=== PATIENT | female | born 1945 | race Two or more races ===

== ENCOUNTER 2020-06-26 11:32 | Inpatient (IN) | payer MEDICAID ==
[~2020-06-26] VITALS: Ht 152.4 cm; Wt 65.1 kg
[2020-06-26] VITALS (11 sets, daily range): BP systolic 92–104; BP diastolic 43–67
[2020-06-26] MEDS ORDERED: AMLODIPINE BESYL5 MG ORAL (11:47)
[2020-06-26] MEDS ORDERED: LANTUS SOL100 UNIT/1 SUBQ (11:48)
[2020-06-26] MEDS ORDERED: HUMALOG100 UNIT/4 SUBQ (11:48)
[2020-06-26] MEDS ORDERED: Vancomycin 1 GM in NS 275 ML IVPB ONE (12:15)
[2020-06-26] MEDS ORDERED: Sodium Chloride 1,900 ML IVLG ONE (12:15)
[2020-06-26] MEDS ORDERED: cefTRIAXone 1 GM in NS 55 ML IV ONE (12:15)
--- NOTE | 2020-06-26 12:20 | NUR ---
Patient came into ER from [facility]. Per report from laboratory equipment cleaner, patient was noted to be lethargic this morning with a BS of >500. Has an extensive medical history of CVA, HTN and DM. Per laboratory equipment cleaner, patient was given 2 units of insulin with stable B/P on route to ED. Femoral line placed by . Intubated due to periods of apnea upon admit Guillen placed.
[2020-06-26 12:31] LABS: APPEARANCE,URINE CLEAR; BILIRUBIN, URINE NEGATIVE (NEGATIVE); COLOR,URINE PALE YELLOW; GLUCOSE, URINE (UA) 3+ (NEGATIVE); KETONES,URINE NEGATIVE (NEGATIVE); LEUKOCYTE ESTERASE ,URINE NEGATIVE (NEGATIVE); NITRITE,URINE NEGATIVE (NEGATIVE); PH,URINE 6 (4.5-8.0); PROTEIN,URINE NEGATIVE (NEGATIVE); UROBILINOGEN,URINE NORMAL MG/DL (0.0-1.0)
[2020-06-26 12:39] LABS: ANION GAP 15 mmol/L (5-15); BLOOD UREA NITROGEN 143 mg/dL (7-18); CALCIUM 9.7 MG/DL (8.5-10.1); CARBON DIOXIDE 23 MMOL/L (21-32); CHLORIDE 109 MMOL/L (98-107); POTASSIUM 3.9 MMOL/L (3.5-5.1); SODIUM 147 MMOL/L (136-145)
[2020-06-26 12:46] LABS: HEMATOCRIT 19.9 % (37.0-47.0); MEAN CORPUSCULAR VOLUME 97 FL (80-99); PLATELET COUNT 160 K/UL (150-450); RED BLOOD COUNT 2.04 M/UL (4.20-5.40); RED CELL DISTRIBUTION WIDTH 12.8 % (11.6-14.8); WHITE BLOOD COUNT 20.5 K/UL (4.8-10.8)
[2020-06-26 12:48] LABS: HEMOGLOBIN 6.2 G/DL (12.0-16.0)
[2020-06-26 12:50] LABS: ALANINE AMINOTRANSFERASE 47 U/L (12-78); ALBUMIN 2.5 G/DL (3.4-5.0); ALBUMIN/GLOBULIN RATIO 0.7 (1.0-2.7); ALKALINE PHOSPHATASE 77 U/L (46-116); ASPARTATE AMINO TRANSFERASE 21 U/L (15-37); BILIRUBIN,TOTAL 0.6 MG/DL (0.2-1.0); CREATINE KINASE 27 U/L (26-308); FERRITIN 316 NG/ML (8-388); LACTATE DEHYDROGENASE 229 U/L (81-234)
[2020-06-26 12:54] LABS: INR 1.3 (0.9-1.1)
--- NOTE | 2020-06-26 12:57 | Emergency Room Report ---
History of Present Illness General Chief Complaint: Altered Mental Status Source: Family Member - daughter, EMS Present Illness HPI Paramedics were summoned to intermediate facility for altered mental status. Initial blood pressure was low. They were unable to establish an IV. Repeat blood pressure was better. In addition sugar high at SNF. Insulin was administered after they found that the blood sugar was high. Apparently the patient has suffered a stroke recently. In discussion with the patient's daughter this is additional history: Walked into [facility] 06/12 (walker). D/C 06/15, R weakness. Unable to ambulate. Last Saturday (7d) went to [place]. Had pacemaker placed. Daughter not certain as to why pacer placed. D/C to [facility] 2 days ago. At discharge from [place] she was unable to return to home. Further history is unobtainable. Allergies: Coded Allergies: No Known Allergies (Unverified , 06/26/20) COVID-19 Screening Contact w/high risk pt: No Experienced COVID-19 symptoms?: No COVID-19 Testing performed HEAD BOOKKEEPER: Yes COVID-19 Screening: Negative COVID-19 COVID-19 Testing Source: nasal Patient History Limited by: medical condition Past Medical History: see triage record, CVA/TIA Past Surgical History: pacemaker Social History: Denies: smoking, alcohol use, drug use Social History Narrative family were caretakers Now: No Reviewed Nursing Documentation: PMH: Agreed; PSxH: Agreed Nursing Documentation-PMH Past Medical History Deferred: Patient Unconscious Hx Cardiac Problems: Yes Hx Hypertension: Yes Hx Diabetes: Yes Hx Neurological Problems: Yes Hx Cerebrovascular Accident: Yes Review of Systems All Other Systems: limited Physical Exam Vital Signs Date Time Temp Pulse Resp B/P (MAP) Pulse Ox O2 Delivery O2 Flow Rate FiO2 06/26/20 11:33 125 35 54/41 (45) 100 Ambu-Bag 06/26/20 11:42 99.0 06/26/20 11:52 35 Sp02 EP Interpretation: reviewed, abnormal - as interpreted by me General Appearance: severe distress, other - unresponsive, Chronically Ill, Stupor Eyes: right eye other - blink reflex, L no reflex ENT: dry mucus membranes - no gag Neck: supple Respiratory: other - abd breathing, bradypneic Cardiovascular #1: regular rate, rhythm, no edema Cardiovascular #2: 1+ carotid (L) Gastrointestinal: non-distended, other - as patient unresponsive, exam not contributory, decreased bowel sounds Genitourinary: normal inspection Musculoskeletal: other - flaccid Neurologic: motor weakness - L, but unresponsive, other - blink reflex R eye Psychiatric: other - unresponsive Skin: pallor Procedures Critical Care Time Critical Care Time Total Critical Care Time: 120 Min bedside evaluation and treatment excludes procedures (EKG, intubation, CVP). Reason for critical care: Respiratory failure, severe sepsis, elevated troponin, acute renal failure, determination of level of care and discussion with family, discussion with consultants Possible complications: hypotension, hypertension, NC, shock, arrhythmias, metabolic acidosis, end organ damage, respiratory failure. Interventions: Intubation, central line, sepsis resuscitation, repeat evaluations, discussion with family and ascertainment of CODE STATUS, repeat evaluations, sedation, discussion with admitting physician and consultants Course: Patient presented with respiratory failure. Immediate assisting of airway by me with bag valve mask as others were working the patient up to monitors and attempting IVs. Patient intubated. Central line begun as patient extremely hypotensive and still unresponsive. Fluid resuscitation begun. Bloods drawn through central line by me. Antibiotics begun. Patient is volume responsive. Elevated troponin treated. No obvious source of sepsis and therefore CAT scan ordered. Antibiotics broadened. Discussion with family regarding CODE STATUS. They state that the patient a long time ago had stated that she wanted to be a DNR. Discussed with admitting physician. Patient beginning to wake. Sedation ordered. Repeat lactic acid improved. CT with ch oledocholithiasis. Communication with surgeon. Discussed with ID data quality consultant. Consultations: nursing staff, EMS, family, admitting MD, surgeon, ID data quality consultant Performed by: Dr. Campoverde Tolerated well condition = critical Central Line Central Line : Consent: Emergent Central Line Lumen: triple Maximal Sterile Barrier Tech: yes cap, yes mask, yes sterile gown, yes sterile gloves, yes large sterile sheet, yes hand hygiene, yes chlorhexidine prep Central Line Postion: femoral (R) Anesthesia: None US Guided Line?: Yes Vessel visualized with U/S: Right Femoral Vein Ultrasound Findings: Collapsible Vessel, Vessel Patent, Visualize vessel puncture Complications: none Central Line Post Position: sutured, good blood return Attempts: One Patient Tolerated: Well Complications: None Progress Estimated blood loss 4 cc during procedure and 40 mils with blood draw Intubation Intubation : Consent: Emergent Intubation Method: orotracheal Tube Size (cm): 7.5 Medications: Other - None Breath Sounds after Intubation: equal Intubation Complications: no complications Post Intubation Xray: Yes Attempts: One Patient Tolerated: Well Complications: None Medical Decision Making Diagnostic Impression: Primary Impression: Severe sepsis Additional Impressions: Respiratory failure Qualified Codes: J96.01 - Acute respiratory failure with hypoxia; J96.02 - Acute respiratory failure with hypercapnia NSTEMI (non-ST elevated myocardial infarction) ARF (acute renal failure) Qualified Codes: N17.9 - Acute kidney failure, unspecified Hyperglycemia Choledocholithiasis Hemiparesis Qualified Codes: I69.354 - Hemiplegia and hemiparesis following cerebral infarction affecting left non-dominant side Anemia Qualified Codes: D64.9 - Anemia, unspecified ER Course Patient presents with a history of altered level of consciousness via EMS. Immediately noted that the patient was very dyspneic and not moving air well with hypotension and hypoxia. Assisted ventilations by me leading to emergent intubation. Patient was also hypotensive and nurses unable to start peripheral IVs. Right femoral central line begun by me. Bloods drawn and fluid resuscitation begun immediately. Hemiparesis previously reported by family. Respiratory failure might be due to hypotension in the presence of prior CVA. Differential includes severe sepsis, respiratory failure, acute myocardial infarction, pulmonary embolus, Covid amongst others. Evaluation with EKG, chest x-ray and labs. Sepsis resuscitation and antibiotics immediately ordered. Chest x-ray without infiltrates. ET tube is slightly high. Position is adequate however after orogastric tube ordered the ET tube will be positioned lower. White count elevated with left shift. CMP with acute renal failure. BP better with fluids. ABG on vent compensated metabolic acidosis. Based on x-ray and labs COVID-19 is less likely however patient still under investigation. Initial lactate elevated. BP better. Adding levaquin. Elevated troponin. Aspirin ordered. Sepsis re-evaluation. Source not identified. CT ordered. Bolus had been given. Patient still unresponsive. 1325 Discussed with daughter. Patient wishes and daughter = DNR. Understands patient intubated. Ordered. [address] Lenz for admission. Contact Dr. Shah regarding CT with choledocholithiasis in the face of norm al LFTs. Discussed with ID data quality consultant. Starting to wake up. Sedation ordered with Versed and fentanyl. Repeat lactic acid improved. Blood glucose also improved. Condition is guarded and patient is admitted to ICU. Laboratory Tests Test 06/26/20 11:56 06/26/20 12:40 06/26/20 15:10 06/26/20 15:19 Urine Color Pale yellow Urine Appearance Clear Urine pH 6 (4.5-8.0) Urine Specific [place] 1.010 (1.005-1.035) Urine Protein Negative (NEGATIVE) Urine Glucose (UA) 3+ (NEGATIVE) H Urine Ketones Negative (NEGATIVE) Urine Blood Negative (NEGATIVE) Urine Nitrite Negative (NEGATIVE) Urine Bilirubin Negative (NEGATIVE) Urine Urobilinogen Normal MG/DL (0.0-1.0) Urine Leukocyte Esterase Negative (NEGATIVE) Sodium Level 147 MMOL/L (136-145) H Potassium Level 3.9 MMOL/L (3.5-5.1) Chloride Level 109 MMOL/L (98-107) H Carbon Dioxide Level 23 MMOL/L (21-32) Anion Gap 15 mmol/L (5-15) Blood Urea Nitrogen 143 mg/dL (7-18) H Creatinine 3.0 MG/DL (0.55-1.30) H Estimated Glomerular Filtration Rate 15.3 mL/min (>60) Glucose Level 347 MG/DL (74-106) H Lactic Acid Level 5.50 mmol/L (0.4-2.0) H 2.30 mmol/L (0.66-2.22) H Calcium Level 9.7 MG/DL (8.5-10.1) Magnesium Level 2.2 MG/DL (1.8-2.4) Ferritin 316 NG/ML (8-388) Total Bilirubin 0.6 MG/DL (0.2-1.0) Aspartate Amino Transferase (AST) 21 U/L (15-37) Alanine Aminotransferase (ALT) 47 U/L (12-78) Alkaline Phosphatase 77 U/L (46-116) Lactate Dehydrogenase 229 U/L (81-234) Total Creatine Kinase 27 U/L (26-308) Troponin I 0.164 ng/mL (0.000-0.056) C-Reactive Protein, Quantitative 0.9 mg/dL (0.00-0.90) Pro-B-Type Natriuretic Peptide 683 pg/mL (0-125) H Total Protein 6.1 G/DL (6.4-8.2) L Albumin 2.5 G/DL (3.4-5.0) L Globulin 3.6 g/dL Albumin/Globulin Ratio 0.7 (1.0-2.7) L Lipase 608 U/L (73-393) H White Blood Count 20.5 K/UL (4.8-10.8) H Red Blood Count 2.04 M/UL (4.20-5.40) L Hemoglobin 6.2 G/DL (12.0-16.0) *L Hematocrit 19.9 % (37.0-47.0) L Mean Corpuscular Volume 97 FL (80-99) Mean Corpuscular Hemoglobin 30.3 PG (27.0-31.0) Mean Corpuscular Hemoglobin Concent 31.1 G/DL (32.0-36.0) L Red Cell Distribution Width 12.8 % (11.6-14.8) Platelet Count 160 K/UL (150-450) Mean Platelet Volume 7.6 FL (6.5-10.1) Neutrophils (%) (Auto) % (45.0-75.0) Lymphocytes (%) (Auto) % (20.0-45.0) Monocytes (%) (Auto) % (1.0-10.0) Eosinophils (%) (Auto) % (0.0-3.0) Basophils (%) (Auto) % (0.0-2.0) Differential Total Cells Counted 100 Neutrophils % (Manual) 77 % (45-75) H Lymphocytes % (Manual) 18 % (20-45) L Monocytes % (Manual) 5 % (1-10) Eosinophils % (Manual) 0 % (0-3) Basophils % (Manual) 0 % (0-2) Band Neutrophils 0 % (0-8) Nucleated Red Blood Cells 1 /100 WBC Platelet Estimate Adequate Platelet Morphology Normal Hypochromasia 1+ Prothrombin Time 14.1 SEC (9.30-11.50) H Prothrombin Time INR 1.3 (0.9-1.1) H Activated Partial Thromboplast Time 20 SEC (23-33) L D-Dimer 2.45 mg/L FEU (0.00-0.49) H Arterial Blood pH 7.314 (7.350-7.450) Arterial Blood Partial Pressure CO2 32.9 mmHg (35.0-45.0) L Arterial Blood Partial Pressure O2 147.3 mmHg (75.0-100.0) H Arterial Blood HCO3 16.3 mmol/L (22.0-26.0) *L Arterial Blood Oxygen Saturation 98.1 % (95-100) Arterial Blood Base Excess -9.0 (-2-2) L Jaret Test Positive POC Whole Blood Glucose 172 MG/DL (74-106) H Test 06/26/20 16:15 Troponin I Pending EKG Diagnostic Results Rate: tachycardiac Rhythm: NSR ST Segments: no acute changes - pacs Rhythm Strip Diag. Results EP Interpretation: yes Rhythm: NSR, no PVC's, no ectopy Chest X-Ray Diagnostic Results Chest X-Ray Diagnostic Results #1: Chest X-Ray Ordered: Yes # of Views/Limited/Complete: 1 View Indication: Other EP Interpretation: Yes Interpretation: no consolidation, no effusion, no pneumothorax, other - ET slightly high no infiltrates, defibrillator left Impression: Other Electronically Signed by: Electronically signed by Serafin Campoverde MD Chest X-Ray Diagnostic Results #2: Chest X-Ray Ordered: Yes # of Views/Limited/Complete: 1 View Indication: Other EP Interpretation: Yes Interpretation: no consolidation, no effusion, no pneumothorax, other - ET tube letter placement, OG tube stomach, defibrillator pacer Impression: Other Electronically Signed by: Electronically signed by Serafin Campoverde MD CT/MRI/US Diagnostic Results CT/MRI/US Diagnostic Results : Imaging Test Ordered: Abdomen and pelvis Impression Biliary dilation attributable to choledocholithiasis. 1.2 and 1.3 cm calculi in the proximal and distal CBD respectively. The distended gallbladder contains a large lamellated stone. Haziness about the pancreas could be attributable to motion artifact, but in light of biliary findings, recommend checking enzymes. The rectum is distended by inspissated stool and contrast. Correlate for impaction. Last Vital Signs Date Time Temp Pulse Resp B/P (MAP) Pulse Ox O2 Delivery O2 Flow Rate FiO2 06/26/20 18:00 89 18 100 06/26/20 18:00 96.7 103/67 (79) 06/26/20 16:52 Endotracheal Tube 30.0 06/26/20 16:33 30 Status: improved Disposition: ADMITTED INPATIENT Condition: Critical Referrals: Vanessa Lenz M.D. (PCP) Serafin Campoverde MD Jun 26, 2020 12:57
--- NOTE | 2020-06-26 13:00 | Diagnostic Imaging Report ---
EXAM: XR Chest, 1 View CLINICAL HISTORY: ALOC TECHNIQUE: Frontal view of the chest. COMPARISON: No relevant prior studies available. FINDINGS: Lungs: No consolidation. Pleural space: Unremarkable. No pneumothorax. Heart/mediastinum: Heart size is borderline enlarged. Dual-lead pacer device and a left subclavian approach. Aortic calcification. Prominent pulmonary arteries could reflect hypertension Bones/joints: Degenerative changes. Tubes/lines: The tip of the ET tube projects 6.2 cm above the shailesh IMPRESSION: Tip of the ET tube projects 6.2 cm above the shailesh. Prominent pulmonary arteries. Consider pulmonary hypertension. Pacer device with borderline cardiomegaly. No overt edema.
--- NOTE | 2020-06-26 13:05 | NUR ---
OG tube inserted
--- NOTE | 2020-06-26 14:01 | NUR ---
Patient taken to CT
--- NOTE | 2020-06-26 14:06 | Diagnostic Imaging Report ---
EXAM: XR Chest, 1 View CLINICAL HISTORY: TUBE PLACEMENT TECHNIQUE: Frontal view of the chest. COMPARISON: 06/26/20 at 0428 hours. FINDINGS/IMPRESSION: Interval placement of enteric tube. The sidehole is near the GE junction. Recommend advancing 5-10 cm. Appropriately positioned endotracheal tube, tip projecting 4.5 cm above the shailesh. Pacer device. No overt edema
--- NOTE | 2020-06-26 15:07 | Diagnostic Imaging Report ---
EXAM: CT Abdomen and Pelvis Without Intravenous Contrast CLINICAL HISTORY: ALOC TECHNIQUE: Axial computed tomography images of the abdomen and pelvis without intravenous contrast. CTDI is 4.7 mGy and DLP is 236.10 mGy-cm. One or more of the following dose reduction techniques were used: automated exposure control, adjustment of the mA and/or kV according to patient size, use of iterative reconstruction technique. COMPARISON: No relevant prior studies available. FINDINGS: The lung bases demonstrate no acute infiltrate. Mild atelectasis only. Cardiac pacer device with CAD. Markedly distended gallbladder, up to 6.2 cm in transverse diameter. 4.2 cm dependent gallstone with lamellated calcification. Biliary dilation. The common bile duct measures up to 1.2 cm in diameter. 1.2 cm stone within the proximal CBD. 1.3 cm stone distally near the ampulla of Vater as seen on coronal images 31 and 33 respectively. Haziness about the pancreas could be attributable to motion artifact, but given choledocholithiasis, would recommend correlation with enzymes to exclude gallstone pancreatitis. The spleen is diminutive, but otherwise unremarkable. The kidneys and adrenal glands are within normal limits for noncontrast technique. Inspissated stool and contrast distended rectum up to 7 cm in diameter. Correlate for impaction. No perforation. No small bowel obstruction. Guillen catheter with redundant tubing in the urinary bladder, which is appropriately decompressed. Right femoral venous catheter. Operative changes of the pelvis suggesting lymph node dissection along with hysterectomy. Aortoiliac atherosclerosis. No aneurysm. No acute fracture. IMPRESSION: Biliary dilation attributable to choledocholithiasis. 1.2 and 1.3 cm calculi in the proximal and distal CBD respectively. The distended gallbladder contains a large lamellated stone. Haziness about the pancreas could be attributable to motion artifact, but in light of biliary findings, recommend checking enzymes. The rectum is distended by inspissated stool and contrast. Correlate for impaction. Lines and tubes and incidental findings as detailed above.
[2020-06-26] MEDS ORDERED: Midazolam HCl 50mg/10ml vial 50 MG in NS 90 ML IV ONE (16:00)
--- NOTE | 2020-06-26 16:03 | Infectious Diseases Prog Note ---
Assessment/Plan Assessment/Plan Full consul dictated: A) 1) sepsis, shock, leukocytosis, lgt 2) ? pna, respiratory failure 3) ? cholecystitis 4) pmh noted 5) allergies - nkda P) 1) zoysn and vancomycin 2) check cultures, labs, chest x-ray, US, ? hida 3) surgery and GI f/u 4) thank you Subjective Allergies: Coded Allergies: No Known Allergies (Unverified , 06/26/20) Objective Last 24 Hour Vital Signs Date Time Temp Pulse Resp B/P (MAP) Pulse Ox O2 Delivery O2 Flow Rate FiO2 06/26/20 13:23 72 28 Mechanical Ventilator 100 06/26/20 11:52 98 20 35 06/26/20 11:42 99.0 06/26/20 11:33 125 35 54/41 (45) 100 Ambu-Bag Height (Feet): 5 Weight (Pounds): 143 Laboratory Tests Test 06/26/20 11:56 06/26/20 12:40 06/26/20 15:10 06/26/20 15:19 Urine Color Pale yellow Urine Appearance Clear Urine pH 6 (4.5-8.0) Urine Specific [place] 1.010 (1.005-1.035) Urine Protein Negative (NEGATIVE) Urine Glucose (UA) 3+ (NEGATIVE) H Urine Ketones Negative (NEGATIVE) Urine Blood Negative (NEGATIVE) Urine Nitrite Negative (NEGATIVE) Urine Bilirubin Negative (NEGATIVE) Urine Urobilinogen Normal MG/DL (0.0-1.0) Urine Leukocyte Esterase Negative (NEGATIVE) Sodium Level 147 MMOL/L (136-145) H Potassium Level 3.9 MMOL/L (3.5-5.1) Chloride Level 109 MMOL/L (98-107) H Carbon Dioxide Level 23 MMOL/L (21-32) Anion Gap 15 mmol/L (5-15) Blood Urea Nitrogen 143 mg/dL (7-18) H Creatinine 3.0 MG/DL (0.55-1.30) H Estimat Glomerular Filtration Rate 15.3 mL/min (>60) Glucose Level 347 MG/DL (74-106) H Lactic Acid Level 5.50 mmol/L (0.4-2.0) H 2.30 mmol/L (0.66-2.22) H Calcium Level 9.7 MG/DL (8.5-10.1) Magnesium Level 2.2 MG/DL (1.8-2.4) Ferritin 316 NG/ML (8-388) Total Bilirubin 0.6 MG/DL (0.2-1.0) Aspartate Amino Transf (AST/SGOT) 21 U/L (15-37) Alanine Aminotransferase (ALT/SGPT) 47 U/L (12-78) Alkaline Phosphatase 77 U/L (46-116) Lactate Dehydrogenase 229 U/L (81-234) Total Creatine Kinase 27 U/L (26-308) Troponin I 0.164 ng/mL (0.000-0.056) C-Reactive Protein, Quantitative 0.9 mg/dL (0.00-0.90) Pro-B-Type Natriuretic Peptide 683 pg/mL (0-125) H Total Protein 6.1 G/DL (6.4-8.2) L Albumin 2.5 G/DL (3.4-5.0) L Globulin 3.6 g/dL Albumin/Globulin Ratio 0.7 (1.0-2.7) L Lipase 608 U/L (73-393) H White Blood Count 20.5 K/UL (4.8-10.8) H Red Blood Count 2.04 M/UL (4.20-5.40) L Hemoglobin 6.2 G/DL (12.0-16.0) *L Hematocrit 19.9 % (37.0-47.0) L Mean Corpuscular Volume 97 FL (80-99) Mean Corpuscular Hemoglobin 30.3 PG (27.0-31.0) Mean Corpuscular Hemoglobin Concent 31.1 G/DL (32.0-36.0) L Red Cell Distribution Width 12.8 % (11.6-14.8) Platelet Count 160 K/UL (150-450) Mean Platelet Volume 7.6 FL (6.5-10.1) Neutrophils (%) (Auto) % (45.0-75.0) Lymphocytes (%) (Auto) % (20.0-45.0) Monocytes (%) (Auto) % (1.0-10.0) Eosinophils (%) (Auto) % (0.0-3.0) Basophils (%) (Auto) % (0.0-2.0) Differential Total Cells Counted 100 Neutrophils % (Manual) 77 % (45-75) H Lymphocytes % (Manual) 18 % (20-45) L Monocytes % (Manual) 5 % (1-10) Eosinophils % (Manual) 0 % (0-3) Basophils % (Manual) 0 % (0-2) Band Neutrophils 0 % (0-8) Nucleated Red Blood Cells 1 /100 WBC Platelet Estimate Adequate Platelet Morphology Normal Hypochromasia 1+ Prothrombin Time 14.1 SEC (9.30-11.50) H Prothromb Time International Ratio 1.3 (0.9-1.1) H Activated Partial Thromboplast Time 20 SEC (23-33) L D-Dimer 2.45 mg/L FEU (0.00-0.49) H Arterial Blood pH 7.314 (7.350-7.450) Arterial Blood Partial Pressure CO2 32.9 mmHg (35.0-45.0) L Arterial Blood Partial Pressure O2 147.3 mmHg (75.0-100.0) H Arterial Blood HCO3 16.3 mmol/L (22.0-26.0) *L Arterial Blood Oxygen Saturation 98.1 % (95-100) Arterial Blood Base Excess -9.0 (-2-2) L Jaret Test Positive POC Whole Blood Glucose 172 MG/DL (74-106) H Current Medications Medications (Trade) Dose Ordered Sig/Reinier Route PRN Reason Start Time Stop Time Status Last Admin Dose Admin Fentanyl Citrate 1000 mcg/Sodium Chloride 100 ml @ 0.5 mls/hr NOW ONCE IV 06/26/20 16:00 07/04/20 23:59 Midazolam HCl 50 mg/Sodium Chloride 100 ml @ 2 mls/hr NOW ONCE IV 06/26/20 16:00 06/28/20 17:59 Piperacillin Sod/ Tazobactam Sod 3.375 gm/Dextrose 100 ml @ 25 mls/hr EVERY 12 HOURS IVPB 06/26/20 21:00 07/01/20 20:59 UNV Sodium Chloride 1,000 ml @ 200 mls/hr Q5H IV 06/26/20 15:15 07/26/20 15:14 06/26/20 15:52 Vancomycin HCl ([facility] pharmacy to dose) 1 ea DAILY PRN MISC Per rx protocol 06/26/20 16:00 07/26/20 15:59 Milo Pastrana MD Jun 26, 2020 16:03
--- NOTE | 2020-06-26 16:21 | Consultation ---
History of Present Illness General Chief Complaint: Altered Mental Status Present Illness HPI Paramedics were summoned to [facility] facility for altered mental status. Initial blood pressure was low. They were unable to establish an IV. Repeat blood pressure was better. In addition sugar high at SNF. Insulin was administered after they found that the blood sugar was high. Apparently the patient has suffered a stroke recently.In discussion with the patient's daughter this is additional history:Walked into [facility] 06/12 (walker). D/C 05/28 0, R weakness. Unable to ambulate. Last Saturday (7d) went to [place]. Had pacemaker placed. Daughter not certain as to why pacer placed. D/C to [facility] 2 days ago. At discharge from [place] she was unable to return to home. Allergies: Coded Allergies: No Known Allergies (Unverified , 06/26/20) Medication History Scheduled Amlodipine Besylate* (Amlodipine Besylate*), 5 MG ORAL DAILY, (Reported) Aspirin* (Aspirin*), 81 MG ORAL DAILY, (Reported) Docusate Sodium* (Docusate Sodium*), 100 MG ORAL TWICE A DAY, (Reported) Hydrochlorothiazide* (Hydrochlorothiazide*), 25 MG ORAL DAILY, (Reported) Insulin Glargine (Lantus), 15 UNITS SUBQ BEDTIME, (Reported) Insulin Lispro (Humalog), 0 SUBQ AC+HS, (Reported) Losartan Potassium* (Losartan Potassium*), 100 MG ORAL DAILY, (Reported) Scheduled PRN Acetaminophen* (Acetaminophen 325MG Tablet*), 325 MG ORAL Q4H PRN for MILDP/TEMP, (Reported) Bisacodyl (Bisacodyl), 10 MG RC for Constipation, (Reported) Guaifenesin/D-Methorphan Hb/Pe (Robitussin Cough-Cold Cf Liq*), 5 ML ORAL Q4HR PRN for FOR COUGH, (Reported) Hydralazine Hcl* (Hydralazine Hcl*), 25 MG ORAL QID PRN for For High Blood Pressure, (Reported) Melatonin/Pyridoxine HCl (B6) (Melatonin 3 mg Tablet), 1 EACH PO BEDTIME PRN for INSOMNIA, (Reported) Ondansetron* (Zofran*), 4 MG ORAL Q4HR PRN for Nausea & Vomiting, (Reported) Patient History Healthcare decision maker Resuscitation status Advanced Directive on File Review of Systems ROS Narrative unable to obtain due to clinical condition Physical Exam Lines, tubes and drains: peripheral, central line HEENT: normocephalic, atraumatic Neck: non-tender, normal alignment Respiratory/Chest: on vent Cardiovascular/Chest: normal peripheral pulses, normal rate, regular rhythm Abdomen: normal bowel sounds, non tender Extremities: normal range of motion, non-tender Last 24 Hour Vital Signs Date Time Temp Pulse Resp B/P (MAP) Pulse Ox O2 Delivery O2 Flow Rate FiO2 06/26/20 13:23 72 28 Mechanical Ventilator 100 06/26/20 11:52 98 20 35 06/26/20 11:42 99.0 06/26/20 11:33 125 35 54/41 (45) 100 Ambu-Bag Laboratory Tests Test 06/26/20 11:56 06/26/20 12:40 06/26/20 15:10 06/26/20 15:19 Urine Color Pale yellow Urine Appearance Clear Urine pH 6 (4.5-8.0) Urine Specific [place] 1.010 (1.005-1.035) Urine Protein Negative (NEGATIVE) Urine Glucose (UA) 3+ (NEGATIVE) H Urine Ketones Negative (NEGATIVE) Urine Blood Negative (NEGATIVE) Urine Nitrite Negative (NEGATIVE) Urine Bilirubin Negative (NEGATIVE) Urine Urobilinogen Normal MG/DL (0.0-1.0) Urine Leukocyte Esterase Negative (NEGATIVE) Sodium Level 147 MMOL/L (136-145) H Potassium Level 3.9 MMOL/L (3.5-5.1) Chloride Level 109 MMOL/L (98-107) H Carbon Dioxide Level 23 MMOL/L (21-32) Anion Gap 15 mmol/L (5-15) Blood Urea Nitrogen 143 mg/dL (7-18) H Creatinine 3.0 MG/DL (0.55-1.30) H Estimat Glomerular Filtration Rate 15.3 mL/min (>60) Glucose Level 347 MG/DL (74-106) H Lactic Acid Level 5.50 mmol/L (0.4-2.0) H 2.30 mmol/L (0.66-2.22) H Calcium Level 9.7 MG/DL (8.5-10.1) Magnesium Level 2.2 MG/DL (1.8-2.4) Ferritin 316 NG/ML (8-388) Total Bilirubin 0.6 MG/DL (0.2-1.0) Aspartate Amino Transf (AST/SGOT) 21 U/L (15-37) Alanine Aminotransferase (ALT/SGPT) 47 U/L (12-78) Alkaline Phosphatase 77 U/L (46-116) Lactate Dehydrogenase 229 U/L (81-234) Total Creatine Kinase 27 U/L (26-308) Troponin I 0.164 ng/mL (0.000-0.056) C-Reactive Protein, Quantitative 0.9 mg/dL (0.00-0.90) Pro-B-Type Natriuretic Peptide 683 pg/mL (0-125) H Total Protein 6.1 G/DL (6.4-8.2) L Albumin 2.5 G/DL (3.4-5.0) L Globulin 3.6 g/dL Albumin/Globulin Ratio 0.7 (1.0-2.7) L Lipase 608 U/L (73-393) H White Blood Count 20.5 K/UL (4.8-10.8) H Red Blood Count 2.04 M/UL (4.20-5.40) L Hemoglobin 6.2 G/DL (12.0-16.0) *L Hematocrit 19.9 % (37.0-47.0) L Mean Corpuscular Volume 97 FL (80-99) Mean Corpuscular Hemoglobin 30.3 PG (27.0-31.0) Mean Corpuscular Hemoglobin Concent 31.1 G/DL (32.0-36.0) L Red Cell Distribution Width 12.8 % (11.6-14.8) Platelet Count 160 K/UL (150-450) Mean Platelet Volume 7.6 FL (6.5-10.1) Neutrophils (%) (Auto) % (45.0-75.0) Lymphocytes (%) (Auto) % (20.0-45.0) Monocytes (%) (Auto) % (1.0-10.0) Eosinophils (%) (Auto) % (0.0-3.0) Basophils (%) (Auto) % (0.0-2.0) Differential Total Cells Counted 100 Neutrophils % (Manual) 77 % (45-75) H Lymphocytes % (Manual) 18 % (20-45) L Monocytes % (Manual) 5 % (1-10) Eosinophils % (Manual) 0 % (0-3) Basophils % (Manual) 0 % (0-2) Band Neutrophils 0 % (0-8) Nucleated Red Blood Cells 1 /100 WBC Platelet Estimate Adequate Platelet Morphology Normal Hypochromasia 1+ Prothrombin Time 14.1 SEC (9.30-11.50) H Prothromb Time International Ratio 1.3 (0.9-1.1) H Activated Partial Thromboplast Time 20 SEC (23-33) L D-Dimer 2.45 mg/L FEU (0.00-0.49) H Arterial Blood pH 7.314 (7.350-7.450) Arterial Blood Partial Pressure CO2 32.9 mmHg (35.0-45.0) L Arterial Blood Partial Pressure O2 147.3 mmHg (75.0-100.0) H Arterial Blood HCO3 16.3 mmol/L (22.0-26.0) *L Arterial Blood Oxygen Saturation 98.1 % (95-100) Arterial Blood Base Excess -9.0 (-2-2) L Jaret Test Positive POC Whole Blood Glucose 172 MG/DL (74-106) H Height (Feet): 5 Weight (Pounds): 143 Medications Current Medications Medications (Trade) Dose Ordered Sig/Reinier Route PRN Reason Start Time Stop Time Status Last Admin Dose Admin Fentanyl Citrate 1000 mcg/Sodium Chloride 100 ml @ 0.5 mls/hr NOW ONCE IV 06/26/20 16:00 07/04/20 23:59 Midazolam HCl 50 mg/Sodium Chloride 100 ml @ 2 mls/hr NOW ONCE IV 06/26/20 16:00 06/28/20 17:59 Piperacillin Sod/ Tazobactam Sod 3.375 gm/Dextrose 100 ml @ 25 mls/hr EVERY 12 HOURS IVPB 06/26/20 21:00 07/01/20 20:59 UNV Sodium Chloride 1,000 ml @ 200 mls/hr Q5H IV 06/26/20 15:15 07/26/20 15:14 06/26/20 15:52 Vancomycin HCl ([facility] pharmacy to dose) 1 ea DAILY PRN MISC Per rx protocol 06/26/20 16:00 07/26/20 15:59 UNV Assessment/Plan Diagnosis [place] I: #DAYO - likely ATN in the setting of septic shock #Acute anemia #hypoxemic resp failure - vent dependent #NSTEMI #AMS #p Afib #Dm #HTN #HLD #s/p PPM - admit to ICU - pulm eval for vent management - prbc transfusion - monitor renal function - ID consulted - antibiotics per ID - cardiology eval - monitor troponin level - monitor lytes - pressors prn - monitor LFTs - echo - renal US - urine chem time spent 65 min Vanessa Lenz M.D. Jun 26, 2020 16:21
[2020-06-26] MEDS: Norepinephrine 4mg/NS Premix 250 ML IV SCH (16:45)
[2020-06-26] MEDS: D5NS 1,000 ML IV SCH (16:45)
--- NOTE | 2020-06-26 19:40 | NUR ---
NURSE NOTES: Received report from SHANNON Acharya. Pt is sleeping on the bed. Pt has new ETT and orally intubated. Vend dependent and setting with AC ; 16, T: 400, P:5, FiO2 30% and SaO2 100% noted. given suction and oral care. no fever noted. Pt has pace maker. on radiographer cardiac catheterization with SR. Pt has OGT and fixed with 50cm. on NPO. Pt has Rt. femoral TLC and dressing is clean and dry but no Biopatch dressing. Will change to central line dressing. Pt has Guillen cath and in placed and patent. noted yellowish urine. On isolation for PUI COVID-19. Placed fall precaution. Will continue to care plan.
--- NOTE | 2020-06-26 19:50 | NUR ---
NURSE NOTES: Left message to Dr. Lenz for verify admission order and awaiting call back.
[2020-06-26] MEDS ORDERED: Acetaminophen 650mg/20.3ml NG PRN (20:00)
--- NOTE | 2020-06-26 20:07 | NUR ---
NURSE NOTES: Get call back from Dr. henao and verified order and new order received carried out. Report to troponin level 0.263 and MD aware. Will continue to monitor any change of condition.
--- NOTE | 2020-06-26 20:20 | NUR ---
NURSE NOTES: left message to Dr. Lawson regarding result of troponin level and Lefe message to Dr. Doe for sedation order and awating call back.
[2020-06-26] MEDS: Dyna-Hex 2% Top Sol 2oz TOPIC SCH (20:44)
[2020-06-26] MEDS: Atorvastatin 80mg tab ORAL SCH ×2 (20:44→22:36)
[2020-06-26] MEDS: Pantoprazole Inj IVP SCH (20:44)
--- NOTE | 2020-06-26 20:54 | NUR ---
NURSE NOTES: Telephone consent received for Blood Transfusion and other Blood products if indicated. Telephone consent was verified by two nurses Bret ORTEGAwill call clerk Nurse and Magalie ORTEGA Primary nurse.
--- NOTE | 2020-06-26 21:09 | NUR ---
NURSE NOTES: Advance OGT 10cm more and get order with KUB for NGT placement. Will continue to monitor any change of condition.
[2020-06-26] MEDS: NovoLOG Insulin Flexpen SUBQ SCH (21:16)
--- NOTE | 2020-06-26 21:50 | NUR ---
NURSE NOTES: left message to Dr. Doe again and awaiting call back.
--- NOTE | 2020-06-26 22:22 | Diagnostic Imaging Report ---
EXAM: XR Abdomen, 1 View CLINICAL HISTORY: NGT TECHNIQUE: Frontal supine view of the abdomen/pelvis. COMPARISON: No relevant prior studies available. FINDINGS: Gastrointestinal tract: Scattered retained contrast material within the colon. No dilation. Tubes, lines and devices: Gastric decompression tube terminates in the region of the pylorus. Right femoral central line in place. IMPRESSION: Gastric decompression tube terminates in the region of the pylorus.
--- NOTE | 2020-06-26 22:40 | NUR ---
NURSE NOTES: Pt has episode of SVT with HR going up to 164's during 3 seconds but pit is stable condition. BP; 93/59, Sao2 100% with Vent. Informed and Left message to Dr. Lawson and awaiting call back.
--- NOTE | 2020-06-26 22:42 | NUR ---
NURSE NOTES: Pt is sleeping on the bed. No sign of active bleeding. Verified with charge nurse Bret regarding pt's name, MR number, , Unit number, ABO/RH and date. Started 1st PRBC blood transfusion. checked BP : 93/59mmH, HR; 89's, BT; 98.1F and SaO2 100% with current Vent setting. Started 1st PRBC blood transfusion. Will continue to monitor any change of condition.
--- NOTE | 2020-06-26 23:02 | NUR ---
NURSE NOTES: On running with 1st PRBC blood transfusion without adverse reaction. Checked V/S BP: 104/49, HR; 94, BT; 98.4F and SaO2 100%. Will continue to monitor any change of condition.
[2020-06-27] VITALS (57 sets, daily range): BP systolic 80–138; BP diastolic 40–63
[2020-06-27] MEDS: NovoLOG Insulin Flexpen SUBQ SCH ×6 (01:27→21:18)
--- NOTE | 2020-06-27 01:29 | Consultation ---
DATE OF CONSULTATION: 06/26/2020 INFECTIOUS DISEASE CONSULTATION CONSULTING PHYSICIAN: Milo Abbott M.D. ATTENDING PHYSICIAN: Vanessa Lenz M.D. REFERRING PHYSICIAN: Vanessa Lenz M.D. REASON FOR CONSULTATION: Sepsis shock, leukocytosis, fevers, possible cholecystitis, possible pneumonia, respiratory failure, vent, and pressors. CHIEF COMPLAINT: The patient's chief complaint coming into the hospital is respiratory failure with sepsis and shock. HISTORY OF PRESENT ILLNESS: This is a 74-year-old female who could not give the history. She is currently in the emergency room at [facility]. The patient comes in with tachycardia, low-grade fevers, and respiratory failure that require pressors. Initial blood pressure is 54/41. The patient is in septic shock with leukocytosis. The patient's lactic acid is 5.5. CT scan of the abdomen and pelvis showed biliary dilatation, distended gallbladder, and choledocholithiasis. Infectious Disease consultation is requested. She in discussion with the ER doctor, the patient has been recently hospitalized and had a pacemaker and possible CVA. She did have left-sided weakness. This is previous hospitalization. Now, she is into the hospital as discussed for respiratory failure and septic shock. The patient was placed empirically on vancomycin and Zosyn. Initial chest x-ray showed no consolidation. COVID testing is pending. UA was negative. Blood cultures are pending. Again, the patient will be on vancomycin and Zosyn for sepsis shock for now. REVIEW OF SYSTEMS: CONSTITUTIONAL: The patient is intubated in the ER. She is in COVID isolation. HEAD AND NECK: Orally intubated. CARDIAC: She will be started on pressors. GASTROINTESTINAL: No nausea, vomiting, or diarrhea. GENITOURINARY: She has a Guillen. PULMONARY: On a vent. Otherwise review of systems is limited in this patient. PAST MEDICAL HISTORY: The patient's past medical history includes the following. The patient has a past medical history of cardiac disease and pacemaker. She has a history of hypertension, diabetes, neurological problems, CVA, and left-sided weakness. MEDICATIONS: Upon reviewing the MAR, she is on the following medications. She was given Levaquin and Rocephin and put on Zosyn and vancomycin. She is on fentanyl. She is on metolazone, Zosyn, vancomycin, fentanyl, Levaquin, Rocephin, and intravenous fluids. Outside medications were noted and reconciliated. She was on amlodipine and insulin in the outpatient setting. ALLERGIES: She has no known drug allergies. No antibiotic allergies. SOCIAL HISTORY: Negative for smoking, alcohol, or drug abuse. FAMILY HISTORY: Noncontributory. PHYSICAL EXAMINATION: VITAL SIGNS: Low-grade temperature of 99, pulse rate 72, and respiratory rate 28. She is on FiO2 100%, saturation 100%. She was on FiO2 35%, now 100% and saturating 100%. Pulse rate was as high as 125. Her respiratory rate initially was as high as 35 and her blood pressure initially was 54/41. GENERAL: Sedated and weak. HEAD AND NECK: Orally intubated. Normocephalic. No icterus. HEART: Regular. No gallop or murmur. No friction rub. ABDOMEN: Soft. Positive bowel sounds. LUNGS: Bilateral rhonchi. Possible rales. SKIN: No rash. MUSCULOSKELETAL: No effusions. Legs are without cellulitis. PERIPHERAL VASCULAR: No cyanosis or gangrene. GENITOURINARY: She has a Guillen. LINE SITES: Without phlebitis. NEUROLOGIC: Generalized weakness. Poorly responsive and sedated. LABORATORY DATA: Creatinine 3.0. CRP 0.9. Troponin 0.164. Lactic acid 5.5. Urine and creatinine 2.0. Hemoglobin 6.2, white cell count 20.5, and platelet count 160,000. Cultures are pending. IMAGING STUDIES: CT scan of the abdomen and pelvis showed distended gallbladder, showed biliary dilatation attributable to choledocholithiasis, and distended gallbladder. LFTs were noted, look normal. ASSESSMENT AND PLAN: 1. The patient has sepsis shock, elevated lactic acid, low blood pressure, tachycardia, low-grade fevers, leukocytosis. Questionable cholecystitis. Questionable aspiration versus healthcare-acquired pneumonia versus community-acquired pneumonia and respiratory failure. COVID testing is pending. At this time, we will continue vancomycin and Zosyn for MRSA and gram-negative anaerobic coverage. Continue vancomycin and Zosyn for possible aspiration and healthcare-acquired pneumonia especially in view of recent hospitalization and also for cholecystitis or biliary sepsis. Await GI and Surgery followup. We will get an abdominal ultrasound also. Continue vancomycin and Zosyn. Check sputum culture, blood cultures, and laboratories. UA is unremarkable. Check followup chest x-ray and monitor. Continue COVID isolation pending COVID testing. Continue ICU supportive care. The patient is currently in the ER. Continue vent support and blood pressure support. Continue vancomycin and Zosyn for sepsis, shock, and elevated white count for now pending workup. 2. The patient has history of CVA and aspiration risk. 3. Pacemaker. 4. Left-sided weakness. 5. Cardiac disease. 6. Hypertension. 7. Diabetes. 8. Neurological disease. 9. Acute renal failure, possible chronic renal failure. 10. Severe anemia. 11. No known drug allergies. 12. Social history is negative. 13. Family history is noncontributory. 14. MAR is noted. 15. Case was discussed with RN. 16. Continue treatment per primary consultants 17. I will follow. Milo Abbott M.D. DR: BRIDGET JOB#: [id number] CC:
--- NOTE | 2020-06-27 01:29 | NUR ---
NURSE NOTES: Finished PRBC 1 unit blood transfusion without adverse reaction. SaO2 100% with current Vent setting. Call back from Dr. Lawson no new order noted.
--- NOTE | 2020-06-27 01:44 | Consultation ---
DATE OF CONSULTATION: 06/26/2020 PULMONARY CONSULTATION HISTORY OF PRESENT ILLNESS: This is a 74-year-old female, who is transferred from a nursing facility with altered mental status. She is admitted to the ICU. At this point, she is intubated and unable to provide any history. History is obtained from review of records. There was no other information known about this patient. It is noted that the patient was transferred [facility] recently where she underwent a COVID test which was negative. The patient was transported from nursing facility to [facility] with altered mental status. There is a notation that she is a known hypertensive and diabetic and has also had a CVA. She is noted to be 74 years old and weighs 140 pounds. The patient was noted to be hypotensive and also hyperglycemic before arrival to this facility. She is a usp resident at [facility]. She was Ambu bagged and due to her poor respiratory status, she was intubated by the ER physician and is currently placed in the ICU. There was concern she may be septic. The patient has been evaluated by ID specialist, Dr. Abbott and a diagnosis has been made of shock with respiratory failure, pneumonia, and possible cholecystitis. PAST MEDICAL HISTORY: Hypertension, diabetes mellitus, and CVA. She has a pacemaker in place. ALLERGIES: None. REVIEW OF SYSTEMS: Not obtainable. PHYSICAL EXAMINATION: GENERAL: Reveals a 74-year-old female. VITAL SIGNS: Blood pressure 103/60, heart rate is 84, respirations 20, and O2 saturation 100% on ventilator. HEENT: Unremarkable. Endotracheal tube is in place. CHEST: Clear breath sounds bilaterally. ABDOMEN: Soft. EXTREMITIES: There is no appreciable edema. LABORATORY DATA: Laboratory testing shows white count of 20,000, hemoglobin 6.2, and platelet count is normal. Chemistries notable for creatinine of 3. Lactic acid 5.5, now 2.3. Troponin 0.16. ABG, pH 7.31, pCO2 32, and pO2 147. Coags show D-dimer of 2.45. Urinalysis shows few pus cells. IMAGING STUDIES: The patient underwent abdominal pelvis CT as well as chest x-ray. There is concern she may have cholecystitis. IMPRESSION: 1. Acute respiratory failure. 2. Pneumonia, suspected. 3. Marked leukocytosis. 4. Anemia. 5. Renal failure. 6. Possible cholecystitis. 7. Pacemaker. 8. [facility] resident. DISCUSSION: 1. Admit to the hospital. 2. Broad-spectrum antibiotics as per ID specialist. 3. Maintain respiratory status on assist-control mechanical ventilation. 4. We will follow ABGs. 5. Provide DVT and GI prophylaxes. 6. IV fluids to be given. 7. We will monitor lactic acidosis. 8. We will follow carefully. Angelo Doe M.D. DR: LOGAN JOB#: [id number] CC:
[2020-06-27] MEDS: Norepinephrine 4mg/NS Premix 250 ML IV SCH (01:56)
--- NOTE | 2020-06-27 02:00 | NUR ---
NURSE NOTES: Pt is sleeping on the bed. No sign of active bleeding. Verified with charge nurse Bret regarding pt's name, MR number, , Unit number, ABO/RH and date. Started 2nd PRBC blood transfusion. checked BP : 111/51 mmHg, HR; 88's, BT; 98.5F and SaO2 100% with current Vent setting. Started 1st PRBC blood transfusion. Will continue to monitor any change of condition.
--- NOTE | 2020-06-27 02:29 | Consultation ---
DATE OF CONSULTATION: 06/26/2020 CARDIOLOGY CONSULTATION CONSULTING PHYSICIAN: Serafin Lawson M.D. REQUESTING PHYSICIAN: Vanessa Lenz M.D. REASON FOR CONSULTATION: Respiratory failure and shock. HISTORY OF PRESENT ILLNESS: This is a 74-year-old female who was transferred here from a custodial facility where she was recently admitted. She was noted to be withdrawn and altered in mentation and found to have a low blood pressure. The patient was also hyperglycemic. She was brought into the emergency room at [place] where her blood pressure was 54/41 and heart rate was 125 with respiratory rate of 35. Subsequently, vital signs improved with blood pressure 93/46, heart rate 86, and respiratory rate 17. The patient apparently had a stroke in April of this year. She had residual right-sided weakness. She left the hospital and subsequently was readmitted to a different hospital several days ago for a pacemaker implant. She was then discharged to a senior living for rehabilitation and subsequent event noted above include. PAST MEDICAL HISTORY: Insulin-requiring diabetes, hypertension, status post permanent pacemaker, recent cerebrovascular accident, and hyperlipidemia. MEDICATIONS: Currently not available. ALLERGIES: None known. FAMILY HISTORY: Not known. SOCIAL HISTORY: Negative for smoking, alcohol, or substance abuse. REVIEW OF SYSTEMS: Not obtainable from the patient. Data from records and family members outlined above. PHYSICAL EXAMINATION: VITAL SIGNS: As noted above. HEENT: Conjunctivae pink. Mucous membranes dry. NECK: Supple. Jugular venous pressure flat. LUNGS: Diminished breath sounds. Chest wall with pacemaker pocket site clean and dry. CARDIAC: Regular rhythm. Rapid rate. Normal S1, S2. A 1/6 systolic murmur at apex. ABDOMEN: Soft. EXTREMITIES: No edema. NEUROLOGIC: Poorly responsive. Now orally intubated. There is a triple lumen in the right femoral vein. Site has no active bleeding. IMAGING: Chest x-ray reveals no acute process. DIAGNOSTIC DATA: EKG revealed sinus tachycardia with a premature atrial contraction. No acute ST change. LABORATORY DATA: White count 20, hemoglobin 6.2, and platelets 160,000. ABG, pH 7.31, pCO2 33, and pO2 147. Urinalysis with no active sediment. Lactic acid 5.5. Troponin 0.164. Natriuretic peptide 683. Albumin 2.5. BUN 143 and creatinine 3. Sodium 147, potassium 3.9, and bicarb 23. IMPRESSION: 1. Sepsis with shock. 2. Hypovolemia. 3. Acute myocardial ischemia and possible [id number]-chuacemfc myocardial infarction. 4. Paroxysmal atrial fibrillation. 5. Recent permanent pacemaker. 6. Severe anemia. 7. Possible biliary pancreatitis. 8. Lmkuohzn-ot-wsmelc protein-calorie malnutrition. 9. Insulin-requiring diabetes, uncontrolled. 10. Lactic acidosis. PLAN: 1. ICU monitoring. 2. No anticoagulant. 3. Observe for bleeding. 4. DVT prophylaxis. 5. Serial troponin levels. 6. Volume resuscitation. 7. Packed red blood cell transfusions. 8. Defer pressor support unless aforementioned interventions are inadequate to maintain adequate peripheral perfusion pressures. 9. Serial troponin and lactic acid levels. 10. Broad-spectrum antimicrobials. Serafin Lawson M.D. DR: VINNY JOB#: [id number] CC:
--- NOTE | 2020-06-27 04:00 | NUR ---
NURSE NOTES: Morning care was done. cleaned Pt and applied lotion and cream. changed Rt. femoral central line dressing. SaO2 100% with current Vent setting. and on running with 2nd PRBC blood transfusion without adverse reaction. Will continue to monitor any change of condition.
[2020-06-27] MEDS: Acetaminophen 650mg/20.3ml NG PRN ×2 (04:35→19:00)
--- NOTE | 2020-06-27 05:30 | NUR ---
NURSE NOTES: Finished PRBC 1 unit blood transfusion without adverse reaction. Will continue to monitor any change of condition.
[2020-06-27] MEDS: D5NS 1,000 ML IV SCH (06:09)
--- NOTE | 2020-06-27 07:24 | NUR ---
NURSE HAND-OFF REPORT: Latest Vital Signs: Temperature 99.0 , Pulse 88 , B/P 108 /55 , Respiratory Rate 18 , O2 SAT 100 , Mechanical Ventilator, O2 Flow Rate 30.0 . Vital Sign Comment: EKG Rhythm: Sinus Rhythm Rhythm change?: N Latest Rea Fall Score: 35 Fall Risk: Medium Risk Safety Measures: Call light Within Reach, Bed Alarm Zone 1, Side Rails Side Rails x2, Bed position Low and Locked. Fall Precautions: Yellow Socks Yellow Gown Door Sign Patient Fall Education Report given to SHANNON Hillman. Pt is sleeping on the bed. On running with Levophed @ 1mcg/min and D51/2NS @ 75cc/hr.
--- NOTE | 2020-06-27 08:02 | NUR ---
NURSE NOTES: TECH HERE TO DO US RENAL AND ABDOMEN. PT NPO. DROWSY, NO DISTRESS NOTED.
--- NOTE | 2020-06-27 08:52 | NUR ---
RD ASSESSMENT & RECOMMENDATIONS SEE CARE ACTIVITY FOR COMPLETE ASSESSMENT DAILY ESTIMATED NEEDS: Needs based on Critical care/ 50kg abw 22-28 kcals/kg 2265-2852 total kcals 1.2-2 g protein/kg 60-100 g total protein 25-30 mL/kg 7100-2214 total fluid mLs NUTRITION DIAGNOSIS: Swallowing difficulty R/T respiratory failure as evidenced by pt orally intubated, NPO at this time. CURRENT TF:NPO ENTERAL NUTRITION RECOMMENDATIONS: Glucerna 1.2 @ 45ml/hr x 24 hrs to provide 1080ml, 1296kcal, 65g prot, 872ml free water * Once medically appropriate, initiate Glucerna 1.2 @ 15ml/hr x 6hrs * Advance 10ml q 4-6 hrs as tolerated to goal * HOB over 30 degrees/ without IVF, H2O flush 150ml q 6hrs ----- WITHOUT HEMODYNAMIC STABILITY, rec trophic feeding of Glucerna 1.2 @ 10-15ml/hr if able to keep HOB >30 degrees ADDITIONAL RECOMMENDATIONS: * Monitor hemodyanmic stabilty- NE @ 1mcg * W/ TF, monitor BGs, need for long acting insulin Continue D5 while NPO to prevent hypoglycemia. * Monitor lytes, replete as needed * Calibrated bedscale wt
[2020-06-27] MEDS: Pantoprazole Inj IVP SCH ×2 (09:19→20:35)
[2020-06-27] MEDS ORDERED: ROBITUSSIN COU118 M1 ORAL (09:27)
[2020-06-27] MEDS ORDERED: HYDROCHLOROTHIA25 MG ORAL (09:27)
[2020-06-27] MEDS ORDERED: DOCUSATE SODIU100 MG ORAL (09:27)
[2020-06-27] MEDS ORDERED: BISACODYL10 M1 RC (09:27)
[2020-06-27] MEDS ORDERED: ZOFRAN4 M3 ORAL (09:27)
[2020-06-27] MEDS ORDERED: MELATONIN 3 MG1 EAC1 PO (09:27)
[2020-06-27] MEDS ORDERED: HYDRALAZINE HCL25 M1 ORAL (09:27)
[2020-06-27] MEDS ORDERED: ACETAMINOPHEN325 M1 ORAL (09:27)
[2020-06-27] MEDS ORDERED: LOSARTAN POTASS50 MG ORAL (09:27)
[2020-06-27] MEDS ORDERED: ASPIRIN81 MG ORAL (09:27)
--- NOTE | 2020-06-27 09:29 | NUR ---
NURSE NOTES: TECH HERE TO DO 2D ECHO. PT IN NO ACUTE DISTRESS.
--- NOTE | 2020-06-27 09:29 | NUR ---
NURSE NOTES: CALLED LAB TO OBTAIN BLOOD DRAW. UNABLE TO OBTAIN VIA FEMORAL. LAB WILL BE UP SOON POSSIBLE.
--- NOTE | 2020-06-27 10:04 | NUR ---
CASE MANAGEMENT:REVIEW 74 YR OLD FEMALE BIBA FROM [facility] SI: SEPSIS. RESPIRATORY FAILURE. NSTEMI 99.0 125 35 BP~54/41 100% WITH AMBU-BAG WBC+20.5 H/H-6.2/19.9 BUN+143 CR+3.0 TROPONIN(+) 0.164 LACTIC ACID+5.50 IS: INTUBATED IN ER IV VANCOMYCIN IV ROCEPHIN IV LEVAQUIN 1L NS BOLUS ASA PO CT ABD/PELVIS CXR BLOOD CX : TO ICU DCP; FROM [facility] PLAN: TRANSFUSE
--- NOTE | 2020-06-27 10:28 | Nephrology Progress Note ---
Assessment/Plan Plan #DAYO - likely ATN in the setting of septic shock #Acute anemia #hypoxemic resp failure - vent dependent #NSTEMI #AMS #p Afib #Dm #HTN #HLD #s/p PPM - admit to ICU - pulm eval for vent management - electrolyte prn - prbc transfusion - monitor renal function - ID consulted - antibiotics per ID - cardiology eval - monitor troponin level - monitor lytes - pressors prn - monitor LFTs - echo - renal US - urine chem time spent 65 min Subjective ROS Limited/Unobtainable: Yes Subjective multiple electrolyte derangements noted lytes repleted Objective Objective Last 24 Hour Vital Signs Date Time Temp Pulse Resp B/P (MAP) Pulse Ox O2 Delivery O2 Flow Rate FiO2 06/27/20 09:30 90 20 107/51 (69) 95 06/27/20 09:27 92 18 30 06/27/20 09:15 92 17 122/50 (74) 100 06/27/20 09:00 92 17 97/48 (64) 100 06/27/20 08:15 94 19 119/58 (78) 100 06/27/20 08:00 30 06/27/20 08:00 89 18 102/51 (68) 100 06/27/20 07:10 88 18 30 06/27/20 07:00 86 20 108/55 (72) 100 06/27/20 06:30 85 18 91/44 (60) 100 06/27/20 06:30 84 18 06/27/20 06:00 83 19 100/47 (64) 100 06/27/20 05:45 80 18 84/42 (56) 100 06/27/20 05:30 93 23 117/51 (73) 99 06/27/20 05:15 88 18 112/57 (75) 100 06/27/20 05:00 92 17 96/41 (59) 100 06/27/20 04:45 91 18 119/54 (75) 100 06/27/20 04:30 101 16 99/47 (64) 100 06/27/20 04:15 101 25 128/58 (81) 100 06/27/20 04:00 94 06/27/20 04:00 99.0 96 18 100/50 (67) 100 06/27/20 04:00 Mechanical Ventilator 06/27/20 03:15 97 18 112/47 (68) 100 06/27/20 03:10 101 18 30 06/27/20 03:00 97 18 95/47 (63) 100 06/27/20 02:45 100 19 102/50 (67) 100 06/27/20 02:30 102 17 105/47 (66) 100 06/27/20 02:15 105 21 133/53 (79) 100 06/27/20 02:00 98.5 88 18 111/51 (71) 100 06/27/20 01:56 70/35 06/27/20 01:50 86 17 80/50 (60) 100 06/27/20 01:32 86 17 80/54 (63) 100 06/27/20 01:20 87 19 104/49 (67) 100 06/27/20 01:00 89 21 94/40 (58) 100 06/27/20 00:45 90 19 105/48 (67) 100 06/27/20 00:30 88 19 96/45 (62) 100 06/27/20 00:00 98 06/27/20 00:00 98.5 92 19 105/49 (67) 100 06/27/20 00:00 Mechanical Ventilator 06/26/20 23:15 89 19 93/48 (63) 100 06/26/20 23:10 91 20 30 06/26/20 23:00 98.4 94 24 104/49 (67) 100 06/26/20 22:45 98.1 93 18 92/43 (59) 100 06/26/20 21:00 87 17 96/43 (60) 100 06/26/20 20:00 86 06/26/20 20:00 Mechanical Ventilator 06/26/20 20:00 86 17 93/46 (62) 100 06/26/20 19:20 90 18 30 06/26/20 19:00 97.8 89 16 103/52 (69) 100 06/26/20 18:00 89 18 100 06/26/20 18:00 96.7 86 17 103/67 (79) 100 06/26/20 17:32 96.7 86 17 103/67 (79) 100 06/26/20 17:30 86 17 100 06/26/20 17:22 96.7 86 17 103/62 (76) 100 06/26/20 17:22 86 17 100 06/26/20 17:15 87 17 100 06/26/20 17:00 86 17 98/48 (65) 100 06/26/20 17:00 86 17 98/48 (65) 100 06/26/20 16:52 Endotracheal Tube 30.0 06/26/20 16:45 116/82 06/26/20 16:44 90 15 100/52 (68) 100 06/26/20 16:33 87 17 30 06/26/20 16:33 87 17 100 Mechanical Ventilator 30 06/26/20 13:23 72 28 Mechanical Ventilator 100 06/26/20 11:52 98 20 35 06/26/20 11:42 99.0 06/26/20 11:33 125 35 54/41 (45) 100 Ambu-Bag Intake and Output 06/26/20 06/27/20 19:00 07:00 Intake Total 49925 ml 957.860 ml Output Total 1220 ml 940 ml Balance 8855 ml 17.860 ml Intake IV Total 7075 ml 957.860 ml Other 3000 ml Output Urine Total 1220 ml 940 ml # Bowel Movements 2 Laboratory Tests 06/26/20 11:56: Urine Color Pale yellow, Urine Appearance Clear, Urine pH 6, Urine Specific [place] 1.010, Urine Protein Negative, Urine Glucose (UA) 3+H, Urine Ketones Negative, Urine Blood Negative, Urine Nitrite Negative, Urine Bilirubin Negative, Urine Urobilinogen Normal, Urine Leukocyte Esterase Negative, Sodium Level 147H, Potassium Level 3.9, Chloride Level 109H, Carbon Dioxide Level 23, Anion Gap 15, Blood Urea Nitrogen 143H, Creatinine 3.0H, Estimat Glomerular Filtration Rate 15.3, Glucose Level 347H, Lactic Acid Level 5.50H, Calcium Level 9.7, Magnesium Level 2.2, Ferritin 316, Total Bilirubin 0.6, Aspartate Amino Transf (AST/SGOT) 21, Alanine Aminotransferase (ALT/SGPT) 47, Alkaline Phosphatase 77, Lactate Dehydrogenase 229, Total Creatine Kinase 27, Troponin I 0.164H, C-Reactive Protein, Quantitative 0.9, Pro-B-Type Natriuretic Peptide 683H, Total Protein 6.1L, Albumin 2.5L, Globulin 3.6, Albumin/Globulin Ratio 0.7L, Lipase 608H 06/26/20 12:40: White Blood Count 20.5H, Red Blood Count 2.04L, Hemoglobin 6.2*L, Hematocrit 19.9L, Mean Corpuscular Volume 97, Mean Corpuscular Hemoglobin 30.3, Mean Corpuscular Hemoglobin Concent 31.1L, Red Cell Distribution Width 12.8, Platelet Count 160, Mean Platelet Volume 7.6, Neutrophils (%) (Auto) , Lymphocytes (%) (Auto) , Monocytes (%) (Auto) , Eosinophils (%) (Auto) , Basophils (%) (Auto) , Differential Total Cells Counted 100, Neutrophils % (Manual) 77H, Lymphocytes % (Manual) 18L, Monocytes % (Manual) 5, Eosinophils % (Manual) 0, Basophils % (Manual) 0, Band Neutrophils 0, Nucleated Red Blood Cells 1, Platelet Estimate Adequate, Platelet Morphology Normal, Hypochromasia 1+, Prothrombin Time 14.1H, Prothromb Time International Ratio 1.3H, Activated Partial Thromboplast Time 20L , D-Dimer 2.45H, Arterial Blood pH 7.314L, Arterial Blood Partial Pressure CO2 32.9L, Arterial Blood Partial Pressure O2 147.3H, Arterial Blood HCO3 16.3*L, Arterial Blood Oxygen Saturation 98.1, Arterial Blood Base Excess -9.0L, Jaret Test Positive 06/26/20 15:10: Lactic Acid Level 2.30H 06/26/20 15:19: POC Whole Blood Glucose 172H 06/26/20 16:15: Troponin I 0.263H 06/26/20 18:44: POC Whole Blood Glucose 226H 06/26/20 23:41: Urine Random Sodium < 20L, Urine Creatinine 35.3 06/27/20 01:21: POC Whole Blood Glucose 318H 06/27/20 10:01: POC Whole Blood Glucose [Pending] Height (Feet): 5 Height (Inches): 0.00 Weight (Pounds): 137 Objective Lines, tubes and drains: peripheral, central line HEENT: normocephalic, atraumatic Neck: non-tender, normal alignment Respiratory/Chest: on vent Cardiovascular/Chest: normal peripheral pulses, normal rate, regular rhythm Abdomen: normal bowel sounds, non tender Extremities: normal range of motion, non-tender Vanessa Lenz M.D. Jun 27, 2020 10:28
--- NOTE | 2020-06-27 10:58 | NUR ---
NURSE NOTES: duplex complete. positive femoral. WILL INFORM
[2020-06-27 11:21] LABS: HEMATOCRIT 31.1 % (37.0-47.0); MEAN CORPUSCULAR VOLUME 93 FL (80-99); PLATELET COUNT 133 K/UL (150-450); RED BLOOD COUNT 3.33 M/UL (4.20-5.40); RED CELL DISTRIBUTION WIDTH 13.7 % (11.6-14.8); WHITE BLOOD COUNT 25.7 K/UL (4.8-10.8)
--- NOTE | 2020-06-27 11:21 | NUR ---
NURSE NOTES: LATE ENTRY: MD BORREGO HERE TO SEE PT. WAS INFORMED OF NPO, NOT ON ANY SEDATION, FLUID D5 1/2 NS AND LAB GLUCOSE 321. RECOMMEND ATIVAN, AND CHANGE FLUIDS. RECEIVED ORDER FOR ATIVAN 1MG q4HR. NO CHANGE IN FLUID OR DIET.
[2020-06-27 11:39] LABS: CHOLESTEROL 75 MG/DL (< 200); HDL CHOLESTEROL 24 MG/DL (40-60); PHOSPHORUS 1.9 MG/DL (2.5-4.9); TRIGLYCERIDES 312 MG/DL (30-150)
[2020-06-27 11:51] LABS: ALBUMIN 1.8 G/DL (3.4-5.0); ALBUMIN/GLOBULIN RATIO 0.7 (1.0-2.7); BILIRUBIN,TOTAL 0.4 MG/DL (0.2-1.0); CALCIUM 8.1 MG/DL (8.5-10.1); CREATININE 1.8 MG/DL (0.55-1.30)
[2020-06-27 11:57] LABS: POTASSIUM 2.9 MMOL/L (3.5-5.1)
--- NOTE | 2020-06-27 12:18 | NUR ---
NURSE NOTES: LATE ENTRY: CALLED MD. KIRKPATRICK REGARDING PT DUPLEX RESULTS AND F/U LABS. AWAITING CALL BACK.
--- NOTE | 2020-06-27 12:20 | NUR ---
NURSE NOTES: LATE ENTRY: CALLED MD OFFICE SPOKE WITH WAI REGARDING CALL BACK FOR MD. DUKES. FOR WBC CRITICAL AND TEMP. AWAITING CALL BACK.
--- NOTE | 2020-06-27 12:27 | NUR ---
NURSE NOTES: LATE ENTRY: SPOKE WITH MD BURTON REGARDING PT. NPO, US OF RENAL AND 2 D ECHO SCHEDULED. WILL CONTINUE NPO FOR NOW.
--- NOTE | 2020-06-27 12:32 | General Progress Note ---
Subjective ROS Limited/Unobtainable: No Allergies: Coded Allergies: No Known Allergies (Unverified , 06/26/20) Objective Last 24 Hour Vital Signs Date Time Temp Pulse Resp B/P (MAP) Pulse Ox O2 Delivery O2 Flow Rate FiO2 06/27/20 11:06 81 17 30 06/27/20 11:00 83 17 97/45 (62) 100 06/27/20 10:45 84 18 102/52 (69) 100 06/27/20 10:42 100.0 06/27/20 10:30 86 16 101/44 (63) 100 06/27/20 10:15 95 20 132/57 (82) 100 06/27/20 10:00 91 18 109/51 (70) 06/27/20 09:30 90 20 107/51 (69) 95 06/27/20 09:27 92 18 30 06/27/20 09:15 92 17 122/50 (74) 100 06/27/20 09:00 92 17 97/48 (64) 100 06/27/20 08:15 94 19 119/58 (78) 100 06/27/20 08:00 88 06/27/20 08:00 30 06/27/20 08:00 101.0 89 18 102/51 (68) 100 06/27/20 07:10 88 18 30 06/27/20 07:00 86 20 108/55 (72) 100 06/27/20 06:30 85 18 91/44 (60) 100 06/27/20 06:30 84 18 06/27/20 06:00 83 19 100/47 (64) 100 06/27/20 05:45 80 18 84/42 (56) 100 06/27/20 05:30 93 23 117/51 (73) 99 06/27/20 05:15 88 18 112/57 (75) 100 06/27/20 05:00 92 17 96/41 (59) 100 06/27/20 04:45 91 18 119/54 (75) 100 06/27/20 04:30 101 16 99/47 (64) 100 06/27/20 04:15 101 25 128/58 (81) 100 06/27/20 04:00 94 06/27/20 04:00 99.0 96 18 100/50 (67) 100 06/27/20 04:00 Mechanical Ventilator 06/27/20 03:15 97 18 112/47 (68) 100 06/27/20 03:10 101 18 30 06/27/20 03:00 97 18 95/47 (63) 100 06/27/20 02:45 100 19 102/50 (67) 100 06/27/20 02:30 102 17 105/47 (66) 100 06/27/20 02:15 105 21 133/53 (79) 100 06/27/20 02:00 98.5 88 18 111/51 (71) 100 06/27/20 01:56 70/35 06/27/20 01:50 86 17 80/50 (60) 100 06/27/20 01:32 86 17 80/54 (63) 100 06/27/20 01:20 87 19 104/49 (67) 100 06/27/20 01:00 89 21 94/40 (58) 100 06/27/20 00:45 90 19 105/48 (67) 100 06/27/20 00:30 88 19 96/45 (62) 100 06/27/20 00:00 98 06/27/20 00:00 98.5 92 19 105/49 (67) 100 06/27/20 00:00 Mechanical Ventilator 06/26/20 23:15 89 19 93/48 (63) 100 06/26/20 23:10 91 20 30 06/26/20 23:00 98.4 94 24 104/49 (67) 100 06/26/20 22:45 98.1 93 18 92/43 (59) 100 06/26/20 21:00 87 17 96/43 (60) 100 06/26/20 20:00 86 06/26/20 20:00 Mechanical Ventilator 06/26/20 20:00 86 17 93/46 (62) 100 06/26/20 19:20 90 18 30 06/26/20 19:00 97.8 89 16 103/52 (69) 100 06/26/20 18:00 89 18 100 06/26/20 18:00 96.7 86 17 103/67 (79) 100 06/26/20 17:32 96.7 86 17 103/67 (79) 100 06/26/20 17:30 86 17 100 06/26/20 17:22 96.7 86 17 103/62 (76) 100 06/26/20 17:22 86 17 100 06/26/20 17:15 87 17 100 06/26/20 17:00 86 17 98/48 (65) 100 06/26/20 17:00 86 17 98/48 (65) 100 06/26/20 16:52 Endotracheal Tube 30.0 06/26/20 16:45 116/82 06/26/20 16:44 90 15 100/52 (68) 100 06/26/20 16:33 87 17 30 06/26/20 16:33 87 17 100 Mechanical Ventilator 30 06/26/20 13:23 72 28 Mechanical Ventilator 100 Intake and Output 06/26/20 06/27/20 19:00 07:00 Intake Total 84175 ml 957.860 ml Output Total 1220 ml 940 ml Balance 8855 ml 17.860 ml Intake IV Total 7075 ml 957.860 ml Other 3000 ml Output Urine Total 1220 ml 940 ml # Bowel Movements 2 Laboratory Tests 06/26/20 12:40: White Blood Count 20.5H, Red Blood Count 2.04L, Hemoglobin 6.2*L, Hematocrit 19.9L, Mean Corpuscular Volume 97, Mean Corpuscular Hemoglobin 30.3, Mean Corpuscular Hemoglobin Concent 31.1L, Red Cell Distribution Width 12.8, Platelet Count 160, Mean Platelet Volume 7.6, Neutrophils (%) (Auto) , Lymphocytes (%) (Auto) , Monocytes (%) (Auto) , Eosinophils (%) (Auto) , Basophils (%) (Auto) , Differential Total Cells Counted 100, Neutrophils % (Manual) 77H, Lymphocytes % (Manual) 18L, Monocytes % (Manual) 5, Eosinophils % (Manual) 0, Basophils % (Manual) 0, Band Neutrophils 0, Nucleated Red Blood Cells 1, Platelet Estimate Adequate, Platelet Morphology Normal, Hypochromasia 1+, Prothrombin Time 14.1H, Prothromb Time International Ratio 1.3H, Activated Partial Thromboplast Time 20L , D-Dimer 2.45H, Arterial Blood pH 7.314L, Arterial Blood Partial Pressure CO2 32.9L, Arterial Blood Partial Pressure O2 147.3H, Arterial Blood HCO3 16.3*L, Arterial Blood Oxygen Saturation 98.1, Arterial Blood Base Excess -9.0L, Jaret Test Positive 06/26/20 15:10: Lactic Acid Level 2.30H 06/26/20 15:19: POC Whole Blood Glucose 172H 06/26/20 16:15: Troponin I 0.263H 06/26/20 18:44: POC Whole Blood Glucose 226H 06/26/20 23:41: Urine Random Sodium < 20L, Urine Creatinine 35.3 06/27/20 01:21: POC Whole Blood Glucose 318H 06/27/20 10:01: POC Whole Blood Glucose [Pending] 06/27/20 10:50: White Blood Count 25.7*H, Red Blood Count 3.33L, Hemoglobin 10.0#L, Hematocrit 31.1#L, Mean Corpuscular Volume 93, Mean Corpuscular Hemoglobin 30.1, Mean Corpuscular Hemoglobin Concent 32.2, Red Cell Distribution Width 13.7, Platelet Count 133L, Mean Platelet Volume 7.2, Neutrophils (%) (Auto) , Lymphocytes (%) (Auto) , Monocytes (%) (Auto) , Eosinophils (%) (Auto) , Basophils (%) (Auto) , Differential Total Cells Counted 100, Neutrophils % (Manual) 82H, Lymphocytes % (Manual) 9L, Monocytes % (Manual) 9, Eosinophils % (Manual) 0, Basophils % (Manual) 0, Band Neutrophils 0, Nucleated Red Blood Cells 1, Platelet Estimate DecreasedL, Platelet Morphology Normal, Polychromasia 1+, Hypochromasia 1+, Sodium Level 156H, Potassium Level 2.9L, Chloride Level 125H, Carbon Dioxide Level 20L, Anion Gap 11, Blood Urea Nitrogen 87H, Creatinine 1.8H, Estimat Glomerular Filtration Rate 27.6, Glucose Level 321H, Lactic Acid Level 2.60H, Calcium Level 8.1L, Phosphorus Level 1.9L, Magnesium Level 1.7L, Total Bilirubin 0.4, Aspartate Amino Transf (AST/SGOT) 20, Alanine Aminotransferase (ALT/SGPT) 28, Alkaline Phosphatase 52, Troponin I 0.224H, Pro-B-Type Natriuretic Peptide 442H, Total Protein 4.3L, Albumin 1.8L, Globulin 2.5, Albumin/Globulin Ratio 0.7L, Triglycerides Level 312H, Cholesterol Level 75, LDL Cholesterol 32, HDL Cholesterol 24L, Cholesterol/HDL Ratio 3.1L, Random Vancomycin Level 9.5 Height (Feet): 5 Height (Inches): 0.00 Weight (Pounds): 137 General Appearance: no apparent distress EENT: normal ENT inspection Neck: supple Cardiovascular: normal rate Respiratory/Chest: decreased breath sounds Abdomen: normal bowel sounds, non tender, soft Extremities: non-tender Assessment/Plan Problem List: (1) Anemia ICD Codes: D64.9 - Anemia, unspecified SNOMED: 497498584 Qualifiers: Qualified Codes: D64.9 - Anemia, unspecified (2) Choledocholithiasis ICD Codes: K80.50 - Calculus of bile duct without cholangitis or cholecystitis without obstruction SNOMED: 539334468 (3) Respiratory failure ICD Codes: J96.90 - Respiratory failure, unspecified, unspecified whether with hypoxia or hypercapnia SNOMED: 323861556 Qualifiers: Qualified Codes: J96.01 - Acute respiratory failure with hypoxia; J96.02 - Acute respiratory failure with hypercapnia (4) Severe sepsis ICD Codes: A41.9 - Sepsis, unspecified organism; R65.20 - Severe sepsis without septic shock SNOMED: 96673567 (5) NSTEMI (non-ST elevated myocardial infarction) ICD Codes: I21.4 - Non-ST elevation (NSTEMI) myocardial infarction SNOMED: 17310881 (6) ARF (acute renal failure) ICD Codes: N17.9 - Acute kidney failure, unspecified SNOMED: 77014287 Qualifiers: Qualified Codes: N17.9 - Acute kidney failure, unspecified (7) Hemiparesis ICD Codes: G81.90 - Hemiplegia, unspecified affecting unspecified side SNOMED: 58721917 Qualifiers: Qualified Codes: I69.354 - Hemiplegia and hemiparesis following cerebral infarction affecting left non-dominant side (8) Hyperglycemia ICD Codes: R73.9 - Hyperglycemia, unspecified SNOMED: 09922996 Assessment/Plan: given normal LFTS and septic shock will hold ERCP for now fu H&H prn blood transfusion abx per ID will Irvin Acosta MD Jun 27, 2020 12:32
--- NOTE | 2020-06-27 12:43 | NUR ---
NURSE NOTES: LATE ENTRY: RECEIVED CALL BACK FROM MD. DUKES. INFORMED OF WBC 25.7, TEMP 101. ON VANCO DOSE TO PHARM AND ZOSYN. RECOMMENDED SPUTUM COLLECTION. WILL PLACE ORDER.
[2020-06-27] MEDS ORDERED: LORazepam Inj 2mg/ml 1ml IV PRN (13:00)
--- NOTE | 2020-06-27 13:59 | Consultation ---
History of Present Illness General Date patient seen: Jun 27, 2020 Reason for Hospitalization: Altered Mental Status Present Illness HPI This is a very unfortunate 74-year-old female multimedical comorbidities who is a care facility patient that was identified to have altered mental status hypotension tachycardia febrile and brought to [facility] for evaluation at which time she began to quickly deteriorate and was intubated and taken to intensive care unit for care and management. Leukocytosis anemia abnormal labs septic shock surgery called to evaluate assist with care. Patient seen, patient evaluate, chart reviewed. Patient unable to provide history. Labs noted. Micro reviewed. Imaging reviewed. Patient is critically ill in the intensive care unit this time undergoing support Allergies: Coded Allergies: No Known Allergies (Unverified , 06/26/20) COVID-19 Screening Contact w/high risk pt: No Experienced COVID-19 symptoms?: No Medication History Scheduled Amlodipine Besylate* (Amlodipine Besylate*), 5 MG ORAL DAILY, (Reported) Aspirin* (Aspirin*), 81 MG ORAL DAILY, (Reported) Docusate Sodium* (Docusate Sodium*), 100 MG ORAL TWICE A DAY, (Reported) Hydrochlorothiazide* (Hydrochlorothiazide*), 25 MG ORAL DAILY, (Reported) Insulin Glargine (Lantus), 15 UNITS SUBQ BEDTIME, (Reported) Insulin Lispro (Humalog), 0 SUBQ AC+HS, (Reported) Losartan Potassium* (Losartan Potassium*), 100 MG ORAL DAILY, (Reported) Scheduled PRN Acetaminophen* (Acetaminophen 325MG Tablet*), 325 MG ORAL Q4H PRN for MILDP/TEMP, (Reported) Bisacodyl (Bisacodyl), 10 MG RC for Constipation, (Reported) Guaifenesin/D-Methorphan Hb/Pe (Robitussin Cough-Cold Cf Liq*), 5 ML ORAL Q4HR PRN for FOR COUGH, (Reported) Hydralazine Hcl* (Hydralazine Hcl*), 25 MG ORAL QID PRN for For High Blood Pressure, (Reported) Melatonin/Pyridoxine HCl (B6) (Melatonin 3 mg Tablet), 1 EACH PO BEDTIME PRN for INSOMNIA, (Reported) Ondansetron* (Zofran*), 4 MG ORAL Q4HR PRN for Nausea & Vomiting, (Reported) Patient History Limited by: medical condition History Provided By: Medical Record, PMD Healthcare decision maker Resuscitation status Advanced Directive on File Past Medical/Surgical History Past Medical/Surgical History: (1) Hemiparesis (2) Anemia (3) ARF (acute renal failure) (4) Choledocholithiasis (5) Hyperglycemia (6) Respiratory failure (7) Severe sepsis (8) NSTEMI (non-ST elevated myocardial infarction) Review of Systems Review of Symptoms General ROS: no weight loss or fever Psychological ROS: no depression or mood changes, no memory loss Ophthalmic ROS: no visual changes or eye irritation ENT ROS: no nasal congestion, hearing loss, dizziness Allergy and Immunology ROS: no allergic symptoms or urticaria Hematological and Lymphatic ROS: no swollen glands, unusual bleeding or bruising Endocrine ROS: no polyuria, polydipsia, weight changes, temperature intolerance Respiratory ROS: no cough, shortness of breath, or wheezing Cardiovascular ROS: no chest pain or dyspnea on exertion Gastrointestinal ROS: denies abdominal pain, bright red blood in stool. Musculoskeletal ROS: no myalgias or arthralgias Neurological ROS: no TIA or stroke symptoms Dermatological ROS: no new or changing skin lesions, rashes or pruritis limited given medical condition Physical Exam Physical Exam General appearance: mod distress, appears stated age Head: Normocephalic, without obvious abnormality, atraumatic Eyes: conjunctivae/corneas clear. PERRL, EOM's intact. Fundi benign Throat: Lips, mucosa, and tongue normal. Teeth and gums normal Neck: supple, symmetrical, trachea midline, no adenopathy, thyroid: not enlarged, symmetric, no tenderness/mass/nodules, no carotid bruit and no JVD Lungs: dec to auscultation bilaterally on vent Heart: regular rate and rhythm, S1, S2 normal, no murmur, click, rub or gallop Abdomen: soft, non-tender. Bowel sounds normal. No masses, no organomegaly Extremities: extremities normal, atraumatic, no cyanosis or edema Pulses: 2+ and symmetric Skin: Skin color, texture, turgor normal. No rashes or lesions Neurologic: Grossly normal Last 24 Hour Vital Signs Date Time Temp Pulse Resp B/P (MAP) Pulse Ox O2 Delivery O2 Flow Rate FiO2 06/27/20 13:30 77 16 101/47 (65) 100 06/27/20 13:20 78 16 30 06/27/20 13:15 86 21 130/60 (83) 100 06/27/20 13:00 84 19 123/55 (77) 100 06/27/20 12:45 86 21 123/54 (77) 100 06/27/20 12:30 86 20 122/55 (77) 100 06/27/20 12:15 82 23 124/63 (83) 100 06/27/20 12:00 100.0 82 20 114/52 (72) 100 06/27/20 12:00 Mechanical Ventilator 06/27/20 11:06 81 17 30 06/27/20 11:00 83 17 97/45 (62) 100 06/27/20 10:45 84 18 102/52 (69) 100 06/27/20 10:42 100.0 06/27/20 10:30 86 16 101/44 (63) 100 06/27/20 10:15 95 20 132/57 (82) 100 06/27/20 10:00 91 18 109/51 (70) 06/27/20 09:30 90 20 107/51 (69) 95 06/27/20 09:27 92 18 30 06/27/20 09:15 92 17 122/50 (74) 100 06/27/20 09:00 92 17 97/48 (64) 100 06/27/20 08:15 94 19 119/58 (78) 100 06/27/20 08:00 Mechanical Ventilator 06/27/20 08:00 88 06/27/20 08:00 30 06/27/20 08:00 101.0 89 18 102/51 (68) 100 06/27/20 07:10 88 18 30 06/27/20 07:00 86 20 108/55 (72) 100 06/27/20 06:30 85 18 91/44 (60) 100 06/27/20 06:30 84 18 06/27/20 06:00 83 19 100/47 (64) 100 06/27/20 05:45 80 18 84/42 (56) 100 06/27/20 05:30 93 23 117/51 (73) 99 06/27/20 05:15 88 18 112/57 (75) 100 06/27/20 05:00 92 17 96/41 (59) 100 06/27/20 04:45 91 18 119/54 (75) 100 06/27/20 04:30 101 16 99/47 (64) 100 06/27/20 04:15 101 25 128/58 (81) 100 06/27/20 04:00 94 06/27/20 04:00 99.0 96 18 100/50 (67) 100 06/27/20 04:00 Mechanical Ventilator 06/27/20 03:15 97 18 112/47 (68) 100 06/27/20 03:10 101 18 30 06/27/20 03:00 97 18 95/47 (63) 100 06/27/20 02:45 100 19 102/50 (67) 100 06/27/20 02:30 102 17 105/47 (66) 100 06/27/20 02:15 105 21 133/53 (79) 100 06/27/20 02:00 98.5 88 18 111/51 (71) 100 06/27/20 01:56 70/35 06/27/20 01:50 86 17 80/50 (60) 100 06/27/20 01:32 86 17 80/54 (63) 100 06/27/20 01:20 87 19 104/49 (67) 100 06/27/20 01:00 89 21 94/40 (58) 100 06/27/20 00:45 90 19 105/48 (67) 100 06/27/20 00:30 88 19 96/45 (62) 100 06/27/20 00:00 98 06/27/20 00:00 98.5 92 19 105/49 (67) 100 06/27/20 00:00 Mechanical Ventilator 06/26/20 23:15 89 19 93/48 (63) 100 06/26/20 23:10 91 20 30 06/26/20 23:00 98.4 94 24 104/49 (67) 100 06/26/20 22:45 98.1 93 18 92/43 (59) 100 06/26/20 21:00 87 17 96/43 (60) 100 06/26/20 20:00 86 06/26/20 20:00 Mechanical Ventilator 06/26/20 20:00 86 17 93/46 (62) 100 06/26/20 19:20 90 18 30 06/26/20 19:00 97.8 89 16 103/52 (69) 100 06/26/20 18:00 89 18 100 06/26/20 18:00 96.7 86 17 103/67 (79) 100 06/26/20 17:32 96.7 86 17 103/67 (79) 100 06/26/20 17:30 86 17 100 06/26/20 17:22 96.7 86 17 103/62 (76) 100 06/26/20 17:22 86 17 100 06/26/20 17:15 87 17 100 06/26/20 17:00 86 17 98/48 (65) 100 06/26/20 17:00 86 17 98/48 (65) 100 06/26/20 16:52 Endotracheal Tube 30.0 06/26/20 16:45 116/82 06/26/20 16:44 90 15 100/52 (68) 100 06/26/20 16:33 87 17 30 06/26/20 16:33 87 17 100 Mechanical Ventilator 30 Intake and Output 06/26/20 06/27/20 19:00 07:00 Intake Total 26844 ml 957.860 ml Output Total 1220 ml 940 ml Balance 8855 ml 17.860 ml Intake IV Total 7075 ml 957.860 ml Other 3000 ml Output Urine Total 1220 ml 940 ml # Bowel Movements 2 Laboratory Tests Test 06/26/20 15:10 06/26/20 15:19 06/26/20 16:15 06/26/20 18:44 Lactic Acid Level 2.30 mmol/L (0.66-2.22) H POC Whole Blood Glucose 172 MG/DL (74-106) H 226 MG/DL (74-106) H Troponin I 0.263 ng/mL (0.000-0.056) Test 06/26/20 23:41 06/27/20 01:21 06/27/20 10:01 06/27/20 10:50 Urine Random Sodium < 20 mmol/L (20-110) L Urine Creatinine 35.3 MG/DL (30.0-125.0) POC Whole Blood Glucose 318 MG/DL (74-106) H Pending White Blood Count 25.7 K/UL (4.8-10.8) *H Red Blood Count 3.33 M/UL (4.20-5.40) L Hemoglobin 10.0 G/DL (12.0-16.0) #L Hematocrit 31.1 % (37.0-47.0) #L Mean Corpuscular Volume 93 FL (80-99) Mean Corpuscular Hemoglobin 30.1 PG (27.0-31.0) Mean Corpuscular Hemoglobin Concent 32.2 G/DL (32.0-36.0) Red Cell Distribution Width 13.7 % (11.6-14.8) Platelet Count 133 K/UL (150-450) L Mean Platelet Volume 7.2 FL (6.5-10.1) Neutrophils (%) (Auto) % (45.0-75.0) Lymphocytes (%) (Auto) % (20.0-45.0) Monocytes (%) (Auto) % (1.0-10.0) Eosinophils (%) (Auto) % (0.0-3.0) Basophils (%) (Auto) % (0.0-2.0) Differential Total Cells Counted 100 Neutrophils % (Manual) 82 % (45-75) H Lymphocytes % (Manual) 9 % (20-45) L Monocytes % (Manual) 9 % (1-10) Eosinophils % (Manual) 0 % (0-3) Basophils % (Manual) 0 % (0-2) Band Neutrophils 0 % (0-8) Nucleated Red Blood Cells 1 /100 WBC Platelet Estimate Decreased L Platelet Morphology Normal Polychromasia 1+ Hypochromasia 1+ Sodium Level 156 MMOL/L (136-145) H Potassium Level 2.9 MMOL/L (3.5-5.1) L Chloride Level 125 MMOL/L (98-107) H Carbon Dioxide Level 20 MMOL/L (21-32) L Anion Gap 11 mmol/L (5-15) Blood Urea Nitrogen 87 mg/dL (7-18) H Creatinine 1.8 MG/DL (0.55-1.30) H Estimat Glomerular Filtration Rate 27.6 mL/min (>60) Glucose Level 321 MG/DL (74-106) H Lactic Acid Level 2.60 mmol/L (0.4-2.0) H Calcium Level 8.1 MG/DL (8.5-10.1) L Phosphorus Level 1.9 MG/DL (2.5-4.9) L Magnesium Level 1.7 MG/DL (1.8-2.4) L Total Bilirubin 0.4 MG/DL (0.2-1.0) Aspartate Amino Transf (AST/SGOT) 20 U/L (15-37) Alanine Aminotransferase (ALT/SGPT) 28 U/L (12-78) Alkaline Phosphatase 52 U/L (46-116) Troponin I 0.224 ng/mL (0.000-0.056) Pro-B-Type Natriuretic Peptide 442 pg/mL (0-125) H Total Protein 4.3 G/DL (6.4-8.2) L Albumin 1.8 G/DL (3.4-5.0) L Globulin 2.5 g/dL Albumin/Globulin Ratio 0.7 (1.0-2.7) L Triglycerides Level 312 MG/DL (30-150) H Cholesterol Level 75 MG/DL (< 200) LDL Cholesterol 32 mg/dL (<100) HDL Cholesterol 24 MG/DL (40-60) L Cholesterol/HDL Ratio 3.1 (3.3-4.4) L Random Vancomycin Level 9.5 ug/mL Microbiology Date/Time Source Procedure Growth Status 06/27/20 00:00 Rectum Received Height (Feet): 5 Height (Inches): 0.00 Weight (Pounds): 137 Medications Current Medications Medications (Trade) Dose Ordered Sig/Reinier Route PRN Reason Start Time Stop Time Status Last Admin Dose Admin Acetaminophen (Tylenol) 650 mg Q6H PRN NG Mild Pain (Pain Scale 1-3) 06/26/20 20:00 07/26/20 19:59 06/27/20 04:35 Acetaminophen (Tylenol) 650 mg Q6H PRN NG Temp >100.5 06/26/20 20:00 07/26/20 19:59 06/27/20 10:19 Atorvastatin Calcium (Lipitor) 80 mg BEDTIME ORAL 06/26/20 21:00 09/24/20 20:59 06/26/20 22:36 Chlorhexidine Gluconate (Eloisa-Hex 2%) 1 applic BEDTIME TOPIC 06/26/20 21:00 09/24/20 20:59 06/26/20 20:44 Dextrose 1,000 ml @ 75 mls/hr [id number] IV 06/27/20 13:15 07/27/20 13:14 Dextrose (Dextrose 50%) 25 ml Q30M PRN IV Hypoglycemia 06/26/20 20:00 09/24/20 19:59 Dextrose (Dextrose 50%) 50 ml Q30M PRN IV Hypoglycemia 06/26/20 20:00 09/24/20 19:59 Insulin Aspart (NovoLOG) Q4HR SUBQ 06/26/20 21:00 09/24/20 20:59 06/27/20 09:00 Lorazepam (Ativan 2mg/ml 1ml) 1 mg Q4H PRN IV For Anxiety 06/27/20 13:00 07/04/20 12:59 Magnesium Sulfate 100 ml @ 100 mls/hr Q1H IVPB 06/27/20 13:15 06/27/20 15:14 Midazolam HCl 50 mg/Sodium Chloride 100 ml @ 2 mls/hr NOW ONCE IV 06/26/20 16:00 06/28/20 17:59 Norepinephrine Bitartrate 250 ml @ 7.5 mls/hr Q24H IV 06/26/20 16:45 06/29/20 16:44 06/27/20 01:56 Pantoprazole (Protonix) 40 mg EVERY 12 HOURS IVP 06/26/20 21:00 07/26/20 20:59 06/27/20 09:19 Piperacillin Sod/ Tazobactam Sod 3.375 gm/Dextrose 100 ml @ 25 mls/hr EVERY 12 HOURS IVPB 06/26/20 21:00 07/01/20 20:59 06/27/20 09:20 Potassium Phosphate 250 ml @ 62.5 mls/hr Q4H IVPB 06/27/20 15:30 06/27/20 23:29 Potassium Chloride 100 ml @ 50 mls/hr ONCE ONCE IVPB 06/27/20 13:15 06/27/20 15:14 Sodium Chloride 1,000 ml @ 999 mls/hr Q1H1M ONCE IV 06/27/20 13:15 06/27/20 14:15 Vancomycin HCl ([facility] pharmacy to dose) 1 ea DAILY PRN MISC Per rx protocol 06/26/20 16:00 07/26/20 15:59 Vancomycin HCl 1 gm/Dextrose 275 ml @ 183.708 mls/hr ONCE ONCE IVPB 06/27/20 18:00 06/27/20 19:29 Assessment/Plan Problem List: (1) Hemiparesis ICD Codes: G81.90 - Hemiplegia, unspecified affecting unspecified side SNOMED: 81174305 Qualifiers: Qualified Codes: I69.354 - Hemiplegia and hemiparesis following cerebral infarction affecting left non-dominant side (2) Anemia ICD Codes: D64.9 - Anemia, unspecified SNOMED: 548099151 Qualifiers: Qualified Codes: D64.9 - Anemia, unspecified (3) ARF (acute renal failure) ICD Codes: N17.9 - Acute kidney failure, unspecified SNOMED: 03823846 Qualifiers: Qualified Codes: N17.9 - Acute kidney failure, unspecified (4) Choledocholithiasis Assessment & Plan: critically ill not safe for surgery ill appearing on support wean support gi input imaging reviewed ICD Codes: K80.50 - Calculus of bile duct without cholangitis or cholecystitis without obstruction SNOMED: 001546319 (5) Hyperglycemia ICD Codes: R73.9 - Hyperglycemia, unspecified SNOMED: 15664534 (6) Respiratory failure ICD Codes: J96.90 - Respiratory failure, unspecified, unspecified whether with hypoxia or hypercapnia SNOMED: 778079939 Qualifiers: Qualified Codes: J96.01 - Acute respiratory failure with hypoxia; J96.02 - Acute respiratory failure with hypercapnia (7) Severe sepsis Assessment & Plan: 74-year-old female with multimedical comorbidities who is DNR currently intubated intensive care unit septic shock potentially choledocholithiasis CT noted elevated leukocytosis dilated gallbladder critically severely ill. Currently intubated in the intensive care unit on support. Pressors being weaned. Unfortunately patient is nonoperative candidate at this time. Would hold on emergent procedure given patient's overall condition. Will need resuscitation. Microbiology noted. Imaging reviewed. Prognosis guarded. GI input appreciated. Will follow with rec ommendations thank you let me participate patient's care Markedly distended gallbladder, up to 6.2 cm in transverse diameter. 4.2 cm dependent gallstone with lamellated calcification. Biliary dilation. The common bile duct measures up to 1.2 cm in diameter. 1.2 cm stone within the proximal CBD. 1.3 cm stone distally near the ampulla of Vater as seen on coronal images 31 and 33 respectively. Haziness about the pancreas could be attributable to motion artifact, but given choledocholithiasis, would recommend correlation with enzymes to exclude gallstone pancreatitis. The spleen is diminutive, but otherwise unremarkable. The kidneys and adrenal glands are within normal limits for noncontrast technique. Inspissated stool and contrast distended rectum up to 7 cm in diameter. Correlate for impaction. No perforation. No small bowel obstruction. Guillen catheter with redundant tubing in the urinary bladder, which is appropriately decompressed. Right femoral venous catheter. Operative changes of the pelvis suggesting lymph node dissection along with hysterectomy. Aortoiliac atherosclerosis. No aneurysm. No acute fracture. IMPRESSION: Biliary dilation attributable to choledocholithiasis. 1.2 and 1.3 cm calculi in the proximal and distal CBD respectively. The distended gallbladder contains a large lamellated stone. Haziness about the pancreas could be attributable to motion artifact, but in light of biliary findings, recommend checking enzymes. The rectum is distended by inspissated stool and contrast. Correlate for impaction. ICD Codes: A41.9 - Sepsis, unspecified organism; R65.20 - Severe sepsis without septic shock SNOMED: 81886686 (8) NSTEMI (non-ST elevated myocardial infarction) ICD Codes: I21.4 - Non-ST elevation (NSTEMI) myocardial infarction SNOMED: 06752731 Zachary Shah Jun 27, 2020 13:59
--- NOTE | 2020-06-27 14:04 | Diagnostic Imaging Report ---
Indication: Abdominal pain, abnormal liver function tests Technique: Matson-scale and duplex images of the upper abdomen were obtained Comparison: No comparison sonograms. Reference made to abdomen pelvis CT scan 06/26/2020 Findings: Gallbladder demonstrates gallstones and sludge. No gallbladder wall thickening nor pericholecystic fluid. Sonographic Ocok's sign is negative. Common bile duct measures 10 mm in diameter. An intraductal calculus is seen in the common bile duct within the pancreatic head. No intrahepatic biliary ductal dilatation. Liver demonstrates normal echogenicity, no focal abnormality. Portal vein and hepatic veins are patent. Pancreas is unremarkable. Spleen is unremarkable. Left kidney measures 10.5 cm in length. Right kidney measures 9.4 cm length. Both kidneys demonstrate slightly increased echogenicity. There is no hydronephrosis. Small cysts are seen in the left kidney . The bladder is empty, contains a Guillen catheter. Non-aneurysmal abdominal aorta . Unremarkable inferior vena cava Impression: Cholelithiasis and gallbladder sludge. Choledocholithiasis with intrahepatic and extra hepatic biliary ductal dilatation, confirming findings seen on recent CT scan. Mildly increased renal echogenicity, may indicate medical renal disease Guillen catheter Incidental finding left renal cysts
--- NOTE | 2020-06-27 14:14 | NUR ---
NURSE NOTES: late entry: MD. KIDD HERE TO SEE PT. WAS INFORMED OF LABS: NA 156, K 2.9, TROPONIN 0.263, LACTIC ACID 2.6 MG 1.7 AND PHOS[address]US 1[address]. [address] OWN ORDERS. PT DROWSY, SECRETIONS MILD. Addendum: 06/27/20 at 1804 by Rosy Hillman RN INFORMED 2 D ECHO 60/65%, DUPLEX POSITIVE FOR DVT NEAR RT FEMORAL LINE. MAY CONSIDER ANTICOAGULANT, R/O GI BLEED AND MONITOR H&H.
--- NOTE | 2020-06-27 15:04 | Diagnostic Imaging Report ---
Indication: Or extremity edema, shortness of breath Technique: Grayscale and duplex images of the bilateral lower extremity veins Comparison: Findings: On the right, grayscale and duplex images demonstrate thrombus within the common femoral vein. There is a central venous catheter within the common femoral vein. Elsewhere on the right, grayscale and duplex images demonstrate no evidence of intraluminal thrombus. On the left, grayscale and duplex images demonstrate no evidence of intraluminal thrombus. Normal phasic Doppler waveforms, demonstrating normal augmentation response and no evidence of valvular insufficiency. Greater saphenous vein(s) and tibial veins are patent. Normal compressibility. Impression: Positive for right common femoral vein deep venous thrombosis. This appears to be associated with a central venous catheter. Patient's nurse aware No evidence of left lower extremity deep venous thrombosis
--- NOTE | 2020-06-27 15:38 | Pulmonology Progress Note ---
Subjective ROS Limited/Unobtainable: No Interval Events: Remains intubated Constitutional: Reports: no symptoms HEENT: Repors: no symptoms Respiratory: Reports: no symptoms Cardiovascular: Reports: no symptoms Gastrointestinal/Abdominal: Reports: no symptoms Genitourinary: Reports: no symptoms Allergies: Coded Allergies: No Known Allergies (Unverified , 06/26/20) Objective Last 24 Hour Vital Signs Date Time Temp Pulse Resp B/P (MAP) Pulse Ox O2 Delivery O2 Flow Rate FiO2 06/27/20 13:30 77 16 101/47 (65) 100 06/27/20 13:20 78 16 30 06/27/20 13:15 86 21 130/60 (83) 100 06/27/20 13:00 84 19 123/55 (77) 100 06/27/20 12:45 86 21 123/54 (77) 100 06/27/20 12:30 86 20 122/55 (77) 100 06/27/20 12:15 82 23 124/63 (83) 100 06/27/20 12:00 100.0 82 20 114/52 (72) 100 06/27/20 12:00 Mechanical Ventilator 06/27/20 11:06 81 17 30 06/27/20 11:00 83 17 97/45 (62) 100 06/27/20 10:45 84 18 102/52 (69) 100 06/27/20 10:42 100.0 06/27/20 10:30 86 16 101/44 (63) 100 06/27/20 10:15 95 20 132/57 (82) 100 06/27/20 10:00 91 18 109/51 (70) 06/27/20 09:30 90 20 107/51 (69) 95 06/27/20 09:27 92 18 30 06/27/20 09:15 92 17 122/50 (74) 100 06/27/20 09:00 92 17 97/48 (64) 100 06/27/20 08:15 94 19 119/58 (78) 100 06/27/20 08:00 Mechanical Ventilator 06/27/20 08:00 88 06/27/20 08:00 30 06/27/20 08:00 101.0 89 18 102/51 (68) 100 06/27/20 07:10 88 18 30 06/27/20 07:00 86 20 108/55 (72) 100 06/27/20 06:30 85 18 91/44 (60) 100 06/27/20 06:30 84 18 06/27/20 06:00 83 19 100/47 (64) 100 06/27/20 05:45 80 18 84/42 (56) 100 06/27/20 05:30 93 23 117/51 (73) 99 06/27/20 05:15 88 18 112/57 (75) 100 06/27/20 05:00 92 17 96/41 (59) 100 06/27/20 04:45 91 18 119/54 (75) 100 06/27/20 04:30 101 16 99/47 (64) 100 06/27/20 04:15 101 25 128/58 (81) 100 06/27/20 04:00 94 06/27/20 04:00 99.0 96 18 100/50 (67) 100 06/27/20 04:00 Mechanical Ventilator 06/27/20 03:15 97 18 112/47 (68) 100 06/27/20 03:10 101 18 30 06/27/20 03:00 97 18 95/47 (63) 100 06/27/20 02:45 100 19 102/50 (67) 100 06/27/20 02:30 102 17 105/47 (66) 100 06/27/20 02:15 105 21 133/53 (79) 100 06/27/20 02:00 98.5 88 18 111/51 (71) 100 06/27/20 01:56 70/35 06/27/20 01:50 86 17 80/50 (60) 100 06/27/20 01:32 86 17 80/54 (63) 100 06/27/20 01:20 87 19 104/49 (67) 100 06/27/20 01:00 89 21 94/40 (58) 100 06/27/20 00:45 90 19 105/48 (67) 100 06/27/20 00:30 88 19 96/45 (62) 100 06/27/20 00:00 98 06/27/20 00:00 98.5 92 19 105/49 (67) 100 06/27/20 00:00 Mechanical Ventilator 06/26/20 23:15 89 19 93/48 (63) 100 06/26/20 23:10 91 20 30 1/31/21 23:00 98.4 94 24 104/49 (67) 100 06/26/20 22:45 98.1 93 18 92/43 (59) 100 06/26/20 21:00 87 17 96/43 (60) 100 06/26/20 20:00 86 06/26/20 20:00 Mechanical Ventilator 06/26/20 20:00 86 17 93/46 (62) 100 06/26/20 19:20 90 18 30 06/26/20 19:00 97.8 89 16 103/52 (69) 100 06/26/20 18:00 89 18 100 06/26/20 18:00 96.7 86 17 103/67 (79) 100 06/26/20 17:32 96.7 86 17 103/67 (79) 100 06/26/20 17:30 86 17 100 06/26/20 17:22 96.7 86 17 103/62 (76) 100 06/26/20 17:22 86 17 100 06/26/20 17:15 87 17 100 06/26/20 17:00 86 17 98/48 (65) 100 06/26/20 17:00 86 17 98/48 (65) 100 06/26/20 16:52 Endotracheal Tube 30.0 06/26/20 16:45 116/82 06/26/20 16:44 90 15 100/52 (68) 100 06/26/20 16:33 87 17 30 06/26/20 16:33 87 17 100 Mechanical Ventilator 30 Intake and Output 06/26/20 06/27/20 19:00 07:00 Intake Total 19102 ml 957.860 ml Output Total 1220 ml 940 ml Balance 8855 ml 17.860 ml Intake IV Total 7075 ml 957.860 ml Other 3000 ml Output Urine Total 1220 ml 940 ml # Bowel Movements 2 General Appearance: no acute distress HEENT: normocephalic Respiratory: chest wall non-tender, lungs clear Cardiovascular: normal peripheral pulses Abdomen: normal bowel sounds Extremities: no cyanosis Microbiology Date/Time Source Procedure Growth Status 06/27/20 00:00 Rectum Received Laboratory Tests 06/26/20 16:15: Troponin I 0.263H 06/26/20 18:44: POC Whole Blood Glucose 226H 06/26/20 23:41: Urine Random Sodium < 20L, Urine Creatinine 35.3 06/27/20 01:21: POC Whole Blood Glucose 318H 06/27/20 10:01: POC Whole Blood Glucose [Pending] 06/27/20 10:50: White Blood Count 25.7*H, Red Blood Count 3.33L, Hemoglobin 10.0#L, Hematocrit 31.1#L, Mean Corpuscular Volume 93, Mean Corpuscular Hemoglobin 30.1, Mean Corpuscular Hemoglobin Concent 32.2, Red Cell Distribution Width 13.7, Platelet Count 133L, Mean Platelet Volume 7.2, Neutrophils (%) (Auto) , Lymphocytes (%) (Auto) , Monocytes (%) (Auto) , Eosinophils (%) (Auto) , Basophils (%) (Auto) , Differential Total Cells Counted 100, Neutrophils % (Manual) 82H, Lymphocytes % (Manual) 9L, Monocytes % (Manual) 9, Eosinophils % (Manual) 0, Basophils % (Manual) 0, Band Neutrophils 0, Nucleated Red Blood Cells 1, Platelet Estimate DecreasedL, Platelet Morphology Normal, Polychromasia 1+, Hypochromasia 1+, Sodium Level 156H, Potassium Level 2.9L, Chloride Level 125H, Carbon Dioxide Level 20L, Anion Gap 11, Blood Urea Nitrogen 87H, Creatinine 1.8H, Estimat Glomerular Filtration Rate 27.6, Glucose Level 321H, Lactic Acid Level 2.60H, Calcium Level 8.1L, Phosphorus Level 1.9L, Magnesium Level 1.7L, Total Bilirubin 0.4, Aspartate Amino Transf (AST/SGOT) 20, Alanine Aminotransferase (ALT/SGPT) 28, Alkaline Phosphatase 52, Troponin I 0.224H, Pro-B-Type Natriuretic Peptide 442H, Total Protein 4.3L, Albumin 1.8L, Globulin 2.5, Albumin/Globulin Ratio 0.7L, Triglycerides Level 312H, Cholesterol Level 75, LDL Cholesterol 32, HDL Cholesterol 24L, Cholesterol/HDL Ratio 3.1L, Random Vancomycin Level 9.5 06/27/20 14:18: POC Whole Blood Glucose 298H Current Medications Medications (Trade) Dose Ordered Sig/Reinier Route PRN Reason Start Time Stop Time Status Last Admin Dose Admin Acetaminophen (Tylenol) 650 mg Q6H PRN NG Mild Pain (Pain Scale 1-3) 06/26/20 20:00 07/26/20 19:59 06/27/20 04:35 Acetaminophen (Tylenol) 650 mg Q6H PRN NG Temp >100.5 06/26/20 20:00 07/26/20 19:59 06/27/20 10:19 Atorvastatin Calcium (Lipitor) 80 mg BEDTIME ORAL 06/26/20 21:00 09/24/20 20:59 06/26/20 22:36 Chlorhexidine Gluconate (Eloisa-Hex 2%) 1 applic BEDTIME TOPIC 06/26/20 21:00 09/24/20 20:59 06/26/20 20:44 Dextrose 1,000 ml @ 75 mls/hr [id number] IV 06/27/20 13:15 07/27/20 13:14 06/27/20 13:15 Dextrose (Dextrose 50%) 25 ml Q30M PRN IV Hypoglycemia 06/26/20 20:00 09/24/20 19:59 Dextrose (Dextrose 50%) 50 ml Q30M PRN IV Hypoglycemia 06/26/20 20:00 09/24/20 19:59 Insulin Aspart (NovoLOG) Q4HR SUBQ 06/26/20 21:00 09/24/20 20:59 06/27/20 13:00 Lorazepam (Ativan 2mg/ml 1ml) 1 mg Q4H PRN IV For Anxiety 06/27/20 13:00 07/04/20 12:59 Midazolam HCl 50 mg/Sodium Chloride 100 ml @ 2 mls/hr NOW ONCE IV 06/26/20 16:00 06/28/20 17:59 Norepinephrine Bitartrate 250 ml @ 7.5 mls/hr Q24H IV 06/26/20 16:45 06/29/20 16:44 06/27/20 01:56 Pantoprazole (Protonix) 40 mg EVERY 12 HOURS IVP 06/26/20 21:00 07/26/20 20:59 06/27/20 09:19 Piperacillin Sod/ Tazobactam Sod 3.375 gm/Dextrose 100 ml @ 25 mls/hr EVERY 12 HOURS IVPB 06/26/20 21:00 07/01/20 20:59 06/27/20 09:20 Potassium Phosphate 250 ml @ 62.5 mls/hr Q4H IVPB 06/27/20 15:30 06/27/20 23:29 Vancomycin HCl (Vanco pharmacy to dose) 1 ea DAILY PRN MISC Per rx protocol 06/26/20 16:00 07/26/20 15:59 Vancomycin HCl 1 gm/Dextrose 275 ml @ 183.708 mls/hr ONCE ONCE IVPB 06/27/20 18:00 06/27/20 19:29 Assessment/Plan Assessment/Plan IMPRESSION: 1. Acute respiratory failure. 2. Pneumonia, suspected. 3. Marked leukocytosis. 4. Anemia. 5. Renal failure. 6. Possible cholecystitis. 7. Pacemaker. 8. snf resident. DISCUSSION: 1. Continue vent; assist control mechanical ventilation 2. Broad-spectrum antibiotics as per ID specialist. 3. Maintain respiratory status on assist-control mechanical ventilation. 4. I will follow ABGs. 5. Provide DVT and GI prophylaxes. 6. IV fluids to be given. 7. We will monitor lactic acidosis. defer CODE STATUS to attending Noted DNR Tre Browne Omar Syed MD Jun 27, 2020 15:38
[2020-06-27] MEDS: Potassium Phosphate 15mm/250ml 250 ML IVPB SCH ×2 (15:44→19:02)
--- NOTE | 2020-06-27 16:16 | NUR ---
NURSE NOTES: PT CLEANED AND REPOSITIONED. RESTRAINTS IN PLACE. FLUIDS RUNNING VIA FEMORAL LINE. DRESSING DRY AND INTACT.
--- NOTE | 2020-06-27 17:55 | NUR ---
NURSE NOTES: lab here to draw troponin and lactic acid
[2020-06-27] MEDS ORDERED: Vancomycin 1gm/D5W 275ml IVPB ONE ×2 (18:00)
--- NOTE | 2020-06-27 18:20 | NUR ---
INSURANCE CLINICALS/ REVIEW FAXED TO [facility]: Geena # [phone] fax# [phone]
[2020-06-27 18:52] LABS: CALCIUM 7.3 MG/DL (8.5-10.1); CREATININE 1.6 MG/DL (0.55-1.30); PHOSPHORUS 2.1 MG/DL (2.5-4.9); POTASSIUM 3.1 MMOL/L (3.5-5.1)
--- NOTE | 2020-06-27 19:38 | NUR ---
NURSE NOTES: CALLED MD KIDD REGARDING F/U TROPONIN: 0.196 AND LACTIC ACID: 1.80
--- NOTE | 2020-06-27 19:39 | NUR ---
NURSE HAND-OFF REPORT: Latest Vital Signs: Temperature 99.0 , Pulse 69 , B/P 98 /47 , Respiratory Rate 19 , O2 SAT 100 , Mechanical Ventilator, O2 Flow Rate 30.0 . Vital Sign Comment: EKG Rhythm: Sinus Rhythm Rhythm change?: N MD Notified?: - MD Response: Latest Rea Fall Score: 50 Fall Risk: High Risk Safety Measures: Call light Within Reach, Bed Alarm Zone 1, Side Rails Side Rails x2, Bed position Low and Locked. Fall Precautions: Door Sign Report given to . MOISES GONZALEZ R.N
--- NOTE | 2020-06-27 19:40 | NUR ---
NURSE NOTES: received pt from Rosy ORTEGA., pt is sleeping at this time easy to arouse. left side weakness noted, right hand actively moving. pacemaker noted, no spiking at this time. pt is now SR. vent setting: ETT 7.5 21cm AC 16 TV 400 Peep 5 Fio2 30%, and O2sat shows 100%. pt is now on NPO and OGT noted. call light within reach. bilateral soft wrist restrain noted, pulse noted, skin intact. fine cath noted, light yellow urine noted. no active bleeding noted at this time. right femoral TLC noted, dressing site intact, clean, and patent. no skin issue noted. large ABD soft noted, with active. no BM noted at this time. D5W is running at 75 ml/hr. will continue to monitor pt with plan of care. bed at the lowest position, alarmed, side rails x3 up, and locked.
--- NOTE | 2020-06-27 19:41 | History & Physical ---
History and Physical History & Physicial Dictated for Int Med-DR Valdivia no. [id number] Xavier Rodriguez MD Jun 27, 2020 19:40
[2020-06-27] MEDS: Dyna-Hex 2% Top Sol 2oz TOPIC SCH (20:35)
[2020-06-27] MEDS: Atorvastatin 80mg tab ORAL SCH (20:35)
--- NOTE | 2020-06-27 21:40 | NUR ---
NURSE NOTES: pt is resting on the bed at this time. call light within reach. no SOB noted. O2sat is at 100%.
--- NOTE | 2020-06-27 23:40 | NUR ---
NURSE NOTES: repositioned pt, oral care given. oral suctioned. no active bleeding noted.
--- NOTE | 2020-06-27 23:44 | History and Physical Report ---
DATE OF ADMISSION: 06/26/2020 CHIEF COMPLAINT: Patient is a 74-year-old female, who presents with a chief complaint of altered mental status. HISTORY OF PRESENT ILLNESS: Patient is a resident of [facility]. Much of the history and physical is obtained from the patient's chart. The patient is nonverbal. Patient apparently was admitted to [facility] 1 week ago. Patient had a pacemaker implantation during that hospitalization. Patient was discharged on 06/15/2020 to [facility]. According to staff at [facility], patient became increasingly confused in the last 2 days. Patient was found to have elevated blood sugar. Patient was transferred to [facility]. Patient was emergently intubated in the emergency room due to respiratory failure. Patient is admitted with altered mental status and respiratory failure. REVIEW OF SYSTEMS: Unable to assess secondary to patient's mental status. PAST MEDICAL HISTORY: Significant for: 1. Diabetes type 2. 2. History of hypertension. 3. Cerebrovascular disease. 4. History of cerebrovascular accident. PAST SURGICAL HISTORY: Significant for pacemaker implantation at [facility] as above. CURRENT MEDICATIONS: 1. Amlodipine 5 mg p.o. daily. 2. Aspirin 81 mg p.o. daily. 3. Hydralazine 25 mg p.o. 4 times daily p.r.n. 4. Hydrochlorothiazide 25 mg p.o. daily. 5. Lantus insulin 15 units subcutaneously at bedtime. 6. Humalog sliding scale. 7. Losartan 100 mg p.o. daily. 8. Zofran 4 mg p.o. q.4h p.r.n. ALLERGIES: No known drug allergies. SOCIAL HISTORY: Patient is a and is a resident of [facility]. Patient denies tobacco or alcohol use. PHYSICAL EXAMINATION: VITAL SIGNS: Temperature 99.0, respirations 20, pulse 98, blood pressure 100/52. GENERAL: Patient is a well-developed, well-nourished female, in no apparent distress. Patient is intubated and sedated. HEENT: Eyes pupils are equal and responsive to light and accommodation. Extraocular movements are intact. NECK: Supple without lymphadenopathy. CHEST: Mechanical breath sounds bilaterally without wheezes or rales. CARDIOVASCULAR: Regular rhythm and rate. S1, S2 are normal without murmurs, rubs, or gallops. ABDOMEN: Soft, nontender, nondistended. Positive bowel sounds. No evidence of hepatosplenomegaly. Currently, no rebound or guarding noted. EXTREMITIES: Negative for clubbing, cyanosis, or edema. RECTAL/GENITAL: Not performed. NEUROLOGIC: Cranial nerves II through XII are grossly intact without focal deficits. Motor strength is 5/5 bilaterally. Deep tendon reflexes are 2+ plantar. LABORATORY STUDIES: WBC 20.5, hemoglobin 6.3, hematocrit 19.9, platelets 160,000. Sodium 147, potassium 3.9, chloride 109, CO2 23, BUN 143, creatinine 3.0, glucose 347. Lactic acid 5.50. BNP elevated at 683. Troponin elevated at 0.164. Urinalysis showed 3+ glucose. Chest x-ray was reported as prominent pulmonary arteries consistent with pulmonary hypertension. ASSESSMENT: This is a 74-year-old female. 1. Respiratory failure. 2. Altered mental status. 3. Severe anemia. 4. Hypotension. 5. Hyperglycemia. 6. Cerebrovascular disease. 7. Renal failure. 8. History of hypertension. 9. Diabetes type 2. TREATMENT: 1. Respiratory failure. A Pulmonary consultation has been obtained with Dr. Doe. Respiratory failure may be secondary to pneumonia versus COVID-19. Patient has been started empirically on intravenous Zosyn and vancomycin. Follow recommendations of Pulmonary. Patient is currently intubated and sedated in the intensive care unit. 2. Severe anemia. Patient has been typed and crossed for 2 units of packed RBCs. Blood cells will be transfused when available. 3. Hypotension. This may be secondary to septic shock versus severe anemia as above. 4. Hyperglycemia. Patient is currently on an insulin drip. 5. Diabetes type 2. As above, patient is currently on an insulin drip. An Endocrinology consultation has been obtained with Dr. Quiros. 6. Cerebrovascular disease, status post cerebrovascular accident. 7. Acute on chronic renal failure. A Nephrology consultation has been obtained with Dr. Lenz. Follow recommendations of Nephrology. Xavier Rodriguez M.D. DR: BRENDEN JOB#: [id number] CC: MEENA
[2020-06-28] VITALS (27 sets, daily range): BP systolic 88–139; BP diastolic 41–77
--- NOTE | 2020-06-28 00:44 | Cardiology Progress Note ---
Subjective DATE OF SERVICE: Jun 27, 2020 Patient remains in ICU with CRITICAL condition and GUARDED prognosis. ON full vent support. She is s/p 3 units of PRBC's transfused. Marginal BP requiring pressors and IVF. Monitor: sinus tachycardia with arrhythmia. 2D Echo: Normal LVEF, no significant valve or pericardial abn, mild pulmonary hypertension (41mmHg). Objective Last 24 Hour Vital Signs Date Time Temp Pulse Resp B/P (MAP) Pulse Ox O2 Delivery O2 Flow Rate FiO2 06/28/20 00:00 Mechanical Ventilator 06/27/20 23:20 71 18 30 06/27/20 23:00 72 20 97/44 (61) 100 06/27/20 22:00 70 20 97/44 (61) 100 06/27/20 21:30 68 20 97/52 (67) 100 06/27/20 21:00 70 18 90/42 (58) 100 06/27/20 21:00 72 18 30 06/27/20 20:30 67 18 96/52 (67) 100 06/27/20 20:00 98.8 69 18 94/47 (63) 100 06/27/20 20:00 Mechanical Ventilator 06/27/20 19:16 69 19 30 06/27/20 19:00 76 18 98/47 (64) 100 06/27/20 18:30 75 19 99/46 (63) 100 06/27/20 18:00 70 16 94/58 (70) 100 06/27/20 17:15 73 16 30 06/27/20 17:00 70 18 109/60 (76) 100 06/27/20 16:52 30 06/27/20 16:30 69 17 111/51 (71) 100 06/27/20 16:00 82 06/27/20 16:00 99.0 70 16 105/52 (69) 100 06/27/20 16:00 Mechanical Ventilator 06/27/20 15:30 75 17 100/50 (67) 100 06/27/20 15:10 85 16 30 06/27/20 15:00 75 17 119/57 (77) 100 06/27/20 14:30 82 19 129/53 (78) 100 06/27/20 14:00 84 21 138/63 (88) 100 06/27/20 13:30 77 16 101/47 (65) 100 06/27/20 13:20 78 16 30 06/27/20 13:15 86 21 130/60 (83) 100 06/27/20 13:00 84 19 123/55 (77) 100 06/27/20 12:45 86 21 123/54 (77) 100 06/27/20 12:30 86 20 122/55 (77) 100 06/27/20 12:15 82 23 124/63 (83) 100 06/27/20 12:00 100.0 82 20 114/52 (72) 100 06/27/20 12:00 81 06/27/20 12:00 Mechanical Ventilator 06/27/20 11:06 81 17 30 06/27/20 11:00 83 17 97/45 (62) 100 06/27/20 10:45 84 18 102/52 (69) 100 06/27/20 10:42 100.0 06/27/20 10:30 86 16 101/44 (63) 100 06/27/20 10:15 95 20 132/57 (82) 100 06/27/20 10:00 91 18 109/51 (70) 06/27/20 09:30 90 20 107/51 (69) 95 06/27/20 09:27 92 18 30 06/27/20 09:15 92 17 122/50 (74) 100 06/27/20 09:00 92 17 97/48 (64) 100 06/27/20 08:15 94 19 119/58 (78) 100 06/27/20 08:00 Mechanical Ventilator 06/27/20 08:00 88 06/27/20 08:00 30 06/27/20 08:00 101.0 89 18 102/51 (68) 100 06/27/20 07:10 88 18 30 06/27/20 07:00 86 20 108/55 (72) 100 06/27/20 06:30 85 18 91/44 (60) 100 06/27/20 06:30 84 18 06/27/20 06:00 83 19 100/47 (64) 100 06/27/20 05:45 80 18 84/42 (56) 100 06/27/20 05:30 93 23 117/51 (73) 99 06/27/20 05:15 88 18 112/57 (75) 100 06/27/20 05:00 92 17 96/41 (59) 100 06/27/20 04:45 91 18 119/54 (75) 100 06/27/20 04:30 101 16 99/47 (64) 100 06/27/20 04:15 101 25 128/58 (81) 100 06/27/20 04:00 94 06/27/20 04:00 99.0 96 18 100/50 (67) 100 06/27/20 04:00 Mechanical Ventilator 06/27/20 03:15 97 18 112/47 (68) 100 06/27/20 03:10 101 18 30 06/27/20 03:00 97 18 95/47 (63) 100 06/27/20 02:45 100 19 102/50 (67) 100 06/27/20 02:30 102 17 105/47 (66) 100 06/27/20 02:15 105 21 133/53 (79) 100 06/27/20 02:00 98.5 88 18 111/51 (71) 100 06/27/20 01:56 70/35 06/27/20 01:50 86 17 80/50 (60) 100 06/27/20 01:32 86 17 80/54 (63) 100 06/27/20 01:20 87 19 104/49 (67) 100 06/27/20 01:00 89 21 94/40 (58) 100 06/27/20 00:45 90 19 105/48 (67) 100 ROS: unchanged from 06/26/20 HEENT: Orally intubated, Mechanically Ventilated, Thin secretions ET Tube RHYTHM: NSR, ST, PACs LUNGS: bilateral rhonchi CARDIAC: normal rate, regular rhythm, normal S1 and S2, tachycardia ABDOMEN: normal bowel sounds, soft, no mass EXTREMITIES: normal inspection, no swelling, trace edema Laboratory Tests Test 06/27/20 01:21 06/27/20 10:01 06/27/20 10:50 06/27/20 14:18 POC Whole Blood Glucose 318 MG/DL (74-106) H Pending 298 MG/DL (74-106) H White Blood Count 25.7 K/UL (4.8-10.8) *H Red Blood Count 3.33 M/UL (4.20-5.40) L Hemoglobin 10.0 G/DL (12.0-16.0) #L Hematocrit 31.1 % (37.0-47.0) #L Mean Corpuscular Volume 93 FL (80-99) Mean Corpuscular Hemoglobin 30.1 PG (27.0-31.0) Mean Corpuscular Hemoglobin Concent 32.2 G/DL (32.0-36.0) Red Cell Distribution Width 13.7 % (11.6-14.8) Platelet Count 133 K/UL (150-450) L Mean Platelet Volume 7.2 FL (6.5-10.1) Neutrophils (%) (Auto) % (45.0-75.0) Lymphocytes (%) (Auto) % (20.0-45.0) Monocytes (%) (Auto) % (1.0-10.0) Eosinophils (%) (Auto) % (0.0-3.0) Basophils (%) (Auto) % (0.0-2.0) Differential Total Cells Counted 100 Neutrophils % (Manual) 82 % (45-75) H Lymphocytes % (Manual) 9 % (20-45) L Monocytes % (Manual) 9 % (1-10) Eosinophils % (Manual) 0 % (0-3) Basophils % (Manual) 0 % (0-2) Band Neutrophils 0 % (0-8) Nucleated Red Blood Cells 1 /100 WBC Platelet Estimate Decreased L Platelet Morphology Normal Polychromasia 1+ Hypochromasia 1+ Sodium Level 156 MMOL/L (136-145) H Potassium Level 2.9 MMOL/L (3.5-5.1) L Chloride Level 125 MMOL/L (98-107) H Carbon Dioxide Level 20 MMOL/L (21-32) L Anion Gap 11 mmol/L (5-15) Blood Urea Nitrogen 87 mg/dL (7-18) H Creatinine 1.8 MG/DL (0.55-1.30) H Estimat Glomerular Filtration Rate 27.6 mL/min (>60) Glucose Level 321 MG/DL (74-106) H Lactic Acid Level 2.60 mmol/L (0.4-2.0) H Calcium Level 8.1 MG/DL (8.5-10.1) L Phosphorus Level 1.9 MG/DL (2.5-4.9) L Magnesium Level 1.7 MG/DL (1.8-2.4) L Total Bilirubin 0.4 MG/DL (0.2-1.0) Aspartate Amino Transf (AST/SGOT) 20 U/L (15-37) Alanine Aminotransferase (ALT/SGPT) 28 U/L (12-78) Alkaline Phosphatase 52 U/L (46-116) Troponin I 0.224 ng/mL (0.000-0.056) Pro-B-Type Natriuretic Peptide 442 pg/mL (0-125) H Total Protein 4.3 G/DL (6.4-8.2) L Albumin 1.8 G/DL (3.4-5.0) L Globulin 2.5 g/dL Albumin/Globulin Ratio 0.7 (1.0-2.7) L Triglycerides Level 312 MG/DL (30-150) H Cholesterol Level 75 MG/DL (< 200) LDL Cholesterol 32 mg/dL (<100) HDL Cholesterol 24 MG/DL (40-60) L Cholesterol/HDL Ratio 3.1 (3.3-4.4) L Random Vancomycin Level 9.5 ug/mL Test 06/27/20 16:00 06/27/20 18:36 Sodium Level 156 MMOL/L (136-145) H Potassium Level 3.1 MMOL/L (3.5-5.1) L Chloride Level 126 MMOL/L (98-107) H Carbon Dioxide Level 21 MMOL/L (21-32) Anion Gap 9 mmol/L (5-15) Blood Urea Nitrogen 73 mg/dL (7-18) H Creatinine 1.6 MG/DL (0.55-1.30) H Estimat Glomerular Filtration Rate 31.6 mL/min (>60) Glucose Level 299 MG/DL (74-106) H Lactic Acid Level 1.80 mmol/L (0.66-2.22) Calcium Level 7.3 MG/DL (8.5-10.1) L Phosphorus Level 2.1 MG/DL (2.5-4.9) L Magnesium Level 2.9 MG/DL (1.8-2.4) H Troponin I 0.196 ng/mL (0.000-0.056) POC Whole Blood Glucose 288 MG/DL (74-106) H Microbiology Date/Time Source Procedure Growth Status 06/27/20 00:00 Rectum Received 06/26/20 12:01 Blood Blood Culture - Preliminary NO GROWTH AFTER 24 HOURS Resulted 06/26/20 11:56 Blood Blood Culture - Preliminary NO GROWTH AFTER 24 HOURS Resulted Assessment/Plan Assessment/Plan Shock Severe anemia Acute coronary syndrome/NSTEMI ATN associated acute renal failure Hypovolemia Sepsis Acute respiratory failure PAFib Recent permanent pacemaker implant Lactic acidosis - resolved Pulmonary hypertension Vent Abx Taper pressors Follow up cardiac enzymes Continuous cardiac monitoring F/U lipid panel and adjust statin dose Monitor hemoglobin Hold antiplt therapy in view of severe anemia Serafin Lawson MD Jun 28, 2020 00:44
[2020-06-28] MEDS: NovoLOG Insulin Flexpen SUBQ SCH ×6 (01:00→21:00)
--- NOTE | 2020-06-28 01:40 | NUR ---
NURSE NOTES: bilateral soft wrist restrain intact. skin intact, pulse noted. Optifoam applied on sacral for prevention. no skin alternation noted.
[2020-06-28] MEDS: Acetaminophen 650mg/20.3ml NG PRN (02:21)
--- NOTE | 2020-06-28 02:21 | NUR ---
NURSE NOTES: administered Tylenol for fever 102.0. cooling measures provided. will continue to monitor pt.
--- NOTE | 2020-06-28 04:00 | NUR ---
NURSE NOTES: cleaned pt, oral care given. oral suctioned. no active bleeding noted. O2sat is at 100%. small BM noted.
[2020-06-28 05:25] LABS: HEMATOCRIT 28.6 % (37.0-47.0); HEMOGLOBIN 9.4 G/DL (12.0-16.0); MEAN CORPUSCULAR VOLUME 93 FL (80-99); PLATELET COUNT 123 K/UL (150-450); RED BLOOD COUNT 3.06 M/UL (4.20-5.40); RED CELL DISTRIBUTION WIDTH 13.7 % (11.6-14.8)
[2020-06-28 05:57] LABS: ALBUMIN 1.7 G/DL (3.4-5.0); ALBUMIN/GLOBULIN RATIO 0.6 (1.0-2.7); BILIRUBIN,TOTAL 0.6 MG/DL (0.2-1.0); CALCIUM 7.4 MG/DL (8.5-10.1); CREATININE 1.5 MG/DL (0.55-1.30)
[2020-06-28 05:59] LABS: PHOSPHORUS 2.3 MG/DL (2.5-4.9)
--- NOTE | 2020-06-28 06:00 | NUR ---
NURSE NOTES: Dr. Lenz made aware pt lab potassium is 2.7 and sodium 153.received orders, will carry on.
[2020-06-28 06:01] LABS: POTASSIUM 2.7 MMOL/L (3.5-5.1)
[2020-06-28 06:06] LABS: AMYLASE 159 U/L (25-115)
--- NOTE | 2020-06-28 07:10 | NUR ---
NURSE HAND-OFF REPORT: Latest Vital Signs: Temperature 99.0 , Pulse 77 , B/P 117 /52 , Respiratory Rate 21 , O2 SAT 100 , Mechanical Ventilator, O2 Flow Rate 30.0 . Vital Sign Comment: [stable] EKG Rhythm: Sinus Rhythm Rhythm change?: N MD Notified?: - MD Response: Latest Rea Fall Score: 50 Fall Risk: High Risk Safety Measures: Call light Within Reach, Bed Alarm Zone 1, Side Rails Side Rails x2, Bed position Low and Locked. Fall Precautions: Door Sign Report given to [Rosy ORTEGA].
--- NOTE | 2020-06-28 07:33 | NUR ---
NURSE NOTES: RECEIVED REPORT. PT IN BED RESTING. OPENS EYES. RESPONSIVE TO PAIN. PUPILS 3MM SLUGGISH. PACEMAKER JOSE L. INTUBATED 7.5, 21CM AT LIP. SETTINGS: AC 16, VT 400, PEEP 5, FIO2 30%. SECRETIONS THICK. BILATERAL BREATH SOUNDS DIMINISHED. NPO. OGT. BOWEL SOUNDS HYPOACTIVE. NO BM AT THIS TIME. ACCU CHK Q4HR. RT FEMORAL TLC 06/26. DRESSING DRY AND INTACT. FLUIDS D5W AT 75ML/HR. BILATERAL RADIAL PULSES WEAK. BED ALARM ON. SIDE RAILS X3. BED LOW AND LOCKED IN POSITION. WILL CONTINUE MONITOR PT.
[2020-06-28] MEDS ORDERED: Vancomycin 1gm/NS 275ml IVPB SCH ×2 (08:00)
[2020-06-28] MEDS ORDERED: Vancomycin 1gm/D5W 275ml IVPB SCH ×2 (08:00)
--- NOTE | 2020-06-28 08:30 | General Progress Note ---
Subjective ROS Limited/Unobtainable: No Allergies: Coded Allergies: No Known Allergies (Unverified , 06/26/20) Objective Last 24 Hour Vital Signs Date Time Temp Pulse Resp B/P (MAP) Pulse Ox O2 Delivery O2 Flow Rate FiO2 06/28/20 08:00 Mechanical Ventilator 06/28/20 08:00 30 06/28/20 08:00 98.7 78 18 123/56 (78) 100 06/28/20 07:00 77 21 117/52 (73) 100 06/28/20 06:30 106 18 06/28/20 06:00 77 21 117/52 (73) 100 06/28/20 05:14 75 19 30 06/28/20 05:00 71 21 113/45 (67) 100 06/28/20 04:00 30 06/28/20 04:00 Mechanical Ventilator 06/28/20 04:00 99.0 81 23 122/50 (74) 100 06/28/20 04:00 65 06/28/20 03:06 71 24 30 06/28/20 02:51 100.0 06/28/20 02:00 72 19 104/44 (64) 100 06/28/20 01:00 70 18 30 06/28/20 01:00 70 21 90/44 (59) 100 06/28/20 00:00 100.0 71 20 88/41 (57) 100 06/28/20 00:00 82 06/28/20 00:00 Mechanical Ventilator 06/27/20 23:20 71 18 30 06/27/20 23:00 72 20 97/44 (61) 100 06/27/20 22:00 70 20 97/44 (61) 100 06/27/20 21:30 68 20 97/52 (67) 100 06/27/20 21:00 70 18 90/42 (58) 100 06/27/20 21:00 72 18 30 06/27/20 20:30 67 18 96/52 (67) 100 06/27/20 20:00 75 06/27/20 20:00 98.8 69 18 94/47 (63) 100 06/27/20 20:00 Mechanical Ventilator 06/27/20 19:16 69 19 30 06/27/20 19:00 76 18 98/47 (64) 100 06/27/20 18:30 75 19 99/46 (63) 100 06/27/20 18:00 70 16 94/58 (70) 100 06/27/20 17:15 73 16 30 06/27/20 17:00 70 18 109/60 (76) 100 06/27/20 16:52 30 06/27/20 16:30 69 17 111/51 (71) 100 06/27/20 16:00 82 06/27/20 16:00 99.0 70 16 105/52 (69) 100 06/27/20 16:00 Mechanical Ventilator 06/27/20 15:30 75 17 100/50 (67) 100 06/27/20 15:10 85 16 30 06/27/20 15:00 75 17 119/57 (77) 100 06/27/20 14:30 82 19 129/53 (78) 100 06/27/20 14:00 84 21 138/63 (88) 100 06/27/20 13:30 77 16 101/47 (65) 100 06/27/20 13:20 78 16 30 06/27/20 13:15 86 21 130/60 (83) 100 06/27/20 13:00 84 19 123/55 (77) 100 06/27/20 12:45 86 21 123/54 (77) 100 06/27/20 12:30 86 20 122/55 (77) 100 06/27/20 12:15 82 23 124/63 (83) 100 06/27/20 12:00 100.0 82 20 114/52 (72) 100 06/27/20 12:00 81 06/27/20 12:00 Mechanical Ventilator 06/27/20 12:00 30 06/27/20 11:06 81 17 30 06/27/20 11:00 83 17 97/45 (62) 100 06/27/20 10:45 84 18 102/52 (69) 100 06/27/20 10:42 100.0 06/27/20 10:30 86 16 101/44 (63) 100 06/27/20 10:15 95 20 132/57 (82) 100 06/27/20 10:00 91 18 109/51 (70) 06/27/20 09:30 90 20 107/51 (69) 95 06/27/20 09:27 92 18 30 06/27/20 09:15 92 17 122/50 (74) 100 06/27/20 09:00 92 17 97/48 (64) 100 Intake and Output 06/27/20 06/28/20 19:00 07:00 Intake Total 754.5 ml 1246.208 ml Output Total 800 ml 780 ml Balance -45.5 ml 466.208 ml Intake IV Total 664.5 ml 1246.208 ml Other 90 ml Output Urine Total 800 ml 780 ml # Bowel Movements 1 Laboratory Tests 06/27/20 10:01: POC Whole Blood Glucose [Pending] 06/27/20 10:50: White Blood Count 25.7*H, Red Blood Count 3.33L, Hemoglobin 10.0#L, Hematocrit 31.1#L, Mean Corpuscular Volume 93, Mean Corpuscular Hemoglobin 30.1, Mean Corpuscular Hemoglobin Concent 32.2, Red Cell Distribution Width 13.7, Platelet Count 133L, Mean Platelet Volume 7.2, Neutrophils (%) (Auto) , Lymphocytes (%) (Auto) , Monocytes (%) (Auto) , Eosinophils (%) (Auto) , Basophils (%) (Auto) , Differential Total Cells Counted 100, Neutrophils % (Manual) 82H, Lymphocytes % (Manual) 9L, Monocytes % (Manual) 9, Eosinophils % (Manual) 0, Basophils % (Manual) 0, Band Neutrophils 0, Nucleated Red Blood Cells 1, Platelet Estimate DecreasedL, Platelet Morphology Normal, Polychromasia 1+, Hypochromasia 1+, Sodium Level 156H, Potassium Level 2.9L, Chloride Level 125H, Carbon Dioxide Level 20L, Anion Gap 11, Blood Urea Nitrogen 87H, Creatinine 1.8H, Estimat Glomerular Filtration Rate 27.6, Glucose Level 321H, Lactic Acid Level 2.60H, Calcium Level 8.1L, Phosphorus Level 1.9L, Magnesium Level 1.7L, Total Bilirubin 0.4, Aspartate Amino Transf (AST/SGOT) 20, Alanine Aminotransferase (ALT/SGPT) 28, Alkaline Phosphatase 52, Troponin I 0.224H, Pro-B-Type Natriuretic Peptide 442H, Total Protein 4.3L, Albumin 1.8L, Globulin 2.5, Albumin/Globulin Ratio 0.7L, Triglycerides Level 312H, Cholesterol Level 75, LDL Cholesterol 32, HDL Cholesterol 24L, Cholesterol/HDL Ratio 3.1L, Random Vancomycin Level 9.5 06/27/20 14:18: POC Whole Blood Glucose 298H 06/27/20 16:00: Sodium Level 156H, Potassium Level 3.1L, Chloride Level 126H, Carbon Dioxide Level 21, Anion Gap 9, Blood Urea Nitrogen 73H, Creatinine 1.6H, Estimat Glomerular Filtration Rate 31.6, Glucose Level 299H, Lactic Acid Level 1.80, Calcium Level 7.3L, Phosphorus Level 2.1L, Magnesium Level 2.9H, Troponin I 0.196H 06/27/20 18:36: POC Whole Blood Glucose 288H 06/28/20 04:00: Lactic Acid Level 2.50H 06/28/20 04:05: White Blood Count 23.0*H, Red Blood Count 3.06L, Hemoglobin 9.4L, Hematocrit 28.6L, Mean Corpuscular Volume 93, Mean Corpuscular Hemoglobin 30.9, Mean Corpuscular Hemoglobin Concent 33.0, Red Cell Distribution Width 13.7, Platelet Count 123L, Mean Platelet Volume 7.3, Neutrophils (%) (Auto) , Lymphocytes (%) (Auto) , Monocytes (%) (Auto) , Eosinophils (%) (Auto) , Basophils (%) (Auto) , Neutrophils % (Manual) [Pending], Lymphocytes % (Manual) [Pending], Platelet Estimate [Pending], Platelet Morphology [Pending], Sodium Level 153H, Potassium Level 2.7*L, Chloride Level 123H, Carbon Dioxide Level 19L, Anion Gap 12, Blood Urea Nitrogen 55H, Creatinine 1.5H, Estimat Glomerular Filtration Rate 34.1, Glucose Level 221H, Calcium Level 7.4L, Phosphorus Level 2.3L, Magnesium Level 2.3, Total Bilirubin 0.6, Aspartate Amino Transf (AST/SGOT) 22, Alanine Aminotransferase (ALT/SGPT) 28, Alkaline Phosphatase 55, Troponin I 0.164H, Total Protein 4.6L, Albumin 1.7L, Globulin 2.9, Albumin/Globulin Ratio 0.6L, Amylase Level 159H, Lipase 553H, Random Vancomycin Level 18.9 Height (Feet): 5 Height (Inches): 0.00 Weight (Pounds): 137 General Appearance: lethargic EENT: normal ENT inspection Neck: supple Cardiovascular: tachycardia Respiratory/Chest: decreased breath sounds Abdomen: hypoactive bowel sounds Extremities: non-tender Assessment/Plan Problem List: (1) Anemia ICD Codes: D64.9 - Anemia, unspecified SNOMED: 653279201 Qualifiers: Qualified Codes: D64.9 - Anemia, unspecified (2) Choledocholithiasis ICD Codes: K80.50 - Calculus of bile duct without cholangitis or cholecystitis without obstruction SNOMED: 880022307 (3) Respiratory failure ICD Codes: J96.90 - Respiratory failure, unspecified, unspecified whether with hypoxia or hypercapnia SNOMED: 019320795 Qualifiers: Qualified Codes: J96.01 - Acute respiratory failure with hypoxia; J96.02 - Acute respiratory failure with hypercapnia (4) Severe sepsis ICD Codes: A41.9 - Sepsis, unspecified organism; R65.20 - Severe sepsis without septic shock SNOMED: 62468876 (5) NSTEMI (non-ST elevated myocardial infarction) ICD Codes: I21.4 - Non-ST elevation (NSTEMI) myocardial infarction SNOMED: 23271829 (6) ARF (acute renal failure) ICD Codes: N17.9 - Acute kidney failure, unspecified SNOMED: 29067532 Qualifiers: Qualified Codes: N17.9 - Acute kidney failure, unspecified (7) Hemiparesis ICD Codes: G81.90 - Hemiplegia, unspecified affecting unspecified side SNOMED: 25386405 Qualifiers: Qualified Codes: I69.354 - Hemiplegia and hemiparesis following cerebral infarction affecting left non-dominant side (8) Hyperglycemia ICD Codes: R73.9 - Hyperglycemia, unspecified SNOMED: 68417905 Assessment/Plan: given normal LFTS and septic shock will hold ERCP for now fu H&H prn blood transfusion abx per ID repeat labs start NGTF will fu Irvin Henson MD Jun 28, 2020 08:30
--- NOTE | 2020-06-28 08:54 | Nephrology Progress Note ---
Assessment/Plan Plan #DAYO - likely ATN in the setting of septic shock #Acute anemia #hypoxemic resp failure - vent dependent #NSTEMI #AMS #p Afib #Dm #HTN #HLD #s/p PPM - admit to ICU - pulm eval for vent management - electrolyte prn - prbc transfusion - monitor renal function - ID consulted - antibiotics per ID - cardiology eval - monitor troponin level - monitor lytes - pressors prn - monitor LFTs - echo - renal US - urine chem time spent 65 min Subjective Subjective multiple electrolyte derangements noted lytes repleted Objective Objective Last 24 Hour Vital Signs Date Time Temp Pulse Resp B/P (MAP) Pulse Ox O2 Delivery O2 Flow Rate FiO2 06/28/20 08:00 Mechanical Ventilator 06/28/20 08:00 30 06/28/20 08:00 98.7 78 18 123/56 (78) 100 06/28/20 07:00 77 21 117/52 (73) 100 06/28/20 06:30 106 18 06/28/20 06:00 77 21 117/52 (73) 100 06/28/20 05:14 75 19 30 06/28/20 05:00 71 21 113/45 (67) 100 06/28/20 04:00 30 06/28/20 04:00 Mechanical Ventilator 06/28/20 04:00 99.0 81 23 122/50 (74) 100 06/28/20 04:00 65 06/28/20 03:06 71 24 30 06/28/20 02:51 100.0 06/28/20 02:00 72 19 104/44 (64) 100 06/28/20 01:00 70 18 30 06/28/20 01:00 70 21 90/44 (59) 100 06/28/20 00:00 100.0 71 20 88/41 (57) 100 06/28/20 00:00 82 06/28/20 00:00 Mechanical Ventilator 06/27/20 23:20 71 18 30 06/27/20 23:00 72 20 97/44 (61) 100 06/27/20 22:00 70 20 97/44 (61) 100 06/27/20 21:30 68 20 97/52 (67) 100 06/27/20 21:00 70 18 90/42 (58) 100 06/27/20 21:00 72 18 30 06/27/20 20:30 67 18 96/52 (67) 100 06/27/20 20:00 75 06/27/20 20:00 98.8 69 18 94/47 (63) 100 06/27/20 20:00 Mechanical Ventilator 06/27/20 19:16 69 19 30 06/27/20 19:00 76 18 98/47 (64) 100 06/27/20 18:30 75 19 99/46 (63) 100 06/27/20 18:00 70 16 94/58 (70) 100 06/27/20 17:15 73 16 30 06/27/20 17:00 70 18 109/60 (76) 100 06/27/20 16:52 30 06/27/20 16:30 69 17 111/51 (71) 100 06/27/20 16:00 82 06/27/20 16:00 99.0 70 16 105/52 (69) 100 06/27/20 16:00 Mechanical Ventilator 06/27/20 15:30 75 17 100/50 (67) 100 06/27/20 15:10 85 16 30 06/27/20 15:00 75 17 119/57 (77) 100 06/27/20 14:30 82 19 129/53 (78) 100 06/27/20 14:00 84 21 138/63 (88) 100 06/27/20 13:30 77 16 101/47 (65) 100 06/27/20 13:20 78 16 30 06/27/20 13:15 86 21 130/60 (83) 100 06/27/20 13:00 84 19 123/55 (77) 100 06/27/20 12:45 86 21 123/54 (77) 100 06/27/20 12:30 86 20 122/55 (77) 100 06/27/20 12:15 82 23 124/63 (83) 100 06/27/20 12:00 100.0 82 20 114/52 (72) 100 06/27/20 12:00 81 06/27/20 12:00 Mechanical Ventilator 06/27/20 12:00 30 06/27/20 11:06 81 17 30 06/27/20 11:00 83 17 97/45 (62) 100 06/27/20 10:45 84 18 102/52 (69) 100 06/27/20 10:42 100.0 06/27/20 10:30 86 16 101/44 (63) 100 06/27/20 10:15 95 20 132/57 (82) 100 06/27/20 10:00 91 18 109/51 (70) 06/27/20 09:30 90 20 107/51 (69) 95 06/27/20 09:27 92 18 30 06/27/20 09:15 92 17 122/50 (74) 100 06/27/20 09:00 92 17 97/48 (64) 100 Intake and Output 06/27/20 06/28/20 19:00 07:00 Intake Total 754.5 ml 1246.208 ml Output Total 800 ml 780 ml Balance -45.5 ml 466.208 ml Intake IV Total 664.5 ml 1246.208 ml Other 90 ml Output Urine Total 800 ml 780 ml # Bowel Movements 1 Laboratory Tests 06/27/20 10:01: POC Whole Blood Glucose [Pending] 06/27/20 10:50: White Blood Count 25.7*H, Red Blood Count 3.33L, Hemoglobin 10.0#L, Hematocrit 31.1#L, Mean Corpuscular Volume 93, Mean Corpuscular Hemoglobin 30.1, Mean Corpuscular Hemoglobin Concent 32.2, Red Cell Distribution Width 13.7, Platelet Count 133L, Mean Platelet Volume 7.2, Neutrophils (%) (Auto) , Lymphocytes (%) (Auto) , Monocytes (%) (Auto) , Eosinophils (%) (Auto) , Basophils (%) (Auto) , Differential Total Cells Counted 100, Neutrophils % (Manual) 82H, Lymphocytes % (Manual) 9L, Monocytes % (Manual) 9, Eosinophils % (Manual) 0, Basophils % (Manual) 0, Band Neutrophils 0, Nucleated Red Blood Cells 1, Platelet Estimate DecreasedL, Platelet Morphology Normal, Polychromasia 1+, Hypochromasia 1+, Sodium Level 156H, Potassium Level 2.9L, Chloride Level 125H, Carbon Dioxide Level 20L, Anion Gap 11, Blood Urea Nitrogen 87H, Creatinine 1.8H, Estimat Glomerular Filtration Rate 27.6, Glucose Level 321H, Lactic Acid Level 2.60H, Calcium Level 8.1L, Phosphorus Level 1.9L, Magnesium Level 1.7L, Total Bilirubin 0.4, Aspartate Amino Transf (AST/SGOT) 20, Alanine Aminotransferase (ALT/SGPT) 28, Alkaline Phosphatase 52, Troponin I 0.224H, Pro-B-Type Natriuretic Peptide 442H, Total Protein 4.3L, Albumin 1.8L, Globulin 2.5, Albumin/Globulin Ratio 0.7L, Triglycerides Level 312H, Cholesterol Level 75, LDL Cholesterol 32, HDL Cholesterol 24L, Cholesterol/HDL Ratio 3.1L, Random Vancomycin Level 9.5 06/27/20 14:18: POC Whole Blood Glucose 298H 06/27/20 16:00: Sodium Level 156H, Potassium Level 3.1L, Chloride Level 126H, Carbon Dioxide Level 21, Anion Gap 9, Blood Urea Nitrogen 73H, Creatinine 1.6H, Estimat Glomerular Filtration Rate 31.6, Glucose Level 299H, Lactic Acid Level 1.80, Calcium Level 7.3L, Phosphorus Level 2.1L, Magnesium Level 2.9H, Troponin I 0.196H 06/27/20 18:36: POC Whole Blood Glucose 288H 06/28/20 04:00: Lactic Acid Level 2.50H 06/28/20 04:05: White Blood Count 23.0*H, Red Blood Count 3.06L, Hemoglobin 9.4L, Hematocrit 28.6L, Mean Corpuscular Volume 93, Mean Corpuscular Hemoglobin 30.9, Mean Corpuscular Hemoglobin Concent 33.0, Red Cell Distribution Width 13.7, Platelet Count 123L, Mean Platelet Volume 7.3, Neutrophils (%) (Auto) , Lymphocytes (%) (Auto) , Monocytes (%) (Auto) , Eosinophils (%) (Auto) , Basophils (%) (Auto) , Differential Total Cells Counted 100, Neutrophils % (Manual) 81H, Lymphocytes % (Manual) 10L, Monocytes % (Manual) 9, Eosinophils % (Manual) 0, Basophils % (Manual) 0, Band Neutrophils 0, Nucleated Red Blood Cells 3, Platelet Estimate DecreasedL, Platelet Morphology Normal, Polychromasia 1+, Hypochromasia 1+, Sodium Level 153H, Potassium Level 2.7*L, Chloride Level 123H, Carbon Dioxide Level 19L, Anion Gap 12, Blood Urea Nitrogen 55H, Creatinine 1.5H, Estimat Glomerular Filtration Rate 34.1, Glucose Level 221H, Calcium Level 7.4L, Phosphorus Level 2.3L, Magnesium Level 2.3, Total Bilirubin 0.6, Aspartate Amino Transf (AST/SGOT) 22, Alanine Aminotransferase (ALT/SGPT) 28, Alkaline Phosphatase 55, Troponin I 0.164H, Total Protein 4.6L, Albumin 1.7L, Globulin 2.9, Albumin/Globulin Ratio 0.6L, Amylase Level 159H, Lipase 553H, Random Vancomycin Level 18.9 Height (Feet): 5 Height (Inches): 0.00 Weight (Pounds): 137 Objective Lines, tubes and drains: peripheral, central line HEENT: normocephalic, atraumatic Neck: non-tender, normal alignment Respiratory/Chest: on vent Cardiovascular/Chest: normal peripheral pulses, normal rate, regular rhythm Abdomen: normal bowel sounds, non tender Extremities: normal range of motion, non-tender Vanessa Lenz M.D. Jun 28, 2020 08:54
[2020-06-28] MEDS: Pantoprazole Inj IVP SCH ×2 (09:00→21:01)
--- NOTE | 2020-06-28 09:03 | NUR ---
NURSE NOTES: WILL ADMINISTER VANCOMYCIN SOON AVAILABLE.
--- NOTE | 2020-06-28 09:45 | NUR ---
NURSE NOTES: MD. KIDD HERE TO SEE PT. WAS INFORMED OF BG 378, TRENDING IN 200'S. MD. BURTON ORDERED TO START TUBE FEEDING- MD. KIDD SAYS HOLD ORDER FOR NOW, WILL CONSULT WITH MD. BURTON. POTASSIUM BEING REPLACED. OFF PRESSORS. LIPASE/AMYLASE ELEVATED: 553/159.
--- NOTE | 2020-06-28 10:00 | NUR ---
NURSE NOTES: MD. ROGERS HERE TO SEE PT. WAS INFORMED OF LABS TODAY TROPONIN; 1.64, K: 2.7. 2D ECHO YESTERDAY 60-65%, W/PULM HTN. PACER SPIKES NOTED ON PERIODICALLY. WANTS F/U W/ DAUGHTER REGARDING PACEMAKER. WILL CALL TO F/U.
--- NOTE | 2020-06-28 10:33 | NUR ---
RADIOLOGY DEPT., CHEST X-RAY DONE.-P.DYE
--- NOTE | 2020-06-28 10:34 | NUR ---
NURSE NOTES: MD. BORREGO HERE TO SEE PT. WAS INFORMED OF 30% FI02. OFF PRESSORS. SECRETIONS SCANT, THICK CREAMY COLOR. SATING 100%. WILL PLACE OWN ORDERS.
--- NOTE | 2020-06-28 10:51 | NUR ---
INSURANCE REFAXED (06/26/20)CLINICALS/ REVIEW FAXED TO [facility]: Geena # [phone] fax# [phone]
--- NOTE | 2020-06-28 12:59 | Diagnostic Imaging Report ---
Indication: Cough Technique: One view of the chest Comparison: 06/26/2020 Findings: Improved, now satisfactory position of orogastric tube. There is a patchy infiltrate at the right lung base. Stable position of endotracheal tube. Impression: Improved oral gastric tube position. Patchy right basilar infiltrate
--- NOTE | 2020-06-28 13:07 | NUR ---
NURSE NOTES: CALLED PT DAUGHTER KELLY LEIJA SPOKE REGARDING PACEMAKER. NO DETAILS ON PACEMAKER JUST THAT PT RECEIVED IT AT [facility]. WOULD LIKE TO SPEAK WITH MD. KIDD REGARDING RENAL FUNCTION.
--- NOTE | 2020-06-28 13:10 | NUR ---
NURSE NOTES: MD ADKINS HERE TO SEE PT. PT NPO. OFF PRESSORS, GALL STONES PRESENT FROM US. Addendum: 06/28/20 at 1312 by Rosy Hillman RN AMYLASE/LIPASE: 159/553
--- NOTE | 2020-06-28 13:10 | Surgery Progress Note ---
Surgery Progress Note Subjective Additional Comments US noted leukocytosis septic shock off levo GI input Objective Last 24 Hour Vital Signs Date Time Temp Pulse Resp B/P (MAP) Pulse Ox O2 Delivery O2 Flow Rate FiO2 06/28/20 12:00 98.9 63 18 90/45 (60) 100 06/28/20 12:00 70 06/28/20 12:00 Mechanical Ventilator 06/28/20 12:00 30 06/28/20 11:30 67 18 94/43 (60) 100 06/28/20 11:00 67 18 95/48 (64) 100 06/28/20 10:30 78 94/44 06/28/20 10:00 70 19 98/44 (62) 100 06/28/20 09:32 67 20 111/69 06/28/20 09:30 78 20 111/59 (76) 100 06/28/20 09:02 75 22 110/51 100 06/28/20 09:00 73 18 110/51 (70) 100 06/28/20 08:00 Mechanical Ventilator 06/28/20 08:00 75 06/28/20 08:00 30 06/28/20 08:00 98.7 78 18 123/56 (78) 100 06/28/20 07:20 69 18 30 06/28/20 07:00 77 21 117/52 (73) 100 06/28/20 06:30 106 18 06/28/20 06:00 77 21 117/52 (73) 100 06/28/20 05:14 75 19 30 06/28/20 05:00 71 21 113/45 (67) 100 06/28/20 04:00 30 06/28/20 04:00 Mechanical Ventilator 06/28/20 04:00 99.0 81 23 122/50 (74) 100 06/28/20 04:00 65 06/28/20 03:06 71 24 30 06/28/20 02:51 100.0 06/28/20 02:00 72 19 104/44 (64) 100 06/28/20 01:00 70 18 30 06/28/20 01:00 70 21 90/44 (59) 100 06/28/20 00:00 100.0 71 20 88/41 (57) 100 06/28/20 00:00 82 06/28/20 00:00 Mechanical Ventilator 06/27/20 23:20 71 18 30 06/27/20 23:00 72 20 97/44 (61) 100 06/27/20 22:00 70 20 97/44 (61) 100 06/27/20 21:30 68 20 97/52 (67) 100 06/27/20 21:00 70 18 90/42 (58) 100 06/27/20 21:00 72 18 30 06/27/20 20:30 67 18 96/52 (67) 100 06/27/20 20:00 75 06/27/20 20:00 98.8 69 18 94/47 (63) 100 06/27/20 20:00 Mechanical Ventilator 06/27/20 19:16 69 19 30 06/27/20 19:00 76 18 98/47 (64) 100 06/27/20 18:30 75 19 99/46 (63) 100 06/27/20 18:00 70 16 94/58 (70) 100 06/27/20 17:15 73 16 30 06/27/20 17:00 70 18 109/60 (76) 100 06/27/20 16:52 30 06/27/20 16:30 69 17 111/51 (71) 100 06/27/20 16:00 82 06/27/20 16:00 99.0 70 16 105/52 (69) 100 06/27/20 16:00 Mechanical Ventilator 06/27/20 15:30 75 17 100/50 (67) 100 06/27/20 15:10 85 16 30 06/27/20 15:00 75 17 119/57 (77) 100 06/27/20 14:30 82 19 129/53 (78) 100 06/27/20 14:00 84 21 138/63 (88) 100 06/27/20 13:30 77 16 101/47 (65) 100 06/27/20 13:20 78 16 30 06/27/20 13:15 86 21 130/60 (83) 100 I&O Intake and Output 06/27/20 06/28/20 19:00 07:00 Intake Total 754.5 ml 1246.208 ml Output Total 800 ml 780 ml Balance -45.5 ml 466.208 ml Intake IV Total 664.5 ml 1246.208 ml Other 90 ml Output Urine Total 800 ml 780 ml # Bowel Movements 1 Cardiovascular: RSR Respiratory: decreased breath sounds Abdomen: soft, distended, decreased bowel sounds Extremities: edema, no tenderness, no cyanosis Laboratory Tests Test 06/27/20 14:18 06/27/20 16:00 06/27/20 18:36 06/28/20 04:00 POC Whole Blood Glucose 298 MG/DL (74-106) H 288 MG/DL (74-106) H Sodium Level 156 MMOL/L (136-145) H Potassium Level 3.1 MMOL/L (3.5-5.1) L Chloride Level 126 MMOL/L (98-107) H Carbon Dioxide Level 21 MMOL/L (21-32) Anion Gap 9 mmol/L (5-15) Blood Urea Nitrogen 73 mg/dL (7-18) H Creatinine 1.6 MG/DL (0.55-1.30) H Estimat Glomerular Filtration Rate 31.6 mL/min (>60) Glucose Level 299 MG/DL (74-106) H Lactic Acid Level 1.80 mmol/L (0.66-2.22) 2.50 mmol/L (0.4-2.0) H Calcium Level 7.3 MG/DL (8.5-10.1) L Phosphorus Level 2.1 MG/DL (2.5-4.9) L Magnesium Level 2.9 MG/DL (1.8-2.4) H Troponin I 0.196 ng/mL (0.000-0.056) Test 06/28/20 04:05 06/28/20 09:19 06/28/20 10:58 White Blood Count 23.0 K/UL (4.8-10.8) *H Red Blood Count 3.06 M/UL (4.20-5.40) L Hemoglobin 9.4 G/DL (12.0-16.0) L Hematocrit 28.6 % (37.0-47.0) L Mean Corpuscular Volume 93 FL (80-99) Mean Corpuscular Hemoglobin 30.9 PG (27.0-31.0) Mean Corpuscular Hemoglobin Concent 33.0 G/DL (32.0-36.0) Red Cell Distribution Width 13.7 % (11.6-14.8) Platelet Count 123 K/UL (150-450) L Mean Platelet Volume 7.3 FL (6.5-10.1) Neutrophils (%) (Auto) % (45.0-75.0) Lymphocytes (%) (Auto) % (20.0-45.0) Monocytes (%) (Auto) % (1.0-10.0) Eosinophils (%) (Auto) % (0.0-3.0) Basophils (%) (Auto) % (0.0-2.0) Differential Total Cells Counted 100 Neutrophils % (Manual) 81 % (45-75) H Lymphocytes % (Manual) 10 % (20-45) L Monocytes % (Manual) 9 % (1-10) Eosinophils % (Manual) 0 % (0-3) Basophils % (Manual) 0 % (0-2) Band Neutrophils 0 % (0-8) Nucleated Red Blood Cells 3 /100 WBC Platelet Estimate Decreased L Platelet Morphology Normal Polychromasia 1+ Hypochromasia 1+ Sodium Level 153 MMOL/L (136-145) H Potassium Level 2.7 MMOL/L (3.5-5.1) *L Chloride Level 123 MMOL/L (98-107) H Carbon Dioxide Level 19 MMOL/L (21-32) L Anion Gap 12 mmol/L (5-15) Blood Urea Nitrogen 55 mg/dL (7-18) H Creatinine 1.5 MG/DL (0.55-1.30) H Estimat Glomerular Filtration Rate 34.1 mL/min (>60) Glucose Level 221 MG/DL (74-106) H Calcium Level 7.4 MG/DL (8.5-10.1) L Phosphorus Level 2.3 MG/DL (2.5-4.9) L Magnesium Level 2.3 MG/DL (1.8-2.4) Total Bilirubin 0.6 MG/DL (0.2-1.0) Aspartate Amino Transf (AST/SGOT) 22 U/L (15-37) Alanine Aminotransferase (ALT/SGPT) 28 U/L (12-78) Alkaline Phosphatase 55 U/L (46-116) Troponin I 0.164 ng/mL (0.000-0.056) Total Protein 4.6 G/DL (6.4-8.2) L Albumin 1.7 G/DL (3.4-5.0) L Globulin 2.9 g/dL Albumin/Globulin Ratio 0.6 (1.0-2.7) L Amylase Level 159 U/L (25-115) H Lipase 553 U/L (73-393) H Random Vancomycin Level 18.9 ug/mL POC Whole Blood Glucose Pending Arterial Blood pH 7.388 (7.350-7.450) Arterial Blood Partial Pressure CO2 28.6 mmHg (35.0-45.0) L Arterial Blood Partial Pressure O2 121.5 mmHg (75.0-100.0) H Arterial Blood HCO3 16.8 mmol/L (22.0-26.0) *L Arterial Blood Oxygen Saturation 97.8 % (95-100) Arterial Blood Base Excess -7.1 (-2-2) L Jaret Test Positive Plan Problems: (1) Hemiparesis (2) Anemia (3) ARF (acute renal failure) (4) Choledocholithiasis Assessment & Plan: critically ill not safe for surgery ill appearing on support wean support gi input imaging reviewed Gallbladder demonstrates gallstones and sludge. No gallbladder wall thickening nor pericholecystic fluid. Sonographic Cook's sign is negative. Common bile duct measures 10 mm in diameter. An intraductal calculus is seen in the common bile duct within the pancreatic head. No intrahepatic biliary ductal dilatation. Liver demonstrates normal echogenicity, no focal abnormality. Portal vein and hepatic veins are patent. Pancreas is unremarkable. Spleen is unremarkable. Left kidney measures 10.5 cm in length. Right kidney measures 9.4 cm length. Both kidneys demonstrate slightly increased echogenicity. There is no hydronephrosis. Small cysts are seen in the left kidney . The bladder is empty, contains a Guillen catheter. Non-aneurysmal abdominal aorta . Unremarkable inferior vena cava Impression: Cholelithiasis and gallbladder sludge. Choledocholithiasis with intrahepatic and extra hepatic biliary ductal dilatation, confirming findings seen on recent CT scan. Mildly increased renal echogenicity, may indicate medical renal disease Guillen catheter Incidental finding left renal cysts (5) Hyperglycemia (6) Respiratory failure (7) Severe sepsis Assessment & Plan: 74-year-old female with multimedical comorbidities who is DNR currently intubated intensive care unit septic shock potentially choledocholithiasis CT noted elevated leukocytosis dilated gallbladder critically severely ill. Currently intubated in the intensive care unit on support. Pressors being weaned. Unfortunately patient is nonoperative candidate at this time. Would hold on emergent procedure given patient's overall condition. Will need resuscitation. Microbiology noted. Imaging reviewed. Prognosis guarded. GI input appreciated. Will follow with recommendations thank you let me participate patient's care Markedly distended gallbladder, up to 6.2 cm in transverse diameter. 4.2 cm dependent gallstone with lamellated calcification. Biliary dilation. The common bile duct measures up to 1.2 cm in diameter. 1.2 cm stone within the proximal CBD. 1.3 cm stone distally near the ampulla of Vater as seen on coronal images 31 and 33 respectively. Haziness about the pancreas could be attributable to motion artifact, but given choledocholithiasis, would recommend correlation with enzymes to exclude gallstone pancreatitis. The spleen is diminutive, but otherwise unremarkable. The kidneys and adrenal glands are within normal limits for noncontrast technique. Inspissated stool and contrast distended rectum up to 7 cm in diameter. Correlate for impaction. No perforation. No small bowel obstruction. Guillen catheter with redundant tubing in the urinary bladder, which is appropriately decompressed. Right femoral venous catheter. Operative changes of the pelvis suggesting lymph node dissection along with hysterectomy. Aortoiliac atherosclerosis. No aneurysm. No acute fracture. IMPRESSION: Biliary dilation attributable to choledocholithiasis. 1.2 and 1.3 cm calculi in the proximal and distal CBD respectively. The distended gallbladder contains a large lamellated stone. Haziness about the pancreas could be attributable to motion artifact, but in light of biliary findings, recommend checking enzymes. The rectum is distended by inspissated stool and contrast. Correlate for impaction. (8) NSTEMI (non-ST elevated myocardial infarction) Zachary Shah Jun 28, 2020 13:10
--- NOTE | 2020-06-28 13:59 | NUR ---
INSPECTOR POISING NOTE PT is currently intubated. SW spoke w/ pt's daughter/oldest child, Bibiana Alvarado(Iraida) [phone] and obtained information. Pt has three children, Iraida and two younger sons. Iraida reports the sons are not involved w/ pt's care/tx as they are somewhat estranged. Pt Pt does not have AD/POA. Iraida is the primary contact/decision maker for pt. Pt does not receive any income. Pt has hx of depression and she was recently hospitalized for 5150 hold at [facility]. Pt was ambulatory w/ walker prior to her hospitalization at [facility]. Then she was hospitalized at [facility], then was admitted to [facility]. Iraida confirmed that pt's wish was DNR. SW to F/U as needed.
--- NOTE | 2020-06-28 14:07 | Pulmonology Progress Note ---
Subjective ROS Limited/Unobtainable: Yes Interval Events: Remains intubated Constitutional: Reports: no symptoms HEENT: Repors: no symptoms Respiratory: Reports: no symptoms Cardiovascular: Reports: no symptoms Gastrointestinal/Abdominal: Reports: no symptoms Genitourinary: Reports: no symptoms Allergies: Coded Allergies: No Known Allergies (Unverified , 06/26/20) Objective Last 24 Hour Vital Signs Date Time Temp Pulse Resp B/P (MAP) Pulse Ox O2 Delivery O2 Flow Rate FiO2 06/28/20 14:00 65 18 103/48 (66) 100 06/28/20 13:00 66 18 120/55 (76) 100 06/28/20 12:00 98.9 63 18 90/45 (60) 100 06/28/20 12:00 70 06/28/20 12:00 Mechanical Ventilator 06/28/20 12:00 30 06/28/20 11:30 67 18 94/43 (60) 100 06/28/20 11:00 67 18 95/48 (64) 100 06/28/20 10:30 78 94/44 06/28/20 10:00 70 19 98/44 (62) 100 06/28/20 09:32 67 20 111/69 06/28/20 09:30 78 20 111/59 (76) 100 06/28/20 09:02 75 22 110/51 100 06/28/20 09:00 73 18 110/51 (70) 100 06/28/20 08:00 Mechanical Ventilator 06/28/20 08:00 75 06/28/20 08:00 30 06/28/20 08:00 98.7 78 18 123/56 (78) 100 06/28/20 07:20 69 18 30 06/28/20 07:00 77 21 117/52 (73) 100 06/28/20 06:30 106 18 06/28/20 06:00 77 21 117/52 (73) 100 06/28/20 05:14 75 19 30 06/28/20 05:00 71 21 113/45 (67) 100 06/28/20 04:00 30 06/28/20 04:00 Mechanical Ventilator 06/28/20 04:00 99.0 81 23 122/50 (74) 100 06/28/20 04:00 65 06/28/20 03:06 71 24 30 06/28/20 02:51 100.0 06/28/20 02:00 72 19 104/44 (64) 100 06/28/20 01:00 70 18 30 06/28/20 01:00 70 21 90/44 (59) 100 06/28/20 00:00 100.0 71 20 88/41 (57) 100 06/28/20 00:00 82 06/28/20 00:00 Mechanical Ventilator 06/27/20 23:20 71 18 30 06/27/20 23:00 72 20 97/44 (61) 100 06/27/20 22:00 70 20 97/44 (61) 100 06/27/20 21:30 68 20 97/52 (67) 100 06/27/20 21:00 70 18 90/42 (58) 100 06/27/20 21:00 72 18 30 06/27/20 20:30 67 18 96/52 (67) 100 06/27/20 20:00 75 06/27/20 20:00 98.8 69 18 94/47 (63) 100 06/27/20 20:00 Mechanical Ventilator 06/27/20 19:16 69 19 30 06/27/20 19:00 76 18 98/47 (64) 100 06/27/20 18:30 75 19 99/46 (63) 100 06/27/20 18:00 70 16 94/58 (70) 100 06/27/20 17:15 73 16 30 06/27/20 17:00 70 18 109/60 (76) 100 06/27/20 16:52 30 06/27/20 16:30 69 17 111/51 (71) 100 06/27/20 16:00 82 06/27/20 16:00 99.0 70 16 105/52 (69) 100 06/27/20 16:00 Mechanical Ventilator 06/27/20 15:30 75 17 100/50 (67) 100 06/27/20 15:10 85 16 30 06/27/20 15:00 75 17 119/57 (77) 100 06/27/20 14:30 82 19 129/53 (78) 100 Intake and Output 06/27/20 06/28/20 19:00 07:00 Intake Total 754.5 ml 1246.208 ml Output Total 800 ml 780 ml Balance -45.5 ml 466.208 ml Intake IV Total 664.5 ml 1246.208 ml Other 90 ml Output Urine Total 800 ml 780 ml # Bowel Movements 1 General Appearance: no acute distress HEENT: normocephalic Respiratory: chest wall non-tender, lungs clear Cardiovascular: normal peripheral pulses Abdomen: normal bowel sounds Extremities: no cyanosis Microbiology Date/Time Source Procedure Growth Status 06/27/20 12:00 Sputum Gram Stain - Final Resulted 06/27/20 12:00 Sputum Sputum Culture Pending Resulted 06/27/20 00:00 Rectum Received 06/26/20 23:41 Sputum Gram Stain - Final Resulted 06/26/20 23:41 Sputum Sputum Culture Pending Resulted 06/26/20 12:01 Blood Blood Culture - Preliminary NO GROWTH AFTER 24 HOURS Resulted 06/26/20 11:56 Blood Blood Culture - Preliminary NO GROWTH AFTER 24 HOURS Resulted Laboratory Tests 06/27/20 14:18: POC Whole Blood Glucose 298H 06/27/20 16:00: Sodium Level 156H, Potassium Level 3.1L, Chloride Level 126H, Carbon Dioxide Level 21, Anion Gap 9, Blood Urea Nitrogen 73H, Creatinine 1.6H, Estimat Glomerular Filtration Rate 31.6, Glucose Level 299H, Lactic Acid Level 1.80, Calcium Level 7.3L, Phosphorus Level 2.1L, Magnesium Level 2.9H, Troponin I 0.196H 06/27/20 18:36: POC Whole Blood Glucose 288H 06/28/20 04:00: Lactic Acid Level 2.50H 06/28/20 04:05: White Blood Count 23.0*H, Red Blood Count 3.06L, Hemoglobin 9.4L, Hematocrit 28.6L, Mean Corpuscular Volume 93, Mean Corpuscular Hemoglobin 30.9, Mean Cor puscular Hemoglobin Concent 33.0, Red Cell Distribution Width 13.7, Platelet Count 123L, Mean Platelet Volume 7.3, Neutrophils (%) (Auto) , Lymphocytes (%) (Auto) , Monocytes (%) (Auto) , Eosinophils (%) (Auto) , Basophils (%) (Auto) , Differential Total Cells Counted 100, Neutrophils % (Manual) 81H, Lymphocytes % (Manual) 10L, Monocytes % (Manual) 9, Eosinophils % (Manual) 0, Basophils % (Manual) 0, Band Neutrophils 0, Nucleated Red Blood Cells 3, Platelet Estimate DecreasedL, Platelet Morphology Normal, Polychromasia 1+, Hypochromasia 1+, Sodium Level 153H, Potassium Level 2.7*L, Chloride Level 123H, Carbon Dioxide Level 19L, Anion Gap 12, Blood Urea Nitrogen 55H, Creatinine 1.5H, Estimat Glomerular Filtration Rate 34.1, Glucose Level 221H, Calcium Level 7.4L, Phosphorus Level 2.3L, Magnesium Level 2.3, Total Bilirubin 0.6, Aspartate Amino Transf (AST/SGOT) 22, Alanine Aminotransferase (ALT/SGPT) 28, Alkaline Phosphatase 55, Troponin I 0.164H, Total Protein 4.6L, Albumin 1.7L, Globulin 2.9, Albumin/Globulin Ratio 0.6L, Amylase Level 159H, Lipase 553H, Random Vancomycin Level 18.9 06/28/20 09:19: POC Whole Blood Glucose [Pending] 06/28/20 10:58: Arterial Blood pH 7.388, Arterial Blood Partial Pressure CO2 28.6L, Arterial Blood Partial Pressure O2 121.5H, Arterial Blood HCO3 16.8*L, Arterial Blood Oxygen Saturation 97.8, Arterial Blood Base Excess -7.1L, Jaret Test Positive 06/28/20 11:00: Stool Occult Blood [Pending] Current Medications Medications (Trade) Dose Ordered Sig/Reinier Route PRN Reason Start Time Stop Time Status Last Admin Dose Admin Acetaminophen (Tylenol) 650 mg Q6H PRN NG Temp >100.5 06/26/20 20:00 07/26/20 19:59 06/27/20 10:19 Acetaminophen (Tylenol) 650 mg Q6H PRN NG Mild Pain (Pain Scale 1-3) 06/26/20 20:00 07/26/20 19:59 06/28/20 02:21 Atorvastatin Calcium (Lipitor) 80 mg BEDTIME ORAL 06/26/20 21:00 09/24/20 20:59 06/27/20 20:35 Carvedilol (Coreg) 3.125 mg EVERY 12 HOURS ORAL 06/28/20 10:30 07/28/20 10:29 Chlorhexidine Gluconate (Eloisa-Hex 2%) 1 applic BEDTIME TOPIC 06/26/20 21:00 09/24/20 20:59 06/27/20 20:35 Dextrose 1,000 ml @ 75 mls/hr [id number] IV 06/27/20 13:15 07/27/20 13:14 06/28/20 02:47 Dextrose (Dextrose 50%) 25 ml Q30M PRN IV Hypoglycemia 06/26/20 20:00 09/24/20 19:59 Dextrose (Dextrose 50%) 50 ml Q30M PRN IV Hypoglycemia 06/26/20 20:00 09/24/20 19:59 Insulin Aspart (NovoLOG) Q4HR SUBQ 06/26/20 21:00 09/24/20 20:59 06/28/20 13:28 Lorazepam (Ativan 2mg/ml 1ml) 1 mg Q4H PRN IV For Anxiety 06/27/20 13:00 07/04/20 12:59 06/28/20 09:02 Norepinephrine Bitartrate 250 ml @ 7.5 mls/hr Q24H IV 06/26/20 16:45 06/29/20 16:44 06/27/20 01:56 Pantoprazole (Protonix) 40 mg EVERY 12 HOURS IVP 06/26/20 21:00 07/26/20 20:59 06/28/20 09:00 Piperacillin Sod/ Tazobactam Sod 3.375 gm/Dextrose 100 ml @ 25 mls/hr EVERY 12 HOURS IVPB 06/26/20 21:00 07/01/20 20:59 06/28/20 11:18 [facility] 1 ea DAILY PRN MISC Per rx protocol 06/26/20 16:00 07/26/20 15:59 Assessment/Plan Assessment/Plan IMPRESSION: 1. Acute respiratory failure. 2. Pneumonia, suspected. 3. Marked leukocytosis. 4. Anemia. 5. Renal failure. 6. Possible cholecystitis. 7. Pacemaker. 8. [facility] resident. DISCUSSION: 1. Continue vent; assist control mechanical ventilation 2. Broad-spectrum antibiotics as per ID specialist. 3. Maintain respiratory status on assist-control mechanical ventilation. 4. I will follow ABGs. 5. Provide DVT and GI prophylaxes. 6. IV fluids to be given. 7. We will monitor lactic acidosis. Defer CODE STATUS to attending Noted DNR Begin weaning Discussed with RN Tre Browne Omar Syed MD Jun 28, 2020 14:07
--- NOTE | 2020-06-28 14:08 | NUR ---
CASE MANAGEMENT:REVIEW 06/28/20 SI: NSTEMI. SEPSIS. RESPIRATORY FAILURE~ INTUBATED 98.9 63 18 90/45 100% ON VENT SUPPORT W/30% FIO2 WBC+23.0 H/H-9.4/28.6 PLT-123 NA+153 K-2.7 TROPONIN(+) 0.164 IS: IV KCL X3 IV VANCOMYCIN X1 1L D5 BOLUS COREG NG Q12 : ICU STATUS DCP: [facility]
--- NOTE | 2020-06-28 14:47 | NUR ---
NURSE NOTES: MD. DUKES HERE TO SEE PT. WAS INFORMED OF WBC 23.0. AX TEMP 99.0. OFF PRESSORS. REMAIN NPO. NO NEW ORDERS.
--- NOTE | 2020-06-28 15:21 | Infectious Diseases Prog Note ---
Assessment/Plan Assessment/Plan ASSESSMENT AND PLAN: 1. sepsis, shock, ? biliary sepsis/cholecystitis, pna, vent, leukocytosis, fevers - zosyn and vancomycin - f/u on cultures, labs, chest x-ray, covid-19 testing - surgery f/u - continue per primary and consultants - icu care 2. The patient has history of CVA and aspiration risk. 3. Pacemaker. 4. Left-sided weakness. 5. Cardiac disease. 6. Hypertension. 7. Diabetes. 8. Neurological disease. 9. Acute renal failure, possible chronic renal failure. 10. Severe anemia. 11. No known drug allergies. 12. Social history is negative. 13. Family history is noncontributory. 14. MAR is noted. 15. Case was discussed with RN. 16. Continue treatment per primary consultants 17. I will follow. Subjective Constitutional: Reports: fever HEENT: Reports: congestion Respiratory: Reports: shortness of breath Cardiovascular: Reports: other - no pressors Genitourinary: Reports: other - + fine Neurologic: Reports: weakness, other - sedated Psychiatric: Reports: other - NA Skin: Denies: rash Hematologic: Denies: bleeding Musculoskeletal: Reports: other - NA Allergies: Coded Allergies: No Known Allergies (Unverified , 06/26/20) Objective Last 24 Hour Vital Signs Date Time Temp Pulse Resp B/P (MAP) Pulse Ox O2 Delivery O2 Flow Rate FiO2 06/28/20 15:00 65 18 92/46 (61) 100 06/28/20 14:00 65 18 103/48 (66) 100 06/28/20 13:00 66 18 120/55 (76) 100 06/28/20 12:00 98.9 63 18 90/45 (60) 100 06/28/20 12:00 70 06/28/20 12:00 Mechanical Ventilator 06/28/20 12:00 30 06/28/20 11:30 67 18 94/43 (60) 100 06/28/20 11:00 67 18 95/48 (64) 100 06/28/20 10:30 78 94/44 06/28/20 10:00 70 19 98/44 (62) 100 06/28/20 09:32 67 20 111/69 06/28/20 09:30 78 20 111/59 (76) 100 06/28/20 09:02 75 22 110/51 100 06/28/20 09:00 73 18 110/51 (70) 100 06/28/20 08:00 Mechanical Ventilator 06/28/20 08:00 75 06/28/20 08:00 30 06/28/20 08:00 98.7 78 18 123/56 (78) 100 06/28/20 07:20 69 18 30 06/28/20 07:00 77 21 117/52 (73) 100 06/28/20 06:30 106 18 06/28/20 06:00 77 21 117/52 (73) 100 06/28/20 05:14 75 19 30 06/28/20 05:00 71 21 113/45 (67) 100 06/28/20 04:00 30 06/28/20 04:00 Mechanical Ventilator 06/28/20 04:00 99.0 81 23 122/50 (74) 100 06/28/20 04:00 65 06/28/20 03:06 71 24 30 06/28/20 02:51 100.0 06/28/20 02:00 72 19 104/44 (64) 100 06/28/20 01:00 70 18 30 06/28/20 01:00 70 21 90/44 (59) 100 06/28/20 00:00 100.0 71 20 88/41 (57) 100 06/28/20 00:00 82 06/28/20 00:00 Mechanical Ventilator 06/27/20 23:20 71 18 30 06/27/20 23:00 72 20 97/44 (61) 100 06/27/20 22:00 70 20 97/44 (61) 100 06/27/20 21:30 68 20 97/52 (67) 100 06/27/20 21:00 70 18 90/42 (58) 100 06/27/20 21:00 72 18 30 06/27/20 20:30 67 18 96/52 (67) 100 06/27/20 20:00 75 06/27/20 20:00 98.8 69 18 94/47 (63) 100 06/27/20 20:00 Mechanical Ventilator 06/27/20 19:16 69 19 30 06/27/20 19:00 76 18 98/47 (64) 100 06/27/20 18:30 75 19 99/46 (63) 100 06/27/20 18:00 70 16 94/58 (70) 100 06/27/20 17:15 73 16 30 06/27/20 17:00 70 18 109/60 (76) 100 06/27/20 16:52 30 06/27/20 16:30 69 17 111/51 (71) 100 06/27/20 16:00 82 06/27/20 16:00 99.0 70 16 105/52 (69) 100 06/27/20 16:00 Mechanical Ventilator 06/27/20 15:30 75 17 100/50 (67) 100 Height (Feet): 5 Height (Inches): 0.00 Weight (Pounds): 137 General Appearance: other - on vent, no pressors HEENT: normocephalic, atraumatic, anicteric Respiratory/Chest: crackles/rales, rhonchi - bilaterally Cardiovascular: normal rate, regular rhythm, no gallop/murmur Abdomen: normal bowel sounds, soft, non tender, no organomegaly, non distended Genitourinary: other - + fine Extremities: no cyanosis Skin: no rash Neurologic/Psychiatric: bankruptcy attorney II-XII grossly normal, alert, responsive Lymphatic: no neck adenopathy Musculoskeletal: no effusion Chest x-ray - 06/28/20 - Procedure: XRAY Chest 1v Indication: Cough Technique: One view of the chest Comparison: 06/26/2020 Findings: Improved, now satisfactory position of orogastric tube. There is a patchy infiltrate at the right lung base. Stable position of endotracheal tube. Impression: Improved oral gastric tube position. Patchy right basilar infiltrate Procedure: US ABD Complete Indication: Abdominal pain, abnormal liver function tests Technique: Matson-scale and duplex images of the upper abdomen were obtained Comparison: No comparison sonograms. Reference made to abdomen pelvis CT scan 06/26/2020 Findings: Gallbladder demonstrates gallstones and sludge. No gallbladder wall thickening nor pericholecystic fluid. Sonographic Cook's sign is negative. Common bile duct measures 10 mm in diameter. An intraductal calculus is seen in the common bile duct within the pancreatic head. No intrahepatic biliary ductal dilatation. Liver demonstrates normal echogenicity, no focal abnormality. Portal vein and hepatic veins are patent. Pancreas is unremarkable. Spleen is unremarkable. Left kidney measures 10.5 cm in length. Right kidney measures 9.4 cm length. Both kidneys demonstrate slightly increased echogenicity. There is no hydronephrosis. Small cysts are seen in the left kidney . The bladder is empty, contains a Fine catheter. Non-aneurysmal abdominal aorta . Unremarkable inferior vena cava Impression: Cholelithiasis and gallbladder sludge. Choledocholithiasis with intrahepatic and extra hepatic biliary ductal dilatation, confirming findings seen on recent CT scan. CT abdomen and pelvis: IMPRESSION: Biliary dilation attributable to choledocholithiasis. 1.2 and 1.3 cm calculi in the proximal and distal CBD respectively. The distended gallbladder contains a large lamellated stone. Haziness about the pancreas could be attributable to motion artifact, but in light of biliary findings, recommend checking enzymes. The rectum is distended by inspissated stool and contrast. Correlate for impaction. Lines and tubes and incidental findings as detailed above. Microbiology Date/Time Source Procedure Growth Status 06/27/20 12:00 Sputum Gram Stain - Final Resulted 06/27/20 12:00 Sputum Sputum Culture Pending Resulted 06/27/20 00:00 Rectum Received 06/27/20 00:00 Nasal Nares Left MRSA Culture - Final NO METHICILLIN RESISTANT STAPH AUREUS... Complete 06/26/20 23:41 Sputum Gram Stain - Final Resulted 06/26/20 23:41 Sputum Sputum Culture Pending Resulted 06/26/20 12:01 Blood Blood Culture - Preliminary NO GROWTH AFTER 24 HOURS Resulted 06/26/20 11:56 Blood Blood Culture - Preliminary NO GROWTH AFTER 24 HOURS Resulted Laboratory Tests Test 06/27/20 16:00 06/27/20 18:36 06/28/20 04:00 06/28/20 04:05 Sodium Level 156 MMOL/L (136-145) H 153 MMOL/L (136-145) H Potassium Level 3.1 MMOL/L (3.5-5.1) L 2.7 MMOL/L (3.5-5.1) *L Chloride Level 126 MMOL/L (98-107) H 123 MMOL/L (98-107) H Carbon Dioxide Level 21 MMOL/L (21-32) 19 MMOL/L (21-32) L Anion Gap 9 mmol/L (5-15) 12 mmol/L (5-15) Blood Urea Nitrogen 73 mg/dL (7-18) H 55 mg/dL (7-18) H Creatinine 1.6 MG/DL (0.55-1.30) H 1.5 MG/DL (0.55-1.30) H Estimat Glomerular Filtration Rate 31.6 mL/min (>60) 34.1 mL/min (>60) Glucose Level 299 MG/DL (74-106) H 221 MG/DL (74-106) H Lactic Acid Level 1.80 mmol/L (0.66-2.22) 2.50 mmol/L (0.4-2.0) H Calcium Level 7.3 MG/DL (8.5-10.1) L 7.4 MG/DL (8.5-10.1) L Phosphorus Level 2.1 MG/DL (2.5-4.9) L 2.3 MG/DL (2.5-4.9) L Magnesium Level 2.9 MG/DL (1.8-2.4) H 2.3 MG/DL (1.8-2.4) Troponin I 0.196 ng/mL (0.000-0.056) 0.164 ng/mL (0.000-0.056) POC Whole Blood Glucose 288 MG/DL (74-106) H White Blood Count 23.0 K/UL (4.8-10.8) *H Red Blood Count 3.06 M/UL (4.20-5.40) L Hemoglobin 9.4 G/DL (12.0-16.0) L Hematocrit 28.6 % (37.0-47.0) L Mean Corpuscular Volume 93 FL (80-99) Mean Corpuscular Hemoglobin 30.9 PG (27.0-31.0) Mean Corpuscular Hemoglobin Concent 33.0 G/DL (32.0-36.0) Red Cell Distribution Width 13.7 % (11.6-14.8) Platelet Count 123 K/UL (150-450) L Mean Platelet Volume 7.3 FL (6.5-10.1) Neutrophils (%) (Auto) % (45.0-75.0) Lymphocytes (%) (Auto) % (20.0-45.0) Monocytes (%) (Auto) % (1.0-10.0) Eosinophils (%) (Auto) % (0.0-3.0) Basophils (%) (Auto) % (0.0-2.0) Differential Total Cells Counted 100 Neutrophils % (Manual) 81 % (45-75) H Lymphocytes % (Manual) 10 % (20-45) L Monocytes % (Manual) 9 % (1-10) Eosinophils % (Manual) 0 % (0-3) Basophils % (Manual) 0 % (0-2) Band Neutrophils 0 % (0-8) Nucleated Red Blood Cells 3 /100 WBC Platelet Estimate Decreased L Platelet Morphology Normal Polychromasia 1+ Hypochromasia 1+ Total Bilirubin 0.6 MG/DL (0.2-1.0) Aspartate Amino Transf (AST/SGOT) 22 U/L (15-37) Alanine Aminotransferase (ALT/SGPT) 28 U/L (12-78) Alkaline Phosphatase 55 U/L (46-116) Total Protein 4.6 G/DL (6.4-8.2) L Albumin 1.7 G/DL (3.4-5.0) L Globulin 2.9 g/dL Albumin/Globulin Ratio 0.6 (1.0-2.7) L Amylase Level 159 U/L (25-115) H Lipase 553 U/L (73-393) H Random Vancomycin Level 18.9 ug/mL Test 06/28/20 09:19 06/28/20 10:58 06/28/20 11:00 POC Whole Blood Glucose Pending Arterial Blood pH 7.388 (7.350-7.450) Arterial Blood Partial Pressure CO2 28.6 mmHg (35.0-45.0) L Arterial Blood Partial Pressure O2 121.5 mmHg (75.0-100.0) H Arterial Blood HCO3 16.8 mmol/L (22.0-26.0) *L Arterial Blood Oxygen Saturation 97.8 % (95-100) Arterial Blood Base Excess -7.1 (-2-2) L Jaret Test Positive Stool Occult Blood Pending Current Medications Medications (Trade) Dose Ordered Sig/Reinier Route PRN Reason Start Time Stop Time Status Last Admin Dose Admin Acetaminophen (Tylenol) 650 mg Q6H PRN NG Temp >100.5 06/26/20 20:00 07/26/20 19:59 06/27/20 10:19 Acetaminophen (Tylenol) 650 mg Q6H PRN NG Mild Pain (Pain Scale 1-3) 1/31/21 20:00 07/26/20 19:59 06/28/20 02:21 Atorvastatin Calcium (Lipitor) 80 mg BEDTIME ORAL 06/26/20 21:00 09/24/20 20:59 06/27/20 20:35 Carvedilol (Coreg) 3.125 mg EVERY 12 HOURS ORAL 06/28/20 10:30 07/28/20 10:29 Chlorhexidine Gluconate (Eloisa-Hex 2%) 1 applic BEDTIME TOPIC 06/26/20 21:00 09/24/20 20:59 06/27/20 20:35 Dextrose 1,000 ml @ 75 mls/hr [id number] IV 06/27/20 13:15 07/27/20 13:14 06/28/20 02:47 Dextrose (Dextrose 50%) 25 ml Q30M PRN IV Hypoglycemia 06/26/20 20:00 09/24/20 19:59 Dextrose (Dextrose 50%) 50 ml Q30M PRN IV Hypoglycemia 06/26/20 20:00 09/24/20 19:59 Insulin Aspart (NovoLOG) Q4HR SUBQ 06/26/20 21:00 09/24/20 20:59 06/28/20 13:28 Lorazepam (Ativan 2mg/ml 1ml) 1 mg Q4H PRN IV For Anxiety 06/27/20 13:00 07/04/20 12:59 06/28/20 09:02 Norepinephrine Bitartrate 250 ml @ 7.5 mls/hr Q24H IV 06/26/20 16:45 06/29/20 16:44 06/27/20 01:56 Pantoprazole (Protonix) 40 mg EVERY 12 HOURS IVP 06/26/20 21:00 07/26/20 20:59 06/28/20 09:00 Piperacillin Sod/ Tazobactam Sod 3.375 gm/Dextrose 100 ml @ 25 mls/hr EVERY 12 HOURS IVPB 06/26/20 21:00 07/01/20 20:59 06/28/20 11:18 Vancomycin HCl ([facility] pharmacy to dose) 1 ea DAILY PRN MISC Per rx protocol 06/26/20 16:00 07/26/20 15:59 Milo Abbott MD Jun 28, 2020 15:21
[2020-06-28] MEDS: Norepinephrine 4mg/NS Premix 250 ML IV SCH (16:09)
--- NOTE | 2020-06-28 16:09 | NUR ---
RESPIRATORY NOTE: WEANING NOTE PLACED PT ON CPAP PER DR. BORREGO. PT NO LONGER SEDATED AT THIS TIME. PT SLEEPING BUT AROUSABLE. SXN PRIOR TO WEANING. WEANING BEGAN @ 1552. ROSARIO ORTEGA AWARE. CPAP PS 8, PEEP +5, 25% FIO2. SPO2 100%, HR 71. SPONT VT 300s-400s. SPONT VE 8-9 SPONT RR 20-25 NIF -30 PT TOLERATING WELL. NO S/S OF DISTRESS NOTED AT THIS TIME. WILL CONTINUE TO CLOSELY MONITOR AND FOLLOW PLAN OF CARE. Addendum: 06/28/20 at 1627 by Ami Culver RT ABG TO BE DRAWN IN 1 HR.
--- NOTE | 2020-06-28 17:10 | NUR ---
NURSE NOTES: pt had formed BM, cleaned and repositioned. oral care provided. extremities elevated. pt weaning. occult stool collected and sent to lab.
--- NOTE | 2020-06-28 17:45 | NUR ---
NURSE NOTES: CALLED MD. KIDD REGARDING PT ABG: HCO3:16.8. RECOMMEND BICARB REPLACEMENT. RECEIVED ORDER TO PLACE 1 AMP BICARB IN D5W AT 60ML/HR.
--- NOTE | 2020-06-28 18:44 | Internal Med Progress Note ---
Subjective Date of Service: Jun 28, 2020 Physician Name Xavier Rodriguez Attending Physician Vanessa Lenz M.D. Current Medications Medications (Trade) Dose Ordered Sig/Reinier Route PRN Reason Start Time Stop Time Status Last Admin Dose Admin Acetaminophen (Tylenol) 650 mg Q6H PRN NG Temp >100.5 06/26/20 20:00 07/26/20 19:59 06/27/20 10:19 Acetaminophen (Tylenol) 650 mg Q6H PRN NG Mild Pain (Pain Scale 1-3) 06/26/20 20:00 07/26/20 19:59 06/28/20 02:21 Atorvastatin Calcium (Lipitor) 80 mg BEDTIME ORAL 06/26/20 21:00 09/24/20 20:59 06/27/20 20:35 Carvedilol (Coreg) 3.125 mg EVERY 12 HOURS ORAL 06/28/20 10:30 07/28/20 10:29 Chlorhexidine Gluconate (Eloisa-Hex 2%) 1 applic BEDTIME TOPIC 06/26/20 21:00 09/24/20 20:59 06/27/20 20:35 Dextrose (Dextrose 50%) 25 ml Q30M PRN IV Hypoglycemia 06/26/20 20:00 09/24/20 19:59 Dextrose (Dextrose 50%) 50 ml Q30M PRN IV Hypoglycemia 06/26/20 20:00 09/24/20 19:59 Insulin Aspart (NovoLOG) Q4HR SUBQ 06/26/20 21:00 09/24/20 20:59 06/28/20 17:00 Lorazepam (Ativan 2mg/ml 1ml) 1 mg Q4H PRN IV For Anxiety 06/27/20 13:00 07/04/20 12:59 06/28/20 09:02 Norepinephrine Bitartrate 250 ml @ 7.5 mls/hr Q24H IV 06/26/20 16:45 06/29/20 16:44 06/27/20 01:56 Pantoprazole (Protonix) 40 mg EVERY 12 HOURS IVP 06/26/20 21:00 07/26/20 20:59 06/28/20 09:00 Piperacillin Sod/ Tazobactam Sod 3.375 gm/Dextrose 100 ml @ 25 mls/hr EVERY 12 HOURS IVPB 06/26/20 21:00 07/01/20 20:59 06/28/20 11:18 Sodium Bicarbonate 50 ml/ Dextrose 1,050 ml @ 60 mls/hr [id number] IV 06/28/20 19:00 07/28/20 18:59 Vancomycin HCl ([facility] pharmacy to dose) 1 ea DAILY PRN MISC Per rx protocol 06/26/20 16:00 07/26/20 15:59 Allergies: Coded Allergies: No Known Allergies (Unverified , 06/26/20) ROS Limited/Unobtainable: Yes Subjective 74 YO F admitted with altered mental status. Now respiratory failure. Cover for Int Steven-Dr Valdivia Objective Last Vital Signs Date Time Temp Pulse Resp B/P (MAP) Pulse Ox O2 Delivery O2 Flow Rate FiO2 06/28/20 18:11 21 06/28/20 18:00 67 27 110/77 (88) 100 06/28/20 16:00 Mechanical Ventilator 06/28/20 16:00 99.1 06/26/20 16:52 30.0 Laboratory Tests Test 06/28/20 04:00 06/28/20 04:05 06/28/20 09:19 06/28/20 10:58 Lactic Acid Level 2.50 mmol/L (0.4-2.0) H White Blood Count 23.0 K/UL (4.8-10.8) *H Red Blood Count 3.06 M/UL (4.20-5.40) L Hemoglobin 9.4 G/DL (12.0-16.0) L Hematocrit 28.6 % (37.0-47.0) L Mean Corpuscular Volume 93 FL (80-99) Mean Corpuscular Hemoglobin 30.9 PG (27.0-31.0) Mean Corpuscular Hemoglobin Concent 33.0 G/DL (32.0-36.0) Red Cell Distribution Width 13.7 % (11.6-14.8) Platelet Count 123 K/UL (150-450) L Mean Platelet Volume 7.3 FL (6.5-10.1) Neutrophils (%) (Auto) % (45.0-75.0) Lymphocytes (%) (Auto) % (20.0-45.0) Monocytes (%) (Auto) % (1.0-10.0) Eosinophils (%) (Auto) % (0.0-3.0) Basophils (%) (Auto) % (0.0-2.0) Differential Total Cells Counted 100 Neutrophils % (Manual) 81 % (45-75) H Lymphocytes % (Manual) 10 % (20-45) L Monocytes % (Manual) 9 % (1-10) Eosinophils % (Manual) 0 % (0-3) Basophils % (Manual) 0 % (0-2) Band Neutrophils 0 % (0-8) Nucleated Red Blood Cells 3 /100 WBC Platelet Estimate Decreased L Platelet Morphology Normal Polychromasia 1+ Hypochromasia 1+ Sodium Level 153 MMOL/L (136-145) H Potassium Level 2.7 MMOL/L (3.5-5.1) *L Chloride Level 123 MMOL/L (98-107) H Carbon Dioxide Level 19 MMOL/L (21-32) L Anion Gap 12 mmol/L (5-15) Blood Urea Nitrogen 55 mg/dL (7-18) H Creatinine 1.5 MG/DL (0.55-1.30) H Estimat Glomerular Filtration Rate 34.1 mL/min (>60) Glucose Level 221 MG/DL (74-106) H Calcium Level 7.4 MG/DL (8.5-10.1) L Phosphorus Level 2.3 MG/DL (2.5-4.9) L Magnesium Level 2.3 MG/DL (1.8-2.4) Total Bilirubin 0.6 MG/DL (0.2-1.0) Aspartate Amino Transf (AST/SGOT) 22 U/L (15-37) Alanine Aminotransferase (ALT/SGPT) 28 U/L (12-78) Alkaline Phosphatase 55 U/L (46-116) Troponin I 0.164 ng/mL (0.000-0.056) Total Protein 4.6 G/DL (6.4-8.2) L Albumin 1.7 G/DL (3.4-5.0) L Globulin 2.9 g/dL Albumin/Globulin Ratio 0.6 (1.0-2.7) L Amylase Level 159 U/L (25-115) H Lipase 553 U/L (73-393) H Random Vancomycin Level 18.9 ug/mL POC Whole Blood Glucose Pending Arterial Blood pH 7.388 (7.350-7.450) Arterial Blood Partial Pressure CO2 28.6 mmHg (35.0-45.0) L Arterial Blood Partial Pressure O2 121.5 mmHg (75.0-100.0) H Arterial Blood HCO3 16.8 mmol/L (22.0-26.0) *L Arterial Blood Oxygen Saturation 97.8 % (95-100) Arterial Blood Base Excess -7.1 (-2-2) L Jaret Test Positive Test 06/28/20 11:00 06/28/20 17:52 Stool Occult Blood Pending Arterial Blood pH 7.387 (7.350-7.450) Arterial Blood Partial Pressure CO2 32.6 mmHg (35.0-45.0) L Arterial Blood Partial Pressure O2 114.2 mmHg (75.0-100.0) H Arterial Blood HCO3 19.2 mmol/L (22.0-26.0) L Arterial Blood Oxygen Saturation 97.5 % (95-100) Arterial Blood Base Excess -5.1 (-2-2) L Jaret Test Positive Microbiology Date/Time Source Procedure Growth Status 06/27/20 12:00 Sputum Gram Stain - Final Resulted 06/27/20 12:00 Sputum Sputum Culture Pending Resulted 06/27/20 00:00 Rectum Received 06/27/20 00:00 Nasal Nares Left MRSA Culture - Final NO METHICILLIN RESISTANT STAPH AUREUS... Complete 06/26/20 23:41 Sputum Gram Stain - Final Resulted 06/26/20 23:41 Sputum Sputum Culture Pending Resulted 06/26/20 12:01 Blood Blood Culture - Preliminary NO GROWTH AFTER 48 HOURS Resulted 06/26/20 11:56 Blood Blood Culture - Preliminary NO GROWTH AFTER 48 HOURS Resulted Intake and Output 06/27/20 06/28/20 19:00 07:00 Intake Total 754.5 ml 1246.208 ml Output Total 800 ml 780 ml Balance -45.5 ml 466.208 ml Intake IV Total 664.5 ml 1246.208 ml Other 90 ml Output Urine Total 800 ml 780 ml # Bowel Movements 1 Objective PHYSICAL EXAMINATION: GENERAL: Patient is a well-developed, well-nourished female, in no apparent distress. Patient is intubated and sedated. HEENT: Eyes pupils are equal and responsive to light and accommodation. Extraocular movements are intact. NECK: Supple without lymphadenopathy. CHEST: Mechanical vent; coarse sounds bilaterally without wheezes or rales. CARDIOVASCULAR: Regular rhythm and rate. S1, S2 are normal without murmurs, rubs, or gallops. ABDOMEN: Soft, nontender, nondistended. Positive bowel sounds. No evidence of hepatosplenomegaly. Currently, no rebound or guarding noted. EXTREMITIES: Negative for clubbing, cyanosis, or edema. RECTAL/GENITAL: Not performed. NEUROLOGIC: Cranial nerves II through XII are grossly intact without focal deficits. Motor strength is 5/5 bilaterally. Deep tendon reflexes are 2+ plantar. Assessment/Plan Assessment/Plan ASSESSMENT: This is a 74-year-old female. 1. Respiratory failure. 2. Altered mental status. 3. Severe anemia. 4. Hypotension. 5. Hyperglycemia. 6. Cerebrovascular disease. 7. Renal failure. 8. History of hypertension. 9. Diabetes type 2. TREATMENT: 1. Respiratory failure. Pulmonary consultation = Dr. Doe. Respiratory failure may be secondary to pneumonia versus COVID-19. Patient has been started empirically on intravenous Zosyn and vancomycin. Follow recommendations of Pulmonary. Patient is currently intubated and sedated in the intensive care unit. 2. Severe anemia. S/P transfusion 2 units of packed RBCs. Follow Hgb/Hct 3. Hypotension. This may be secondary to septic shock versus severe anemia as above. 4. Hyperglycemia. Patient is currently on an insulin drip. 5. Diabetes type 2. As above, patient is currently on an insulin drip. An Endocrinology consultation has been obtained with Dr. Quiros. 6. Cerebrovascular disease, status post cerebrovascular accident. 7. Acute on chronic renal failure. A Nephrology consultation has been obtained with Dr. Lenz. Follow recommendations of Nephrology. Xavier Rodriguez MD Jun 28, 2020 18:44
--- NOTE | 2020-06-28 19:16 | NUR ---
NURSE HAND-OFF REPORT: Latest Vital Signs: Temperature 99.1 , Pulse 67 , B/P 110 /77 , Respiratory Rate 27 , O2 SAT 100 , Mechanical Ventilator, O2 Flow Rate 30.0 . Vital Sign Comment: EKG Rhythm: Sinus Rhythm Rhythm change?: N MD Notified?: - MD Response: Latest Rea Fall Score: 50 Fall Risk: High Risk Safety Measures: Call light Within Reach, Bed Alarm Zone 1, Side Rails Side Rails x2, Bed position Low and Locked. Fall Precautions: Door Sign Report given to Owen FIGUEROA RN
[2020-06-28] MEDS: Sodium Bicarbonate 50 ML in D5W 1000ml 1,000 ML IV SCH (19:19)
--- NOTE | 2020-06-28 19:19 | NUR ---
NURSE NOTES: received pt from Rosy ORTEGA., pt is closed eyes at this time but easy to arouse. pacemaker noted, no spiking at this time. pt is now NSR. pt is on Cpap pressure support 8 peep 5 21% Fio2 and O2sat shows 100%. pt is now on NPO and OGT noted. call light within reach. bilateral soft wrist restrain noted, pulse noted, skin intact. fine cath noted, light yellow urine noted. no active bleeding noted at this time. right femoral TLC noted, dressing site intact, clean, and patent. no skin issue noted. large ABD soft noted, with active. no BM noted at this time. sodium bicarb is running at 60ml/hr. will continue to monitor pt with plan of care. bed at the lowest position, alarmed, side rails x3 up, and locked.
--- NOTE | 2020-06-28 20:05 | NUR ---
NURSE NOTES: RT changed to AC mode for the Ventilator at this time. will continue to monitor pt.
[2020-06-28] MEDS: Dyna-Hex 2% Top Sol 2oz TOPIC SCH (21:02)
[2020-06-28] MEDS: Atorvastatin 80mg tab ORAL SCH (21:02)
--- NOTE | 2020-06-28 22:00 | NUR ---
NURSE NOTES: repositioned pt, O2sat is at 100%. call light within reach.
[2020-06-29] VITALS (33 sets, daily range): BP systolic 111–136; BP diastolic 52–69
--- NOTE | 2020-06-29 | NUR ---
NURSE NOTES: repositioned pt, no BM noted at this time. fine cath is draining well with gravity. oral care given. call light within reach.
[2020-06-29] MEDS: NovoLOG Insulin Flexpen SUBQ SCH ×5 (01:00→18:12)
--- NOTE | 2020-06-29 01:34 | Cardiology Progress Note ---
Subjective DATE OF SERVICE: Jun 28, 2020 Patient remains in ICU with CRITICAL condition and GUARDED prognosis. ON full vent support. She is s/p 3 units of PRBC's transfused. BP parameters improved, and pressors discont'd. Monitor: sinus with arrhythmia. 2D Echo: Normal LVEF, no significant valve or pericardial abn, mild pulmonary hypertension (41mmHg). Objective Last 24 Hour Vital Signs Date Time Temp Pulse Resp B/P (MAP) Pulse Ox O2 Delivery O2 Flow Rate FiO2 06/29/20 01:00 71 17 124/57 (79) 100 06/29/20 00:30 81 21 119/53 (75) 100 06/29/20 00:00 98.8 78 18 125/54 (77) 100 06/29/20 00:00 Mechanical Ventilator 06/28/20 23:30 79 19 124/56 (78) 100 06/28/20 23:21 77 17 30 06/28/20 23:00 77 18 128/56 (80) 100 06/28/20 22:30 75 18 130/54 (79) 100 06/28/20 22:00 69 16 126/59 (81) 100 06/28/20 21:00 70 17 139/58 (85) 100 06/28/20 21:00 63 135/50 06/28/20 20:05 30 06/28/20 20:00 98.4 66 25 106/56 (73) 100 06/28/20 20:00 Mechanical Ventilator 06/28/20 19:19 65 23 25 06/28/20 19:00 66 25 113/55 (74) 100 06/28/20 18:11 21 06/28/20 18:10 21 06/28/20 18:00 67 27 110/77 (88) 100 06/28/20 17:30 74 26 25 06/28/20 17:00 63 23 99/49 (66) 100 06/28/20 17:00 64 22 99/49 (66) 100 06/28/20 16:08 100 06/28/20 16:00 Mechanical Ventilator 06/28/20 16:00 99.1 76 28 110/57 (74) 100 06/28/20 16:00 65 06/28/20 16:00 25 06/28/20 15:55 71 23 25 25 2/2/21 15:49 25 06/28/20 15:20 25 06/28/20 15:15 65 16 30 06/28/20 15:00 65 18 92/46 (61) 100 06/28/20 14:00 65 18 103/48 (66) 100 06/28/20 13:00 66 18 120/55 (76) 100 06/28/20 12:00 98.9 63 18 90/45 (60) 100 06/28/20 12:00 68 19 30 06/28/20 12:00 70 06/28/20 12:00 Mechanical Ventilator 06/28/20 12:00 30 06/28/20 11:30 67 18 94/43 (60) 100 06/28/20 11:00 67 18 95/48 (64) 100 06/28/20 10:30 78 94/44 06/28/20 10:00 70 19 98/44 (62) 100 06/28/20 09:32 67 20 111/69 06/28/20 09:30 78 20 111/59 (76) 100 06/28/20 09:02 75 22 110/51 100 06/28/20 09:00 73 18 110/51 (70) 100 06/28/20 08:00 Mechanical Ventilator 06/28/20 08:00 75 06/28/20 08:00 30 06/28/20 08:00 98.7 78 18 123/56 (78) 100 06/28/20 07:20 69 18 30 06/28/20 07:00 77 21 117/52 (73) 100 06/28/20 06:30 106 18 06/28/20 06:00 77 21 117/52 (73) 100 06/28/20 05:14 75 19 30 06/28/20 05:00 71 21 113/45 (67) 100 06/28/20 04:00 30 06/28/20 04:00 Mechanical Ventilator 06/28/20 04:00 99.0 81 23 122/50 (74) 100 06/28/20 04:00 65 06/28/20 03:06 71 24 30 06/28/20 02:51 100.0 06/28/20 02:00 72 19 104/44 (64) 100 ROS: unchanged from 06/26/20 HEENT: Orally intubated, Mechanically Ventilated, Thin secretions ET Tube RHYTHM: NSR, ST, PACs LUNGS: bilateral rhonchi CARDIAC: normal rate, regular rhythm, normal S1 and S2, tachycardia ABDOMEN: normal bowel sounds, soft, no mass EXTREMITIES: normal inspection, no swelling, trace edema Laboratory Tests Test 06/28/20 04:00 06/28/20 04:05 06/28/20 09:19 06/28/20 10:58 Lactic Acid Level 2.50 mmol/L (0.4-2.0) H White Blood Count 23.0 K/UL (4.8-10.8) *H Red Blood Count 3.06 M/UL (4.20-5.40) L Hemoglobin 9.4 G/DL (12.0-16.0) L Hematocrit 28.6 % (37.0-47.0) L Mean Corpuscular Volume 93 FL (80-99) Mean Corpuscular Hemoglobin 30.9 PG (27.0-31.0) Mean Corpuscular Hemoglobin Concent 33.0 G/DL (32.0-36.0) Red Cell Distribution Width 13.7 % (11.6-14.8) Platelet Count 123 K/UL (150-450) L Mean Platelet Volume 7.3 FL (6.5-10.1) Neutrophils (%) (Auto) % (45.0-75.0) Lymphocytes (%) (Auto) % (20.0-45.0) Monocytes (%) (Auto) % (1.0-10.0) Eosinophils (%) (Auto) % (0.0-3.0) Basophils (%) (Auto) % (0.0-2.0) Differential Total Cells Counted 100 Neutrophils % (Manual) 81 % (45-75) H Lymphocytes % (Manual) 10 % (20-45) L Monocytes % (Manual) 9 % (1-10) Eosinophils % (Manual) 0 % (0-3) Basophils % (Manual) 0 % (0-2) Band Neutrophils 0 % (0-8) Nucleated Red Blood Cells 3 /100 WBC Platelet Estimate Decreased L Platelet Morphology Normal Polychromasia 1+ Hypochromasia 1+ Sodium Level 153 MMOL/L (136-145) H Potassium Level 2.7 MMOL/L (3.5-5.1) *L Chloride Level 123 MMOL/L (98-107) H Carbon Dioxide Level 19 MMOL/L (21-32) L Anion Gap 12 mmol/L (5-15) Blood Urea Nitrogen 55 mg/dL (7-18) H Creatinine 1.5 MG/DL (0.55-1.30) H Estimat Glomerular Filtration Rate 34.1 mL/min (>60) Glucose Level 221 MG/DL (74-106) H Calcium Level 7.4 MG/DL (8.5-10.1) L Phosphorus Level 2.3 MG/DL (2.5-4.9) L Magnesium Level 2.3 MG/DL (1.8-2.4) Total Bilirubin 0.6 MG/DL (0.2-1.0) Aspartate Amino Transf (AST/SGOT) 22 U/L (15-37) Alanine Aminotransferase (ALT/SGPT) 28 U/L (12-78) Alkaline Phosphatase 55 U/L (46-116) Troponin I 0.164 ng/mL (0.000-0.056) Total Protein 4.6 G/DL (6.4-8.2) L Albumin 1.7 G/DL (3.4-5.0) L Globulin 2.9 g/dL Albumin/Globulin Ratio 0.6 (1.0-2.7) L Amylase Level 159 U/L (25-115) H Lipase 553 U/L (73-393) H Random Vancomycin Level 18.9 ug/mL POC Whole Blood Glucose Pending Arterial Blood pH 7.388 (7.350-7.450) Arterial Blood Partial Pressure CO2 28.6 mmHg (35.0-45.0) L Arterial Blood Partial Pressure O2 121.5 mmHg (75.0-100.0) H Arterial Blood HCO3 16.8 mmol/L (22.0-26.0) *L Arterial Blood Oxygen Saturation 97.8 % (95-100) Arterial Blood Base Excess -7.1 (-2-2) L Jaret Test Positive Test 06/28/20 11:00 06/28/20 17:52 Stool Occult Blood Pending Arterial Blood pH 7.387 (7.350-7.450) Arterial Blood Partial Pressure CO2 32.6 mmHg (35.0-45.0) L Arterial Blood Partial Pressure O2 114.2 mmHg (75.0-100.0) H Arterial Blood HCO3 19.2 mmol/L (22.0-26.0) L Arterial Blood Oxygen Saturation 97.5 % (95-100) Arterial Blood Base Excess -5.1 (-2-2) L Jaret Test Positive Microbiology Date/Time Source Procedure Growth Status 06/27/20 12:00 Sputum Gram Stain - Final Resulted 06/27/20 12:00 Sputum Sputum Culture Pending Resulted 06/27/20 00:00 Rectum Received 06/27/20 00:00 Nasal Nares Left MRSA Culture - Final NO METHICILLIN RESISTANT STAPH AUREUS... Complete 06/26/20 23:41 Sputum Gram Stain - Final Resulted 06/26/20 23:41 Sputum Sputum Culture Pending Resulted 06/26/20 12:01 Blood Blood Culture - Preliminary NO GROWTH AFTER 48 HOURS Resulted 06/26/20 11:56 Blood Blood Culture - Preliminary NO GROWTH AFTER 48 HOURS Resulted Assessment/Plan Assessment/Plan Shock Severe anemia Acute coronary syndrome/NSTEMI ATN associated acute renal failure Acute on chronic diastolic CHF Hypovolemia Sepsis Acute respiratory failure PAFib Recent permanent pacemaker implant Lactic acidosis - resolved Pulmonary hypertension Very low lipid parameters, other than triglycerides Vent Abx Continuous cardiac monitoring DC statin; add gemfibrozil Monitor hemoglobin Hold antiplt therapy in view of severe anemia Serafin Lawson MD Jun 29, 2020 01:34
--- NOTE | 2020-06-29 02:00 | NUR ---
NURSE NOTES: cleaned pt, one soft green BM noted. oral suctioned. no SOB noted at this time. pt is not cooperative at this time. no fever noted.
--- NOTE | 2020-06-29 02:24 | Cardiology Report ---
APPROVED REPORT EXAM: Two-dimensional and M-mode echocardiogram with Doppler and color Doppler. INDICATION Congestive Heart Failure M-Mode DIMENSIONS IVSd1.2 (0.7-1.1cm)Left Atrium (MM)3.0 (1.6-4.0cm) LVDd4.9 (3.5-5.6cm)Aortic Root3.3 (2.0-3.7cm) PWd1.2 (0.7-1.1cm)Aortic Cusp Exc.1.6 (1.5-2.0cm) IVSs1.9 cmEPSS0.7 (>1.0cm) LVDs3.7 (2.5-4.0cm) PWs1.4 cm Other Information Technically limited study due to <Conclusion> Technically difficult study due to poor acoustical windows due to pt's position. Normal left ventricular chamber size, systolic function and wall motion to extent visualized. Left ventricular ejection fraction estimated to be 60-65 %. Mild left ventricular hypertrophy. No evidence of pericardial effusion. All other cardiac chamber sizes are within normal limits. Focal aortic valve sclerosis with adequate cusp excursion. Moderate thickened mitral valve leaflets with normal excursion. Mitral annulus and aortic root calcification. Normal pulmonic valve structure. Normal tricuspid valve structure. IVC at normal size with slightly physiologic collapse. Pacemaker wire present in the right side chambers. A color flow and spectral Doppler study was performed and revealed: Trace aortic regurgitation. Trace mitral regurgitation. Mitral diastolic velocities suggest reduced left ventricular relaxation c/w mild LV diastolic dysfunction (Grade I ). Trace tricuspid regurgitation. Tricuspid systolic velocities suggests peak right ventricular systolic pressure of 41 mmHg, consistent with mild pulmonary hypertension. Pulmonic regurgitation present.
--- NOTE | 2020-06-29 04:00 | NUR ---
NURSE NOTES: pt is more awake than previous condition, active, but still non-verbal. pt moves all the extremities. call light within reach oral suctioned.
[2020-06-29 05:09] LABS: HEMATOCRIT 28.1 % (37.0-47.0); HEMOGLOBIN 9.3 G/DL (12.0-16.0); MEAN CORPUSCULAR VOLUME 92 FL (80-99); PLATELET COUNT 114 K/UL (150-450); RED BLOOD COUNT 3.06 M/UL (4.20-5.40); RED CELL DISTRIBUTION WIDTH 13.7 % (11.6-14.8); WHITE BLOOD COUNT 21.5 K/UL (4.8-10.8)
[2020-06-29 05:53] LABS: ALANINE AMINOTRANSFERASE 25 U/L (12-78); ALBUMIN 1.7 G/DL (3.4-5.0); ALBUMIN/GLOBULIN RATIO 0.6 (1.0-2.7); ALKALINE PHOSPHATASE 60 U/L (46-116); AMYLASE 153 U/L (25-115); ANION GAP 9 mmol/L (5-15); ASPARTATE AMINO TRANSFERASE 23 U/L (15-37); BILIRUBIN,TOTAL 0.9 MG/DL (0.2-1.0); BLOOD UREA NITROGEN 24 mg/dL (7-18); CALCIUM 7.4 MG/DL (8.5-10.1); CARBON DIOXIDE 20 MMOL/L (21-32); CHLORIDE 115 MMOL/L (98-107); CREATININE 0.9 MG/DL (0.55-1.30); POTASSIUM 3.3 MMOL/L (3.5-5.1); SODIUM 144 MMOL/L (136-145)
--- NOTE | 2020-06-29 06:11 | NUR ---
NURSE NOTES: pt is moving alot, and trying to reach out Guillen and trach. explained why she needs theses medical devices. pt unable to comprehend this time. will closely monitor pt.
--- NOTE | 2020-06-29 07:20 | NUR ---
NURSE HAND-OFF REPORT: Latest Vital Signs: Temperature 98.7 , Pulse 72 , B/P 125 /62 , Respiratory Rate 16 , O2 SAT 100 , Mechanical Ventilator, O2 Flow Rate 30.0 . Vital Sign Comment: [stable condition] EKG Rhythm: Sinus Rhythm Rhythm change?: N MD Notified?: - MD Response: Latest Rea Fall Score: 50 Fall Risk: High Risk Safety Measures: Call light Within Reach, Bed Alarm Zone 1, Side Rails Side Rails x2, Bed position Low and Locked. Fall Precautions: Door Sign Report given to [Evette ORTEGA].
--- NOTE | 2020-06-29 07:21 | NUR ---
NURSE NOTES: Received pt from Yvonne Gallagher RN, pt is closed eyes at this time but easy to arouse. pacemaker noted, no spiking at this time. pt is now SR. tolerating current vent settings, and O2sat shows 100%. pt is now on NPO and OGT noted. call light within reach. bilateral soft wrist restrain noted, pulse noted, skin intact. fine cath noted, light yellow urine noted. no active bleeding noted at this time. right femoral TLC noted, dressing site intact, clean, and patent. no skin issue noted. large ABD soft noted, with active. no BM noted at this time. IVF of sodium bicarb is running at 60ml/hr. will continue to monitor pt with plan of care. bed at the lowest position, alarmed, side rails x3 up, and locked.
--- NOTE | 2020-06-29 09:03 | NUR ---
CASE MANAGEMENT:REVIEW 06/29/20 SI: NSTEMI. SEPSIS. RESPIRATORY FAILURE~ INTUBATED 98.9 63 18 90/45 100% ON VENT SUPPORT W/30% FIO2 WBC+22.5 H/H-9.3/28.1 PLT-114 K-3.3 CA-7.4 IS: LOPID NG BID IV NA HCO3@60/HR IV ZOSYN Q12 IV PROTONIX Q12 : ICU STATUS DCP: [facility]
[2020-06-29] MEDS: Pantoprazole Inj IVP SCH ×2 (09:21→21:00)
--- NOTE | 2020-06-29 09:27 | Nephrology Progress Note ---
Assessment/Plan Plan #DAYO - likely ATN in the setting of septic shock #Acute anemia #hypoxemic resp failure - vent dependent #NSTEMI #AMS #p Afib #Dm #HTN #HLD #s/p PPM - plan to extubate today - switched to bicarb drip - monitor bicarb level - electrolyte prn - prbc transfusion - monitor renal function - ID consulted - antibiotics per ID - cardiology eval - monitor troponin level - monitor lytes - pressors prn - monitor LFTs - echo - renal US - urine chem time spent 65 min Subjective ROS Limited/Unobtainable: Yes Subjective multiple electrolyte derangements noted lytes repleted plan to extubate today Objective Objective Last 24 Hour Vital Signs Date Time Temp Pulse Resp B/P (MAP) Pulse Ox O2 Delivery O2 Flow Rate FiO2 06/29/20 09:20 82 136/64 06/29/20 08:38 24 06/29/20 08:32 24 06/29/20 08:00 Mechanical Ventilator 06/29/20 08:00 98.5 70 16 117/58 (77) 100 06/29/20 08:00 30 06/29/20 07:28 68 06/29/20 07:00 72 16 125/62 (83) 100 06/29/20 06:30 70 18 06/29/20 06:00 70 16 129/62 (84) 100 06/29/20 05:00 79 17 126/56 (79) 100 06/29/20 04:01 69 06/29/20 04:00 30 06/29/20 04:00 98.7 74 17 119/52 (74) 100 06/29/20 04:00 Mechanical Ventilator 06/29/20 03:16 72 22 30 06/29/20 03:00 81 19 130/63 (85) 100 06/29/20 02:00 71 16 114/56 (75) 100 06/29/20 01:00 71 17 124/57 (79) 100 06/29/20 00:30 81 21 119/53 (75) 100 06/29/20 00:00 98.8 78 18 125/54 (77) 100 06/29/20 00:00 Mechanical Ventilator 06/28/20 23:39 74 06/28/20 23:30 79 19 124/56 (78) 100 06/28/20 23:21 77 17 30 06/28/20 23:00 77 18 128/56 (80) 100 06/28/20 22:30 75 18 130/54 (79) 100 06/28/20 22:00 69 16 126/59 (81) 100 06/28/20 21:00 70 17 139/58 (85) 100 06/28/20 21:00 63 135/50 06/28/20 20:05 30 06/28/20 20:00 98.4 66 25 106/56 (73) 100 06/28/20 20:00 Mechanical Ventilator 06/28/20 19:35 70 06/28/20 19:19 65 23 25 06/28/20 19:00 66 25 113/55 (74) 100 06/28/20 18:11 21 06/28/20 18:10 21 06/28/20 18:00 67 27 110/77 (88) 100 06/28/20 17:30 74 26 25 06/28/20 17:00 63 23 99/49 (66) 100 06/28/20 17:00 64 22 99/49 (66) 100 06/28/20 16:08 100 06/28/20 16:00 Mechanical Ventilator 06/28/20 16:00 99.1 76 28 110/57 (74) 100 06/28/20 16:00 65 06/28/20 16:00 25 06/28/20 15:55 71 23 25 25 06/28/20 15:49 25 06/28/20 15:20 25 06/28/20 15:15 65 16 30 06/28/20 15:00 65 18 92/46 (61) 100 06/28/20 14:00 65 18 103/48 (66) 100 06/28/20 13:00 66 18 120/55 (76) 100 06/28/20 12:00 98.9 63 18 90/45 (60) 100 06/28/20 12:00 68 19 30 06/28/20 12:00 70 06/28/20 12:00 Mechanical Ventilator 06/28/20 12:00 30 06/28/20 11:30 67 18 94/43 (60) 100 06/28/20 11:00 67 18 95/48 (64) 100 06/28/20 10:30 78 94/44 06/28/20 10:00 70 19 98/44 (62) 100 06/28/20 09:32 67 20 111/69 06/28/20 09:30 78 20 111/59 (76) 100 Intake and Output 06/28/20 06/29/20 19:00 07:00 Intake Total 1542.416 ml 801 ml Output Total 735 ml 630 ml Balance 807.416 ml 171 ml Intake IV Total 1542.416 ml 801 ml Output Urine Total 735 ml 630 ml # Bowel Movements 1 2 Laboratory Tests 06/28/20 10:58: Arterial Blood pH 7.388, Arterial Blood Partial Pressure CO2 28.6L, Arterial Blood Partial Pressure O2 121.5H, Arterial Blood HCO3 16.8*L, Arterial Blood Oxygen Saturation 97.8, Arterial Blood Base Excess -7.1L, Jaret Test Positive 06/28/20 11:00: Stool Occult Blood [Pending] 06/28/20 17:52: Arterial Blood pH 7.387, Arterial Blood Partial Pressure CO2 32.6L, Arterial Blood Partial Pressure O2 114.2H, Arterial Blood HCO3 19.2L, Arterial Blood Oxygen Saturation 97.5, Arterial Blood Base Excess -5.1L, Jaret Test Positive 06/29/20 04:05: White Blood Count 21.5H, Red Blood Count 3.06L, Hemoglobin 9.3L, Hematocrit 28.1L, Mean Corpuscular Volume 92, Mean Corpuscular Hemoglobin 30.5, Mean Corpuscular Hemoglobin Concent 33.2, Red Cell Distribution Width 13.7, Platelet Count 114L, Mean Platelet Volume 7.4, Neutrophils (%) (Auto) , Lymphocytes (%) (Auto) , Monocytes (%) (Auto) , Eosinophils (%) (Auto) , Basophils (%) (Auto) , Sodium Level 144, Potassium Level 3.3L, Chloride Level 115H, Carbon Dioxide Level 20L, Anion Gap 9, Blood Urea Nitrogen 24H, Creatinine 0.9, Estimat Glomerular Filtration Rate > 60, Glucose Level 187H, Calcium Level 7.4L, Total Bilirubin 0.9, Aspartate Amino Transf (AST/SGOT) 23, Alanine Aminotransferase (ALT/SGPT) 25, Alkaline Phosphatase 60, Total Protein 4.7L, Albumin 1.7L, Globulin 3.0, Albumin/Globulin Ratio 0.6L, Amylase Level 153H, Lipase 344 06/29/20 08:14: Arterial Blood pH 7.442, Arterial Blood Partial Pressure CO2 30.7L, Arterial Blood Partial Pressure O2 128.8H, Arterial Blood HCO3 20.5L, Arterial Blood Oxygen Saturation 97.5, Arterial Blood Base Excess -2.9L, Jaret Test Positive Height (Feet): 5 Height (Inches): 0.00 Weight (Pounds): 137 Objective Lines, tubes and drains: peripheral, central line HEENT: normocephalic, atraumatic Neck: non-tender, normal alignment Respiratory/Chest: on vent Cardiovascular/Chest: normal peripheral pulses, normal rate, regular rhythm Abdomen: normal bowel sounds, non tender Extremities: normal range of motion, non-tender Vanessa Lenz M.D. Jun 29, 2020 09:27
--- NOTE | 2020-06-29 10:44 | Pulmonology Progress Note ---
Subjective ROS Limited/Unobtainable: Yes Interval Events: Remains intubated Constitutional: Reports: fever HEENT: Repors: no symptoms Respiratory: Reports: no symptoms Cardiovascular: Reports: no symptoms Gastrointestinal/Abdominal: Reports: no symptoms Genitourinary: Reports: no symptoms Psychiatric: Reports: other - NA Skin: Denies: rash Musculoskeletal: Reports: other - NA Allergies: Coded Allergies: No Known Allergies (Unverified , 06/26/20) Objective Last 24 Hour Vital Signs Date Time Temp Pulse Resp B/P (MAP) Pulse Ox O2 Delivery O2 Flow Rate FiO2 06/29/20 10:00 79 21 136/61 (86) 100 06/29/20 09:20 82 136/64 06/29/20 09:15 77 20 134/63 (86) 100 06/29/20 09:00 85 26 136/64 (88) 100 06/29/20 08:38 24 06/29/20 08:32 24 06/29/20 08:00 Mechanical Ventilator 06/29/20 08:00 98.5 70 16 117/58 (77) 100 06/29/20 08:00 30 06/29/20 07:28 68 06/29/20 07:00 72 16 125/62 (83) 100 06/29/20 06:30 70 18 06/29/20 06:00 70 16 129/62 (84) 100 06/29/20 05:00 79 17 126/56 (79) 100 06/29/20 04:01 69 06/29/20 04:00 30 06/29/20 04:00 98.7 74 17 119/52 (74) 100 06/29/20 04:00 Mechanical Ventilator 06/29/20 03:16 72 22 30 06/29/20 03:00 81 19 130/63 (85) 100 06/29/20 02:00 71 16 114/56 (75) 100 06/29/20 01:00 71 17 124/57 (79) 100 06/29/20 00:30 81 21 119/53 (75) 100 06/29/20 00:00 98.8 78 18 125/54 (77) 100 06/29/20 00:00 Mechanical Ventilator 06/28/20 23:39 74 06/28/20 23:30 79 19 124/56 (78) 100 06/28/20 23:21 77 17 30 2/2/21 23:00 77 18 128/56 (80) 100 06/28/20 22:30 75 18 130/54 (79) 100 06/28/20 22:00 69 16 126/59 (81) 100 06/28/20 21:00 70 17 139/58 (85) 100 06/28/20 21:00 63 135/50 06/28/20 20:05 30 06/28/20 20:00 98.4 66 25 106/56 (73) 100 06/28/20 20:00 Mechanical Ventilator 06/28/20 19:35 70 06/28/20 19:19 65 23 25 06/28/20 19:00 66 25 113/55 (74) 100 06/28/20 18:11 21 06/28/20 18:10 21 06/28/20 18:00 67 27 110/77 (88) 100 06/28/20 17:30 74 26 25 06/28/20 17:00 63 23 99/49 (66) 100 06/28/20 17:00 64 22 99/49 (66) 100 06/28/20 16:08 100 06/28/20 16:00 Mechanical Ventilator 06/28/20 16:00 99.1 76 28 110/57 (74) 100 06/28/20 16:00 65 06/28/20 16:00 25 06/28/20 15:55 71 23 25 25 06/28/20 15:49 25 06/28/20 15:20 25 06/28/20 15:15 65 16 30 06/28/20 15:00 65 18 92/46 (61) 100 06/28/20 14:00 65 18 103/48 (66) 100 06/28/20 13:00 66 18 120/55 (76) 100 06/28/20 12:00 98.9 63 18 90/45 (60) 100 06/28/20 12:00 68 19 30 06/28/20 12:00 70 06/28/20 12:00 Mechanical Ventilator 06/28/20 12:00 30 06/28/20 11:30 67 18 94/43 (60) 100 06/28/20 11:00 67 18 95/48 (64) 100 Intake and Output 06/28/20 06/29/20 19:00 07:00 Intake Total 1542.416 ml 801 ml Output Total 735 ml 630 ml Balance 807.416 ml 171 ml Intake IV Total 1542.416 ml 801 ml Output Urine Total 735 ml 630 ml # Bowel Movements 1 2 General Appearance: no acute distress HEENT: normocephalic Respiratory: chest wall non-tender, lungs clear Cardiovascular: normal peripheral pulses Abdomen: normal bowel sounds Extremities: no cyanosis Microbiology Date/Time Source Procedure Growth Status 06/27/20 12:00 Sputum Gram Stain - Final Resulted 06/27/20 12:00 Sputum Sputum Culture Pending Resulted 06/27/20 00:00 Rectum Received 06/27/20 00:00 Nasal Nares Left MRSA Culture - Final NO METHICILLIN RESISTANT STAPH AUREUS... Complete 06/26/20 23:41 Sputum Gram Stain - Final Resulted 06/26/20 23:41 Sputum Culture - Preliminary YEAST Resulted 06/26/20 12:40 Nasopharynx Coronavirus COVID-19 PCR (STEFANY) - Final Complete 06/26/20 12:01 Blood Blood Culture - Preliminary NO GROWTH AFTER 48 HOURS Resulted 06/26/20 11:56 Blood Blood Culture - Preliminary NO GROWTH AFTER 48 HOURS Resulted Laboratory Tests 06/28/20 10:58: Arterial Blood pH 7.388, Arterial Blood Partial Pressure CO2 28.6L, Arterial Blood Partial Pressure O2 121.5H, Arterial Blood HCO3 16.8*L, Arterial Blood Oxygen Saturation 97.8, Arterial Blood Base Excess -7.1L, Jaret Test Positive 06/28/20 11:00: Stool Occult Blood Positive 06/28/20 17:52: Arterial Blood pH 7.387, Arterial Blood Partial Pressure CO2 32.6L, Arterial Blood Partial Pressure O2 114.2H, Arterial Blood HCO3 19.2L, Arterial Blood Oxygen Saturation 97.5, Arterial Blood Base Excess -5.1L, Jaret Test Positive 06/29/20 04:05: White Blood Count 21.5H, Red Blood Count 3.06L, Hemoglobin 9.3L, Hematocrit 28.1L, Mean Corpuscular Volume 92, Mean Corpuscular Hemoglobin 30.5, Mean Corpuscular Hemoglobin Concent 33.2, Red Cell Distribution Width 13.7, Platelet Count 114L, Mean Platelet Volume 7.4, Neutrophils (%) (Auto) , Lymphocytes (%) (Auto) , Monocytes (%) (Auto) , Eosinophils (%) (Auto) , Basophils (%) (Auto) , Sodium Level 144, Potassium Level 3.3L, Chloride Level 115H, Carbon Dioxide Level 20L, Anion Gap 9, Blood Urea Nitrogen 24H, Creatinine 0.9, Estimat Glomerular Filtration Rate > 60, Glucose Level 187H, Calcium Level 7.4L, Total B ilirubin 0.9, Aspartate Amino Transf (AST/SGOT) 23, Alanine Aminotransferase (ALT/SGPT) 25, Alkaline Phosphatase 60, Total Protein 4.7L, Albumin 1.7L, Globulin 3.0, Albumin/Globulin Ratio 0.6L, Amylase Level 153H, Lipase 344 06/29/20 08:14: Arterial Blood pH 7.442, Arterial Blood Partial Pressure CO2 30.7L, Arterial Blood Partial Pressure O2 128.8H, Arterial Blood HCO3 20.5L, Arterial Blood Oxygen Saturation 97.5, Arterial Blood Base Excess -2.9L, Jaret Test Positive Current Medications Medications (Trade) Dose Ordered Sig/Reinier Route PRN Reason Start Time Stop Time Status Last Admin Dose Admin Acetaminophen (Tylenol) 650 mg Q6H PRN NG Temp >100.5 06/26/20 20:00 07/26/20 19:59 06/27/20 10:19 Acetaminophen (Tylenol) 650 mg Q6H PRN NG Mild Pain (Pain Scale 1-3) 06/26/20 20:00 07/26/20 19:59 06/28/20 02:21 Carvedilol (Coreg) 3.125 mg EVERY 12 HOURS ORAL 06/28/20 10:30 07/28/20 10:29 06/29/20 09:20 Chlorhexidine Gluconate (Eloisa-Hex 2%) 1 applic BEDTIME TOPIC 06/26/20 21:00 09/24/20 20:59 06/28/20 21:02 Dextrose (Dextrose 50%) 25 ml Q30M PRN IV Hypoglycemia 06/26/20 20:00 09/24/20 19:59 Dextrose (Dextrose 50%) 50 ml Q30M PRN IV Hypoglycemia 06/26/20 20:00 09/24/20 19:59 Gemfibrozil (Lopid) 600 mg TWICE A DAY ORAL 06/29/20 09:00 07/29/20 08:59 06/29/20 09:20 Insulin Aspart (NovoLOG) Q4HR SUBQ 06/26/20 21:00 09/24/20 20:59 06/29/20 09:53 Lorazepam (Ativan 2mg/ml 1ml) 1 mg Q4H PRN IV For Anxiety 06/27/20 13:00 07/04/20 12:59 06/28/20 09:02 Norepinephrine Bitartrate 250 ml @ 7.5 mls/hr Q24H IV 06/26/20 16:45 06/29/20 16:44 06/27/20 01:56 Pantoprazole (Protonix) 40 mg EVERY 12 HOURS IVP 06/26/20 21:00 07/26/20 20:59 06/29/20 09:21 Piperacillin Sod/ Tazobactam Sod 3.375 gm/Dextrose 100 ml @ 25 mls/hr EVERY 12 HOURS IVPB 06/26/20 21:00 07/01/20 20:59 06/29/20 09:21 Potassium Chloride 100 ml @ 50 mls/hr ONCE ONCE IVPB 06/29/20 10:00 06/29/20 11:59 Potassium Chloride (K-Dur) 40 meq ONCE ORAL 06/29/20 09:30 06/29/20 12:00 06/29/20 09:56 Sodium Bicarbonate 50 ml/ Dextrose 1,050 ml @ 60 mls/hr [id number] IV 06/28/20 19:00 07/28/20 18:59 06/28/20 19:19 Vancomycin HCl ([facility] pharmacy to dose) 1 ea DAILY PRN MISC Per rx protocol 06/26/20 16:00 07/26/20 15:59 Assessment/Plan Assessment/Plan IMPRESSION: 1. Acute respiratory failure. 2. Pneumonia, suspected. 3. Marked leukocytosis. 4. Anemia. 5. Renal failure. 6. Possible cholecystitis. 7. Pacemaker. 8. [facility] resident. DISCUSSION: 1. Continue vent; assist control mechanical ventilation 2. Broad-spectrum antibiotics as per ID specialist. 3. Maintain respiratory status on assist-control mechanical ventilation. 4. I will follow ABGs. 5. Provide DVT and GI prophylaxes. 6. IV fluids to be given. 7. We will monitor lactic acidosis. Defer CODE STATUS to attending Noted DNR Continue weaning Discussed with RN Tre Browne Omar Syed MD Jun 29, 2020 10:44
--- NOTE | 2020-06-29 11:22 | General Progress Note ---
Subjective ROS Limited/Unobtainable: No Allergies: Coded Allergies: No Known Allergies (Unverified , 06/26/20) Objective Last 24 Hour Vital Signs Date Time Temp Pulse Resp B/P (MAP) Pulse Ox O2 Delivery O2 Flow Rate FiO2 06/29/20 11:00 70 20 115/60 (78) 100 06/29/20 10:00 79 21 136/61 (86) 100 06/29/20 09:20 82 136/64 06/29/20 09:15 77 20 134/63 (86) 100 06/29/20 09:00 85 26 136/64 (88) 100 06/29/20 08:38 24 06/29/20 08:32 24 06/29/20 08:00 Mechanical Ventilator 06/29/20 08:00 98.5 70 16 117/58 (77) 100 06/29/20 08:00 30 06/29/20 07:28 68 06/29/20 07:00 72 16 125/62 (83) 100 06/29/20 06:30 70 18 06/29/20 06:00 70 16 129/62 (84) 100 06/29/20 05:00 79 17 126/56 (79) 100 06/29/20 04:01 69 06/29/20 04:00 30 06/29/20 04:00 98.7 74 17 119/52 (74) 100 06/29/20 04:00 Mechanical Ventilator 06/29/20 03:16 72 22 30 06/29/20 03:00 81 19 130/63 (85) 100 06/29/20 02:00 71 16 114/56 (75) 100 06/29/20 01:00 71 17 124/57 (79) 100 06/29/20 00:30 81 21 119/53 (75) 100 06/29/20 00:00 98.8 78 18 125/54 (77) 100 06/29/20 00:00 Mechanical Ventilator 06/28/20 23:39 74 06/28/20 23:30 79 19 124/56 (78) 100 06/28/20 23:21 77 17 30 06/28/20 23:00 77 18 128/56 (80) 100 06/28/20 22:30 75 18 130/54 (79) 100 06/28/20 22:00 69 16 126/59 (81) 100 06/28/20 21:00 70 17 139/58 (85) 100 06/28/20 21:00 63 135/50 06/28/20 20:05 30 06/28/20 20:00 98.4 66 25 106/56 (73) 100 06/28/20 20:00 Mechanical Ventilator 06/28/20 19:35 70 06/28/20 19:19 65 23 25 06/28/20 19:00 66 25 113/55 (74) 100 06/28/20 18:11 21 06/28/20 18:10 21 06/28/20 18:00 67 27 110/77 (88) 100 06/28/20 17:30 74 26 25 06/28/20 17:00 63 23 99/49 (66) 100 06/28/20 17:00 64 22 99/49 (66) 100 06/28/20 16:08 100 06/28/20 16:00 Mechanical Ventilator 06/28/20 16:00 99.1 76 28 110/57 (74) 100 06/28/20 16:00 65 06/28/20 16:00 25 06/28/20 15:55 71 23 25 25 06/28/20 15:49 25 06/28/20 15:20 25 06/28/20 15:15 65 16 30 06/28/20 15:00 65 18 92/46 (61) 100 06/28/20 14:00 65 18 103/48 (66) 100 06/28/20 13:00 66 18 120/55 (76) 100 06/28/20 12:00 98.9 63 18 90/45 (60) 100 06/28/20 12:00 68 19 30 06/28/20 12:00 70 06/28/20 12:00 Mechanical Ventilator 06/28/20 12:00 30 06/28/20 11:30 67 18 94/43 (60) 100 Intake and Output 06/28/20 06/29/20 19:00 07:00 Intake Total 1542.416 ml 801 ml Output Total 735 ml 630 ml Balance 807.416 ml 171 ml Intake IV Total 1542.416 ml 801 ml Output Urine Total 735 ml 630 ml # Bowel Movements 1 2 Laboratory Tests 06/28/20 17:52: Arterial Blood pH 7.387, Arterial Blood Partial Pressure CO2 32.6L, Arterial Blood Partial Pressure O2 114.2H, Arterial Blood HCO3 19.2L, Arterial Blood Oxygen Saturation 97.5, Arterial Blood Base Excess -5.1L, Jaret Test Positive 06/29/20 04:05: White Blood Count 21.5H, Red Blood Count 3.06L, Hemoglobin 9.3L, Hematocrit 28.1L, Mean Corpuscular Volume 92, Mean Corpuscular Hemoglobin 30.5, Mean Corpuscular Hemoglobin Concent 33.2, Red Cell Distribution Width 13.7, Platelet Count 114L, Mean Platelet Volume 7.4, Neutrophils (%) (Auto) , Lymphocytes (%) (Auto) , Monocytes (%) (Auto) , Eosinophils (%) (Auto) , Basophils (%) (Auto) , Sodium Level 144, Potassium Level 3.3L, Chloride Level 115H, Carbon Dioxide Level 20L, Anion Gap 9, Blood Urea Nitrogen 24H, Creatinine 0.9, Estimat Glomerular Filtration Rate > 60, Glucose Level 187H, Calcium Level 7.4L, Total Bilirubin 0.9, Aspartate Amino Transf (AST/SGOT) 23, Alanine Aminotransferase (ALT/SGPT) 25, Alkaline Phosphatase 60, Total Protein 4.7L, Albumin 1.7L, Globulin 3.0, Albumin/Globulin Ratio 0.6L, Amylase Level 153H, Lipase 344 06/29/20 08:14: Arterial Blood pH 7.442, Arterial Blood Partial Pressure CO2 30.7L, Arterial Blood Partial Pressure O2 128.8H, Arterial Blood HCO3 20.5L, Arterial Blood Oxygen Saturation 97.5, Arterial Blood Base Excess -2.9L, Jaret Test Positive Height (Feet): 5 Height (Inches): 0.00 Weight (Pounds): 137 General Appearance: lethargic EENT: normal ENT inspection Neck: supple Cardiovascular: normal rate Respiratory/Chest: decreased breath sounds Abdomen: normal bowel sounds, non tender, soft Extremities: non-tender Assessment/Plan Problem List: (1) Anemia ICD Codes: D64.9 - Anemia, unspecified SNOMED: 784158576 Qualifiers: Qualified Codes: D64.9 - Anemia, unspecified (2) Choledocholithiasis ICD Codes: K80.50 - Calculus of bile duct without cholangitis or cholecystitis without obstruction SNOMED: 947018316 (3) Respiratory failure ICD Codes: J96.90 - Respiratory failure, unspecified, unspecified whether with hypoxia or hypercapnia SNOMED: 160231278 Qualifiers: Qualified Codes: J96.01 - Acute respiratory failure with hypoxia; J96.02 - Acute respiratory failure with hypercapnia (4) Severe sepsis ICD Codes: A41.9 - Sepsis, unspecified organism; R65.20 - Severe sepsis without septic shock SNOMED: 72082244 (5) NSTEMI (non-ST elevated myocardial infarction) ICD Codes: I21.4 - Non-ST elevation (NSTEMI) myocardial infarction SNOMED: 81002154 (6) ARF (acute renal failure) ICD Codes: N17.9 - Acute kidney failure, unspecified SNOMED: 09750788 Qualifiers: Qualified Codes: N17.9 - Acute kidney failure, unspecified (7) Hemiparesis ICD Codes: G81.90 - Hemiplegia, unspecified affecting unspecified side SNOMED: 46756529 Qualifiers: Qualified Codes: I69.354 - Hemiplegia and hemiparesis following cerebral infarction affecting left non-dominant side (8) Hyperglycemia ICD Codes: R73.9 - Hyperglycemia, unspecified SNOMED: 03394550 Assessment/Plan: given normal LFTS and septic shock will hold ERCP for now fu H&H>>>stable prn blood transfusion abx per ID repeat labs NGTF on hold for possible extubation stool ob positive but given current medical condition and stable H&H will hold EGD add ppi will fu Irvin Henson MD Jun 29, 2020 11:22
--- NOTE | 2020-06-29 12:34 | NUR ---
insurance REFAXED CLINICALS/ REVIEW FAXED TO [facility] (06/26-06/28) CM: Geena # [phone] fax# [phone]
--- NOTE | 2020-06-29 12:38 | Internal Med Progress Note ---
Subjective Date of Service: Jun 29, 2020 Physician Name Xavier Rodriguez Attending Physician Vanessa Lenz M.D. Current Medications Medications (Trade) Dose Ordered Sig/Reinier Route PRN Reason Start Time Stop Time Status Last Admin Dose Admin Acetaminophen (Tylenol) 650 mg Q6H PRN NG Temp >100.5 06/26/20 20:00 07/26/20 19:59 06/27/20 10:19 Acetaminophen (Tylenol) 650 mg Q6H PRN NG Mild Pain (Pain Scale 1-3) 06/26/20 20:00 07/26/20 19:59 06/28/20 02:21 Carvedilol (Coreg) 3.125 mg EVERY 12 HOURS ORAL 06/28/20 10:30 07/28/20 10:29 06/29/20 09:20 Chlorhexidine Gluconate (Eloisa-Hex 2%) 1 applic BEDTIME TOPIC 06/26/20 21:00 09/24/20 20:59 06/28/20 21:02 Dextrose (Dextrose 50%) 25 ml Q30M PRN IV Hypoglycemia 06/26/20 20:00 09/24/20 19:59 Dextrose (Dextrose 50%) 50 ml Q30M PRN IV Hypoglycemia 06/26/20 20:00 09/24/20 19:59 Gemfibrozil (Lopid) 600 mg EVERY 12 HOURS NG 06/29/20 21:00 07/29/20 08:59 Insulin Aspart (NovoLOG) Q4HR SUBQ 06/26/20 21:00 09/24/20 20:59 06/29/20 09:53 Lorazepam (Ativan 2mg/ml 1ml) 1 mg Q4H PRN IV For Anxiety 06/27/20 13:00 07/04/20 12:59 06/28/20 09:02 Norepinephrine Bitartrate 250 ml @ 7.5 mls/hr Q24H IV 06/26/20 16:45 06/29/20 16:44 06/27/20 01:56 Pantoprazole (Protonix) 40 mg EVERY 12 HOURS IVP 06/26/20 21:00 07/26/20 20:59 06/29/20 09:21 Piperacillin Sod/ Tazobactam Sod 3.375 gm/Dextrose 100 ml @ 25 mls/hr EVERY 12 HOURS IVPB 06/26/20 21:00 07/01/20 20:59 06/29/20 09:21 Sodium Bicarbonate 50 ml/ Dextrose 1,050 ml @ 60 mls/hr [id number] IV 06/28/20 19:00 07/28/20 18:59 06/28/20 19:19 Vancomycin HCl ([facility]anco pharmacy to dose) 1 ea DAILY PRN MISC Per rx protocol 06/26/20 16:00 07/26/20 15:59 Allergies: Coded Allergies: No Known Allergies (Unverified , 06/26/20) ROS Limited/Unobtainable: Yes Subjective 74 YO F admitted with altered mental status. Now respiratory failure. Cover for Int Med-Dr Valdivia. ICU Objective Last Vital Signs Date Time Temp Pulse Resp B/P (MAP) Pulse Ox O2 Delivery O2 Flow Rate FiO2 06/29/20 12:04 85 06/29/20 12:00 98.0 23 131/66 (87) 100 06/29/20 12:00 Mechanical Ventilator 06/29/20 08:38 24 06/26/20 16:52 30.0 Laboratory Tests Test 06/28/20 17:52 06/29/20 04:05 06/29/20 08:14 06/29/20 11:09 Arterial Blood pH 7.387 (7.350-7.450) 7.442 (7.350-7.450) 7.457 (7.350-7.450) Arterial Blood Partial Pressure CO2 32.6 mmHg (35.0-45.0) L 30.7 mmHg (35.0-45.0) L 30.6 mmHg (35.0-45.0) L Arterial Blood Partial Pressure O2 114.2 mmHg (75.0-100.0) H 128.8 mmHg (75.0-100.0) H 106.4 mmHg (75.0-100.0) H Arterial Blood HCO3 19.2 mmol/L (22.0-26.0) L 20.5 mmol/L (22.0-26.0) L 21.1 mmol/L (22.0-26.0) L Arterial Blood Oxygen Saturation 97.5 % (95-100) 97.5 % (95-100) 97.6 % (95-100) Arterial Blood Base Excess -5.1 (-2-2) L -2.9 (-2-2) L -2.1 (-2-2) L Jaret Test Positive Positive Positive White Blood Count 21.5 K/UL (4.8-10.8) H Red Blood Count 3.06 M/UL (4.20-5.40) L Hemoglobin 9.3 G/DL (12.0-16.0) L Hematocrit 28.1 % (37.0-47.0) L Mean Corpuscular Volume 92 FL (80-99) Mean Corpuscular Hemoglobin 30.5 PG (27.0-31.0) Mean Corpuscular Hemoglobin Concent 33.2 G/DL (32.0-36.0) Red Cell Distribution Width 13.7 % (11.6-14.8) Platelet Count 114 K/UL (150-450) L Mean Platelet Volume 7.4 FL (6.5-10.1) Neutrophils (%) (Auto) % (45.0-75.0) Lymphocytes (%) (Auto) % (20.0-45.0) Monocytes (%) (Auto) % (1.0-10.0) Eosinophils (%) (Auto) % (0.0-3.0) Basophils (%) (Auto) % (0.0-2.0) Sodium Level 144 MMOL/L (136-145) Potassium Level 3.3 MMOL/L (3.5-5.1) L Chloride Level 115 MMOL/L (98-107) H Carbon Dioxide Level 20 MMOL/L (21-32) L Anion Gap 9 mmol/L (5-15) Blood Urea Nitrogen 24 mg/dL (7-18) H Creatinine 0.9 MG/DL (0.55-1.30) Estimat Glomerular Filtration Rate > 60 mL/min (>60) Glucose Level 187 MG/DL (74-106) H Calcium Level 7.4 MG/DL (8.5-10.1) L Total Bilirubin 0.9 MG/DL (0.2-1.0) Aspartate Amino Transf (AST/SGOT) 23 U/L (15-37) Alanine Aminotransferase (ALT/SGPT) 25 U/L (12-78) Alkaline Phosphatase 60 U/L (46-116) Total Protein 4.7 G/DL (6.4-8.2) L Albumin 1.7 G/DL (3.4-5.0) L Globulin 3.0 g/dL Albumin/Globulin Ratio 0.6 (1.0-2.7) L Amylase Level 153 U/L (25-115) H Lipase 344 U/L (73-393) Microbiology Date/Time Source Procedure Growth Status 06/27/20 12:00 Sputum Gram Stain - Final Resulted 06/27/20 12:00 Sputum Sputum Culture Pending Resulted 06/27/20 00:00 Rectum - Final NO CARBAPENEM-RESISTANT ENTEROBACTERI... Complete 06/27/20 00:00 Rectum VRE Culture - Final Enterococcus Faecium - Vre Complete 06/27/20 00:00 Nasal Nares Left MRSA Culture - Final NO METHICILLIN RESISTANT STAPH AUREUS... Complete 06/26/20 23:41 Sputum Gram Stain - Final Resulted 06/26/20 23:41 Sputum Culture - Preliminary YEAST Resulted 06/26/20 12:40 Nasopharynx Coronavirus COVID-19 PCR (STEFANY) - Final Complete Intake and Output 06/28/20 06/29/20 19:00 07:00 Intake Total 1542.416 ml 801 ml Output Total 735 ml 630 ml Balance 807.416 ml 171 ml Intake IV Total 1542.416 ml 801 ml Output Urine Total 735 ml 630 ml # Bowel Movements 1 2 Objective PHYSICAL EXAMINATION: GENERAL: Patient is a well-developed, well-nourished female, in no apparent distress. Patient is intubated and sedated. HEENT: Eyes pupils are equal and responsive to light and accommodation. Extraocular movements are intact. NECK: Supple without lymphadenopathy. CHEST: Mechanical vent; coarse sounds bilaterally without wheezes or rales. CARDIOVASCULAR: Regular rhythm and rate. S1, S2 are normal without murmurs, rubs, or gallops. ABDOMEN: Soft, nontender, nondistended. Positive bowel sounds. No evidence of hepatosplenomegaly. Currently, no rebound or guarding noted. EXTREMITIES: Negative for clubbing, cyanosis, or edema. RECTAL/GENITAL: Not performed. NEUROLOGIC: Cranial nerves II through XII are grossly intact without focal deficits. Motor strength is 5/5 bilaterally. Deep tendon reflexes are 2+ plantar. Assessment/Plan Assessment/Plan ASSESSMENT: This is a 74-year-old female. 1. Respiratory failure. 2. Altered mental status. 3. Severe anemia. 4. Hypotension. 5. Hyperglycemia. 6. Cerebrovascular disease. 7. Renal failure. 8. History of hypertension. 9. Diabetes type 2. TREATMENT: 1. Respiratory failure. Pulmonary consultation = Dr. Doe. Respiratory failure may be secondary to pneumonia versus COVID-19. Patient has been started empirically on intravenous Zosyn and vancomycin. Follow recommendations of Pulmonary. Patient is currently intubated and sedated in the intensive care unit. 2. Severe anemia. S/P transfusion 2 units of packed RBCs. Follow Hgb/Hct 3. Hypotension. This may be secondary to septic shock versus severe anemia as above. 4. Hyperglycemia. Patient is currently on an insulin drip. 5. Diabetes type 2. As above, patient is currently on an insulin drip. An Endocrinology consultation has been obtained with Dr. Quiros. 6. Cerebrovascular disease, status post cerebrovascular accident. 7. Acute on chronic renal failure. A Nephrology consultation has been obtained with Dr. Lenz. Follow recommendations of Nephrology. Xavier Rodriguez MD Jun 29, 2020 12:38
[2020-06-29] MEDS: Sodium Bicarbonate 50 ML in D5W 1000ml 1,000 ML IV SCH (12:46)
--- NOTE | 2020-06-29 13:56 | Surgery Progress Note ---
Surgery Progress Note Subjective Additional Comments ill appearing on support no n/v labs noted ill appearing Objective Last 24 Hour Vital Signs Date Time Temp Pulse Resp B/P (MAP) Pulse Ox O2 Delivery O2 Flow Rate FiO2 06/29/20 13:00 86 24 128/64 (85) 100 06/29/20 12:45 80 22 100 06/29/20 12:30 77 20 132/63 (86) 100 06/29/20 12:15 75 20 100 06/29/20 12:04 85 06/29/20 12:00 98.0 80 23 131/66 (87) 100 06/29/20 12:00 Mechanical Ventilator 06/29/20 11:00 70 20 115/60 (78) 100 06/29/20 10:00 79 21 136/61 (86) 100 06/29/20 09:20 82 136/64 06/29/20 09:15 77 20 134/63 (86) 100 06/29/20 09:00 85 26 136/64 (88) 100 06/29/20 08:38 24 06/29/20 08:32 24 06/29/20 08:00 Mechanical Ventilator 06/29/20 08:00 98.5 70 16 117/58 (77) 100 06/29/20 08:00 30 06/29/20 07:28 68 06/29/20 07:00 72 16 125/62 (83) 100 06/29/20 06:30 70 18 06/29/20 06:00 70 16 129/62 (84) 100 06/29/20 05:00 79 17 126/56 (79) 100 06/29/20 04:01 69 06/29/20 04:00 30 06/29/20 04:00 98.7 74 17 119/52 (74) 100 06/29/20 04:00 Mechanical Ventilator 06/29/20 03:16 72 22 30 06/29/20 03:00 81 19 130/63 (85) 100 06/29/20 02:00 71 16 114/56 (75) 100 06/29/20 01:00 71 17 124/57 (79) 100 06/29/20 00:30 81 21 119/53 (75) 100 06/29/20 00:00 98.8 78 18 125/54 (77) 100 06/29/20 00:00 Mechanical Ventilator 06/28/20 23:39 74 06/28/20 23:30 79 19 124/56 (78) 100 06/28/20 23:21 77 17 30 06/28/20 23:00 77 18 128/56 (80) 100 06/28/20 22:30 75 18 130/54 (79) 100 06/28/20 22:00 69 16 126/59 (81) 100 06/28/20 21:00 70 17 139/58 (85) 100 06/28/20 21:00 63 135/50 06/28/20 20:05 30 06/28/20 20:00 98.4 66 25 106/56 (73) 100 06/28/20 20:00 Mechanical Ventilator 06/28/20 19:35 70 06/28/20 19:19 65 23 25 06/28/20 19:00 66 25 113/55 (74) 100 06/28/20 18:11 21 06/28/20 18:10 21 06/28/20 18:00 67 27 110/77 (88) 100 06/28/20 17:30 74 26 25 06/28/20 17:00 63 23 99/49 (66) 100 06/28/20 17:00 64 22 99/49 (66) 100 06/28/20 16:08 100 06/28/20 16:00 Mechanical Ventilator 06/28/20 16:00 99.1 76 28 110/57 (74) 100 06/28/20 16:00 65 06/28/20 16:00 25 06/28/20 15:55 71 23 25 25 06/28/20 15:49 25 06/28/20 15:20 25 06/28/20 15:15 65 16 30 06/28/20 15:00 65 18 92/46 (61) 100 06/28/20 14:00 65 18 103/48 (66) 100 I&O Intake and Output 06/28/20 06/29/20 19:00 07:00 Intake Total 1542.416 ml 801 ml Output Total 735 ml 630 ml Balance 807.416 ml 171 ml Intake IV Total 1542.416 ml 801 ml Output Urine Total 735 ml 630 ml # Bowel Movements 1 2 Dressing: saturated Cardiovascular: RSR Respiratory: decreased breath sounds Abdomen: soft, non-tender, present bowel sounds, non-distended Extremities: no edema, no tenderness, no cyanosis Laboratory Tests Test 06/28/20 17:52 06/29/20 04:05 06/29/20 08:14 06/29/20 11:09 Arterial Blood pH 7.387 (7.350-7.450) 7.442 (7.350-7.450) 7.457 (7.350-7.450) Arterial Blood Partial Pressure CO2 32.6 mmHg (35.0-45.0) L 30.7 mmHg (35.0-45.0) L 30.6 mmHg (35.0-45.0) L Arterial Blood Partial Pressure O2 114.2 mmHg (75.0-100.0) H 128.8 mmHg (75.0-100.0) H 106.4 mmHg (75.0-100.0) H Arterial Blood HCO3 19.2 mmol/L (22.0-26.0) L 20.5 mmol/L (22.0-26.0) L 21.1 mmol/L (22.0-26.0) L Arterial Blood Oxygen Saturation 97.5 % (95-100) 97.5 % (95-100) 97.6 % (95-100) Arterial Blood Base Excess -5.1 (-2-2) L -2.9 (-2-2) L -2.1 (-2-2) L Jaret Test Positive Positive Positive White Blood Count 21.5 K/UL (4.8-10.8) H Red Blood Count 3.06 M/UL (4.20-5.40) L Hemoglobin 9.3 G/DL (12.0-16.0) L Hematocrit 28.1 % (37.0-47.0) L Mean Corpuscular Volume 92 FL (80-99) Mean Corpuscular Hemoglobin 30.5 PG (27.0-31.0) Mean Corpuscular Hemoglobin Concent 33.2 G/DL (32.0-36.0) Red Cell Distribution Width 13.7 % (11.6-14.8) Platelet Count 114 K/UL (150-450) L Mean Platelet Volume 7.4 FL (6.5-10.1) Neutrophils (%) (Auto) % (45.0-75.0) Lymphocytes (%) (Auto) % (20.0-45.0) Monocytes (%) (Auto) % (1.0-10.0) Eosinophils (%) (Auto) % (0.0-3.0) Basophils (%) (Auto) % (0.0-2.0) Sodium Level 144 MMOL/L (136-145) Potassium Level 3.3 MMOL/L (3.5-5.1) L Chloride Level 115 MMOL/L (98-107) H Carbon Dioxide Level 20 MMOL/L (21-32) L Anion Gap 9 mmol/L (5-15) Blood Urea Nitrogen 24 mg/dL (7-18) H Creatinine 0.9 MG/DL (0.55-1.30) Estimat Glomerular Filtration Rate > 60 mL/min (>60) Glucose Level 187 MG/DL (74-106) H Calcium Level 7.4 MG/DL (8.5-10.1) L Total Bilirubin 0.9 MG/DL (0.2-1.0) Aspartate Amino Transf (AST/SGOT) 23 U/L (15-37) Alanine Aminotransferase (ALT/SGPT) 25 U/L (12-78) Alkaline Phosphatase 60 U/L (46-116) Total Protein 4.7 G/DL (6.4-8.2) L Albumin 1.7 G/DL (3.4-5.0) L Globulin 3.0 g/dL Albumin/Globulin Ratio 0.6 (1.0-2.7) L Amylase Level 153 U/L (25-115) H Lipase 344 U/L (73-393) Plan Problems: (1) Hemiparesis (2) Anemia (3) ARF (acute renal failure) (4) Choledocholithiasis Assessment & Plan: critically ill not safe for surgery ill appearing on support wean support gi input imaging reviewed Gallbladder demonstrates gallstones and sludge. No gallbladder wall thickening nor pericholecystic fluid. Sonographic Cook's sign is negative. Common bile duct measures 10 mm in diameter. An intraductal calculus is seen in the common bile duct within the pancreatic head. No intrahepatic biliary ductal dilatation. Liver demonstrates normal echogenicity, no focal abnormality. Portal vein and hepatic veins are patent. Pancreas is unremarkable. Spleen is unremarkable. Left kidney measures 10.5 cm in length. Right kidney measures 9.4 cm length. Both kidneys demonstrate slightly increased echogenicity. There is no hydronephrosis. Small cysts are seen in the left kidney . The bladder is empty, contains a Guillen catheter. Non-aneurysmal abdominal aorta . Unremarkable inferior vena cava Impression: Cholelithiasis and gallbladder sludge. Choledocholithiasis with intrahepatic and extra hepatic biliary ductal dilatation, confirming findings seen on recent CT scan. Mildly increased renal echogenicity, may indicate medical renal disease Guillen catheter Incidental finding left renal cysts (5) Hyperglycemia (6) Respiratory failure (7) Severe sepsis Assessment & Plan: 74-year-old female with multimedical comorbidities who is DNR currently intubated intensive care unit septic shock potentially choledocholithiasis CT noted elevated leukocytosis dilated gallbladder critically severely ill. Currently intubated in the intensive care unit on support. Pressors being weaned. Unfortunately patient is nonoperative can didate at this time. Would hold on emergent procedure given patient's overall condition. Will need resuscitation. Microbiology noted. Imaging reviewed. Prognosis guarded. GI input appreciated. Will follow with recommendations thank you let me participate patient's care Markedly distended gallbladder, up to 6.2 cm in transverse diameter. 4.2 cm dependent gallstone with lamellated calcification. Biliary dilation. The common bile duct measures up to 1.2 cm in diameter. 1.2 cm stone within the proximal CBD. 1.3 cm stone distally near the ampulla of Vater as seen on coronal images 31 and 33 respectively. Haziness about the pancreas could be attributable to motion artifact, but given choledocholithiasis, would recommend correlation with enzymes to exclude gallstone pancreatitis. The spleen is diminutive, but otherwise unremarkable. The kidneys and adrenal glands are within normal limits for noncontrast technique. Inspissated stool and contrast distended rectum up to 7 cm in diameter. Correlate for impaction. No perforation. No small bowel obstruction. Guillen catheter with redundant tubing in the urinary bladder, which is appropriately decompressed. Right femoral venous catheter. Operative changes of the pelvis suggesting lymph node dissection along with hysterectomy. Aortoiliac atherosclerosis. No aneurysm. No acute fracture. IMPRESSION: Biliary dilation attributable to choledocholithiasis. 1.2 and 1.3 cm calculi in the proximal and distal CBD respectively. The distended gallbladder contains a large lamellated stone. Haziness about the pancreas could be attributable to motion artifact, but in light of biliary findings, recommend checking enzymes. The rectum is distended by inspissated stool and contrast. Correlate for impaction. (8) NSTEMI (non-ST elevated myocardial infarction) Zachary Shah Jun 29, 2020 13:56
--- NOTE | 2020-06-29 15:44 | NUR ---
NURSE NOTES: Patient is orally extubated per Dr. Doe's order. And 2LPM nasal cannula administered, oxygen sat noted at 100%%
--- NOTE | 2020-06-29 19:30 | NUR ---
NURSE HAND-OFF REPORT: Latest Vital Signs: Temperature 98.7 , Pulse 82 , B/P 129 /58 , Respiratory Rate 32 , O2 SAT 100 , Nasal Cannula, O2 Flow Rate 2.0 . Vital Sign Comment: EKG Rhythm: Sinus Rhythm Rhythm change?: N Latest Rea Fall Score: 50 Fall Risk: High Risk Safety Measures: Call light Within Reach, Bed Alarm Zone 1, Side Rails Side Rails x2, Bed position Low and Locked. Fall Precautions: Door Sign Report given to Cecilia Cosby RN.
--- NOTE | 2020-06-29 19:30 | NUR ---
NURSE NOTES: RN received report from daysckft RN. Patient was extubated at 1600 and doing well Patient has on nasal cannula at 2L and has a pulse ox of 100%. Patient still has OG for medications. Patient resting comfortably with no s/s of pain at this time. Patient has maintenance fluids infusing at 60ml/hr. Patient resting quietly. RN will continue to monitor.
[2020-06-29] MEDS: Dyna-Hex 2% Top Sol 2oz TOPIC SCH (21:00)
--- NOTE | 2020-06-29 21:30 | NUR ---
NURSE NOTES: Patient vitals stable and patient resting. Patient repositioned. RN will continue to monitor.
--- NOTE | 2020-06-29 22:45 | Cardiology Progress Note ---
Subjective DATE OF SERVICE: Jun 29, 2020 Patient remains in ICU with CRITICAL condition and GUARDED prognosis. ON full vent support. She is s/p 3 units of PRBC's transfused. BP parameters remain stable, and she remains off pressors Monitor: sinus with arrhythmia. 2D Echo: Normal LVEF, no significant valve or pericardial abn, mild pulmonary hypertension (41mmHg). Objective Last 24 Hour Vital Signs Date Time Temp Pulse Resp B/P (MAP) Pulse Ox O2 Delivery O2 Flow Rate FiO2 06/29/20 21:30 83 31 129/63 (85) 100 06/29/20 21:15 79 29 100 06/29/20 21:00 80 06/29/20 21:00 80 31 126/60 (82) 100 06/29/20 20:45 83 32 100 06/29/20 20:30 78 31 124/54 (77) 100 06/29/20 20:15 82 28 100 06/29/20 20:00 81 31 128/59 (82) 100 06/29/20 19:45 81 32 100 06/29/20 19:30 79 30 114/52 (72) 99 06/29/20 19:15 82 29 100 06/29/20 19:15 100 Nasal Cannula 2.0 06/29/20 19:00 82 32 129/58 (81) 100 06/29/20 19:00 82 32 129/58 (81) 100 06/29/20 18:00 81 31 127/58 (81) 100 06/29/20 17:00 81 22 120/60 (80) 98 06/29/20 16:00 98.7 86 24 117/54 (75) 100 06/29/20 16:00 Nasal Cannula 2.0 06/29/20 15:47 88 06/29/20 15:44 2.0 06/29/20 15:44 Nasal Cannula 2.0 06/29/20 15:44 Nasal Cannula 2.0 06/29/20 15:44 Nasal Cannula 2.0 06/29/20 15:00 80 24 126/59 (81) 100 06/29/20 14:30 74 22 111/56 (74) 100 06/29/20 14:00 76 21 127/59 (81) 100 06/29/20 13:00 86 24 128/64 (85) 100 06/29/20 12:45 80 22 100 2/3/21 12:30 77 20 132/63 (86) 100 06/29/20 12:15 75 20 100 06/29/20 12:04 85 06/29/20 12:00 98.0 80 23 131/66 (87) 100 06/29/20 12:00 Mechanical Ventilator 06/29/20 11:17 74 21 24 06/29/20 11:00 70 20 115/60 (78) 100 06/29/20 10:00 79 21 136/61 (86) 100 06/29/20 09:20 82 136/64 06/29/20 09:15 77 20 134/63 (86) 100 06/29/20 09:00 85 26 136/64 (88) 100 06/29/20 08:38 100 06/29/20 08:38 24 06/29/20 08:32 24 06/29/20 08:00 Mechanical Ventilator 06/29/20 08:00 98.5 70 16 117/58 (77) 100 06/29/20 08:00 30 06/29/20 07:28 68 06/29/20 07:15 73 17 30 06/29/20 07:00 72 16 125/62 (83) 100 06/29/20 06:30 70 18 06/29/20 06:00 70 16 129/62 (84) 100 06/29/20 05:00 79 17 126/56 (79) 100 06/29/20 04:01 69 06/29/20 04:00 30 06/29/20 04:00 98.7 74 17 119/52 (74) 100 06/29/20 04:00 Mechanical Ventilator 06/29/20 03:16 72 22 30 06/29/20 03:00 81 19 130/63 (85) 100 06/29/20 02:00 71 16 114/56 (75) 100 06/29/20 01:00 71 17 124/57 (79) 100 06/29/20 00:30 81 21 119/53 (75) 100 06/29/20 00:00 98.8 78 18 125/54 (77) 100 06/29/20 00:00 Mechanical Ventilator 06/28/20 23:39 74 06/28/20 23:30 79 19 124/56 (78) 100 06/28/20 23:21 77 17 30 06/28/20 23:00 77 18 128/56 (80) 100 ROS: unchanged from 06/26/20 HEENT: Orally intubated, Mechanically Ventilated, Thin secretions ET Tube RHYTHM: NSR, ST, PACs LUNGS: bilateral rhonchi CARDIAC: normal rate, regular rhythm, normal S1 and S2, tachycardia ABDOMEN: normal bowel sounds, soft, no mass EXTREMITIES: normal inspection, no swelling, trace edema Laboratory Tests Test 06/29/20 04:05 06/29/20 08:14 06/29/20 11:09 White Blood Count 21.5 K/UL (4.8-10.8) H Red Blood Count 3.06 M/UL (4.20-5.40) L Hemoglobin 9.3 G/DL (12.0-16.0) L Hematocrit 28.1 % (37.0-47.0) L Mean Corpuscular Volume 92 FL (80-99) Mean Corpuscular Hemoglobin 30.5 PG (27.0-31.0) Mean Corpuscular Hemoglobin Concent 33.2 G/DL (32.0-36.0) Red Cell Distribution Width 13.7 % (11.6-14.8) Platelet Count 114 K/UL (150-450) L Mean Platelet Volume 7.4 FL (6.5-10.1) Neutrophils (%) (Auto) % (45.0-75.0) Lymphocytes (%) (Auto) % (20.0-45.0) Monocytes (%) (Auto) % (1.0-10.0) Eosinophils (%) (Auto) % (0.0-3.0) Basophils (%) (Auto) % (0.0-2.0) Sodium Level 144 MMOL/L (136-145) Potassium Level 3.3 MMOL/L (3.5-5.1) L Chloride Level 115 MMOL/L (98-107) H Carbon Dioxide Level 20 MMOL/L (21-32) L Anion Gap 9 mmol/L (5-15) Blood Urea Nitrogen 24 mg/dL (7-18) H Creatinine 0.9 MG/DL (0.55-1.30) Estimat Glomerular Filtration Rate > 60 mL/min (>60) Glucose Level 187 MG/DL (74-106) H Calcium Level 7.4 MG/DL (8.5-10.1) L Total Bilirubin 0.9 MG/DL (0.2-1.0) Aspartate Amino Transf (AST/SGOT) 23 U/L (15-37) Alanine Aminotransferase (ALT/SGPT) 25 U/L (12-78) Alkaline Phosphatase 60 U/L (46-116) Total Protein 4.7 G/DL (6.4-8.2) L Albumin 1.7 G/DL (3.4-5.0) L Globulin 3.0 g/dL Albumin/Globulin Ratio 0.6 (1.0-2.7) L Amylase Level 153 U/L (25-115) H Lipase 344 U/L (73-393) Arterial Blood pH 7.442 (7.350-7.450) 7.457 (7.350-7.450) Arterial Blood Partial Pressure CO2 30.7 mmHg (35.0-45.0) L 30.6 mmHg (35.0-45.0) L Arterial Blood Partial Pressure O2 128.8 mmHg (75.0-100.0) H 106.4 mmHg (75.0-100.0) H Arterial Blood HCO3 20.5 mmol/L (22.0-26.0) L 21.1 mmol/L (22.0-26.0) L Arterial Blood Oxygen Saturation 97.5 % (95-100) 97.6 % (95-100) Arterial Blood Base Excess -2.9 (-2-2) L -2.1 (-2-2) L Jaret Test Positive Positive Microbiology Date/Time Source Procedure Growth Status 06/27/20 12:00 Sputum Gram Stain - Final Resulted 06/27/20 12:00 Sputum Sputum Culture Pending Resulted 06/27/20 00:00 Rectum - Final NO CARBAPENEM-RESISTANT ENTEROBACTERI... Complete 06/27/20 00:00 Rectum VRE Culture - Final Enterococcus Faecium - Vre Complete 06/27/20 00:00 Nasal Nares Left MRSA Culture - Final NO METHICILLIN RESISTANT STAPH AUREUS... Complete 06/26/20 23:41 Sputum Gram Stain - Final Resulted 06/26/20 23:41 Sputum Culture - Preliminary YEAST Resulted Assessment/Plan Assessment/Plan Shock Severe anemia Acute coronary syndrome/NSTEMI ATN associated acute renal failure Acute on chronic diastolic CHF Hypovolemia Sepsis Acute respiratory failure PAFib Recent permanent pacemaker implant Lactic acidosis - resolved Pulmonary hypertension Very low lipid parameters, other than triglycerides Vent Abx Continuous cardiac monitoring DC statin; add gemfibrozil Monitor hemoglobin Hold antiplt therapy in view of severe anemia Serafin Lawson MD Jun 29, 2020 22:44
--- NOTE | 2020-06-29 23:16 | Cardiology Progress Note ---
Subjective DATE OF SERVICE: Jun 30, 2020 Now off vent support. She is s/p 3 units of PRBC's transfused. BP parameters remain stable, and she remains off pressors Monitor: sinus with arrhythmia. 2D Echo: Normal LVEF, no significant valve or pericardial abn, mild pulmonary hypertension (41mmHg). Venous duplex: +common femoral DVT Objective Last 24 Hour Vital Signs Date Time Temp Pulse Resp B/P (MAP) Pulse Ox O2 Delivery O2 Flow Rate FiO2 06/29/20 21:30 83 31 129/63 (85) 100 06/29/20 21:15 79 29 100 06/29/20 21:00 80 06/29/20 21:00 80 31 126/60 (82) 100 06/29/20 20:45 83 32 100 06/29/20 20:30 78 31 124/54 (77) 100 06/29/20 20:15 82 28 100 06/29/20 20:00 81 31 128/59 (82) 100 06/29/20 19:45 81 32 100 06/29/20 19:30 79 30 114/52 (72) 99 06/29/20 19:15 82 29 100 06/29/20 19:15 100 Nasal Cannula 2.0 06/29/20 19:00 82 32 129/58 (81) 100 06/29/20 19:00 82 32 129/58 (81) 100 06/29/20 18:00 81 31 127/58 (81) 100 06/29/20 17:00 81 22 120/60 (80) 98 06/29/20 16:00 98.7 86 24 117/54 (75) 100 06/29/20 16:00 Nasal Cannula 2.0 06/29/20 15:47 88 06/29/20 15:44 2.0 06/29/20 15:44 Nasal Cannula 2.0 06/29/20 15:44 Nasal Cannula 2.0 06/29/20 15:44 Nasal Cannula 2.0 06/29/20 15:00 80 24 126/59 (81) 100 06/29/20 14:30 74 22 111/56 (74) 100 06/29/20 14:00 76 21 127/59 (81) 100 06/29/20 13:00 86 24 128/64 (85) 100 06/29/20 12:45 80 22 100 06/29/20 12:30 77 20 132/63 (86) 100 06/29/20 12:15 75 20 100 06/29/20 12:04 85 06/29/20 12:00 98.0 80 23 131/66 (87) 100 06/29/20 12:00 Mechanical Ventilator 06/29/20 11:17 74 21 24 06/29/20 11:00 70 20 115/60 (78) 100 06/29/20 10:00 79 21 136/61 (86) 100 06/29/20 09:20 82 136/64 06/29/20 09:15 77 20 134/63 (86) 100 06/29/20 09:00 85 26 136/64 (88) 100 06/29/20 08:38 100 06/29/20 08:38 24 06/29/20 08:32 24 06/29/20 08:00 Mechanical Ventilator 06/29/20 08:00 98.5 70 16 117/58 (77) 100 06/29/20 08:00 30 06/29/20 07:28 68 06/29/20 07:15 73 17 30 06/29/20 07:00 72 16 125/62 (83) 100 06/29/20 06:30 70 18 06/29/20 06:00 70 16 129/62 (84) 100 06/29/20 05:00 79 17 126/56 (79) 100 06/29/20 04:01 69 06/29/20 04:00 30 06/29/20 04:00 98.7 74 17 119/52 (74) 100 06/29/20 04:00 Mechanical Ventilator 06/29/20 03:16 72 22 30 06/29/20 03:00 81 19 130/63 (85) 100 06/29/20 02:00 71 16 114/56 (75) 100 06/29/20 01:00 71 17 124/57 (79) 100 06/29/20 00:30 81 21 119/53 (75) 100 06/29/20 00:00 98.8 78 18 125/54 (77) 100 06/29/20 00:00 Mechanical Ventilator 06/28/20 23:39 74 06/28/20 23:30 79 19 124/56 (78) 100 06/28/20 23:21 77 17 30 ROS: unchanged from 06/26/20 HEENT: normal ENT inspection, Thin secretions ET Tube RHYTHM: NSR, ST, PACs LUNGS: bilateral rhonchi - decreased CARDIAC: normal rate, regular rhythm, normal S1 and S2, tachycardia ABDOMEN: normal bowel sounds, soft, no mass EXTREMITIES: normal inspection, no swelling, trace edema Laboratory Tests Test 06/29/20 04:05 06/29/20 08:14 06/29/20 11:09 White Blood Count 21.5 K/UL (4.8-10.8) H Red Blood Count 3.06 M/UL (4.20-5.40) L Hemoglobin 9.3 G/DL (12.0-16.0) L Hematocrit 28.1 % (37.0-47.0) L Mean Corpuscular Volume 92 FL (80-99) Mean Corpuscular Hemoglobin 30.5 PG (27.0-31.0) Mean Corpuscular Hemoglobin Concent 33.2 G/DL (32.0-36.0) Red Cell Distribution Width 13.7 % (11.6-14.8) Platelet Count 114 K/UL (150-450) L Mean Platelet Volume 7.4 FL (6.5-10.1) Neutrophils (%) (Auto) % (45.0-75.0) Lymphocytes (%) (Auto) % (20.0-45.0) Monocytes (%) (Auto) % (1.0-10.0) Eosinophils (%) (Auto) % (0.0-3.0) Basophils (%) (Auto) % (0.0-2.0) Sodium Level 144 MMOL/L (136-145) Potassium Level 3.3 MMOL/L (3.5-5.1) L Chloride Level 115 MMOL/L (98-107) H Carbon Dioxide Level 20 MMOL/L (21-32) L Anion Gap 9 mmol/L (5-15) Blood Urea Nitrogen 24 mg/dL (7-18) H Creatinine 0.9 MG/DL (0.55-1.30) Estimat Glomerular Filtration Rate > 60 mL/min (>60) Glucose Level 187 MG/DL (74-106) H Calcium Level 7.4 MG/DL (8.5-10.1) L Total Bilirubin 0.9 MG/DL (0.2-1.0) Aspartate Amino Transf (AST/SGOT) 23 U/L (15-37) Alanine Aminotransferase (ALT/SGPT) 25 U/L (12-78) Alkaline Phosphatase 60 U/L (46-116) Total Protein 4.7 G/DL (6.4-8.2) L Albumin 1.7 G/DL (3.4-5.0) L Globulin 3.0 g/dL Albumin/Globulin Ratio 0.6 (1.0-2.7) L Amylase Level 153 U/L (25-115) H Lipase 344 U/L (73-393) Arterial Blood pH 7.442 (7.350-7.450) 7.457 (7.350-7.450) Arterial Blood Partial Pressure CO2 30.7 mmHg (35.0-45.0) L 30.6 mmHg (35.0-45.0) L Arterial Blood Partial Pressure O2 128.8 mmHg (75.0-100.0) H 106.4 mmHg (75.0-100.0) H Arterial Blood HCO3 20.5 mmol/L (22.0-26.0) L 21.1 mmol/L (22.0-26.0) L Arterial Blood Oxygen Saturation 97.5 % (95-100) 97.6 % (95-100) Arterial Blood Base Excess -2.9 (-2-2) L -2.1 (-2-2) L Jaret Test Positive Positive Microbiology Date/Time Source Procedure Growth Status 06/27/20 12:00 Sputum Gram Stain - Final Resulted 06/27/20 12:00 Sputum Sputum Culture Pending Resulted 06/27/20 00:00 Rectum - Final NO CARBAPENEM-RESISTANT ENTEROBACTERI... Complete 06/27/20 00:00 Rectum VRE Culture - Final Enterococcus Faecium - Vre Complete 06/27/20 00:00 Nasal Nares Left MRSA Culture - Final NO METHICILLIN RESISTANT STAPH AUREUS... Complete 06/26/20 23:41 Sputum Gram Stain - Final Resulted 06/26/20 23:41 Sputum Culture - Preliminary YEAST Resulted Assessment/Plan Assessment/Plan Shock recovered Acute DVT Severe anemia Acute coronary syndrome/NSTEMI ATN associated acute renal failure Acute on chronic diastolic CHF Hypovolemia Sepsis Acute respiratory failure - now extubated PAFib Recent permanent pacemaker implant Lactic acidosis - resolved Pulmonary hypertension Very low lipid parameters, other than triglycerides Abx Continuous cardiac monitoring Continue gemfibrozil Monitor hemoglobin Hold antiplt therapy in view of severe anemia Consider full anticoagulation for DVT Serafin Lawson MD Jun 29, 2020 23:16
--- NOTE | 2020-06-29 23:30 | NUR ---
NURSE NOTES: Patient vitals stable. Patient sleeping. Patient shows no s/s of pain. Patient repositioned. Will continue to monitor.
[2020-06-30] VITALS (37 sets, daily range): BP systolic 104–156; BP diastolic 56–93
[2020-06-30] MEDS: NovoLOG Insulin Flexpen SUBQ SCH ×4 (00:19→18:09)
--- NOTE | 2020-06-30 01:30 | NUR ---
NURSE NOTES: patient resting. Vitals stable. Patient repositioned. RN will continue to monitor
--- NOTE | 2020-06-30 03:30 | NUR ---
NURSE NOTES: Patient resting. Patient vitals stable. Patient repositioned. No s/s of pain. RN will continue to monitor.
[2020-06-30 05:23] LABS: BASOPHILS % (AUTO) 0.2 % (0.0-2.0); EOSINOPHILS % (AUTO) 0.7 % (0.0-3.0); HEMATOCRIT 26.7 % (37.0-47.0); HEMOGLOBIN 8.9 G/DL (12.0-16.0); LYMPHOCYTES % (AUTO) 15.7 % (20.0-45.0); MEAN CORPUSCULAR VOLUME 92 FL (80-99); NEUTROPHILS % (AUTO) 78.3 % (45.0-75.0); PLATELET COUNT 119 K/UL (150-450); RED BLOOD COUNT 2.89 M/UL (4.20-5.40); RED CELL DISTRIBUTION WIDTH 13.9 % (11.6-14.8); WHITE BLOOD COUNT 16.6 K/UL (4.8-10.8)
--- NOTE | 2020-06-30 05:30 | NUR ---
NURSE NOTES: Patient vitals stable at this time. Patient repositioned. Patient fluids changed and blood glucose checked and was given insulin for coverage.
[2020-06-30 05:33] LABS: ANION GAP 8 mmol/L (5-15); BLOOD UREA NITROGEN 14 mg/dL (7-18); CALCIUM 7.9 MG/DL (8.5-10.1); CARBON DIOXIDE 24 MMOL/L (21-32); CHLORIDE 113 MMOL/L (98-107); CREATININE 0.8 MG/DL (0.55-1.30); PHOSPHORUS 1.8 MG/DL (2.5-4.9); POTASSIUM 3.4 MMOL/L (3.5-5.1); SODIUM 145 MMOL/L (136-145)
[2020-06-30] MEDS: Sodium Bicarbonate 50 ML in D5W 1000ml 1,000 ML IV SCH (05:43)
[2020-06-30 05:47] LABS: AMYLASE 103 U/L (25-115)
--- NOTE | 2020-06-30 07:34 | NUR ---
NURSE HAND-OFF REPORT: Latest Vital Signs: Temperature 98.7 , Pulse 76 , B/P 138 /67 , Respiratory Rate 29 , O2 SAT 99 , Nasal Cannula, O2 Flow Rate 2.0 . Vital Sign Comment: EKG Rhythm: Sinus Rhythm Rhythm change?: N MD Notified?: - MD Response: Latest Rea Fall Score: 50 Fall Risk: High Risk Safety Measures: Call light Within Reach, Bed Alarm Zone 1, Side Rails Side Rails x2, Bed position Low and Locked. Fall Precautions: Door Sign Report given to Mei.
--- NOTE | 2020-06-30 07:35 | NUR ---
NURSE NOTES: Report received from Yadi Lombardi RN.Pt asleep noted no resp distress on 2L NC ,O2 sat 100% S/P extubation from yesterday,no signs of pain or discomfort bilat wrist restrains in placed,,SR on the monitor,OGT clamped,Guillen cath draining yellow urine,SR up x2 HOB elevated bed lock in lowest position,will continue with plans of care.
--- NOTE | 2020-06-30 07:37 | NUR ---
RD ASSESSMENT & RECOMMENDATIONS SEE CARE ACTIVITY FOR COMPLETE ASSESSMENT DAILY ESTIMATED NEEDS: Needs based on Pulmonary / 50kg abw 25-30 kcals/kg 1122-8847 total kcals 1-1.5 g protein/kg 50-75 g total protein 25-30 mL/kg 3605-8382 total fluid mLs NUTRITION DIAGNOSIS: Swallowing difficulty R/T respiratory failure as evidenced by pt orally intubated, now s/p extubated, NPO at this time. CURRENT TF:NPO PO DIET RECOMMENDATIONS: CCHO Low/ texture per BLOWER INSULATOR ENTERAL NUTRITION RECOMMENDATIONS: Glucerna 1.2 @ 45ml/hr x 24 hrs to provide 1080ml, 1296kcal, 65g prot, 872ml free water * Once medically appropriate, initiate Glucerna 1.2 @ 15ml/hr x 6hrs * Advance 10ml q 4-6 hrs as tolerated to goal * HOB over 30 degrees/ without IVF, H2O flush 150ml q 6hrs ----- WITHOUT HEMODYNAMIC STABILITY, rec trophic feeding of Glucerna 1.2 @ 10-15ml/hr if able to keep HOB >30 degrees ADDITIONAL RECOMMENDATIONS: * Monitor hemodynamic stability- NE @ 1mcg * W/ TF, monitor BGs, need for long acting insulin Continue D5 while NPO to prevent hypoglycemia. * Replete lytes (K, phos, Mg low) * Calibrated bedscale wt * S/p extubation-> rec BLOWER INSULATOR eval for oral diet If not appropriate for diet, non oral feed recs above
[2020-06-30] MEDS ORDERED: Vancomycin 1 GM in NS 275 ML IVPB ONE (08:00)
--- NOTE | 2020-06-30 08:35 | Surgery Progress Note ---
Surgery Progress Note Subjective Additional Comments extubated dnr/dni looks comfortable no n/v Objective Last 24 Hour Vital Signs Date Time Temp Pulse Resp B/P (MAP) Pulse Ox O2 Delivery O2 Flow Rate FiO2 06/30/20 07:30 68 28 121/63 (82) 100 06/30/20 07:00 73 28 127/67 (87) 100 06/30/20 06:30 70 32 120/61 (80) 100 06/30/20 06:30 70 22 06/30/20 06:00 70 26 104/56 (72) 100 06/30/20 05:30 76 29 134/64 (87) 100 06/30/20 05:00 73 30 132/60 (84) 100 06/30/20 04:30 76 29 138/67 (90) 99 06/30/20 04:30 76 29 138/67 (90) 99 06/30/20 04:00 71 32 133/62 (85) 100 06/30/20 04:00 Nasal Cannula 2.0 Nasal Cannula 2.0 06/30/20 04:00 71 32 133/62 (85) 100 06/30/20 03:30 77 32 131/59 (83) 100 06/30/20 03:00 78 34 129/62 (84) 100 06/30/20 02:30 73 29 117/58 (77) 100 06/30/20 02:00 73 30 118/57 (77) 100 06/30/20 01:30 81 30 122/59 (80) 100 06/30/20 01:00 82 33 134/66 (88) 100 06/30/20 00:30 79 32 129/64 (85) 100 06/30/20 00:00 Nasal Cannula 2.0 Nasal Cannula 2.0 06/30/20 00:00 83 33 128/63 (84) 100 06/29/20 23:30 81 32 126/62 (83) 100 06/29/20 23:00 79 32 122/59 (80) 100 06/29/20 22:30 82 30 131/62 (85) 100 06/29/20 22:00 83 32 133/69 (90) 100 06/29/20 21:30 83 31 129/63 (85) 100 06/29/20 21:30 83 31 129/63 (85) 100 06/29/20 21:15 79 29 100 06/29/20 21:00 80 31 126/60 (82) 100 06/29/20 21:00 80 06/29/20 21:00 80 31 126/60 (82) 100 06/29/20 20:45 83 32 100 06/29/20 20:30 78 31 124/54 (77) 100 06/29/20 20:15 82 28 100 06/29/20 20:00 Nasal Cannula 2.0 Nasal Cannula 2.0 06/29/20 20:00 81 31 128/59 (82) 100 06/29/20 19:45 81 32 100 06/29/20 19:30 79 30 114/52 (72) 99 06/29/20 19:15 82 29 100 06/29/20 19:15 100 Nasal Cannula 2.0 06/29/20 19:00 82 32 129/58 (81) 100 06/29/20 19:00 82 32 129/58 (81) 100 06/29/20 18:00 81 31 127/58 (81) 100 06/29/20 17:00 81 22 120/60 (80) 98 06/29/20 16:00 98.7 86 24 117/54 (75) 100 06/29/20 16:00 Nasal Cannula 2.0 06/29/20 15:47 88 06/29/20 15:44 2.0 06/29/20 15:44 Nasal Cannula 2.0 06/29/20 15:44 Nasal Cannula 2.0 06/29/20 15:44 Nasal Cannula 2.0 06/29/20 15:00 80 24 126/59 (81) 100 06/29/20 14:30 74 22 111/56 (74) 100 06/29/20 14:00 76 21 127/59 (81) 100 06/29/20 13:00 86 24 128/64 (85) 100 06/29/20 12:45 80 22 100 06/29/20 12:30 77 20 132/63 (86) 100 06/29/20 12:15 75 20 100 06/29/20 12:04 85 06/29/20 12:00 98.0 80 23 131/66 (87) 100 06/29/20 12:00 Mechanical Ventilator 06/29/20 11:17 74 21 24 06/29/20 11:00 70 20 115/60 (78) 100 06/29/20 10:00 79 21 136/61 (86) 100 06/29/20 09:20 82 136/64 06/29/20 09:15 77 20 134/63 (86) 100 06/29/20 09:00 85 26 136/64 (88) 100 06/29/20 08:38 100 06/29/20 08:38 24 I&O Intake and Output 06/29/20 06/30/20 19:00 07:00 Intake Total 824 ml 700 ml Output Total 650 ml 620 ml Balance 174 ml 80 ml Intake IV Total 824 ml 700 ml Output Urine Total 650 ml 620 ml Dressing: other Wound: other Cardiovascular: RSR Respiratory: decreased breath sounds Abdomen: soft, non-tender, present bowel sounds, non-distended Extremities: no tenderness, no cyanosis Laboratory Tests Test 06/29/20 11:09 06/30/20 04:20 Arterial Blood pH 7.457 (7.350-7.450) Arterial Blood Partial Pressure CO2 30.6 mmHg (35.0-45.0) L Arterial Blood Partial Pressure O2 106.4 mmHg (75.0-100.0) H Arterial Blood HCO3 21.1 mmol/L (22.0-26.0) L Arterial Blood Oxygen Saturation 97.6 % (95-100) Arterial Blood Base Excess -2.1 (-2-2) L Jaret Test Positive White Blood Count 16.6 K/UL (4.8-10.8) H Red Blood Count 2.89 M/UL (4.20-5.40) L Hemoglobin 8.9 G/DL (12.0-16.0) L Hematocrit 26.7 % (37.0-47.0) L Mean Corpuscular Volume 92 FL (80-99) Mean Corpuscular Hemoglobin 30.7 PG (27.0-31.0) Mean Corpuscular Hemoglobin Concent 33.2 G/DL (32.0-36.0) Red Cell Distribution Width 13.9 % (11.6-14.8) Platelet Count 119 K/UL (150-450) L Mean Platelet Volume 6.6 FL (6.5-10.1) Neutrophils (%) (Auto) 78.3 % (45.0-75.0) H Lymphocytes (%) (Auto) 15.7 % (20.0-45.0) L Monocytes (%) (Auto) 5.0 % (1.0-10.0) Eosinophils (%) (Auto) 0.7 % (0.0-3.0) Basophils (%) (Auto) 0.2 % (0.0-2.0) Sodium Level 145 MMOL/L (136-145) Potassium Level 3.4 MMOL/L (3.5-5.1) L Chloride Level 113 MMOL/L (98-107) H Carbon Dioxide Level 24 MMOL/L (21-32) Anion Gap 8 mmol/L (5-15) Blood Urea Nitrogen 14 mg/dL (7-18) Creatinine 0.8 MG/DL (0.55-1.30) Estimat Glomerular Filtration Rate > 60 mL/min (>60) Glucose Level 204 MG/DL (74-106) H Calcium Level 7.9 MG/DL (8.5-10.1) L Phosphorus Level 1.8 MG/DL (2.5-4.9) L Magnesium Level 1.5 MG/DL (1.8-2.4) L Amylase Level 103 U/L (25-115) Lipase 356 U/L (73-393) Random Vancomycin Level 9.0 ug/mL Plan Problems: (1) Hemiparesis (2) Anemia (3) ARF (acute renal failure) (4) Choledocholithiasis Assessment & Plan: critically ill not safe for surgery ill appearing on support wean support gi input imaging reviewed Gallbladder demonstrates gallstones and sludge. No gallbladder wall thickening nor pericholecystic fluid. Sonographic Cook's sign is negative. Common bile duct measures 10 mm in diameter. An intraductal calculus is seen in the common bile duct within the pancreatic head. No intrahepatic biliary ductal dilatation. Liver demonstrates normal echogenicity, no focal abnormality. Portal vein and hepatic veins are patent. Pancreas is unremarkable. Spleen is unremarkable. Left kidney measures 10.5 cm in length. Right kidney measures 9.4 cm length. Both kidneys demonstrate slightly increased echogenicity. There is no hydronephrosis. Small cysts are seen in the left kidney . The bladder is empty, contains a Guillen catheter. Non-aneurysmal abdominal aorta . Unremarkable inferior vena cava Impression: Cholelithiasis and gallbladder sludge. Choledocholithiasis with intrahepatic and extra hepatic biliary ductal dilatation, confirming findings seen on recent CT scan. Mildly increased renal echogenicity, may indicate medical renal disease Guillen catheter Incidental finding left renal cysts (5) Hyperglycemia (6) Respiratory failure (7) Severe sepsis Assessment & Plan: 74-year-old female with multimedical comorbidities who is DNR currently intubated intensive care unit septic shock potentially choledocholithiasis CT noted elevated leukocytosis dilated gallbladder critically severely ill. Currently intubated in the intensive care unit on support. Pressors being weaned. Unfortunately patient is nonoperative candidate at this time. Would hold on emergent procedure given patient's overall condition. Will need resuscitation. Microbiology noted. Imaging reviewed. Prognosis guarded. GI input appreciated. Will follow with recommendations thank you let me participate patient's care Markedly distended gallbladder, up to 6.2 cm in transverse diameter. 4.2 cm dependent gallstone with lamellated calcification. Biliary dilation. The common bile duct measures up to 1.2 cm in diameter. 1.2 cm stone within the proximal CBD. 1.3 cm stone distally near the ampulla of Vater as seen on coronal images 31 and 33 respectively. Haziness about the pancreas could be attributable to motion artifact, but given choledocholithiasis, would recommend correlation with enzymes to exclude gallstone pancreatitis. The spleen is diminutive, but otherwise unremarkable. The kidneys and adrenal glands are within normal limits for noncontrast technique. Inspissated stool and contrast distended rectum up to 7 cm in diameter. Correlate for impaction. No perforation. No small bowel obstruction. Guillen catheter with redundant tubing in the urinary bladder, which is appropriately decompressed. Right femoral venous catheter. Operative changes of the pelvis suggesting lymph node dissection along with hysterectomy. Aortoiliac atherosclerosis. No aneurysm. No acute fracture. IMPRESSION: Biliary dilation attributable to choledocholithiasis. 1.2 and 1.3 cm calculi in the proximal and distal CBD respectively. The distended gallbladder contains a large lamellated stone. Haziness about the pancreas could be attributable to motion artifact, but in light of biliary findings, recommend checking enzymes. The rectum is distended by inspissated stool and contrast. Correlate for impaction. (8) NSTEMI (non-ST elevated myocardial infarction) Zachary Shah Jun 30, 2020 08:35
--- NOTE | 2020-06-30 08:56 | Nephrology Progress Note ---
Assessment/Plan Plan #DAYO - likely ATN in the setting of septic shock #Acute anemia #hypoxemic resp failure - vent dependent #NSTEMI #AMS #p Afib #Dm #HTN #HLD #s/p PPM - extubated - DC bicarb drip - monitor bicarb level - electrolyte prn - prbc transfusion - monitor renal function - ID consulted - antibiotics per ID - cardiology eval - monitor troponin level - monitor lytes - pressors prn - monitor LFTs - echo - renal US - urine chem time spent 65 min Subjective ROS Limited/Unobtainable: Yes Subjective extubated Objective Objective Last 24 Hour Vital Signs Date Time Temp Pulse Resp B/P (MAP) Pulse Ox O2 Delivery O2 Flow Rate FiO2 06/30/20 07:30 68 28 121/63 (82) 100 06/30/20 07:00 73 28 127/67 (87) 100 06/30/20 06:30 70 32 120/61 (80) 100 06/30/20 06:30 70 22 06/30/20 06:00 70 26 104/56 (72) 100 06/30/20 05:30 76 29 134/64 (87) 100 06/30/20 05:00 73 30 132/60 (84) 100 06/30/20 04:30 76 29 138/67 (90) 99 06/30/20 04:30 76 29 138/67 (90) 99 06/30/20 04:00 71 32 133/62 (85) 100 06/30/20 04:00 Nasal Cannula 2.0 Nasal Cannula 2.0 06/30/20 04:00 71 32 133/62 (85) 100 06/30/20 03:30 77 32 131/59 (83) 100 06/30/20 03:00 78 34 129/62 (84) 100 06/30/20 02:30 73 29 117/58 (77) 100 06/30/20 02:00 73 30 118/57 (77) 100 06/30/20 01:30 81 30 122/59 (80) 100 06/30/20 01:00 82 33 134/66 (88) 100 06/30/20 00:30 79 32 129/64 (85) 100 06/30/20 00:00 Nasal Cannula 2.0 Nasal Cannula 2.0 06/30/20 00:00 83 33 128/63 (84) 100 2 23:30 81 32 126/62 (83) 100 2 23:00 79 32 122/59 (80) 100 221 22:30 82 30 131/62 (85) 100 2 22:00 83 32 133/69 (90) 100 06/29/20 21:30 83 31 129/63 (85) 100 221 21:30 83 31 129/63 (85) 100 2 21:15 79 29 100 06/29/20 21:00 80 31 126/60 (82) 100 06/29/20 21:00 80 2 21:00 80 31 126/60 (82) 100 06/29/20 20:45 83 32 100 06/29/20 20:30 78 31 124/54 (77) 100 06/29/20 20:15 82 28 100 06/29/20 20:00 Nasal Cannula 2.0 Nasal Cannula 2.0 06/29/20 20:00 81 31 128/59 (82) 100 06/29/20 19:45 81 32 100 06/29/20 19:30 79 30 114/52 (72) 99 06/29/20 19:15 82 29 100 06/29/20 19:15 100 Nasal Cannula 2.0 06/29/20 19:00 82 32 129/58 (81) 100 06/29/20 19:00 82 32 129/58 (81) 100 06/29/20 18:00 81 31 127/58 (81) 100 06/29/20 17:00 81 22 120/60 (80) 98 06/29/20 16:00 98.7 86 24 117/54 (75) 100 06/29/20 16:00 Nasal Cannula 2.0 06/29/20 15:47 88 06/29/20 15:44 2.0 06/29/20 15:44 Nasal Cannula 2.0 06/29/20 15:44 Nasal Cannula 2.0 06/29/20 15:44 Nasal Cannula 2.0 06/29/20 15:00 80 24 126/59 (81) 100 06/29/20 14:30 74 22 111/56 (74) 100 06/29/20 14:00 76 21 127/59 (81) 100 06/29/20 13:00 86 24 128/64 (85) 100 06/29/20 12:45 80 22 100 06/29/20 12:30 77 20 132/63 (86) 100 06/29/20 12:15 75 20 100 06/29/20 12:04 85 06/29/20 12:00 98.0 80 23 131/66 (87) 100 06/29/20 12:00 Mechanical Ventilator 06/29/20 11:17 74 21 24 06/29/20 11:00 70 20 115/60 (78) 100 06/29/20 10:00 79 21 136/61 (86) 100 06/29/20 09:20 82 136/64 06/29/20 09:15 77 20 134/63 (86) 100 06/29/20 09:00 85 26 136/64 (88) 100 Intake and Output 06/29/20 06/30/20 19:00 07:00 Intake Total 824 ml 700 ml Output Total 650 ml 620 ml Balance 174 ml 80 ml Intake IV Total 824 ml 700 ml Output Urine Total 650 ml 620 ml Laboratory Tests 06/29/20 11:09: Arterial Blood pH 7.457H, Arterial Blood Partial Pressure CO2 30.6L, Arterial Blood Partial Pressure O2 106.4H, Arterial Blood HCO3 21.1L, Arterial Blood Oxygen Saturation 97.6, Arterial Blood Base Excess -2.1L, Jaret Test Positive 06/30/20 04:20: White Blood Count 16.6H, Red Blood Count 2.89L, Hemoglobin 8.9L, Hematocrit 26.7L, Mean Corpuscular Volume 92, Mean Corpuscular Hemoglobin 30.7, Mean Corpuscular Hemoglobin Concent 33.2, Red Cell Distribution Width 13.9, Platelet Count 119L, Mean Platelet Volume 6.6, Neutrophils (%) (Auto) 78.3H, Lymphocytes (%) (Auto) 15.7L, Monocytes (%) (Auto) 5.0, Eosinophils (%) (Auto) 0.7, Basophils (%) (Auto) 0.2, Sodium Level 145, Potassium Level 3.4L, Chloride Level 113H, Carbon Dioxide Level 24, Anion Gap 8, Blood Urea Nitrogen 14, Creatinine 0.8, Estimat Glomerular Filtration Rate > 60, Glucose Level 204H, Calcium Level 7.9L, Phosphorus Level 1.8L, Magnesium Level 1.5L, Amylase Level 103, Lipase 356, Random Vancomycin Level 9.0 Height (Feet): 5 Height (Inches): 0.00 Weight (Pounds): 137 Objective Lines, tubes and drains: peripheral, central line HEENT: normocephalic, atraumatic Neck: non-tender, normal alignment Respiratory/Chest: on vent Cardiovascular/Chest: normal peripheral pulses, normal rate, regular rhythm Abdomen: normal bowel sounds, non tender Extremities: normal range of motion, non-tender Vanessa Lenz M.D. Jun 30, 2020 08:56
[2020-06-30] MEDS: Pantoprazole Inj IVP SCH ×2 (09:03→21:28)
--- NOTE | 2020-06-30 10:03 | NUR ---
NURSE NOTES: Pt with BM to large to soft brown stools,cleansed and kept dry,pulled up respositioned,bilat sodft wrist restraints in placed.
--- NOTE | 2020-06-30 11:03 | Pulmonology Progress Note ---
Subjective ROS Limited/Unobtainable: Yes Interval Events: Extubated yesterday Constitutional: Reports: fever HEENT: Repors: no symptoms Respiratory: Reports: no symptoms Cardiovascular: Reports: no symptoms Gastrointestinal/Abdominal: Reports: no symptoms Genitourinary: Reports: no symptoms Psychiatric: Reports: other - NA Skin: Denies: rash Musculoskeletal: Reports: other - NA Allergies: Coded Allergies: No Known Allergies (Unverified , 06/26/20) Objective Last 24 Hour Vital Signs Date Time Temp Pulse Resp B/P (MAP) Pulse Ox O2 Delivery O2 Flow Rate FiO2 06/30/20 10:00 73 25 132/60 (84) 100 06/30/20 09:06 68 121/63 06/30/20 09:00 76 29 142/60 (87) 100 06/30/20 08:00 70 06/30/20 08:00 78 28 147/69 (95) 100 06/30/20 08:00 2.0 06/30/20 07:30 68 28 121/63 (82) 100 06/30/20 07:00 73 28 127/67 (87) 100 06/30/20 06:30 70 32 120/61 (80) 100 06/30/20 06:30 70 22 06/30/20 06:00 70 26 104/56 (72) 100 06/30/20 05:30 76 29 134/64 (87) 100 06/30/20 05:00 73 30 132/60 (84) 100 06/30/20 04:30 76 29 138/67 (90) 99 06/30/20 04:30 76 29 138/67 (90) 99 06/30/20 04:00 71 32 133/62 (85) 100 06/30/20 04:00 Nasal Cannula 2.0 Nasal Cannula 2.0 06/30/20 04:00 71 32 133/62 (85) 100 06/30/20 03:30 77 32 131/59 (83) 100 06/30/20 03:00 78 34 129/62 (84) 100 06/30/20 02:30 73 29 117/58 (77) 100 06/30/20 02:00 73 30 118/57 (77) 100 06/30/20 01:30 81 30 122/59 (80) 100 06/30/20 01:00 82 33 134/66 (88) 100 2/4/21 00:30 79 32 129/64 (85) 100 06/30/20 00:00 Nasal Cannula 2.0 Nasal Cannula 2.0 06/30/20 00:00 83 33 128/63 (84) 100 06/29/20 23:30 81 32 126/62 (83) 100 06/29/20 23:00 79 32 122/59 (80) 100 06/29/20 22:30 82 30 131/62 (85) 100 06/29/20 22:00 83 32 133/69 (90) 100 06/29/20 21:30 83 31 129/63 (85) 100 06/29/20 21:30 83 31 129/63 (85) 100 06/29/20 21:15 79 29 100 06/29/20 21:00 80 31 126/60 (82) 100 06/29/20 21:00 80 06/29/20 21:00 80 31 126/60 (82) 100 06/29/20 20:45 83 32 100 06/29/20 20:30 78 31 124/54 (77) 100 06/29/20 20:15 82 28 100 06/29/20 20:00 Nasal Cannula 2.0 Nasal Cannula 2.0 06/29/20 20:00 81 31 128/59 (82) 100 06/29/20 19:45 81 32 100 06/29/20 19:30 79 30 114/52 (72) 99 06/29/20 19:15 82 29 100 06/29/20 19:15 100 Nasal Cannula 2.0 06/29/20 19:00 82 32 129/58 (81) 100 06/29/20 19:00 82 32 129/58 (81) 100 06/29/20 18:00 81 31 127/58 (81) 100 06/29/20 17:00 81 22 120/60 (80) 98 06/29/20 16:00 98.7 86 24 117/54 (75) 100 06/29/20 16:00 Nasal Cannula 2.0 06/29/20 15:47 88 06/29/20 15:44 2.0 06/29/20 15:44 Nasal Cannula 2.0 06/29/20 15:44 Nasal Cannula 2.0 06/29/20 15:44 Nasal Cannula 2.0 06/29/20 15:00 80 24 126/59 (81) 100 06/29/20 14:30 74 22 111/56 (74) 100 06/29/20 14:00 76 21 127/59 (81) 100 06/29/20 13:00 86 24 128/64 (85) 100 06/29/20 12:45 80 22 100 06/29/20 12:30 77 20 132/63 (86) 100 06/29/20 12:15 75 20 100 06/29/20 12:04 85 06/29/20 12:00 98.0 80 23 131/66 (87) 100 06/29/20 12:00 Mechanical Ventilator 06/29/20 11:17 74 21 24 Intake and Output 06/29/20 06/30/20 19:00 07:00 Intake Total 824 ml 700 ml Output Total 650 ml 620 ml Balance 174 ml 80 ml Intake IV Total 824 ml 700 ml Output Urine Total 650 ml 620 ml General Appearance: no acute distress HEENT: normocephalic Respiratory: chest wall non-tender, lungs clear Cardiovascular: normal peripheral pulses Abdomen: normal bowel sounds Extremities: no cyanosis Microbiology Date/Time Source Procedure Growth Status 06/27/20 12:00 Sputum Gram Stain - Final Complete 06/27/20 12:00 Sputum Culture - Final Devorah Tropicalis Usual Respiratory Tammy Complete Laboratory Tests 06/29/20 11:09: Arterial Blood pH 7.457H, Arterial Blood Partial Pressure CO2 30.6L, Arterial Blood Partial Pressure O2 106.4H, Arterial Blood HCO3 21.1L, Arterial Blood Oxygen Saturation 97.6, Arterial Blood Base Excess -2.1L, Jaret Test Positive 06/30/20 04:20: White Blood Count 16.6H, Red Blood Count 2.89L, Hemoglobin 8.9L, Hematocrit 26.7L, Mean Corpuscular Volume 92, Mean Corpuscular Hemoglobin 30.7, Mean Corpuscular Hemoglobin Concent 33.2, Red Cell Distribution Width 13.9, Platelet Count 119L, Mean Platelet Volume 6.6, Neutrophils (%) (Auto) 78.3H, Lymphocytes (%) (Auto) 15.7L, Monocytes (%) (Auto) 5.0, Eosinophils (%) (Auto) 0.7, Basophils (%) (Auto) 0.2, Sodium Level 145, Potassium Level 3.4L, Chloride Level 113H, Carbon Dioxide Level 24, Anion Gap 8, Blood Urea Nitrogen 14, Creatinine 0.8, Estimat Glomerular Filtration Rate > 60, Glucose Level 204H, Calcium Level 7.9L, Phosphorus Level 1.8L, Magnesium Level 1.5L, Amylase Level 103, Lipase 356, Random Vancomycin Level 9.0 Current Medications Medications (Trade) Dose Ordered Sig/Reinier Route PRN Reason Start Time Stop Time Status Last Admin Dose Admin Acetaminophen (Tylenol) 650 mg Q6H PRN NG Temp >100.5 06/26/20 20:00 07/26/20 19:59 06/27/20 10:19 Acetaminophen (Tylenol) 650 mg Q6H PRN NG Mild Pain (Pain Scale 1-3) 06/26/20 20:00 07/26/20 19:59 06/28/20 02:21 Carvedilol (Coreg) 3.125 mg EVERY 12 HOURS ORAL 06/28/20 10:30 07/28/20 10:29 06/30/20 09:06 Chlorhexidine Gluconate (Eloisa-Hex 2%) 1 applic BEDTIME TOPIC 06/26/20 21:00 09/24/20 20:59 06/29/20 21:00 Dextrose (Dextrose 50%) 25 ml Q30M PRN IV Hypoglycemia 06/26/20 20:00 09/24/20 19:59 Dextrose (Dextrose 50%) 50 ml Q30M PRN IV Hypoglycemia 06/26/20 20:00 09/24/20 19:59 Dextrose/ Electrolytes 1,000 ml @ 75 mls/hr [id number] IV 06/30/20 10:00 07/30/20 09:59 06/30/20 10:21 Gemfibrozil (Lopid) 600 mg EVERY 12 HOURS NG 06/29/20 21:00 07/29/20 08:59 06/30/20 09:06 Insulin Aspart (NovoLOG) EVERY 6 HOURS SUBQ 06/29/20 18:00 09/24/20 20:59 06/30/20 06:20 Lorazepam (Ativan 2mg/ml 1ml) 1 mg Q4H PRN IV For Anxiety 06/27/20 13:00 07/04/20 12:59 06/28/20 09:02 Magnesium Sulfate 100 ml @ 100 mls/hr Q1H IVPB 06/30/20 09:00 06/30/20 12:59 06/30/20 10:26 Pantoprazole (Protonix) 40 mg EVERY 12 HOURS IVP 06/26/20 21:00 07/26/20 20:59 06/30/20 09:03 Piperacillin Sod/ Tazobactam Sod 3.375 gm/Dextrose 100 ml @ 25 mls/hr EVERY 12 HOURS IVPB 06/26/20 21:00 07/02/20 20:59 06/30/20 09:06 Potassium Phosphate 250 ml @ 62.5 mls/hr Q4H IVPB 06/30/20 13:00 06/30/20 20:59 Vancomycin HCl (Vanco pharmacy to dose) 1 ea DAILY PRN MISC Per rx protocol 06/26/20 16:00 07/26/20 15:59 Vancomycin HCl 750 mg/Sodium Chloride 275 ml @ 183.333 mls/hr Q24H IVPB 07/01/20 09:00 07/06/20 08:59 Assessment/Plan Assessment/Plan IMPRESSION: 1. Acute respiratory failure. Now resolved 2. Pneumonia, suspected. 3. Marked leukocytosis. Improving. 4. Anemia. 5. Renal failure. 6. Possible cholecystitis. 7. Pacemaker. 8. senior living resident. DISCUSSION: 1. Continue nasal oxygen. 2. Broad-spectrum antibiotics as per ID specialist. 3. Pulmonary hygiene 4. Follow laboratory data 5. Provide DVT and GI prophylaxes. Defer CODE STATUS to attending Noted DNR Okay to transfer out of ICU. Discussed with RN Tre Browne Omar Syed MD Jun 30, 2020 11:03
--- NOTE | 2020-06-30 13:00 | NUR ---
NURSE NOTES: Oral secretions suctioned PRN,oral care done,HOB elevated.
[2020-06-30] MEDS: Potassium Phosphate 15mm/250ml 250 ML IVPB SCH ×2 (13:07→17:26)
--- NOTE | 2020-06-30 14:21 | NUR ---
CASE MANAGEMENT:REVIEW 06/30/20 SI: NSTEMI. SEPSIS. RESPIRATORY FAILURE~EXTUBATED 96.0 72 29 146/76 100% ON 2L/NC WBC+16.6 CA-7.9 PHOS-1.8 MAG-1.5 IS: IV VANCOMYCIN Q24 IV ZOSYN Q12 IV K-PHOS Q4HRS X2 IVF@75/HR LOPID NG BID COREG NG Q12 IV PROTONIX Q12 : ICU STATUS DCP: FROM [facility] PLAN: EXTUBATED ~ MONITOR OXYGEN REQUIREMENTS TREND WBC'S
--- NOTE | 2020-06-30 14:33 | General Progress Note ---
Subjective ROS Limited/Unobtainable: No Allergies: Coded Allergies: No Known Allergies (Unverified , 06/26/20) Objective Last 24 Hour Vital Signs Date Time Temp Pulse Resp B/P (MAP) Pulse Ox O2 Delivery O2 Flow Rate FiO2 06/30/20 12:00 74 06/30/20 12:00 96.0 06/30/20 12:00 72 29 146/76 (99) 100 06/30/20 12:00 2.0 06/30/20 12:00 Nasal Cannula 2.0 Nasal Cannula 2.0 06/30/20 11:02 74 23 142/65 (90) 100 06/30/20 10:00 73 25 132/60 (84) 100 06/30/20 09:06 68 121/63 06/30/20 09:00 76 29 142/60 (87) 100 06/30/20 08:10 96.7 72 06/30/20 08:00 70 06/30/20 08:00 78 28 147/69 (95) 100 06/30/20 08:00 2.0 06/30/20 08:00 Nasal Cannula 2.0 Nasal Cannula 2.0 06/30/20 07:30 68 28 121/63 (82) 100 06/30/20 07:00 73 28 127/67 (87) 100 06/30/20 06:30 70 32 120/61 (80) 100 06/30/20 06:30 70 22 06/30/20 06:00 70 26 104/56 (72) 100 06/30/20 05:30 76 29 134/64 (87) 100 06/30/20 05:00 73 30 132/60 (84) 100 06/30/20 04:30 76 29 138/67 (90) 99 06/30/20 04:30 76 29 138/67 (90) 99 06/30/20 04:00 71 32 133/62 (85) 100 06/30/20 04:00 Nasal Cannula 2.0 Nasal Cannula 2.0 06/30/20 04:00 71 32 133/62 (85) 100 06/30/20 03:30 77 32 131/59 (83) 100 06/30/20 03:00 78 34 129/62 (84) 100 06/30/20 02:30 73 29 117/58 (77) 100 06/30/20 02:00 73 30 118/57 (77) 100 06/30/20 01:30 81 30 122/59 (80) 100 06/30/20 01:00 82 33 134/66 (88) 100 06/30/20 00:30 79 32 129/64 (85) 100 06/30/20 00:00 Nasal Cannula 2.0 Nasal Cannula 2.0 06/30/20 00:00 83 33 128/63 (84) 100 06/29/20 23:30 81 32 126/62 (83) 100 06/29/20 23:00 79 32 122/59 (80) 100 06/29/20 22:30 82 30 131/62 (85) 100 06/29/20 22:00 83 32 133/69 (90) 100 06/29/20 21:30 83 31 129/63 (85) 100 06/29/20 21:30 83 31 129/63 (85) 100 06/29/20 21:15 79 29 100 06/29/20 21:00 80 31 126/60 (82) 100 06/29/20 21:00 80 06/29/20 21:00 80 31 126/60 (82) 100 06/29/20 20:45 83 32 100 06/29/20 20:30 78 31 124/54 (77) 100 06/29/20 20:15 82 28 100 06/29/20 20:00 Nasal Cannula 2.0 Nasal Cannula 2.0 06/29/20 20:00 81 31 128/59 (82) 100 06/29/20 19:45 81 32 100 06/29/20 19:30 79 30 114/52 (72) 99 06/29/20 19:15 82 29 100 06/29/20 19:15 100 Nasal Cannula 2.0 06/29/20 19:00 82 32 129/58 (81) 100 06/29/20 19:00 82 32 129/58 (81) 100 06/29/20 18:00 81 31 127/58 (81) 100 06/29/20 17:00 81 22 120/60 (80) 98 06/29/20 16:00 98.7 86 24 117/54 (75) 100 06/29/20 16:00 Nasal Cannula 2.0 06/29/20 15:47 88 2/3/21 15:44 2.0 06/29/20 15:44 Nasal Cannula 2.0 06/29/20 15:44 Nasal Cannula 2.0 06/29/20 15:44 Nasal Cannula 2.0 06/29/20 15:00 80 24 126/59 (81) 100 l Intake and Output 06/29/20 06/30/20 19:00 07:00 Intake Total 824 ml 700 ml Output Total 650 ml 620 ml Balance 174 ml 80 ml Intake IV Total 824 ml 700 ml Output Urine Total 650 ml 620 ml Laboratory Tests 06/29/20 18:08: POC Whole Blood Glucose 185H 06/30/20 00:17: POC Whole Blood Glucose [Pending] 06/30/20 04:20: White Blood Count 16.6H, Red Blood Count 2.89L, Hemoglobin 8.9L, Hematocrit 26.7L, Mean Corpuscular Volume 92, Mean Corpuscular Hemoglobin 30.7, Mean Corpuscular Hemoglobin Concent 33.2, Red Cell Distribution Width 13.9, Platelet Count 119L, Mean Platelet Volume 6.6, Neutrophils (%) (Auto) 78.3H, Lymphocytes (%) (Auto) 15.7L, Monocytes (%) (Auto) 5.0, Eosinophils (%) (Auto) 0.7, Basophils (%) (Auto) 0.2, Sodium Level 145, Potassium Level 3.4L, Chloride Level 113H, Carbon Dioxide Level 24, Anion Gap 8, Blood Urea Nitrogen 14, Creatinine 0.8, Estimat Glomerular Filtration Rate > 60, Glucose Level 204H, Calcium Level 7.9L, Phosphorus Level 1.8L, Magnesium Level 1.5L, Amylase Level 103, Lipase 356, Random Vancomycin Level 9.0 Height (Feet): 5 Height (Inches): 0.00 Weight (Pounds): 137 General Appearance: lethargic EENT: normal ENT inspection Neck: supple Cardiovascular: normal rate Respiratory/Chest: decreased breath sounds Abdomen: normal bowel sounds, non tender, soft Extremities: non-tender Assessment/Plan Problem List: (1) Anemia ICD Codes: D64.9 - Anemia, unspecified SNOMED: 051568477 Qualifiers: Qualified Codes: D64.9 - Anemia, unspecified (2) Choledocholithiasis ICD Codes: K80.50 - Calculus of bile duct without cholangitis or cholecystitis without obstruction SNOMED: 501116473 (3) Respiratory failure ICD Codes: J96.90 - Respiratory failure, unspecified, unspecified whether with hypoxia or hypercapnia SNOMED: 772597070 Qualifiers: Qualified Codes: J96.01 - Acute respiratory failure with hypoxia; J96.02 - Acute respiratory failure with hypercapnia (4) Severe sepsis ICD Codes: A41.9 - Sepsis, unspecified organism; R65.20 - Severe sepsis without septic shock SNOMED: 26671974 (5) NSTEMI (non-ST elevated myocardial infarction) ICD Codes: I21.4 - Non-ST elevation (NSTEMI) myocardial infarction SNOMED: 23331126 (6) ARF (acute renal failure) ICD Codes: N17.9 - Acute kidney failure, unspecified SNOMED: 81842074 Qualifiers: Qualified Codes: N17.9 - Acute kidney failure, unspecified (7) Hemiparesis ICD Codes: G81.90 - Hemiplegia, unspecified affecting unspecified side SNOMED: 98031935 Qualifiers: Qualified Codes: I69.354 - Hemiplegia and hemiparesis following cerebral infarction affecting left non-dominant side (8) Hyperglycemia ICD Codes: R73.9 - Hyperglycemia, unspecified SNOMED: 47605768 Assessment/Plan: given normal LFTS and septic shock will hold ERCP for now fu H&H>>>stable prn blood transfusion abx per ID repeat labs NGTF on hold stool ob positive but given current medical condition and stable H&H will hold EGD add ppi extubated now swallow eval will fu Irvin Henson MD Jun 30, 2020 14:33
[2020-06-30] MEDS ORDERED: Varibar Pudding 230ml MC PRN (14:45)
[2020-06-30] MEDS ORDERED: Varibar Honey 250ml MC PRN (14:45)
[2020-06-30] MEDS ORDERED: Varibar Nectar 240ml MC PRN (14:45)
[2020-06-30] MEDS ORDERED: Varibar Thin Liquid powder 148gm MC PRN (14:45)
--- NOTE | 2020-06-30 14:55 | Infectious Diseases Prog Note ---
Assessment/Plan Assessment/Plan ASSESSMENT AND PLAN: 1. sepsis, shock, ? biliary sepsis/cholecystitis, pna, vent, leukocytosis, fevers - zosyn day # 4 abx, discontinue vancomycin - clinically improved, extubated - monitor labs, chest x-ray, covid-19 testing - negative - surgery f/u - continue per primary and consultants - icu care 2. The patient has history of CVA and aspiration risk. 3. Pacemaker. 4. Left-sided weakness. 5. Cardiac disease. 6. Hypertension. 7. Diabetes. 8. Neurological disease. 9. Acute renal failure, possible chronic renal failure. 10. Severe anemia. 11. No known drug allergies. 12. Social history is negative. 13. Family history is noncontributory. 14. MAR is noted. 15. Case was discussed with RN. 16. Continue treatment per primary consultants 17. I will follow. Subjective Constitutional: Reports: other - extubated, no pressors ; Denies: fever HEENT: Reports: congestion Respiratory: Reports: shortness of breath Cardiovascular: Denies: chest pain Gastrointestinal/Abdominal: Denies: nausea, vomiting, diarrhea Genitourinary: Reports: other - + fine Neurologic: Reports: weakness Psychiatric: Reports: other - NA Skin: Denies: rash Hematologic: Denies: bleeding Musculoskeletal: Reports: other - NA Allergies: Coded Allergies: No Known Allergies (Unverified , 06/26/20) Objective Last 24 Hour Vital Signs Date Time Temp Pulse Resp B/P (MAP) Pulse Ox O2 Delivery O2 Flow Rate FiO2 06/30/20 12:00 74 06/30/20 12:00 96.0 06/30/20 12:00 72 29 146/76 (99) 100 06/30/20 12:00 2.0 06/30/20 12:00 Nasal Cannula 2.0 Nasal Cannula 2.0 06/30/20 11:02 74 23 142/65 (90) 100 06/30/20 10:00 73 25 132/60 (84) 100 06/30/20 09:06 68 121/63 06/30/20 09:00 76 29 142/60 (87) 100 06/30/20 08:10 96.7 72 06/30/20 08:00 70 06/30/20 08:00 78 28 147/69 (95) 100 06/30/20 08:00 2.0 06/30/20 08:00 Nasal Cannula 2.0 Nasal Cannula 2.0 06/30/20 07:30 68 28 121/63 (82) 100 06/30/20 07:00 73 28 127/67 (87) 100 06/30/20 06:30 70 32 120/61 (80) 100 06/30/20 06:30 70 22 06/30/20 06:00 70 26 104/56 (72) 100 06/30/20 05:30 76 29 134/64 (87) 100 06/30/20 05:00 73 30 132/60 (84) 100 06/30/20 04:30 76 29 138/67 (90) 99 06/30/20 04:30 76 29 138/67 (90) 99 06/30/20 04:00 71 32 133/62 (85) 100 06/30/20 04:00 Nasal Cannula 2.0 Nasal Cannula 2.0 06/30/20 04:00 71 32 133/62 (85) 100 06/30/20 03:30 77 32 131/59 (83) 100 06/30/20 03:00 78 34 129/62 (84) 100 06/30/20 02:30 73 29 117/58 (77) 100 06/30/20 02:00 73 30 118/57 (77) 100 06/30/20 01:30 81 30 122/59 (80) 100 06/30/20 01:00 82 33 134/66 (88) 100 06/30/20 00:30 79 32 129/64 (85) 100 06/30/20 00:00 Nasal Cannula 2.0 Nasal Cannula 2.0 06/30/20 00:00 83 33 128/63 (84) 100 06/29/20 23:30 81 32 126/62 (83) 100 06/29/20 23:00 79 32 122/59 (80) 100 06/29/20 22:30 82 30 131/62 (85) 100 06/29/20 22:00 83 32 133/69 (90) 100 06/29/20 21:30 83 31 129/63 (85) 100 06/29/20 21:30 83 31 129/63 (85) 100 06/29/20 21:15 79 29 100 06/29/20 21:00 80 31 126/60 (82) 100 06/29/20 21:00 80 06/29/20 21:00 80 31 126/60 (82) 100 06/29/20 20:45 83 32 100 06/29/20 20:30 78 31 124/54 (77) 100 06/29/20 20:15 82 28 100 06/29/20 20:00 Nasal Cannula 2.0 Nasal Cannula 2.0 06/29/20 20:00 81 31 128/59 (82) 100 06/29/20 19:45 81 32 100 06/29/20 19:30 79 30 114/52 (72) 99 06/29/20 19:15 82 29 100 06/29/20 19:15 100 Nasal Cannula 2.0 06/29/20 19:00 82 32 129/58 (81) 100 06/29/20 19:00 82 32 129/58 (81) 100 06/29/20 18:00 81 31 127/58 (81) 100 06/29/20 17:00 81 22 120/60 (80) 98 06/29/20 16:00 98.7 86 24 117/54 (75) 100 06/29/20 16:00 Nasal Cannula 2.0 06/29/20 15:47 88 06/29/20 15:44 2.0 06/29/20 15:44 Nasal Cannula 2.0 06/29/20 15:44 Nasal Cannula 2.0 06/29/20 15:44 Nasal Cannula 2.0 06/29/20 15:00 80 24 126/59 (81) 100 Height (Feet): 5 Height (Inches): 0.00 Weight (Pounds): 137 General Appearance: no acute distress HEENT: normocephalic, atraumatic, anicteric Respiratory/Chest: crackles/rales, rhonchi - bilaterally Cardiovascular: normal rate, regular rhythm Abdomen: normal bowel sounds, soft, non tender, no organomegaly, non distended Genitourinary: other - + fine Extremities: no cyanosis Skin: no rash Neurologic/Psychiatric: litigation services manager II-XII grossly normal, alert, responsive Lymphatic: no neck adenopathy Musculoskeletal: no effusion Chest x-ray - 06/28/20 - Procedure: XRAY Chest 1v Indication: Cough Technique: One view of the chest Comparison: 06/26/2020 Findings: Improved, now satisfactory position of orogastric tube. There is a patchy infiltrate at the right lung base. Stable position of endotracheal tube. Impression: Improved oral gastric tube position. Patchy right basilar infiltrate Procedure: US ABD Complete Indication: Abdominal pain, abnormal liver function tests Technique: Matson-scale and duplex images of the upper abdomen were obtained Comparison: No comparison sonograms. Reference made to abdomen pelvis CT scan 06/26/2020 Findings: Gallbladder demonstrates gallstones and sludge. No gallbladder wall thickening nor pericholecystic fluid. Sonographic Cook's sign is negative. Common bile duct measures 10 mm in diameter. An intraductal calculus is seen in the common bile duct within the pancreatic head. No intrahepatic biliary ductal dilatation. Liver demonstrates normal echogenicity, no focal abnormality. Portal vein and hepatic veins are patent. Pancreas is unremarkable. Spleen is unremarkable. Left kidney measures 10.5 cm in length. Right kidney measures 9.4 cm length. Both kidneys demonstrate slightly increased echogenicity. There is no hydronephrosis. Small cysts are seen in the left kidney . The bladder is empty, contains a Fine catheter. Non-aneurysmal abdominal aorta . Unremarkable inferior vena cava Impression: Cholelithiasis and gallbladder sludge. Choledocholithiasis with intrahepatic and extra hepatic biliary ductal dilatation, confirming findings seen on recent CT scan. CT abdomen and pelvis: IMPRESSION: Biliary dilation attributable to choledocholithiasis. 1.2 and 1.3 cm calculi in the proximal and distal CBD respectively. The distended gallbladder contains a large lamellated stone. Haziness about the pancreas could be attributable to motion artifact, but in light of biliary findings, recommend checking enzymes. The rectum is distended by inspissated stool and contrast. Correlate for impaction. Lines and tubes and incidental findings as detailed above. Microbiology Date/Time Source Procedure Growth Status 06/27/20 12:00 Sputum Gram Stain - Final Complete 06/27/20 12:00 Sputum Culture - Final Devorah Tropicalis Usual Respiratory Tammy Complete 06/27/20 00:00 Rectum - Final NO CARBAPENEM-RESISTANT ENTEROBACTERI... Complete 06/26/20 12:01 Blood Blood Culture - Preliminary NO GROWTH AFTER 72 HOURS Resulted Laboratory Tests Test 06/29/20 18:08 06/30/20 00:17 06/30/20 04:20 POC Whole Blood Glucose 185 MG/DL (74-106) H Pending White Blood Count 16.6 K/UL (4.8-10.8) H Red Blood Count 2.89 M/UL (4.20-5.40) L Hemoglobin 8.9 G/DL (12.0-16.0) L Hematocrit 26.7 % (37.0-47.0) L Mean Corpuscular Volume 92 FL (80-99) Mean Corpuscular Hemoglobin 30.7 PG (27.0-31.0) Mean Corpuscular Hemoglobin Concent 33.2 G/DL (32.0-36.0) Red Cell Distribution Width 13.9 % (11.6-14.8) Platelet Count 119 K/UL (150-450) L Mean Platelet Volume 6.6 FL (6.5-10.1) Neutrophils (%) (Auto) 78.3 % (45.0-75.0) H Lymphocytes (%) (Auto) 15.7 % (20.0-45.0) L Monocytes (%) (Auto) 5.0 % (1.0-10.0) Eosinophils (%) (Auto) 0.7 % (0.0-3.0) Basophils (%) (Auto) 0.2 % (0.0-2.0) Sodium Level 145 MMOL/L (136-145) Potassium Level 3.4 MMOL/L (3.5-5.1) L Chloride Level 113 MMOL/L (98-107) H Carbon Dioxide Level 24 MMOL/L (21-32) Anion Gap 8 mmol/L (5-15) Blood Urea Nitrogen 14 mg/dL (7-18) Creatinine 0.8 MG/DL (0.55-1.30) Estimat Glomerular Filtration Rate > 60 mL/min (>60) Glucose Level 204 MG/DL (74-106) H Calcium Level 7.9 MG/DL (8.5-10.1) L Phosphorus Level 1.8 MG/DL (2.5-4.9) L Magnesium Level 1.5 MG/DL (1.8-2.4) L Amylase Level 103 U/L (25-115) Lipase 356 U/L (73-393) Random Vancomycin Level 9.0 ug/mL Current Medications Medications (Trade) Dose Ordered Sig/Reinier Route PRN Reason Start Time Stop Time Status Last Admin Dose Admin Acetaminophen (Tylenol) 650 mg Q6H PRN NG Temp >100.5 06/26/20 20:00 07/26/20 19:59 06/27/20 10:19 Acetaminophen (Tylenol) 650 mg Q6H PRN NG Mild Pain (Pain Scale 1-3) 06/26/20 20:00 07/26/20 19:59 06/28/20 02:21 Barium Sulfate (Varibar Honey) 250 ml NOW PRN MC RAD 06/30/20 14:45 07/03/20 14:35 Barium Sulfate (Varibar [place]) 240 ml NOW PRN MC RAD 06/30/20 14:45 07/03/20 14:35 Barium Sulfate (Varibar Pudding) 230 ml NOW PRN MC RAD 06/30/20 14:45 07/03/20 14:35 Barium Sulfate (Varibar Thin Liquid powder) 148 gm NOW PRN MC RAD 06/30/20 14:45 07/03/20 14:35 Carvedilol (Coreg) 3.125 mg EVERY 12 HOURS ORAL 06/28/20 10:30 07/28/20 10:29 06/30/20 09:06 Chlorhexidine Gluconate (Eloisa-Hex 2%) 1 applic BEDTIME TOPIC 06/26/20 21:00 09/24/20 20:59 06/29/20 21:00 Dextrose (Dextrose 50%) 25 ml Q30M PRN IV Hypoglycemia 06/26/20 20:00 09/24/20 19:59 Dextrose (Dextrose 50%) 50 ml Q30M PRN IV Hypoglycemia 06/26/20 20:00 09/24/20 19:59 Dextrose/ Electrolytes 1,000 ml @ 75 mls/hr [id number] IV 06/30/20 10:00 07/30/20 09:59 06/30/20 10:21 Gemfibrozil (Lopid) 600 mg EVERY 12 HOURS NG 06/29/20 21:00 07/29/20 08:59 06/30/20 09:06 Insulin Aspart (NovoLOG) EVERY 6 HOURS SUBQ 06/29/20 18:00 09/24/20 20:59 06/30/20 12:17 Lorazepam (Ativan 2mg/ml 1ml) 1 mg Q4H PRN IV For Anxiety 06/27/20 13:00 07/04/20 12:59 06/28/20 09:02 Pantoprazole (Protonix) 40 mg EVERY 12 HOURS IVP 06/26/20 21:00 07/26/20 20:59 06/30/20 09:03 Piperacillin Sod/ Tazobactam Sod 3.375 gm/Dextrose 100 ml @ 25 mls/hr EVERY 12 HOURS IVPB 06/26/20 21:00 07/02/20 20:59 06/30/20 09:06 Potassium Phosphate 250 ml @ 62.5 mls/hr Q4H IVPB 06/30/20 13:00 06/30/20 20:59 06/30/20 13:07 Vancomycin HCl ([facility] pharmacy to dose) 1 ea DAILY PRN MISC Per rx protocol 06/26/20 16:00 07/26/20 15:59 Vancomycin HCl 750 mg/Sodium Chloride 275 ml @ 183.333 mls/hr Q24H IVPB 07/01/20 09:00 07/06/20 08:59 Milo Abbott MD Jun 30, 2020 14:55
--- NOTE | 2020-06-30 15:30 | NUR ---
NURSE NOTES: Dr Sharp making rounds updated re pt's status, and plans of care.
--- NOTE | 2020-06-30 17:00 | NUR ---
NURSE NOTES: Pt resting in bed ,no resp distress noted,with on and off prod coughing noted,oral secretions suctioned PRN.
--- NOTE | 2020-06-30 17:34 | Internal Med Progress Note ---
Subjective Physician Name Jan Valdivia Attending Physician Vanessa Lenz M.D. Current Medications Medications (Trade) Dose Ordered Sig/Reinier Route PRN Reason Start Time Stop Time Status Last Admin Dose Admin Acetaminophen (Tylenol) 650 mg Q6H PRN NG Temp >100.5 06/26/20 20:00 07/26/20 19:59 06/27/20 10:19 Acetaminophen (Tylenol) 650 mg Q6H PRN NG Mild Pain (Pain Scale 1-3) 06/26/20 20:00 07/26/20 19:59 06/28/20 02:21 Barium Sulfate (Varibar Honey) 250 ml NOW PRN MC RAD 06/30/20 14:45 07/03/20 14:35 Barium Sulfate (Varibar [place]) 240 ml NOW PRN MC RAD 06/30/20 14:45 07/03/20 14:35 Barium Sulfate (Varibar Pudding) 230 ml NOW PRN MC RAD 06/30/20 14:45 07/03/20 14:35 Barium Sulfate (Varibar Thin Liquid powder) 148 gm NOW PRN MC RAD 06/30/20 14:45 07/03/20 14:35 Carvedilol (Coreg) 3.125 mg EVERY 12 HOURS ORAL 06/28/20 10:30 07/28/20 10:29 06/30/20 09:06 Chlorhexidine Gluconate (Eloisa-Hex 2%) 1 applic BEDTIME TOPIC 06/26/20 21:00 09/24/20 20:59 06/29/20 21:00 Dextrose (Dextrose 50%) 25 ml Q30M PRN IV Hypoglycemia 06/26/20 20:00 09/24/20 19:59 Dextrose (Dextrose 50%) 50 ml Q30M PRN IV Hypoglycemia 06/26/20 20:00 09/24/20 19:59 Dextrose/ Electrolytes 1,000 ml @ 75 mls/hr [id number] IV 06/30/20 10:00 07/30/20 09:59 06/30/20 10:21 Gemfibrozil (Lopid) 600 mg EVERY 12 HOURS NG 06/29/20 21:00 07/29/20 08:59 06/30/20 09:06 Insulin Aspart (NovoLOG) EVERY 6 HOURS SUBQ 06/29/20 18:00 09/24/20 20:59 06/30/20 12:17 Lorazepam (Ativan 2mg/ml 1ml) 1 mg Q4H PRN IV For Anxiety 06/27/20 13:00 07/04/20 12:59 06/28/20 09:02 Pantoprazole (Protonix) 40 mg EVERY 12 HOURS IVP 06/26/20 21:00 07/26/20 20:59 06/30/20 09:03 Piperacillin Sod/ Tazobactam Sod 3.375 gm/Dextrose 100 ml @ 25 mls/hr Q8HR IVPB 06/30/20 22:00 07/07/20 21:59 Potassium Phosphate 250 ml @ 62.5 mls/hr Q4H IVPB 06/30/20 13:00 06/30/20 20:59 06/30/20 17:26 Allergies: Coded Allergies: No Known Allergies (Unverified , 06/26/20) Subjective In MICU, awake, responsive with open eyes, unable to F/U with commands.WBC: 16.6 Objective Last Vital Signs Date Time Temp Pulse Resp B/P (MAP) Pulse Ox O2 Delivery O2 Flow Rate FiO2 06/30/20 17:00 75 21 156/74 (101) 100 06/30/20 16:00 2.0 06/30/20 16:00 Nasal Cannula Nasal Cannula 06/30/20 16:00 97.3 06/29/20 11:17 24 Laboratory Tests Test 06/29/20 18:08 06/30/20 00:17 06/30/20 04:20 POC Whole Blood Glucose 185 MG/DL (74-106) H Pending White Blood Count 16.6 K/UL (4.8-10.8) H Red Blood Count 2.89 M/UL (4.20-5.40) L Hemoglobin 8.9 G/DL (12.0-16.0) L Hematocrit 26.7 % (37.0-47.0) L Mean Corpuscular Volume 92 FL (80-99) Mean Corpuscular Hemoglobin 30.7 PG (27.0-31.0) Mean Corpuscular Hemoglobin Concent 33.2 G/DL (32.0-36.0) Red Cell Distribution Width 13.9 % (11.6-14.8) Platelet Count 119 K/UL (150-450) L Mean Platelet Volume 6.6 FL (6.5-10.1) Neutrophils (%) (Auto) 78.3 % (45.0-75.0) H Lymphocytes (%) (Auto) 15.7 % (20.0-45.0) L Monocytes (%) (Auto) 5.0 % (1.0-10.0) Eosinophils (%) (Auto) 0.7 % (0.0-3.0) Basophils (%) (Auto) 0.2 % (0.0-2.0) Sodium Level 145 MMOL/L (136-145) Potassium Level 3.4 MMOL/L (3.5-5.1) L Chloride Level 113 MMOL/L (98-107) H Carbon Dioxide Level 24 MMOL/L (21-32) Anion Gap 8 mmol/L (5-15) Blood Urea Nitrogen 14 mg/dL (7-18) Creatinine 0.8 MG/DL (0.55-1.30) Estimat Glomerular Filtration Rate > 60 mL/min (>60) Glucose Level 204 MG/DL (74-106) H Calcium Level 7.9 MG/DL (8.5-10.1) L Phosphorus Level 1.8 MG/DL (2.5-4.9) L Magnesium Level 1.5 MG/DL (1.8-2.4) L Amylase Level 103 U/L (25-115) Lipase 356 U/L (73-393) Random Vancomycin Level 9.0 ug/mL Intake and Output 06/29/20 06/30/20 19:00 07:00 Intake Total 824 ml 700 ml Output Total 650 ml 620 ml Balance 174 ml 80 ml Intake IV Total 824 ml 700 ml Output Urine Total 650 ml 620 ml Objective PHYSICAL EXAMINATION: GENERAL: Patient is a well-developed, well-nourished female, in no apparent distress. HEENT: Eyes pupils are equal and responsive to light and accommodation. NECK: Supple without lymphadenopathy. CHEST: decreased breath sounds, positive or rales, no wheezes. CARDIOVASCULAR: Regular rhythm and rate. S1, S2 are normal without murmurs, or gallops, + Pacemaker. ABDOMEN: Soft, nontender, nondistended. Positive bowel sounds. no rebound or guarding noted, Obesity. EXTREMITIES: Negative for clubbing, cyanosis, or edema. RECTAL/GENITAL: Guillen cath NEUROLOGIC: Limited due to patient status, moving all extremities equally. Assessment/Plan Assessment/Plan ASSESSMENT: This is a 74-year-old female. 1. Acute hypoxemic Respiratory failure --> Extubated. 2. Altered mental status most likely secondary to toxic metabolic encephalopathy. 3. Severe anemia. 4. Hypotension. 5. Hyperglycemia. 6. Cerebrovascular disease. 7. Renal failure. 8. History of hypertension. 9. Diabetes type 2. 10.Sepsis possible Pneumonia. TREATMENT: 1. Respiratory failure. Pulmonary consultation = Dr. Doe. Respiratory failure may be secondary to pneumonia versus COVID-19. Patient has been started empirically on intravenous Zosyn and vancomycin. Follow recommendations of Pulmonary. Patient is currently intubated and sedated in the intensive care unit. 2. Severe anemia. S/P transfusion 2 units of packed RBCs. Follow Hgb/Hct 3. Hypotension. This may be secondary to septic shock versus severe anemia as above. 4. Hyperglycemia. Patient is currently on an insulin drip. 5. Diabetes type 2. As above, patient is currently on an insulin drip. An Endocrinology consultation has been obtained with Dr. Quiros. 6. Cerebrovascular disease, status post cerebrovascular accident. 7. Acute on chronic renal failure. A Nephrology consultation has been obtained with Dr. Lenz. Follow recommendations of Nephrology. Abx: Jan Jimenez IV, MD Jun 30, 2020 17:34
--- NOTE | 2020-06-30 19:10 | NUR ---
NURSE HAND-OFF REPORT: Latest Vital Signs: Temperature 97.3 , Pulse 75 , B/P 127 /59 , Respiratory Rate 23 , O2 SAT 100 , Nasal Cannula, O2 Flow Rate 2.0 . Vital Sign Comment: stable EKG Rhythm: Sinus Rhythm Rhythm change?: N MD Notified?: - MD Response: Latest Rea Fall Score: 50 Fall Risk: High Risk Safety Measures: Call light Within Reach, Bed Alarm Zone 1, Side Rails Side Rails x2, Bed position Low and Locked. Fall Precautions: Door Sign Report given to Yadi Lombardi RN..
--- NOTE | 2020-06-30 19:30 | NUR ---
NURSE NOTES: Rn received report from SHANNON Hurley. Patient resting in bed. Vitals are stable at this time. Patient on 2Lo2 via nasal cannula. Patient has IV infusing. patient repositioned for comfort. RN will continue to monitor.
[2020-06-30] MEDS: Dyna-Hex 2% Top Sol 2oz TOPIC SCH (21:30)
--- NOTE | 2020-06-30 21:30 | NUR ---
NURSE NOTES: Patietn vitals are stable. Patient resting. Patient given CHG bath and repositioned. RN will continue to monitor.
--- NOTE | 2020-06-30 23:30 | NUR ---
NURSE NOTES: Ptient vitals stable. patient resting. Patient repositioned to prevent pressure ulces and cmfort. RN will continue to monitor.
[2020-07-01] VITALS (27 sets, daily range): BP systolic 130–182; BP diastolic 59–99
[2020-07-01] MEDS: NovoLOG Insulin Flexpen SUBQ SCH ×4 (00:16→17:49)
--- NOTE | 2020-07-01 01:30 | NUR ---
NURSE NOTES: Patient vitals stable at this time. Patient sleeping. Patient repositioned an checked for cleanliness. Patient shows no s/s of pain/ Patient asking for water when she wakes. RN will continue to monitor.
--- NOTE | 2020-07-01 03:30 | NUR ---
NURSE NOTES: Patient vitals stable. Patient denies pain at this time. Patient resting. Patient repositioned. RN will continue to monitor.
[2020-07-01 04:45] LABS: BASOPHILS % (AUTO) 0.3 % (0.0-2.0); EOSINOPHILS % (AUTO) 2.9 % (0.0-3.0); HEMATOCRIT 27.6 % (37.0-47.0); HEMOGLOBIN 9.2 G/DL (12.0-16.0); LYMPHOCYTES % (AUTO) 16.9 % (20.0-45.0); MEAN CORPUSCULAR VOLUME 92 FL (80-99); MONOCYTES % (AUTO) 4.5 % (1.0-10.0); NEUTROPHILS % (AUTO) 75.4 % (45.0-75.0); PLATELET COUNT 137 K/UL (150-450); RED CELL DISTRIBUTION WIDTH 13.9 % (11.6-14.8); WHITE BLOOD COUNT 13.5 K/UL (4.8-10.8)
[2020-07-01 05:10] LABS: ALANINE AMINOTRANSFERASE 21 U/L (12-78); ALBUMIN 1.6 G/DL (3.4-5.0); ALBUMIN/GLOBULIN RATIO 0.5 (1.0-2.7); ALKALINE PHOSPHATASE 72 U/L (46-116); ANION GAP 8 mmol/L (5-15); ASPARTATE AMINO TRANSFERASE 22 U/L (15-37); BILIRUBIN,TOTAL 0.7 MG/DL (0.2-1.0); BLOOD UREA NITROGEN 10 mg/dL (7-18); CALCIUM 7.6 MG/DL (8.5-10.1); CARBON DIOXIDE 25 MMOL/L (21-32); CHLORIDE 110 MMOL/L (98-107); CREATININE 0.6 MG/DL (0.55-1.30); PHOSPHORUS 2.5 MG/DL (2.5-4.9); POTASSIUM 3.6 MMOL/L (3.5-5.1); SODIUM 143 MMOL/L (136-145)
--- NOTE | 2020-07-01 05:45 | NUR ---
NURSE NOTES: Patient vitals stable. Patient resting. Patient oral care done. Patient repositioned. RN will continue to monitor.
--- NOTE | 2020-07-01 07:26 | NUR ---
NURSE HAND-OFF REPORT: Latest Vital Signs: Temperature 97.3 , Pulse 75 , B/P 178 /89 , Respiratory Rate 28 , O2 SAT 100 , Nasal Cannula, O2 Flow Rate 2.0 . Vital Sign Comment: EKG Rhythm: NSR Rhythm change?: N MD Notified?: - MD Response: Latest Rea Fall Score: 50 Fall Risk: High Risk Safety Measures: Call light Within Reach, Bed Alarm Zone 1, Side Rails Side Rails x2, Bed position Low and Locked. Fall Precautions: Door Sign Report given to
--- NOTE | 2020-07-01 07:27 | NUR ---
CASE MANAGEMENT:REVIEW 07/01/20 SI: NSTEMI. SEPSIS. RESPIRATORY FAILURE~EXTUBATED 97.3 75 28 178/89 100% ON 2L/NC WBC+13.5 IS: IV ZOSYN Q8HRS IVF@75/HR LOPID NG BID COREG NG Q12 IV PROTONIX Q12 : ICU STATUS DCP: FROM [facility] PLAN: DOWNGRADE TO TELEMETRY
--- NOTE | 2020-07-01 07:49 | NUR ---
NURSE NOTES: Report received from SHANNON Sanchez. Pt is observed laying in bed, squirming and shifting around the bed, restless. Pt is on NC 2L; O2sat 100%. NSR on manager monitoring. Pt has an OGT in place- currently NPO. Guillen catheter intact and draining with gravity to urometer. Rt fem TLC running D5 w/ 20mEq KCL @ 75mL/hr. Pt received and maintained on BL soft wrist restraints for safety, per MD order. Bed locked and in lowest position, with call light within reach. Will resume plan of care.
[2020-07-01] MEDS: Pantoprazole Inj IVP SCH ×2 (08:24→21:14)
--- NOTE | 2020-07-01 08:38 | Pulmonology Progress Note ---
Subjective ROS Limited/Unobtainable: No Interval Events: On 2L/min O2 Constitutional: Reports: other - extubated, no pressors ; Denies: fever HEENT: Repors: no symptoms Respiratory: Reports: no symptoms Cardiovascular: Reports: no symptoms Gastrointestinal/Abdominal: Denies: nausea, vomiting, diarrhea Genitourinary: Reports: no symptoms Psychiatric: Reports: other - NA Skin: Denies: rash Musculoskeletal: Reports: other - NA Allergies: Coded Allergies: No Known Allergies (Unverified , 06/26/20) Objective Last 24 Hour Vital Signs Date Time Temp Pulse Resp B/P (MAP) Pulse Ox O2 Delivery O2 Flow Rate FiO2 07/01/20 08:25 81 171/61 07/01/20 07:00 75 28 178/89 (118) 100 07/01/20 06:55 76 20 175/99 (124) 100 07/01/20 06:30 75 20 182/89 (120) 100 07/01/20 06:30 70 22 07/01/20 06:00 73 21 160/85 (110) 100 07/01/20 05:30 70 25 165/73 (103) 100 07/01/20 05:30 70 25 165/73 (103) 100 07/01/20 05:00 77 27 151/76 (101) 100 07/01/20 04:14 71 07/01/20 04:00 2.0 07/01/20 04:00 Nasal Cannula 2.0 Nasal Cannula 2.0 07/01/20 04:00 68 28 152/72 (98) 100 07/01/20 03:00 70 26 154/66 (95) 100 07/01/20 02:30 70 25 145/75 (98) 100 07/01/20 02:00 69 28 130/67 (88) 100 07/01/20 01:30 71 28 142/70 (94) 100 07/01/20 01:00 69 19 144/70 (94) 100 07/01/20 01:00 69 19 144/70 (94) 100 07/01/20 00:30 69 27 146/68 (94) 100 07/01/20 00:30 69 27 146/68 (94) 100 07/01/20 00:00 2.0 07/01/20 00:00 67 26 132/69 (90) 100 07/01/20 00:00 67 26 132/69 (90) 100 07/01/20 00:00 68 07/01/20 00:00 Nasal Cannula 2.0 Nasal Cannula 2.0 06/30/20 23:30 69 27 129/68 (88) 100 06/30/20 23:00 65 25 121/63 (82) 100 06/30/20 22:30 68 27 128/65 (86) 100 06/30/20 22:00 70 27 128/60 (82) 100 06/30/20 21:30 77 150/71 06/30/20 21:30 72 27 139/73 (95) 100 06/30/20 21:00 75 24 150/71 (97) 100 06/30/20 20:30 76 26 151/71 (97) 100 06/30/20 20:00 75 23 131/93 (106) 100 06/30/20 20:00 2.0 06/30/20 20:00 Nasal Cannula 2.0 Nasal Cannula 2.0 06/30/20 20:00 72 06/30/20 19:30 75 21 151/63 (92) 100 06/30/20 19:00 68 24 127/59 (81) 100 06/30/20 19:00 75 23 127/59 (81) 100 06/30/20 18:05 68 27 156/73 (100) 100 06/30/20 17:00 75 21 156/74 (101) 100 06/30/20 16:00 2.0 06/30/20 16:00 75 06/30/20 16:00 Nasal Cannula 2.0 Nasal Cannula 2.0 06/30/20 16:00 97.3 75 28 149/81 (103) 100 06/30/20 15:00 72 22 147/68 (94) 100 06/30/20 14:00 69 27 126/62 (83) 96 06/30/20 13:00 73 26 147/70 (95) 86 06/30/20 12:00 74 06/30/20 12:00 96.0 06/30/20 12:00 72 29 146/76 (99) 100 06/30/20 12:00 2.0 06/30/20 12:00 Nasal Cannula 2.0 Nasal Cannula 2.0 06/30/20 11:02 74 23 142/65 (90) 100 06/30/20 10:00 73 25 132/60 (84) 100 06/30/20 09:06 68 121/63 06/30/20 09:00 76 29 142/60 (87) 100 Intake and Output 06/30/20 07/01/20 19:00 07:00 Intake Total 1195.0 ml 1144.5 ml Output Total 2700 ml 1250 ml Balance -1505.0 ml -105.5 ml Intake Free Water 60 ml IV Total 1075.0 ml 1144.5 ml Other 60 ml Output Urine Total 2700 ml 1250 ml # Bowel Movements 4 3 General Appearance: no acute distress HEENT: normocephalic Respiratory: chest wall non-tender, lungs clear Cardiovascular: normal peripheral pulses Abdomen: normal bowel sounds Extremities: no cyanosis Laboratory Tests 06/30/20 17:31: POC Whole Blood Glucose 243H 07/01/20 02:45: White Blood Count 13.5H, Red Blood Count 3.00L, Hemoglobin 9.2L, Hematocrit 27.6L, Mean Corpuscular Volume 92, Mean Corpuscular Hemoglobin 30.8, Mean Corpuscular Hemoglobin Concent 33.3, Red Cell Distribution Width 13.9, Platelet Count 137L, Mean Platelet Volume 7.0, Neutrophils (%) (Auto) 75.4H, Lymphocytes (%) (Auto) 16.9L, Monocytes (%) (Auto) 4.5, Eosinophils (%) (Auto) 2.9, Basop hils (%) (Auto) 0.3, Sodium Level 143, Potassium Level 3.6, Chloride Level 110H, Carbon Dioxide Level 25, Anion Gap 8, Blood Urea Nitrogen 10, Creatinine 0.6, Estimat Glomerular Filtration Rate > 60, Glucose Level 203H, Calcium Level 7.6L, Phosphorus Level 2.5, Magnesium Level 1.7L, Total Bilirubin 0.7, Aspartate Amino Transf (AST/SGOT) 22, Alanine Aminotransferase (ALT/SGPT) 21, Alkaline Phosphatase 72, Total Protein 5.0L, Albumin 1.6L, Globulin 3.4, Albumin/Globulin Ratio 0.5L Current Medications Medications (Trade) Dose Ordered Sig/Reinier Route PRN Reason Start Time Stop Time Status Last Admin Dose Admin Acetaminophen (Tylenol) 650 mg Q6H PRN NG Temp >100.5 06/26/20 20:00 07/26/20 19:59 06/27/20 10:19 Acetaminophen (Tylenol) 650 mg Q6H PRN NG Mild Pain (Pain Scale 1-3) 06/26/20 20:00 07/26/20 19:59 06/28/20 02:21 Barium Sulfate (Varibar Honey) 250 ml NOW PRN MC RAD 06/30/20 14:45 07/03/20 14:35 Barium Sulfate (Varibar Strawn) 240 ml NOW PRN MC RAD 06/30/20 14:45 07/03/20 14:35 Barium Sulfate (Varibar Pudding) 230 ml NOW PRN MC RAD 06/30/20 14:45 07/03/20 14:35 Barium Sulfate (Varibar Thin Liquid powder) 148 gm NOW PRN RAD 06/30/20 14:45 07/03/20 14:35 Carvedilol (Coreg) 3.125 mg EVERY 12 HOURS ORAL 06/28/20 10:30 07/28/20 10:29 07/01/20 08:25 Chlorhexidine Gluconate (Eloisa-Hex 2%) 1 applic BEDTIME TOPIC 06/26/20 21:00 09/24/20 20:59 06/30/20 21:30 Dextrose (Dextrose 50%) 25 ml Q30M PRN IV Hypoglycemia 06/26/20 20:00 09/24/20 19:59 Dextrose (Dextrose 50%) 50 ml Q30M PRN IV Hypoglycemia 06/26/20 20:00 09/24/20 19:59 Dextrose/ Electrolytes 1,000 ml @ 75 mls/hr [id number] IV 06/30/20 10:00 07/30/20 09:59 06/30/20 23:20 Gemfibrozil (Lopid) 600 mg EVERY 12 HOURS NG 06/29/20 21:00 07/29/20 08:59 07/01/20 08:24 Insulin Aspart (NovoLOG) EVERY 6 HOURS SUBQ 06/29/20 18:00 09/24/20 20:59 07/01/20 05:49 Lorazepam (Ativan 2mg/ml 1ml) 1 mg Q4H PRN IV For Anxiety 06/27/20 13:00 07/04/20 12:59 06/28/20 09:02 Pantoprazole (Protonix) 40 mg EVERY 12 HOURS IVP 06/26/20 21:00 07/26/20 20:59 07/01/20 08:24 Piperacillin Sod/ Tazobactam Sod 3.375 gm/Dextrose 100 ml @ 25 mls/hr Q8HR IVPB 06/30/20 22:00 07/07/20 21:59 07/01/20 05:48 Assessment/Plan Assessment/Plan IMPRESSION: 1. Acute respiratory failure. Now resolved 2. Pneumonia, suspected. 3. Marked leukocytosis. Improving. 4. Anemia. 5. Renal failure. 6. Possible cholecystitis. 7. Pacemaker. 8. snf resident. DISCUSSION: 1. Continue nasal oxygen. 2. Broad-spectrum antibiotics as per ID specialist. 3. Pulmonary hygiene 4. Follow laboratory data 5. Provide DVT and GI prophylaxes. Defer CODE STATUS to attending Noted DNR Okay to transfer out of ICU. Angelo Doe M.D. Angelo Doe MD Jul 01, 2020 08:38
--- NOTE | 2020-07-01 08:46 | NUR ---
RADIOLOGY DEPT., CHEST X-RAY DONE.-P.DYE
[2020-07-01] MEDS ORDERED: Vancomycin 750mg/NS 275ml IVPB SCH ×2 (09:00)
--- NOTE | 2020-07-01 09:17 | Diagnostic Imaging Report ---
Indication: Shortness of breath Technique: One view of the chest Comparison: 06/28/2020 Findings: Interval endotracheal extubation. Nasogastric tube remains in place. There is some atelectasis at both lung bases. The lungs and pleural spaces are otherwise clear. Impression: Interim extubation Bilateral basilar atelectasis
--- NOTE | 2020-07-01 09:40 | Nephrology Progress Note ---
Assessment/Plan Plan #DAYO - likely ATN in the setting of septic shock #Acute anemia #hypoxemic resp failure - vent dependent #NSTEMI #AMS #p Afib #Dm #HTN #HLD #s/p PPM - extubated - on NC - replete mag - increase coreg 6.25mg BID - electrolyte prn - prbc transfusion prn - monitor renal function - ID consulted - antibiotics per ID - cardiology eval - monitor troponin level - monitor lytes - pressors prn - monitor LFTs - echo - renal US - urine chem time spent 65 min Subjective ROS Limited/Unobtainable: Yes Subjective extubated BP uptrending will increase coreg mag low repleted on NC WBC downtrending hemoglobin stable Objective Objective Last 24 Hour Vital Signs Date Time Temp Pulse Resp B/P (MAP) Pulse Ox O2 Delivery O2 Flow Rate FiO2 07/01/20 09:00 76 31 169/59 (95) 100 07/01/20 08:30 78 29 159/80 (106) 100 07/01/20 08:25 81 171/61 07/01/20 08:00 Nasal Cannula 2.0 Nasal Cannula 2.0 07/01/20 08:00 97.4 78 31 171/61 (97) 100 07/01/20 08:00 2.0 07/01/20 07:00 75 28 178/89 (118) 100 07/01/20 06:55 76 20 175/99 (124) 100 07/01/20 06:30 75 20 182/89 (120) 100 07/01/20 06:30 70 22 07/01/20 06:00 73 21 160/85 (110) 100 07/01/20 05:30 70 25 165/73 (103) 100 07/01/20 05:30 70 25 165/73 (103) 100 07/01/20 05:00 77 27 151/76 (101) 100 07/01/20 04:14 71 07/01/20 04:00 2.0 07/01/20 04:00 Nasal Cannula 2.0 Nasal Cannula 2.0 07/01/20 04:00 68 28 152/72 (98) 100 07/01/20 03:00 70 26 154/66 (95) 100 07/01/20 02:30 70 25 145/75 (98) 100 07/01/20 02:00 69 28 130/67 (88) 100 07/01/20 01:30 71 28 142/70 (94) 100 07/01/20 01:00 69 19 144/70 (94) 100 07/01/20 01:00 69 19 144/70 (94) 100 07/01/20 00:30 69 27 146/68 (94) 100 07/01/20 00:30 69 27 146/68 (94) 100 07/01/20 00:00 2.0 07/01/20 00:00 67 26 132/69 (90) 100 07/01/20 00:00 67 26 132/69 (90) 100 07/01/20 00:00 68 07/01/20 00:00 Nasal Cannula 2.0 Nasal Cannula 2.0 06/30/20 23:30 69 27 129/68 (88) 100 06/30/20 23:00 65 25 121/63 (82) 100 06/30/20 22:30 68 27 128/65 (86) 100 06/30/20 22:00 70 27 128/60 (82) 100 06/30/20 21:30 77 150/71 06/30/20 21:30 72 27 139/73 (95) 100 06/30/20 21:00 75 24 150/71 (97) 100 06/30/20 20:30 76 26 151/71 (97) 100 06/30/20 20:00 75 23 131/93 (106) 100 06/30/20 20:00 2.0 06/30/20 20:00 Nasal Cannula 2.0 Nasal Cannula 2.0 06/30/20 20:00 72 06/30/20 19:30 75 21 151/63 (92) 100 06/30/20 19:00 68 24 127/59 (81) 100 06/30/20 19:00 75 23 127/59 (81) 100 06/30/20 18:05 68 27 156/73 (100) 100 06/30/20 17:00 75 21 156/74 (101) 100 06/30/20 16:00 2.0 06/30/20 16:00 75 06/30/20 16:00 Nasal Cannula 2.0 Nasal Cannula 2.0 06/30/20 16:00 97.3 75 28 149/81 (103) 100 06/30/20 15:00 72 22 147/68 (94) 100 06/30/20 14:00 69 27 126/62 (83) 96 06/30/20 13:00 73 26 147/70 (95) 86 06/30/20 12:00 74 06/30/20 12:00 96.0 06/30/20 12:00 72 29 146/76 (99) 100 06/30/20 12:00 2.0 06/30/20 12:00 Nasal Cannula 2.0 Nasal Cannula 2.0 06/30/20 11:02 74 23 142/65 (90) 100 06/30/20 10:00 73 25 132/60 (84) 100 Intake and Output 06/30/20 07/01/20 19:00 07:00 Intake Total 1195.0 ml 1144.5 ml Output Total 2700 ml 1250 ml Balance -1505.0 ml -105.5 ml Intake Free Water 60 ml IV Total 1075.0 ml 1144.5 ml Other 60 ml Output Urine Total 2700 ml 1250 ml # Bowel Movements 4 3 Laboratory Tests 06/30/20 17:31: POC Whole Blood Glucose 243H 07/01/20 02:45: White Blood Count 13.5H, Red Blood Count 3.00L, Hemoglobin 9.2L, Hematocrit 27.6L, Mean Corpuscular Volume 92, Mean Corpuscular Hemoglobin 30.8, Mean Corpuscular Hemoglobin Concent 33.3, Red Cell Distribution Width 13.9, Platelet Count 137L, Mean Platelet Volume 7.0, Neutrophils (%) (Auto) 75.4H, Lymphocytes (%) (Auto) 16.9L, Monocytes (%) (Auto) 4.5, Eosinophils (%) (Auto) 2.9, Basophils (%) (Auto) 0.3, Sodium Level 143, Potassium Level 3.6, Chloride Level 110H, Carbon Dioxide Level 25, Anion Gap 8, Blood Urea Nitrogen 10, Creatinine 0.6, Estimat Glomerular Filtration Rate > 60, Glucose Level 203H, Calcium Level 7.6L, Phosphorus Level 2.5, Magnesium Level 1.7L, Total Bilirubin 0.7, Aspartate Amino Transf (AST/SGOT) 22, Alanine Aminotransferase (ALT/SGPT) 21, Alkaline Phosphatase 72, Total Protein 5.0L, Albumin 1.6L, Globulin 3.4, Albumin/Globulin Ratio 0.5L Height (Feet): 5 Height (Inches): 0.00 Weight (Pounds): 137 Objective Lines, tubes and drains: peripheral, central line HEENT: normocephalic, atraumatic Neck: non-tender, normal alignment Respiratory/Chest: CTAB Cardiovascular/Chest: normal peripheral pulses, normal rate, regular rhythm Abdomen: normal bowel sounds, non tender Extremities: normal range of motion, non-tender Vanessa Lenz M.D. Jul 01, 2020 09:40
--- NOTE | 2020-07-01 09:56 | NUR ---
Speech Pathology Note (Bedside Dysphagia Evaluation) Brief Note: Ms. Dyer was apparently walked to to mental health clinic/facility on 06/12/2020 named by [facility] for suicidal attempt. She was there for 3 days, and subsequently transferred to [facility] on 06/15/2020 for unknown reason, COVID was ruled out d transferred to [facility] for AMS on 06/19/2020. 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 On 06/20/2020, She had Videofluoroscopic swallow study and she was placed on pureed and thick liquid. She was discharged to [facility], [facility] on 06/22/2020. On 06/26/2020 she was BIBA to [place] ED for AMS on 06/26/2020. She was intubated ED for Hypotensive and respiratory distress. She was found to be leukocytosis 20k, Anemic H/H 6.2/19.9 (3units given), INR 1.3, DAYO BUN/Creatine: 143/3.0, and admitted ICU for shock ad vent management. She was extubated on 06/29/2020. Current labs: CBC: 13.5/9.2/27.6/137 Electrolytes: 143/3.6/110/25/10/0.6/203 Vital Signs: Temp: 97.4, Pulse 75~81, BP: 159/80 (106), SPo2 98 on 2 liter. I requested OG removal for evaluation. Findings: Ms. Louis is alert. She is able to state her name. Her speech is dysarthric. Her length of utterance is very short per breathe. Her voice is intact without concerning for paralysis of vocal cords or any intubation injury. Her oral cavity is severely dried with evidence of debris. The left side face is weak. Her respiration is distressed with tachypnea. Given her Po trial, she cough. She remains high risk of recurrent aspiration pneumonia. Interpretation: 1. Oropharyngeal Dysphagia with left side weakness s.p clinical presentation of R MCA territorial, possible embolic 2. Probable aspiration 3. Recovering from shock Plan: 1. NPO for now 2. NG tube 3. Follow up Elsi Paul
--- NOTE | 2020-07-01 10:15 | NUR ---
NURSE NOTES: Dr Lenz at bedside assessing pt. Updated him on pt's current condition. New orders received and acknowledged.
[2020-07-01] MEDS ORDERED: Carvedilol 6.25mg Tab ORAL SCH (10:30)
--- NOTE | 2020-07-01 12:15 | NUR ---
NURSE NOTES: BS 234. 4 units Novolog insulin given, per sliding scale. Pt turned and repositioned. Pt remains non complaint and at times combative. Pt remains on restraints.
--- NOTE | 2020-07-01 13:45 | NUR ---
NURSE NOTES: Pt received from Marlen ORTEGA. Restraints in palce, pulses present and palpable, depended edema noted to left hand however no redness or bruising on either hand. Pt has OG tube in place, IV's in Bed will place on pole to run JOHAN. Bed low and locked, call light placed within reach however pt not able to demonstrate use. Vitals as follows 149/73, 100% on 2 liters NC, 71 HR, 20 resp, 98.8 temp axillary
--- NOTE | 2020-07-01 13:45 | NUR ---
TRANSFER TO FLOOR: Patient transferred to Tele 221-2, per Dr Doe. Report given to SHANNON Gilmore. Pt had no belongings.
--- NOTE | 2020-07-01 13:50 | NUR ---
NURSE NOTES: Dr Bonilla called to recommend advancement of OG tube by 5cm. gemologist, Ani, informed.
--- NOTE | 2020-07-01 14:05 | NUR ---
NURSE NOTES: Per Dr. Bonilla OG pushed 5cm further and KUB ordered.
--- NOTE | 2020-07-01 14:22 | General Progress Note ---
Subjective ROS Limited/Unobtainable: No Allergies: Coded Allergies: No Known Allergies (Unverified , 06/26/20) Objective Last 24 Hour Vital Signs Date Time Temp Pulse Resp B/P (MAP) Pulse Ox O2 Delivery O2 Flow Rate FiO2 07/01/20 13:00 73 31 153/75 (101) 100 07/01/20 12:30 77 31 166/72 (103) 100 07/01/20 12:00 98.0 81 28 168/79 (108) 100 07/01/20 12:00 Nasal Cannula 2.0 Nasal Cannula 2.0 07/01/20 12:00 87 07/01/20 11:30 71 25 143/60 (87) 100 07/01/20 11:05 68 150/73 07/01/20 11:00 71 30 150/73 (98) 100 07/01/20 10:30 73 30 156/78 (104) 100 07/01/20 10:00 75 28 151/79 (103) 99 07/01/20 09:30 75 24 150/72 (98) 100 07/01/20 09:00 76 31 169/59 (95) 100 07/01/20 08:30 78 29 159/80 (106) 100 07/01/20 08:25 81 171/61 07/01/20 08:00 78 07/01/20 08:00 Nasal Cannula 2.0 Nasal Cannula 2.0 07/01/20 08:00 97.4 78 31 171/61 (97) 100 07/01/20 08:00 2.0 07/01/20 07:00 75 28 178/89 (118) 100 07/01/20 06:55 76 20 175/99 (124) 100 07/01/20 06:30 75 20 182/89 (120) 100 07/01/20 06:30 70 22 07/01/20 06:00 73 21 160/85 (110) 100 07/01/20 05:30 70 25 165/73 (103) 100 07/01/20 05:30 70 25 165/73 (103) 100 07/01/20 05:00 77 27 151/76 (101) 100 07/01/20 04:14 71 07/01/20 04:00 2.0 07/01/20 04:00 Nasal Cannula 2.0 Nasal Cannula 2.0 07/01/20 04:00 68 28 152/72 (98) 100 07/01/20 03:00 70 26 154/66 (95) 100 07/01/20 02:30 70 25 145/75 (98) 100 07/01/20 02:00 69 28 130/67 (88) 100 07/01/20 01:30 71 28 142/70 (94) 100 07/01/20 01:00 69 19 144/70 (94) 100 07/01/20 01:00 69 19 144/70 (94) 100 07/01/20 00:30 69 27 146/68 (94) 100 07/01/20 00:30 69 27 146/68 (94) 100 07/01/20 00:00 2.0 07/01/20 00:00 67 26 132/69 (90) 100 07/01/20 00:00 67 26 132/69 (90) 100 07/01/20 00:00 68 07/01/20 00:00 Nasal Cannula 2.0 Nasal Cannula 2.0 06/30/20 23:30 69 27 129/68 (88) 100 06/30/20 23:00 65 25 121/63 (82) 100 06/30/20 22:30 68 27 128/65 (86) 100 06/30/20 22:00 70 27 128/60 (82) 100 06/30/20 21:30 77 150/71 06/30/20 21:30 72 27 139/73 (95) 100 06/30/20 21:00 75 24 150/71 (97) 100 06/30/20 20:30 76 26 151/71 (97) 100 06/30/20 20:00 75 23 131/93 (106) 100 06/30/20 20:00 2.0 06/30/20 20:00 Nasal Cannula 2.0 Nasal Cannula 2.0 06/30/20 20:00 72 06/30/20 19:30 75 21 151/63 (92) 100 06/30/20 19:00 68 24 127/59 (81) 100 06/30/20 19:00 75 23 127/59 (81) 100 06/30/20 18:05 68 27 156/73 (100) 100 06/30/20 17:00 75 21 156/74 (101) 100 06/30/20 16:00 2.0 06/30/20 16:00 75 06/30/20 16:00 Nasal Cannula 2.0 Nasal Cannula 2.0 06/30/20 16:00 97.3 75 28 149/81 (103) 100 06/30/20 15:00 72 22 147/68 (94) 100 Intake and Output 06/30/20 07/01/20 19:00 07:00 Intake Total 1195.0 ml 1144.5 ml Output Total 2700 ml 1250 ml Balance -1505.0 ml -105.5 ml Intake Free Water 60 ml IV Total 1075.0 ml 1144.5 ml Other 60 ml Output Urine Total 2700 ml 1250 ml # Bowel Movements 4 3 Laboratory Tests 06/30/20 17:31: POC Whole Blood Glucose 243H 07/01/20 02:45: White Blood Count 13.5H, Red Blood Count 3.00L, Hemoglobin 9.2L, Hematocrit 27.6L, Mean Corpuscular Volume 92, Mean Corpuscular Hemoglobin 30.8, Mean Corpuscular Hemoglobin Concent 33.3, Red Cell Distribution Width 13.9, Platelet Count 137L, Mean Platelet Volume 7.0, Neutrophils (%) (Auto) 75.4H, Lymphocytes (%) (Auto) 16.9L, Monocytes (%) (Auto) 4.5, Eosinophils (%) (Auto) 2.9, Basophils (%) (Auto) 0.3, Sodium Level 143, Potassium Level 3.6, Chloride Level 110H, Carbon Dioxide Level 25, Anion Gap 8, Blood Urea Nitrogen 10, Creatinine 0.6, Estimat Glomerular Filtration Rate > 60, Glucose Level 203H, Calcium Level 7.6L, Phosphorus Level 2.5, Magnesium Level 1.7L, Total Bilirubin 0.7, Aspartate Amino Transf (AST/SGOT) 22, Alanine Aminotransferase (ALT/SGPT) 21, Alkaline Phosphatase 72, Total Protein 5.0L, Albumin 1.6L, Globulin 3.4, Albumin/Globulin Ratio 0.5L Height (Feet): 5 Height (Inches): 0.00 Weight (Pounds): 137 General Appearance: no apparent distress EENT: normal ENT inspection Neck: supple Cardiovascular: normal rate Respiratory/Chest: decreased breath sounds Abdomen: normal bowel sounds, non tender, soft Extremities: non-tender Assessment/Plan Problem List: (1) Anemia ICD Codes: D64.9 - Anemia, unspecified SNOMED: 784288707 Qualifiers: Qualified Codes: D64.9 - Anemia, unspecified (2) Choledocholithiasis ICD Codes: K80.50 - Calculus of bile duct without cholangitis or cholecystitis without obstruction SNOMED: 509671636 (3) Respiratory failure ICD Codes: J96.90 - Respiratory failure, unspecified, unspecified whether with hypoxia or hypercapnia SNOMED: 917389840 Qualifiers: Qualified Codes: J96.01 - Acute respiratory failure with hypoxia; J96.02 - Acute respiratory failure with hypercapnia (4) Severe sepsis ICD Codes: A41.9 - Sepsis, unspecified organism; R65.20 - Severe sepsis without septic shock SNOMED: 29934081 (5) NSTEMI (non-ST elevated myocardial infarction) ICD Codes: I21.4 - Non-ST elevation (NSTEMI) myocardial infarction SNOMED: 38621382 (6) ARF (acute renal failure) ICD Codes: N17.9 - Acute kidney failure, unspecified SNOMED: 92939077 Qualifiers: Qualified Codes: N17.9 - Acute kidney failure, unspecified (7) Hemiparesis ICD Codes: G81.90 - Hemiplegia, unspecified affecting unspecified side SNOMED: 01757992 Qualifiers: Qualified Codes: I69.354 - Hemiplegia and hemiparesis following cerebral infarction affecting left non-dominant side (8) Hyperglycemia ICD Codes: R73.9 - Hyperglycemia, unspecified SNOMED: 00234254 Assessment/Plan: given normal LFTS and septic shock will hold ERCP for now fu H&H>>>stable prn blood transfusion abx per ID repeat labs stool ob positive but given current medical condition and stable H&H will hold EGD add ppi extubated now swallow eval>>> pending will fu Irvin Henson MD Jul 01, 2020 14:22
--- NOTE | 2020-07-01 14:25 | Diagnostic Imaging Report ---
Indication: Post nasogastric tube placement Technique: Supine view of the upper abdomen Comparison: 06/26/2020 Findings: Nasogastric tube tip is at the level of the gastric antrum body junction, proximal port just beyond the expected level gastric esophageal junction. Bowel gas pattern is unremarkable. Surgical clips are seen in the pelvis Impression: Nasogastric tube is in the stomach, proximal port barely beyond the gastroesophageal junction and slight forward advancement would be prudent. This was discussed with patient's nurse at the time of interpretation
--- NOTE | 2020-07-01 14:35 | NUR ---
INSURANCE CLINICALS/ REVIEW FAXED TO [facility]: Geena # [phone] [phone] fax# [phone]
--- NOTE | 2020-07-01 15:00 | NUR ---
NURSE NOTES: [facility] positive DVT results from 06/27/20. Per Heparin Drip JOHAN. Additionally, per do not use CVC as it should removed.
[2020-07-01] MEDS ORDERED: Heparin 25,000u/D5W 500ml 500 ML IV SCH (15:59)
[2020-07-01 16:17] LABS: BASOPHILS % (AUTO) 0.5 % (0.0-2.0); EOSINOPHILS % (AUTO) 2.7 % (0.0-3.0); HEMATOCRIT 30.9 % (37.0-47.0); HEMOGLOBIN 10.2 G/DL (12.0-16.0); LYMPHOCYTES % (AUTO) 13.7 % (20.0-45.0); MEAN CORPUSCULAR VOLUME 95 FL (80-99); MONOCYTES % (AUTO) 4.6 % (1.0-10.0); NEUTROPHILS % (AUTO) 78.5 % (45.0-75.0); PLATELET COUNT 164 K/UL (150-450); RED BLOOD COUNT 3.26 M/UL (4.20-5.40); RED CELL DISTRIBUTION WIDTH 14.7 % (11.6-14.8); WHITE BLOOD COUNT 13.2 K/UL (4.8-10.8)
--- NOTE | 2020-07-01 16:22 | NUR ---
NURSE NOTES: PLEASE NOTE IV HEPARIN SITE IS NEWLY INSERTED RIGHT AC NOT FEMORAL. Femoral was only option at the time of cosign and system does not allow me to adjust. IV is in RIGHT AC. Verified by nAtonio ORTEGA.
--- NOTE | 2020-07-01 16:26 | Diagnostic Imaging Report ---
Indication: Status post nasogastric tube repositioning Technique: Supine view of the abdomen Comparison: 3 hours earlier Findings: Interim advancement of nasogastric tube, tip now projected at the level of the gastric body, proximal port well beyond the gastroesophageal junction. Bowel gas pattern is unremarkable. Impression: Improved and now satisfactory nasogastric tube position
--- NOTE | 2020-07-01 18:05 | Diagnostic Imaging Report ---
EXAM: XR Abdomen, 2 Views CLINICAL HISTORY: NGT TECHNIQUE: Frontal view of the abdomen/pelvis with upright view of the abdomen. COMPARISON: Earlier study of 07/01/2020. FINDINGS: Lower thorax: Cardiomegaly. Intraperitoneal space: No free air. Gastrointestinal tract: Unremarkable. No dilation. Organs: Calcified uterine fibroid centrally within the pelvis. Bones/joints: Osteopenia. Tubes, lines and devices: NG tube is noted in place with its tip and side-port below the diaphragm. Other findings: Relatively gasless abdomen. IMPRESSION: 1. NG tube is noted in place in good position. 2. Cardiomegaly. 3. Osteopenia. 4. Relatively gasless abdomen. Clinical correlation is advised.
--- NOTE | 2020-07-01 18:31 | NUR ---
NURSE HAND-OFF REPORT: Important Events on Shift:[Pt transferred here from ICU today. Upon being informed of positive DVT, Dr. Henao ordered stat heparin drip and to DC CVC. both orders carried out ] Patient Status: [DNR DNI] Diet: [None ordered] Pending Orders: [] Pending Results/Labs:[] Pending MD notification:[1. please ask Dr. Vargas to D/C isolation, 2. ask Dr. Maher if he would like to start a diet, 3. Ask Dr. henao about possible breathing tx. Pt is technically negativ ] Latest Vital Signs: Temperature 97.9 , Pulse 73 , B/P 149 /77 , Respiratory Rate 20 , O2 SAT 98 , Nasal Cannula, O2 Flow Rate 2.0 . Vital Sign Comment: [] EKG Rhythm: Sinus Rhythm Rhythm change?: N MD Notified?: - MD Response: Latest Rea Fall Score: 50 Fall Risk: High Risk Safety Measures: Call light Within Reach, Bed Alarm Zone 1, Side Rails Side Rails x2, Bed position Low and Locked. Fall Precautions: Door Sign Report given to [Pending Rn assignment]. Addendum: 07/01/20 at 1848 by Deirdre Aponte RN Re OG vs NG tube. Please note that this pt arrived onto the unit with an OG tube. Pt did end up removing it. With assistance of Rbuy PLANNED GIVING OFFICER, we reinserted the OG tube. I noted that there is a more current active order for NG from Dr. Henson. Per Ruby ORTEGA, when attempting NG the tube would not go down. Please confirm with Dr. Henson that is ok with feeding with the OG. Addendum: 07/01/20 at 1922 by Deirdre Aponte RN Report given to Aakash Lee RN
--- NOTE | 2020-07-01 19:03 | Internal Med Progress Note ---
Subjective Physician Name Jan Valdivia Attending Physician Vanessa Lenz M.D. Current Medications Medications (Trade) Dose Ordered Sig/Reinier Route PRN Reason Start Time Stop Time Status Last Admin Dose Admin Acetaminophen (Tylenol) 650 mg Q6H PRN NG Temp >100.5 06/26/20 20:00 07/26/20 19:59 06/27/20 10:19 Acetaminophen (Tylenol) 650 mg Q6H PRN NG Mild Pain (Pain Scale 1-3) 06/26/20 20:00 07/26/20 19:59 06/28/20 02:21 Barium Sulfate (Varibar Honey) 250 ml NOW PRN MC RAD 06/30/20 14:45 07/03/20 14:35 Barium Sulfate (Varibar Cullison) 240 ml NOW PRN MC RAD 06/30/20 14:45 07/03/20 14:35 Barium Sulfate (Varibar Pudding) 230 ml NOW PRN MC RAD 06/30/20 14:45 07/03/20 14:35 Barium Sulfate (Varibar Thin Liquid powder) 148 gm NOW PRN MC RAD 06/30/20 14:45 07/03/20 14:35 Carvedilol (Coreg) 6.25 mg EVERY 12 HOURS ORAL 07/01/20 10:30 07/28/20 10:29 07/01/20 11:05 Chlorhexidine Gluconate (Eloisa-Hex 2%) 1 applic BEDTIME TOPIC 06/26/20 21:00 09/24/20 20:59 06/30/20 21:30 Dextrose (Dextrose 50%) 25 ml Q30M PRN IV Hypoglycemia 06/26/20 20:00 09/24/20 19:59 Dextrose (Dextrose 50%) 50 ml Q30M PRN IV Hypoglycemia 06/26/20 20:00 09/24/20 19:59 Gemfibrozil (Lopid) 600 mg EVERY 12 HOURS NG 06/29/20 21:00 07/29/20 08:59 07/01/20 08:24 Heparin Sodium/ Dextrose 500 ml @ 23.436 mls/ hr ADJUST PER PROTOCOL IV 07/01/20 15:59 07/31/20 15:58 07/01/20 16:20 Hydralazine HCl (Apresoline) 10 mg Q4H PRN IV For High Blood Pressure 07/01/20 10:15 09/29/20 10:14 Insulin Aspart (NovoLOG) EVERY 6 HOURS SUBQ 06/29/20 18:00 09/24/20 20:59 07/01/20 17:49 Lorazepam (Ativan 2mg/ml 1ml) 1 mg Q4H PRN IV For Anxiety 06/27/20 13:00 07/04/20 12:59 06/28/20 09:02 Pantoprazole (Protonix) 40 mg EVERY 12 HOURS IVP 06/26/20 21:00 07/26/20 20:59 07/01/20 08:24 Piperacillin Sod/ Tazobactam Sod 3.375 gm/Dextrose 100 ml @ 25 mls/hr Q8HR IVPB 06/30/20 22:00 07/07/20 21:59 07/01/20 13:09 Allergies: Coded Allergies: No Known Allergies (Unverified , 06/26/20) Subjective transfer out of MICU to monitor unit, awake, responsive with open eyes, unable to F/U with commands.WBC: 13.2 Objective Last Vital Signs Date Time Temp Pulse Resp B/P (MAP) Pulse Ox O2 Delivery O2 Flow Rate FiO2 07/01/20 16:00 97.9 73 20 149/77 (101) 98 07/01/20 12:00 Nasal Cannula 2.0 Nasal Cannula 2.0 06/29/20 11:17 24 Laboratory Tests Test 07/01/20 02:45 07/01/20 15:45 White Blood Count 13.5 K/UL (4.8-10.8) H 13.2 K/UL (4.8-10.8) H Red Blood Count 3.00 M/UL (4.20-5.40) L 3.26 M/UL (4.20-5.40) L Hemoglobin 9.2 G/DL (12.0-16.0) L 10.2 G/DL (12.0-16.0) L Hematocrit 27.6 % (37.0-47.0) L 30.9 % (37.0-47.0) L Mean Corpuscular Volume 92 FL (80-99) 95 FL (80-99) Mean Corpuscular Hemoglobin 30.8 PG (27.0-31.0) 31.2 PG (27.0-31.0) H Mean Corpuscular Hemoglobin Concent 33.3 G/DL (32.0-36.0) 32.9 G/DL (32.0-36.0) Red Cell Distribution Width 13.9 % (11.6-14.8) 14.7 % (11.6-14.8) Platelet Count 137 K/UL (150-450) L 164 K/UL (150-450) Mean Platelet Volume 7.0 FL (6.5-10.1) 6.4 FL (6.5-10.1) L Neutrophils (%) (Auto) 75.4 % (45.0-75.0) H 78.5 % (45.0-75.0) H Lymphocytes (%) (Auto) 16.9 % (20.0-45.0) L 13.7 % (20.0-45.0) L Monocytes (%) (Auto) 4.5 % (1.0-10.0) 4.6 % (1.0-10.0) Eosinophils (%) (Auto) 2.9 % (0.0-3.0) 2.7 % (0.0-3.0) Basophils (%) (Auto) 0.3 % (0.0-2.0) 0.5 % (0.0-2.0) Sodium Level 143 MMOL/L (136-145) Potassium Level 3.6 MMOL/L (3.5-5.1) Chloride Level 110 MMOL/L (98-107) H Carbon Dioxide Level 25 MMOL/L (21-32) Anion Gap 8 mmol/L (5-15) Blood Urea Nitrogen 10 mg/dL (7-18) Creatinine 0.6 MG/DL (0.55-1.30) Estimat Glomerular Filtration Rate > 60 mL/min (>60) Glucose Level 203 MG/DL (74-106) H Calcium Level 7.6 MG/DL (8.5-10.1) L Phosphorus Level 2.5 MG/DL (2.5-4.9) Magnesium Level 1.7 MG/DL (1.8-2.4) L Total Bilirubin 0.7 MG/DL (0.2-1.0) Aspartate Amino Transf (AST/SGOT) 22 U/L (15-37) Alanine Aminotransferase (ALT/SGPT) 21 U/L (12-78) Alkaline Phosphatase 72 U/L (46-116) Total Protein 5.0 G/DL (6.4-8.2) L Albumin 1.6 G/DL (3.4-5.0) L Globulin 3.4 g/dL Albumin/Globulin Ratio 0.5 (1.0-2.7) L Activated Partial Thromboplast Time 23 SEC (23-33) l Intake and Output 06/30/20 07/01/20 19:00 07:00 Intake Total 1195.0 ml 1144.5 ml Output Total 2700 ml 1250 ml Balance -1505.0 ml -105.5 ml Intake Free Water 60 ml IV Total 1075.0 ml 1144.5 ml Other 60 ml Output Urine Total 2700 ml 1250 ml # Bowel Movements 4 3 Objective PHYSICAL EXAMINATION: GENERAL: Patient is a well-developed, well-nourished female, in no apparent distress. HEENT: Eyes pupils are equal and responsive to light and accommodation. NECK: Supple without lymphadenopathy. CHEST: decreased breath sounds, positive or rales, no wheezes. CARDIOVASCULAR: Regular rhythm and rate. S1, S2 are normal without murmurs, or gallops, + Pacemaker. ABDOMEN: Soft, nontender, nondistended. Positive bowel sounds. no rebound or guarding noted, Obesity. EXTREMITIES: Negative for clubbing, cyanosis, or edema. RECTAL/GENITAL: Guillen cath NEUROLOGIC: Limited due to patient status, moving all extremities equally. Assessment/Plan Assessment/Plan ASSESSMENT: This is a 74-year-old female. 1. Acute hypoxemic Respiratory failure --> Extubated. 2. Altered mental status most likely secondary to toxic metabolic encephalopathy. 3. Severe anemia. 4. Hypotension. 5. Acute coronary syndrome/NSTEMI 6. Cerebrovascular disease. 7. DAYO / ATN 8. History of hypertension. 9. Diabetes type 2. 10. Sepsis possible intra-abdominal infection. 11. Acute on chronic diastolic CHF. TREATMENT: 1. Respiratory failure. Pulmonary consultation = Dr. Doe. Follow recommendations of Pulmonary. 2. Severe anemia. S/P transfusion 2 units of packed RBCs. Follow Hgb/Hct 3. Hypotension resolved. 4. Hyperglycemia. 5. Diabetes type 2. An Endocrinology consultation has been obtained with Dr. Quiros. 6. Cerebrovascular disease, status post cerebrovascular accident. 7. Acute on chronic renal failure. A Nephrology consultation has been obtained with Dr. Lenz. Follow recommendations of Nephrology. Abx: Zosyn IV On Heparin Drip PT mobility once more stable Jan Valdivia MD Jul 01, 2020 19:03
--- NOTE | 2020-07-01 19:42 | NUR ---
NURSE NOTES: Pt. received from SHANNON Gilmore. PT. AAOx1 to name, breathing even and unlabored on 3L NC, no indications of respiratory distress, no indications of pain at this time. Pt. with right AC 22g receiving heparin drip per protocol. OG-tube in place at 65cm. Guillen intact and patent, draining yellow urine well. Soft bilateral wrist restraints for pulling devices, movement and sensation intact, pulses palpable. Bed low and locked, side rails x3 up, bed alarm active, and call light in reach.
[2020-07-01] MEDS ORDERED: Tubing IV Secondary IV ONE ×2 (19:45→19:46)
[2020-07-01] MEDS ORDERED: D5NS 1000ml IV ONE (19:45)
[2020-07-01] MEDS ORDERED: NS 275ml ONE ×2 (19:45→19:46)
[2020-07-01] MEDS ORDERED: Sterile Water Irrig 1000ml IRRIG ONE (19:45)
[2020-07-01] MEDS ORDERED: Tubing IV Blood Pump IV ONE (19:45)
--- NOTE | 2020-07-01 19:45 | NUR ---
NURSE NOTES: Received orders from Dr. Abbott to d/c pattie cummins. Message left for Dr. Henson requesting clearance for OG tube use, awaiting return call and orders.
[2020-07-01] MEDS ORDERED: Miralax 17gm pkt NG PRN (20:00)
[2020-07-01] MEDS ORDERED: Albuterol/Ipratropium 3ml neb HHN PRN (20:15)
[2020-07-01] MEDS ORDERED: Carvedilol 6.25mg Tab NG SCH (21:00)
[2020-07-01] MEDS: Dyna-Hex 2% Top Sol 2oz TOPIC SCH (21:14)
--- NOTE | 2020-07-01 22:30 | NUR ---
NURSE NOTES: Pt. difficult PTT draw, unalbe for phleb and multiple to draw labs per heparin drip protocol. Dr. Lenz notified and received orders from Dr. Lenz to d/c heparin drip and start pt. on lovenox SQ.
--- NOTE | 2020-07-01 22:42 | Cardiology Progress Note ---
Subjective DATE OF SERVICE: Jul 01, 2020 Remains off vent support. She is s/p 3 units of PRBC's transfused. BP parameters remain stable, and she remains off pressors Monitor: sinus with arrhythmia. 2D Echo: Normal LVEF, no significant valve or pericardial abn, mild pulmonary hypertension (41mmHg). Venous duplex: +common femoral DVT; patient is on IV heparin. Stool OB positive Objective Last 24 Hour Vital Signs Date Time Temp Pulse Resp B/P (MAP) Pulse Ox O2 Delivery O2 Flow Rate FiO2 07/01/20 22:11 74 18 100 Nasal Cannula 2.0 28 72 18 100 07/01/20 22:08 72 18 100 Nasal Cannula 2.0 28 07/01/20 21:14 80 191/106 07/01/20 19:00 100 Nasal Cannula 2.0 07/01/20 16:00 97.9 73 20 149/77 (101) 98 07/01/20 16:00 67 07/01/20 13:00 73 31 153/75 (101) 100 07/01/20 12:30 77 31 166/72 (103) 100 07/01/20 12:00 98.0 81 28 168/79 (108) 100 07/01/20 12:00 Nasal Cannula 2.0 Nasal Cannula 2.0 07/01/20 12:00 87 07/01/20 11:30 71 25 143/60 (87) 100 07/01/20 11:05 68 150/73 07/01/20 11:00 71 30 150/73 (98) 100 07/01/20 10:30 73 30 156/78 (104) 100 07/01/20 10:00 75 28 151/79 (103) 99 07/01/20 09:30 75 24 150/72 (98) 100 07/01/20 09:00 76 31 169/59 (95) 100 07/01/20 08:30 78 29 159/80 (106) 100 07/01/20 08:25 81 171/61 07/01/20 08:00 78 07/01/20 08:00 Nasal Cannula 2.0 Nasal Cannula 2.0 07/01/20 08:00 97.4 78 31 171/61 (97) 100 07/01/20 08:00 2.0 07/01/20 07:00 75 28 178/89 (118) 100 07/01/20 06:55 76 20 175/99 (124) 100 07/01/20 06:30 75 20 182/89 (120) 100 07/01/20 06:30 70 22 07/01/20 06:00 73 21 160/85 (110) 100 07/01/20 05:30 70 25 165/73 (103) 100 07/01/20 05:30 70 25 165/73 (103) 100 07/01/20 05:00 77 27 151/76 (101) 100 07/01/20 04:14 71 07/01/20 04:00 2.0 07/01/20 04:00 Nasal Cannula 2.0 Nasal Cannula 2.0 07/01/20 04:00 68 28 152/72 (98) 100 07/01/20 03:00 70 26 154/66 (95) 100 07/01/20 02:30 70 25 145/75 (98) 100 07/01/20 02:00 69 28 130/67 (88) 100 07/01/20 01:30 71 28 142/70 (94) 100 07/01/20 01:00 69 19 144/70 (94) 100 07/01/20 01:00 69 19 144/70 (94) 100 07/01/20 00:30 69 27 146/68 (94) 100 07/01/20 00:30 69 27 146/68 (94) 100 07/01/20 00:00 2.0 07/01/20 00:00 67 26 132/69 (90) 100 07/01/20 00:00 67 26 132/69 (90) 100 07/01/20 00:00 68 07/01/20 00:00 Nasal Cannula 2.0 Nasal Cannula 2.0 06/30/20 23:30 69 27 129/68 (88) 100 06/30/20 23:00 65 25 121/63 (82) 100 ROS: unchanged from 06/26/20 HEENT: normal ENT inspection, Thin secretions ET Tube RHYTHM: NSR, ST, PACs LUNGS: bilateral rhonchi - decreased CARDIAC: normal rate, regular rhythm, normal S1 and S2, tachycardia ABDOMEN: normal bowel sounds, soft, no mass EXTREMITIES: normal inspection, no swelling, trace edema Laboratory Tests Test 07/01/20 02:45 07/01/20 15:45 White Blood Count 13.5 K/UL (4.8-10.8) H 13.2 K/UL (4.8-10.8) H Red Blood Count 3.00 M/UL (4.20-5.40) L 3.26 M/UL (4.20-5.40) L Hemoglobin 9.2 G/DL (12.0-16.0) L 10.2 G/DL (12.0-16.0) L Hematocrit 27.6 % (37.0-47.0) L 30.9 % (37.0-47.0) L Mean Corpuscular Volume 92 FL (80-99) 95 FL (80-99) Mean Corpuscular Hemoglobin 30.8 PG (27.0-31.0) 31.2 PG (27.0-31.0) H Mean Corpuscular Hemoglobin Concent 33.3 G/DL (32.0-36.0) 32.9 G/DL (32.0-36.0) Red Cell Distribution Width 13.9 % (11.6-14.8) 14.7 % (11.6-14.8) Platelet Count 137 K/UL (150-450) L 164 K/UL (150-450) Mean Platelet Volume 7.0 FL (6.5-10.1) 6.4 FL (6.5-10.1) L Neutrophils (%) (Auto) 75.4 % (45.0-75.0) H 78.5 % (45.0-75.0) H Lymphocytes (%) (Auto) 16.9 % (20.0-45.0) L 13.7 % (20.0-45.0) L Monocytes (%) (Auto) 4.5 % (1.0-10.0) 4.6 % (1.0-10.0) Eosinophils (%) (Auto) 2.9 % (0.0-3.0) 2.7 % (0.0-3.0) Basophils (%) (Auto) 0.3 % (0.0-2.0) 0.5 % (0.0-2.0) Sodium Level 143 MMOL/L (136-145) Potassium Level 3.6 MMOL/L (3.5-5.1) Chloride Level 110 MMOL/L (98-107) H Carbon Dioxide Level 25 MMOL/L (21-32) Anion Gap 8 mmol/L (5-15) Blood Urea Nitrogen 10 mg/dL (7-18) Creatinine 0.6 MG/DL (0.55-1.30) Estimat Glomerular Filtration Rate > 60 mL/min (>60) Glucose Level 203 MG/DL (74-106) H Calcium Level 7.6 MG/DL (8.5-10.1) L Phosphorus Level 2.5 MG/DL (2.5-4.9) Magnesium Level 1.7 MG/DL (1.8-2.4) L Total Bilirubin 0.7 MG/DL (0.2-1.0) Aspartate Amino Transf (AST/SGOT) 22 U/L (15-37) Alanine Aminotransferase (ALT/SGPT) 21 U/L (12-78) Alkaline Phosphatase 72 U/L (46-116) Total Protein 5.0 G/DL (6.4-8.2) L Albumin 1.6 G/DL (3.4-5.0) L Globulin 3.4 g/dL Albumin/Globulin Ratio 0.5 (1.0-2.7) L Activated Partial Thromboplast Time 23 SEC (23-33) Assessment/Plan Assessment/Plan Shock recovered Acute DVT Severe anemia Acute coronary syndrome/NSTEMI ATN associated acute renal failure Hypertensive heart disease with labile BP Acute on chronic diastolic CHF Hypovolemia Sepsis Acute respiratory failure - now extubated PAFib Recent permanent pacemaker implant Lactic acidosis - resolved Pulmonary hypertension Very low lipid parameters, other than triglycerides Abx Advance antiHTN meds Continuous cardiac monitoring Continue gemfibrozil Monitor hemoglobin Hold antiplt therapy in view of severe anemia Consider full anticoagulation alf for DVT vs IVC Filter if on-going bleeding risk. Serafin Lawson MD Jul 01, 2020 22:42
[2020-07-01] MEDS ORDERED: Albuterol/Ipratropium 3ml neb HHN SCH (23:00)
--- NOTE | 2020-07-01 23:19 | NUR ---
NURSE NOTES: Pt. d/c og-tube, charge nurse notified. NG tube inserted per orders, placed verified by two RNs with auscultation. Stat KUB ordered.
--- NOTE | 2020-07-01 23:23 | Diagnostic Imaging Report ---
EXAM: XR Abdomen, 1 View CLINICAL HISTORY: NGT TECHNIQUE: Frontal view of the abdomen/pelvis with upright view of the abdomen. COMPARISON: CT abdomen June 26, 2020. KUB July 01, 2020 Findings/impression: Tip of the enteric tube is projecting over the stomach. Bilateral nephrograms, correlate for renal insufficiency. Unremarkable bowel gas pattern with enteric contrast identified in the colon. Atherosclerotic vascular calcifications. Multiple surgical clips are seen projecting over the abdomen and pelvis. The lower pelvis is collimated from view. Degenerative changes are noted in the thoracic and lumbar spine.
[2020-07-02] VITALS: BP 163/73
[2020-07-02] MEDS ORDERED: Enoxaparin 40mg Inj SUBQ SCH
[2020-07-02] MEDS: NovoLOG Insulin Flexpen SUBQ SCH ×2 (00:20→05:23)
[2020-07-02 04:00] VITALS: BP 149/81
--- NOTE | 2020-07-02 04:17 | NUR ---
NURSE NOTES: pt. rec Addendum: 07/02/20 at 0417 by Aakash Lee RN Please disregard, saved in error.
[2020-07-02 05:14] LABS: BASOPHILS % (AUTO) 0.4 % (0.0-2.0); EOSINOPHILS % (AUTO) 2.8 % (0.0-3.0); HEMATOCRIT 26.9 % (37.0-47.0); LYMPHOCYTES % (AUTO) 15.3 % (20.0-45.0); MEAN CORPUSCULAR VOLUME 92 FL (80-99); MONOCYTES % (AUTO) 5.8 % (1.0-10.0); NEUTROPHILS % (AUTO) 75.6 % (45.0-75.0); PLATELET COUNT 155 K/UL (150-450); RED BLOOD COUNT 2.92 M/UL (4.20-5.40); WHITE BLOOD COUNT 11.9 K/UL (4.8-10.8)
[2020-07-02 05:34] LABS: ALANINE AMINOTRANSFERASE 23 U/L (12-78); ALBUMIN 1.7 G/DL (3.4-5.0); ALBUMIN/GLOBULIN RATIO 0.5 (1.0-2.7); ALKALINE PHOSPHATASE 82 U/L (46-116); ANION GAP 6 mmol/L (5-15); ASPARTATE AMINO TRANSFERASE 23 U/L (15-37); BILIRUBIN,TOTAL 0.7 MG/DL (0.2-1.0); BLOOD UREA NITROGEN 9 mg/dL (7-18); CALCIUM 8.7 MG/DL (8.5-10.1); CARBON DIOXIDE 28 MMOL/L (21-32); CHLORIDE 107 MMOL/L (98-107); CREATININE 0.7 MG/DL (0.55-1.30); PHOSPHORUS 2.1 MG/DL (2.5-4.9); POTASSIUM 3.5 MMOL/L (3.5-5.1); SODIUM 141 MMOL/L (136-145)
--- NOTE | 2020-07-02 05:49 | NUR ---
NURSE NOTES: Message left for Dr. Lenz regarding Mg and Ph levels this morning as well as notified of pt. removal of OG tube and replacement with NG tube. No clear placement per stat KUB, requesting orders.
--- NOTE | 2020-07-02 07:17 | NUR ---
RESPIRATORY NOTE: Rapid Response called at this time. Pt was found on 2Lpm n/c with a saturation of 80%. Placed PT on 100% NRB mask. Saturations fluctuated between 50 and 82%. No chest rise visible. No B/S heard. Monitor shows HR :60. BP critically low. PT is DNR /DNI.
--- NOTE | 2020-07-02 07:43 | NUR ---
NURSE NOTES: Pt. deteriorating, charge nurse called, respiratory therapist called to assess. Pt. with no respirations noted, no pulses palpable, showing SR on monitor due to pacemaker activity. Pt. placed on NRB mask at 100%, 02 sats fluctuating from 50-80%, and BP dropping to 44/17, 60HR on monitor. Dr. Lenz notified of pt's condition, pt. is DNR/DNI. Next of kin notified of pt. condition. Will endorse to day shift RN.
[2020-07-02] MEDS ORDERED: Tubing IV Secondary IV ONE (08:12)
--- NOTE | 2020-07-02 08:36 | NUR ---
PRONOUNCEMENT: No Code. Called to pronounce patient. Absence of spontaneous respirations, no cardiac or breath sounds on auscultation. Pupils fixed and dilated. No carotid pulse or chest movement. Patient at 0813. DR Lenz notified PER SHANNON Finn . Family was notified at 0836.
--- NOTE | 2020-07-02 08:44 | NUR ---
NURSE NOTES: Next of kin notified of pt.s expiration.
[2020-07-02] MEDS ORDERED: Docusate 100mg/10ml Liq NG SCH (09:00)
--- NOTE | 2020-07-02 11:15 | NUR ---
NURSE NOTES: Pt placed in body bag and transferred to [facility] [place]. No belongings, lines previously removed. Family previously notified.
--- NOTE | 2020-07-05 15:28 | Discharge Summary ---
Discharge Summary Discharge Summary _ SUMMARY DATE OF ADMISSION: 06/26/2020 DATE OF EXPIRATION: 07/02/2020 REASON FOR ADMISSION: 74 years old female, resident of nursing home facility, with past medical history of hypertension, diabetes mellitus, CVA, was sent for evaluation due to altered mental status and hypotension. Patient presented with altered level of consciousness by paramedics. Patient was very dyspneic not moving the air well along with hypotension and hypoxemia. Patient was emergently orally intubated . Central line was established for pressors. Fluid resuscitation initiated. Patient pancultured, started on empiric antibiotic . Chest x-ray revealed no evidence of infiltrate. Blood pressure improved with fluids. Laboratory work-up revealed leukocytosis with left shift, chemistry showed acute renal failure . ABG on vent revealed compensated metabolic acidosis. Lactic acid elevated 5.5 , repeated 2.3. Troponin elevated 0.164 , ECG revealed no acute ischemic changes. Patient subsequently admitted to ICU for further management . CONSULTANTS: manager china Dr. Lawson pulmonary Dr. Doe ID specialist Dr. Abbott home therapy clinician Dr. Lenz internal [facility] Dr Valdivia [facility] COURSE: Patient admitted to ICU. Ventilator support and pulmonary toilet provided. Patient started on empiric antibiotics . Hemodynamic status was closely monitored; pressors titrated to keep mean arterial blood pressure above 65. COVID-19 by PCR was negative. Blood culture were negative . Sputum culture revealed Candid. Patient was follow-up with imaging. Echocardiogram demonstrated preserved ejection fraction of 60 to 65% with right ventricular systolic pressure of 41 consistent with a moderate pulmonary hypertension. No evidence of wall motion abnormality. Ventilator support provided. Pulmonary toilet provided. Patient eventually extubated. Supplemental oxygen provided via nasal cannula and titrated to keep pulse oximetry above 92%. Patient was able to be weaned off pressors. Patient has severe anemia and required 2 units of packed red blood cells initially for hemoglobin 6.2. Serial troponin were monitored . Assignment Clerk initially recommended no antiplatelet therapy, given severe anemia., Lipid panel was stable. Beta-blockade provided. Venous duplex bilateral lower extremity revealed right common femoral vein DVT. Hemoglobin remained at patient's baseline after transfusion. Patient started on heparin drip and later was transitioned to full anticoagulation with Lovenox. CT scan of the abdomen and pelvis revealed biliary dilatation attributable to choledocholithiasis. 1.2 and 1.3 cm calculi in the proximal and distal common bile duct respectively. The distended gallbladder containing a large lamellated stone. EGD and GI specialist followed. Per surgeon , patient was not safe for surgery. Given normal LFT and septic shock, GI specialist recommended to hold ERCP at this time. Hemoglobin hematocrit stabilized after transfusion. Stool for occult blood was positive, but given current medical condition , stable hemoglobin and hematocrit , EGD was on hold. PPI was added to existing medication regimen. Leukocytosis was trending down. Renal parameters and electrolytes were closely monitored, electrolytes corrected as needed, nephrotoxins were avoided. Creatinine from 3.0 down to 0.7 . Per home therapy clinician patient had acute kidney injury, likely acute tubular necrosis in the setting of septic shock. Patient remained DNR/DNI as per family wishes. Patient condition continued to deteriorate. She was pronounced on 8:13 AM 07/02/20. Cause of : cardiopulmonary arrest FINAL DIAGNOSES: Acute hypoxemic respiratory failure requiring intubation , status post extubation Shock Severe sepsis Acute DVT ACS/NSTEMI Pneumonia Choledocholithiasis Acute kidney injury, likely acute tubular necrosis in the setting of septic shock Hypertensive heart disease with labile blood pressure Acute on chronic diastolic CHF Hypovolemia Paroxysmal atrial fibrillation Recent permanent pacemaker implantation Lactic acidosis- resolved Pulmonary hypertension Acute anemia History of CVA Aspiration risk Altered mental status I have been assigned to dictate discharge summary for this account. I was not involved in the patient's management. Stephanie Alonso NP Jul 05, 2020 15:28
== END 2020-07-02 08:13 | disposition expired | DRG 720 ==
LOC: EDBD 11:32 → EDSEX 11:32 → EMR 12:41 → ICU 14:21 → EDBEDREQ 15:09 → 2E 07-01 13:30
PROC: 5A1945Z Respiratory Ventilation, 24-96 Consecutive Hours (ICD-10-PCS; principal; 2020-06-26)
PROC: 0BH17EZ Insertion of Endotracheal Airway into Trachea, Via Natural or Artificial Opening (ICD-10-PCS; principal; 2020-06-26)
DX: A41.9 Sepsis, unspecified organism (principal); I21.4 Non-ST elevation (NSTEMI) myocardial infarction; R65.21 Severe sepsis with septic shock; I69.354 Hemiplegia and hemiparesis following cerebral infarction affecting left non-dominant side; J96.01 Acute respiratory failure with hypoxia; J96.02 Acute respiratory failure with hypercapnia; J18.9 Pneumonia, unspecified organism; N17.0 Acute kidney failure with tubular necrosis; Z95.0 Presence of cardiac pacemaker; E11.65 Type 2 diabetes mellitus with hyperglycemia; E11.22 Type 2 diabetes mellitus with diabetic chronic kidney disease; I13.0 Hypertensive heart and chronic kidney disease with heart failure and stage 1 through stage 4 chronic kidney disease, or unspecified chronic kidney disease; N18.9 Chronic kidney disease, unspecified; I50.33 Acute on chronic diastolic (congestive) heart failure; I48.0 Paroxysmal atrial fibrillation; D64.9 Anemia, unspecified; Z20.822 Contact with and (suspected) exposure to COVID-19; E86.1 Hypovolemia; E43 Unspecified severe protein-calorie malnutrition; Z68.28 Body mass index [BMI] 28.0-28.9, adult; I27.20 Pulmonary hypertension, unspecified; I82.411 Acute embolism and thrombosis of right femoral vein; K80.50 Calculus of bile duct without cholangitis or cholecystitis without obstruction
CPT/HCPCS: 31500; 36415; 71045; 74018; 74176; 76700; 80048; 80053; 80061; 80202; 81003; 82150; 82270; 82550; 82570; 82728; 82803; 82962; 83605; 83615; 83690; 83735; 83880; 84100; 84300; 84484; 85007; 85025; 85379; 85610; 85730; 86140; 86850; 86900; 86901; 86920; 87040; 87070; 87081; 87205; 93005; 93306; 93970; 94002; 94003; 94640; 96361; 96365; 96367; 99291; 99292; J1815; J7030; J7620; J8499